=== PATIENT | male | born 1950 | race Caucasian/White ===

== ENCOUNTER 2017-05-15 17:04 | Observation (INO) | payer MEDICARE, SELFPAY | END 2017-05-17 14:15 | disposition home or self-care (01) | PROVIDERS: Admitting Provider Emergency Medicine; Emergency Provider Emergency Medicine; Family Provider Family Medicine; Visit Provider Family Medicine | DX: R50.9 Fever, unspecified (principal); E11.9 Type 2 diabetes mellitus without complications; R41.0 Disorientation, unspecified; Z91.81 History of falling; G40.909 Epilepsy, unspecified, not intractable, without status epilepticus; J18.9 Pneumonia, unspecified organism | CPT/HCPCS: G8978; G8979; G8980; 36415; 71010; 80048; 80053; 81001; 82550; 82553; 82962; 83605; 84484; 85025; 87040; 87275; 87276; 87486; 87581; 87633; 87798; 93005; 93041; 96365; 96366; 96375; 97162; 99285; G0378 ==

== ENCOUNTER 2017-06-12 01:16 | Emergency (ER) | payer MEDICARE, SELFPAY ==
--- NOTE | 2017-06-12 | CT_ITS ---
CT head/brain wo con HISTORY: Headache following injury, contusion, abrasion ITS.REASON: NECK PAIN ORDERING PHYSICIAN: Jovanny Stark MD PATIENT AGE: 67 years COMPARISON: 11/24/2016 TECHNIQUE: Axial images obtained without contrast. Brain and bone windows reviewed. FINDINGS: No midline shift, mass effect, intracranial hemorrhage, hydrocephalus, or extra-axial fluid collection is evident. There is generalized atrophy with periventricular ischemic gliotic change The calvarium has an unremarkable appearance. 1.5 cm rounded right frontal subcutaneous fatty lesion is once again noted. No mastoid effusion. No sinus air-fluid levels.. IMPRESSION: 1. No acute finding. 2. Atrophy with chronic ischemic change..
[2017-06-12 01:18] VITALS: BP 157/68; PULSE 77; RESP 14; TEMP 36.7; O2SAT 98; BMI 36.9
--- NOTE | 2017-06-12 01:32 | CT_ITS ---
CT lumbar spine wo con INDICATION: Low back pain following injury, blunt trauma, contusion or hematoma ITS.REASON: pain ORDERING PHYSICIAN: Jovanny Stark MD PATIENT AGE: 67 years COMPARISON: None TECHNIQUE: Axial images are obtained without contrast. Sagittal and coronal reformatted images are reviewed as well. EXAM is somewhat limited by technique and motion and patient body habitus FINDINGS: There is normal alignment. Postkyphoplasty changes are present at L1. Old transverse process fracture noted on the left at L2 and L3. Compression deformity noted at L4 vertebral body with mild retropulsion of the posterior superior aspect of L4 by approximately 6 mm. The fracture involves both anterior and posterior aspect of the vertebral body as well as right and left lateral aspect indicating a burst type fracture. Bulging disc is also present associated with this with broad-based central disc protrusion. L4-5: Mild degenerative disc disease.. There is irregularity of the right sacral aorta anteriorly. This however was present on the older abdomen CT of 09/28/2016 suggesting an old sacral fracture. Generalized osteopenia. Right nephrolithiasis. 9 mm stone in the lower pole the right kidney IMPRESSION: 1. Acute compression fracture involving the L4 vertebral body involving both anterior and posterior aspect of the vertebral bodies with 6 mm retropulsion of the posterior superior aspect of L4 indicating a burst type compression fracture. There is loss of height posteriorly and superiorly by approximately 20%. 2. Prior kyphoplasty at L1. 3. Right nephrolithiasis
--- NOTE | 2017-06-12 01:32 | CT_ITS ---
CT CERVICAL SPINE WITHOUT CONTRAST CT RECONSTRUCTIONS HISTORY:Neck pain following injury ORDERING PHYSICIAN: Jovanny Stark MD PATIENT AGE: 67 years PROCEDURE: Axial spiral CT scanning performed of the cervical spine beginning at the base of the skull and continuing to the upper T-spine. Sagittal and coronal reformatted images also generated. FINDINGS: There is normal alignment. No fracture or dislocation is evident. There is multilevel to chain disc disease. Mild degenerative disc disease C2-C3 C3-C4 and C4-C5. C5-6: Moderate degenerative disc disease with bulging disc osteophyte complex with narrowing of the canal and bilateral foraminal narrowing C6-C7: Mild degenerative disc disease with endplate osteophyte. Lung apices are clear. No prevertebral soft tissue swelling. IMPRESSION: 1. No acute fracture. 2. Cervical spondylosis worse at C5-C6 level
--- NOTE | 2017-06-12 02:08 | XR_ITS ---
XR hip RT 2-3V w/pelvis HISTORY: Posttraumatic pain ITS.REASON: FALL ORDERING PHYSICIAN: Jovanny Stark MD PATIENT AGE: 67 years COMPARISON: None FINDINGS: No fracture or dislocation is evident. No significant degenerative change. No lytic or blastic change. Unremarkable soft tissues IMPRESSION: Negative hip
--- NOTE | 2017-06-12 02:08 | XR_ITS ---
XR hip LT 2-3V w/pelvis HISTORY: Posttraumatic pain ITS.REASON: FALL ORDERING PHYSICIAN: Jovanny Stark MD PATIENT AGE: 67 years COMPARISON: None FINDINGS: No fracture or dislocation is evident. Minimal osteoarthritic change. Rounded calcific densities are present lateral to the hip within the soft tissues nonspecific consistent with areas fat necrosis. IMPRESSION: No acute fracture
--- NOTE | 2017-06-12 02:08 | HMH.EDFALL ---
ED Disposition Clinical Impression: Compression fracture Concussion without loss of consciousness Qualifiers: Encounter type: initial encounter Qualified Code(s): S06.0X0A - Concussion without loss of consciousness, initial encounter Contusion of hip, right Qualifiers: Encounter type: initial encounter Qualified Code(s): S70.01XA - Contusion of right hip, initial encounter Contusion of hip, left Qualifiers: Encounter type: initial encounter Qualified Code(s): S70.02XA - Contusion of left hip, initial encounter Disposition: Home, Self-Care Condition on Discharge: Good Additional Instructions: resume prev meds - Critical Care Critical Care Time: No Attestation: On 06/12/17, the high probability of a clinically significant, sudden or life threatening deterioration of the following system(s) required my full and direct attention, intervention and personal management. The time I documented below is in addition to time spent performing reported procedures but includes the following listed in this critical care notation. Medical Decision Making - Medical Records Medical records reviewed: Yes: I reviewed the patient's medical records. Vital Signs: 06/12/17 01:18 Temperature 98.1 F Temperature Source Oral Pulse Rate [Left Radial] 77 Respiratory Rate 14 Blood Pressure [Right Arm] 157/68 Blood Pressure Mean [Right Arm] 97 Blood Pressure Source [Right Arm] Automatic Cuff Blood Pressure Position [Right Arm] Supine 02 Sat by Pulse Oximetry 98 Oxygen Delivery Method Room Air - Lab Data Lab results reviewed: Yes: I reviewed the patient's lab results. Orders (Tests/Meds): ORDERS Category Date Time Status CT cervical spine wo con Stat Cat Scan 06/12/17 01:[address] head/brain wo con Routine Cat Scan 06/12/[address] lumbar spine wo con Stat Cat Scan 06/12/17 01:32 Taken Hip XR right minimum 2 views [XR hip RT 2-3V w/pelvis] Exams 06/12/17 02:08 Taken Stat XR hip BI w PEL1V Stat Exams 06/12/17 01:32 Stop Req XR hip LT 2-3V w/pelvis Stat Exams 06/12/17 02:08 Taken - Radiology Data #1 Image(s): Hip Image Reviewed: Yes I reviewed the patient's radiology image Preliminary Findings: No Fracture Seen - CT Data CT Scan: Head, C-Spine, L-Spine Time Received: 03:[address] Reviewed: Yes: I have viewed the radiologist's interpretation Findings Narrative: no acute fx changes L4 maybe new - Jonathon Inquiry Pt receiving controlled substance: No Fall HPI - General Chief Complaint: Fall Stated Complaint: pain after unwitnessed fall Time Seen by Provider: 06/12/17 02:08 Mode of Arrival: EMS Source of Information: Patient, Spouse, EMS, Medical Record Limitations: Physical Limitations Description of Symptoms (Recalled from ER Triage Doc. by RN): walking to bathroom and stumbled backward - History of Present Illness HPI Narrative: pt with fall at [facility] with injury to back and hips and head and neck - no loc and pt reports he fall back as door was hard to open - he uses walker complaint: fall Onset (ago): hour(s) Fall from: standing Fall witnessed: no Place fall occurred: [facility] Loss of consciousness: none Prolonged down time: no Context: tripped/slipped Location of injury: head, back Severity: moderate - Related Data Home Medications Medication Instructions Recorded Confirmed Acetaminophen [Tylenol] 650 mg PO Q6HP PRN 06/12/17 06/12/17 Apixaban [Eliquis] 1 tab PO BID 06/12/17 06/12/17 Aspirin 81mg EC Tab 1 tab PO DAILY 06/12/17 06/12/17 Atenolol [Atenolol 25mg Tab] 12.5 mg PO BID 06/12/17 06/12/17 Bacillus Coagulans [Digestive 1 tab PO DAILY 06/12/17 06/12/17 Advantage] Benzonatate [Benzonatate 100mg 100 mg PO TIDP PRN 06/12/17 06/12/17 cap] Brexpiprazole [Rexulti] 3 mg PO HS 06/12/17 06/12/17 Budesonide [Budesonide EC] 3 mg PO BID 06/12/17 06/12/17 Doxycycline Hyclate [Vibramycin] 1 tab PO BID 06/12/17 06/12/17 Dutasteride/Tamsulosin HCl
--- NOTE | 2017-06-12 02:48 | PC.NURSE ---
returns from imaging, at bedside
[2017-06-12 03:58] VITALS: BP 139/64; PULSE 73; RESP 16; TEMP 36.8; O2SAT 95
== END 2017-06-12 03:58 ==
PROVIDERS: Emergency Provider Emergency Medicine; Family Provider Family Medicine
DX: R52 Pain, unspecified (principal); W19.XXXA Unspecified fall, initial encounter; S32.049A Unspecified fracture of fourth lumbar vertebra, initial encounter for closed fracture; W01.0XXA Fall on same level from slipping, tripping and stumbling without subsequent striking against object, initial encounter; Z91.81 History of falling; Y92.129 Unspecified place in nursing home as the place of occurrence of the external cause; S06.0X0A Concussion without loss of consciousness, initial encounter; S70.02XA Contusion of left hip, initial encounter; Z79.899 Other long term (current) drug therapy; Z79.82 Long term (current) use of aspirin; E11.9 Type 2 diabetes mellitus without complications; Z79.4 Long term (current) use of insulin; Z87.891 Personal history of nicotine dependence
CPT/HCPCS: 70450; 72125; 72131; 73502; 99283

== ENCOUNTER 2017-06-12 04:30 | Emergency (ER) | payer MEDICARE, SELFPAY ==
[2017-06-12 04:32] VITALS: BP 156/68; PULSE 70; RESP 16; TEMP 37; O2SAT 93; BMI 36.9
--- NOTE | 2017-06-12 04:46 | PC.NURSE ---
Dr Stark at bedside suturing Patient
--- NOTE | 2017-06-12 04:48 | HMH.EDWNDL ---
ED Disposition Clinical Impression: Laceration Disposition: Home, Self-Care Condition on Discharge: Good Instructions: DI for Laceration Repair Additional Instructions: suture out 10 days - Critical Care Critical Care Time: No Attestation: On , the high probability of a clinically significant, sudden or life threatening deterioration of the following system(s) required my full and direct attention, intervention and personal management. The time I documented below is in addition to time spent performing reported procedures but includes the following listed in this critical care notation. Medical Decision Making - Medical Records Medical records reviewed: Yes: I reviewed the patient's medical records. Vital Signs: 06/12/17 04:32 Temperature 98.6 F Temperature Source Oral Pulse Rate [Left Radial] 70 Respiratory Rate 16 Blood Pressure [Right Arm] 156/68 Blood Pressure Mean [Right Arm] 97 Blood Pressure Source [Right Arm] Automatic Cuff Blood Pressure Position [Right Arm] Sitting 02 Sat by Pulse Oximetry 93 L Oxygen Delivery Method Room Air - Jonathon Inquiry Pt receiving controlled substance: No Wound/Laceration HPI - General Chief Complaint: Wound/Laceration Stated Complaint: ankle laceration Time Seen by Provider: 06/12/17 04:48 Mode of Arrival: Ambulatory Source of Information: Patient, EMS, Medical Record Limitations: No Limitations Description of Symptoms (Recalled from ER Triage Doc. by RN): left ankle 2 inch lac - History of Present Illness HPI narrative: lac lt foot as he was moved over to stretcher tonight Onset (ago): hour(s) Location: other Extremity Location: Left: foot Context: accidental - Related Data Home Medications Medication Instructions Recorded Confirmed Acetaminophen [Tylenol] 650 mg PO Q6HP PRN 06/12/17 06/12/17 Apixaban [Eliquis] 1 tab PO BID 06/12/17 06/12/17 Aspirin 81mg EC Tab 1 tab PO DAILY 06/12/17 06/12/17 Atenolol [Atenolol 25mg Tab] 12.5 mg PO BID 06/12/17 06/12/17 Bacillus Coagulans [Digestive 1 tab PO DAILY 06/12/17 06/12/17 Advantage] Benzonatate [Benzonatate 100mg 100 mg PO TIDP PRN 06/12/17 06/12/17 cap] Brexpiprazole [Rexulti] 3 mg PO HS 06/12/17 06/12/17 Budesonide [Budesonide EC] 3 mg PO BID 06/12/17 06/12/17 Doxycycline Hyclate [Vibramycin] 1 tab PO BID 06/12/17 06/12/17 Dutasteride/Tamsulosin HCl [Alicia 1 each PO DAILY 06/12/17 06/12/17 0.5-0.4 mg Capsule] Escitalopram Oxalate [Lexapro] 20 mg PO DAILY 06/12/17 06/12/17 Fluticasone Propionate [Flovent 50 mcg IH DAILY 06/12/17 06/12/17 Diskus] Furosemide [Furosemide 20mg Tab] 20 mg PO BID 06/12/17 06/12/17 Gabapentin [Neurontin 600mg 600 mg PO TID 06/12/17 06/12/17 tablet] Insulin Glargine,Hum.rec.anlog 50 unit SQ DAILY 06/12/17 06/12/17 [Ranjeet Landry] Liraglutide [Victoza 2-Rick] 1.2 mg SQ DAILY 06/12/17 06/12/17 Loperamide HCl [Loperamide] 4 mg PO TID 06/12/17 06/12/17 Memantine HCl [Namenda] 10 mg PO BID 06/12/17 06/12/17 Men 50 Plus Multivitamin Tab 1 tab PO DAILY 06/12/17 06/12/17 Miconazole Nitrate [Lotrimin AF] 90 gm TP TIDP PRN 06/12/17 06/12/17 Nystatin/Triamcin [Nystatin-Triamc 1 applic TOPICAL TIDP PRN 06/12/17 06/12/17 Crm 15gm] Oxybutynin Chloride [Oxybutynin 1 tab PO DAILY 06/12/17 06/12/17 Chloride ER] Pravastatin Sodium [Pravachol] 40 mg PO DAILY 06/12/17 06/12/17 Rivastigmine [Exelon] 1 each TD DAILY 06/12/17 06/12/17 Tramadol HCl [Ultram 50mg 50 mg PO Q6HP PRN 06/12/17 06/12/17 tablet] Vitamin B-6 1 tab PO DAILY 06/12/17 06/12/17 clonazePAM [Clonazepam] 0.25 mg PO DAILY 06/12/17 06/12/17 clonazePAM [Clonazepam] 0.5 mg PO HS 06/12/17 06/12/17 glipiZIDE [Glipizide] 10 mg PO BID 06/12/17 06/12/17 lamoTRIgine [Lamotrigine] 1 tab PO DAILY 06/12/17 06/12/17 Allergies Allergy/AdvReac Type Severity Reaction Status Date / Time erythromycin base Allergy Intermediate SWELLING/IT Verified 06/12/17 01:42 [ERYTHROMYCIN BASE] CLEMENTE/SEIZ
[2017-06-12 04:51] VITALS: BP 147/61; PULSE 72; RESP 16; TEMP 37; O2SAT 93
--- NOTE | 2017-06-12 04:51 | ED_ITS ---
ED Disposition Clinical Impression: Laceration Disposition: Home, Self-Care Condition on Discharge: Good Instructions: DI for Laceration Repair Additional Instructions: suture out 10 days - Critical Care Critical Care Time: No Attestation: On , the high probability of a clinically significant, sudden or life threatening deterioration of the following system(s) required my full and direct attention, intervention and personal management. The time I documented below is in addition to time spent performing reported procedures but includes the following listed in this critical care notation. Medical Decision Making - Medical Records Medical records reviewed: Yes: I reviewed the patient's medical records. Vital Signs: 06/12/17 04:32 Temperature 98.6 F Temperature Source Oral Pulse Rate [Left Radial] 70 Respiratory Rate 16 Blood Pressure [Right Arm] 156/68 Blood Pressure Mean [Right Arm] 97 Blood Pressure Source [Right Arm] Automatic Cuff Blood Pressure Position [Right Arm] Sitting 02 Sat by Pulse Oximetry 93 L Oxygen Delivery Method Room Air - Jonathon Inquiry Pt receiving controlled substance: No Wound/Laceration HPI - General Chief Complaint: Wound/Laceration Stated Complaint: ankle laceration Time Seen by Provider: 06/12/17 04:48 Mode of Arrival: Ambulatory Source of Information: Patient, EMS, Medical Record Limitations: No Limitations Description of Symptoms (Recalled from ER Triage Doc. by RN): left ankle 2 inch lac - History of Present Illness HPI narrative: lac lt foot as he was moved over to stretcher tonight Onset (ago): hour(s) Location: other Extremity Location: Left: foot Context: accidental - Related Data Home Medications Medication Instructions Recorded Confirmed Acetaminophen [Tylenol] 650 mg PO Q6HP PRN 06/12/17 06/12/17 Apixaban [Eliquis] 1 tab PO BID 06/12/17 06/12/17 Aspirin 81mg EC Tab 1 tab PO DAILY 06/12/17 06/12/17 Atenolol [Atenolol 25mg Tab] 12.5 mg PO BID 06/12/17 06/12/17 Bacillus Coagulans [Digestive 1 tab PO DAILY 06/12/17 06/12/17 Advantage] Benzonatate [Benzonatate 100mg 100 mg PO TIDP PRN 06/12/17 06/12/17 cap] Brexpiprazole [Rexulti] 3 mg PO HS 06/12/17 06/12/17 Budesonide [Budesonide EC] 3 mg PO BID 06/12/17 06/12/17 Doxycycline Hyclate [Vibramycin] 1 tab PO BID 06/12/17 06/12/17 Dutasteride/Tamsulosin HCl [Alicia 1 each PO DAILY 06/12/17 06/12/17 0.5-0.4 mg Capsule] Escitalopram Oxalate [Lexapro] 20 mg PO DAILY 06/12/17 06/12/17 Fluticasone Propionate [Flovent 50 mcg IH DAILY 06/12/17 06/12/17 Diskus] Furosemide [Furosemide 20mg Tab] 20 mg PO BID 06/12/17 06/12/17 Gabapentin [Neurontin 600mg 600 mg PO TID 06/12/17 06/12/17 tablet] Insulin Glargine,Hum.rec.anlog 50 unit SQ DAILY 06/12/17 06/12/17 [Ranjeet Landry] Liraglutide [Victoza 2-Rick] 1.2 mg SQ DAILY 06/12/17 06/12/17 Loperamide HCl [Loperamide] 4 mg PO TID 06/12/17 06/12/17 Memantine HCl [Namenda] 10 mg PO BID 06/12/17 06/12/17 Men 50 Plus Multivitamin Tab 1 tab PO DAILY 06/12/17 06/12/17 Miconazole Nitrate [Lotrimin AF] 90 gm TP TIDP PRN 06/12/17 06/12/17 Nystatin/Triamcin [Nystatin-Triamc 1 applic TOPICAL TIDP PRN 06/12/17 06/12/17 Crm 15gm] Oxybutynin Chloride [Oxybutynin 1 tab PO
== END 2017-06-12 05:02 | disposition home or self-care (01) ==
PROVIDERS: Emergency Provider Emergency Medicine; Family Provider Family Medicine
DX: S91.012A Laceration without foreign body, left ankle, initial encounter (principal); Y93.F9 Activity, other caregiving; Y92.9 Unspecified place or not applicable; E11.9 Type 2 diabetes mellitus without complications; Z87.891 Personal history of nicotine dependence; Z79.02 Long term (current) use of antithrombotics/antiplatelets; Z79.82 Long term (current) use of aspirin; Z79.4 Long term (current) use of insulin; Z79.51 Long term (current) use of inhaled steroids; Z79.899 Other long term (current) drug therapy
CPT/HCPCS: 12001; 70450; 72125; 72131; 73502; 99282; 99283

== ENCOUNTER 2017-06-17 13:44 | Observation (INO) | payer MEDICARE, SELFPAY ==
--- NOTE | 2017-06-17 | XR_ITS ---
XR shoulder RT min 2V COMPARISON: Right shoulder 11/22/2016 HISTORY: Right shoulder pain after a fall TECHNIQUE: 3 views right shoulder FINDINGS: The clavicle is intact. Is mild degenerative change of the AC joint. Humeral head and glenoid appear intact. There are no soft tissue calcifications. IMPRESSION: Right shoulder negative for fracture
[2017-06-17 13:17] VITALS: BP 148/69; PULSE 77; RESP 18; TEMP 36.7; O2SAT 95; BMI 36.9
[2017-06-17 13:20] VITALS: BMI 41.3
--- NOTE | 2017-06-17 13:23 | CT_ITS ---
CT cervical spine wo con COMPARISON: CT scan cervical spine 06/12/2017 HISTORY: Patient fell at [facility], complaining of neck pain TECHNIQUE: Multiple axial scans of cervical spine were obtained. Sagittal and coronal reformats were evaluated as well. FINDINGS: C1-C7 appear intact. There is mild tilting of the cervical spine to the right. All cervical vertebrae appear intact. There is prominent disc space narrowing at the C5-6 and C6-7 levels. There is generalized osteopenia. There is no compression fracture. The prevertebral soft tissues are normal and the odontoid is normal. There is apparent old incompletely fused fracture of the spinous process of C7. IMPRESSION: Generalized osteopenia degenerative changes as noted, no acute cervical spine fracture seen
--- NOTE | 2017-06-17 13:23 | CT_ITS ---
CT head/brain wo con COMPARISON: Noncontrast CT scan of brain 06/12/2017 HISTORY: Patient fell at [facility], complaining of headache TECHNIQUE: Multiple axial scans obtained from base skull to the vertex and were performed without IV contrast. FINDINGS: The base of skull normal, the mastoids are clear. The basilar cisterns are markedly prominent. There is prominent diffuse ventriculomegaly. The sylvian fissures and cortical sulci are prominent. There are mild diffuse periventricular hypodensities consistent with chronic ischemic white matter changes. There is no bleed and there are no extra-axial fluid collections. Bony calvarium appears intact. There is mild focal swelling of the scalp right posterior parietal region. IMPRESSION: Findings of prominent cortical atrophy and mild chronic white matter changes, no acute intracranial pathology noted, scalp hematoma as noted
--- NOTE | 2017-06-17 13:24 | XR_ITS ---
XR chest AP COMPARISON: AP supine chest 09/27/2016 HISTORY: Chest pain after recent fall TECHNIQUE: AP upright chest FINDINGS: The lung gaston are well expanded. Again noted is minimal atelectasis or scarring at the right base. There are multiple old healed rib fractures left side. There is mild aortic tortuosity no cardiomegaly. IMPRESSION: Nonacute chest findings
--- NOTE | 2017-06-17 13:24 | XR_ITS ---
XR hip RT 2-3V w/pelvis COMPARISON: Right hip 06/12/2017 HISTORY: Right hip pain after a fall TECHNIQUE: AP pelvis cone-down AP and frog-leg views right hip FINDINGS: The iliac bones and pubic bones appear intact. Both hips are normally articulated with no evidence of fracture. There is minor spurring of the acetabulum right side. Soft tissues are normal. IMPRESSION: Grossly negative pelvis and right hip
--- NOTE | 2017-06-17 14:24 | HMH.EDFALL ---
ED Disposition Clinical Impression: Hypoglycemia, Hypokalemia, Fall, Scalp contusion Disposition: Still a Patient Condition on Discharge: [facility] - Critical Care Critical Care Time: No Attestation: On 06/17/17, the high probability of a clinically significant, sudden or life threatening deterioration of the following system(s) required my full and direct attention, intervention and personal management. The time I documented below is in addition to time spent performing reported procedures but includes the following listed in this critical care notation. Medical Decision Making Vital Signs: 06/17/17 13:17 06/17/17 14:47 Temperature 98.0 F Temperature Source Oral Pulse Rate [Right Radial] 77 75 Respiratory Rate 18 22 Blood Pressure [Right Arm] 148/69 141/54 Blood Pressure Mean [Right Arm] 95 83 Blood Pressure Source [Right Arm] Automatic Cuff Automatic Cuff Blood Pressure Position [Right Arm] Supine Supine 02 Sat by Pulse Oximetry 95 93 L Oxygen Delivery Method Room Air Room Air - Lab Data Lab Results 06/17/17 14:40: WBC 10.4, RBC 4.58 L, Hgb 11.8 L, Hct 38.0 L, MCV 83.0, MCH 25.9 L, MCHC 31.2 L, RDW 15.7, Plt Count 249, MPV 7.0 L, Neut % (Auto) 71.7, Lymph % (Auto) 18.5, Traill % (Auto) 6.9, Eos % (Auto) 2.2, Baso % (Auto) 0.6, Neut # (Auto) 7.4, Lymph # (Auto) 1.9, Traill # (Auto) 0.7, Eos # (Auto) 0.2, Baso # (Auto) 0.1 06/17/17 14:40: Sodium 143, Potassium 2.9 L*, Chloride 104, Carbon Dioxide 33 H, Anion Gap 8.9, BUN 16, Creatinine 1.09, Estimated Creat Clear 71, Estimated GFR 67, Est GFR ( Amer) 81, Glucose 48 L, Calcium 8.4 L, Total Bilirubin 0.4, AST 56 H, ALT 38, Alkaline Phosphatase 166 H, Total Creatine Kinase 507 H*, CK-MB (CK-2) 5.9 H, CK-MB (CK-2) Rel Index 1.2, Troponin I < 0.02, Total Protein 6.3 L, Albumin 2.5 L, Globulin 3.8 H, Albumin/Globulin Ratio 0.7 L Result diagrams: 06/17/17 14:40 06/17/17 14:40 Orders (Tests/Meds): ED MEDICATIONS Discontinued Medications Generic Name Dose Route Start Last Admin Trade Name Jeremías PRN Reason Stop Dose Admin Dextrose 50 ml 06/17/17 15:28 06/17/17 15:31 Dextrose 50% 50ml Syringe IVP 06/17/17 15:29 50 ml ONCE ONE Administration Potassium Chloride 40 meq 06/17/17 15:28 06/17/17 15:47 Klor-Con 20meq Tablet PO 06/17/17 15:29 40 meq ONCE ONE Administration ORDERS Category Date Time Status Chest XR AP view [XR chest AP] Stat Exams 06/17/17 13:24 Taken XR hip RT 2-3V w/pelvis Stat Exams 06/17/17 13:24 Taken XR shoulder RT min 2V Routine Exams 06/17/17 Taken Urinalysis and Microscopic Stat Lab 06/17/17 14:26 Ordered - Radiology Data #1 Image(s): Chest, Shoulder, Hip Image Reviewed: Yes I reviewed the patient's radiology results Preliminary Findings: Normal/NAD - CT Data CT Scan: Head, C-Spine Time Received: 14:[address] Reviewed: Yes: I discussed the CT results w/the radiologist Findings Narrative: CT scan interpreted by radiologist: Head, no acute process. Cervical spine: Old, poorly healed C7 spinous process fracture. No acute fracture. Degenerative changes. - ECG Data Tracing #1 EKG interpreted by Forrest Cotton MD: Rhythm: Regular, narrow complex rhythm, much artifact, but likely sinus rhythm with first-degree AV block Rate: 80 [place]: Left Ectopy: none Conduction: Likely first-degree AV block, incomplete right bundle branch block ST Segment Changes: none T Wave Changes: none Q Waves: Inferior No evidence of acute ischemia or injury Prior electrocardiagrams reviewed. No change from prior tracings. - Jonathon Inquiry Pt receiving controlled substance: No Medical Decision Making Narrative: 3:35 PM: I have discussed the case with Dr. Coon who agrees to admit the patient to the hospital. We discussed the patient's clinical information, including history, exam, laboratory and radiology results and ED course. Per hospital procedure, I will write temporary bridge inpatient ord
--- NOTE | 2017-06-17 14:27 | ED_ITS ---
ED Disposition Clinical Impression: Hypoglycemia, Hypokalemia, Fall, Scalp contusion Disposition: Still a Patient Condition on Discharge: [facility] - Critical Care Critical Care Time: No Attestation: On 06/17/17, the high probability of a clinically significant, sudden or life threatening deterioration of the following system(s) required my full and direct attention, intervention and personal management. The time I documented below is in addition to time spent performing reported procedures but includes the following listed in this critical care notation. Medical Decision Making Vital Signs: 06/17/17 13:17 06/17/17 14:47 Temperature 98.0 F Temperature Source Oral Pulse Rate [Right Radial] 77 75 Respiratory Rate 18 22 Blood Pressure [Right Arm] 148/69 141/54 Blood Pressure Mean [Right Arm] 95 83 Blood Pressure Source [Right Arm] Automatic Cuff Automatic Cuff Blood Pressure Position [Right Arm] Supine Supine 02 Sat by Pulse Oximetry 95 93 L Oxygen Delivery Method Room Air Room Air - Lab Data Lab Results 06/17/17 14:40: WBC 10.4, RBC 4.58 L, Hgb 11.8 L, Hct 38.0 L, MCV 83.0, MCH 25.9 L, MCHC 31.2 L, RDW 15.7, Plt Count 249, MPV 7.0 L, Neut % (Auto) 71.7, Lymph % (Auto) 18.5, Trigg % (Auto) 6.9, Eos % (Auto) 2.2, Baso % (Auto) 0.6, Neut # (Auto) 7.4, Lymph # (Auto) 1.9, Trigg # (Auto) 0.7, Eos # (Auto) 0.2, Baso # (Auto) 0.1 06/17/17 14:40: Sodium 143, Potassium 2.9 L*, Chloride 104, Carbon Dioxide 33 H , Anion Gap 8.9, BUN 16, Creatinine 1.09, Estimated Creat Clear 71, Estimated GFR 67, Est GFR ( Amer) 81, Glucose 48 L, Calcium 8.4 L, Total Bilirubin 0.4, AST 56 H, ALT 38, Alkaline Phosphatase 166 H, Total Creatine Kinase 507 H* , CK-MB (CK-2) 5.9 H, CK-MB (CK-2) Rel Index 1.2, Troponin I < 0.02, Total Protein 6.3 L, Albumin 2.5 L, Globulin 3.8 H, Albumin/Globulin Ratio 0.7 L Result diagrams: 06/17/17 14:40 06/17/17 14:40 Orders (Tests/Meds): ED MEDICATIONS Discontinued Medications Generic Name Dose Route Start Last Admin Trade Name Jeremías PRN Reason Stop Dose Admin Dextrose 50 ml 06/17/17 15:28 06/17/17 15:31 Dextrose 50% 50ml Syringe IVP 06/17/17 15:29 50 ml ONCE ONE Administration Potassium Chloride 40 meq 06/17/17 15:28 06/17/17 15:47 Klor-Con 20meq Tablet PO 06/17/17 15:29 40 meq ONCE ONE Administration ORDERS Category Date Time Status Chest XR AP view [XR chest AP] Stat Exams 06/17/17 13:24 Taken XR hip RT 2-3V w/pelvis Stat Exams 06/17/17 13:24 Taken XR shoulder RT min 2V Routine Exams 06/17/17 Taken Urinalysis and Microscopic Stat Lab 06/17/17 14:26 Ordered - Radiology Data #1 Image(s): Chest, Shoulder, Hip Image Reviewed: Yes I reviewed the patient's radiology results Preliminary Findings: Normal/NAD - CT Data CT Scan: Head, C-Spine Time Received: 14:[address] Reviewed: Yes: I discussed the CT results w/the radiologist Findings Narrative: CT scan interpreted by radiologist: Head, no acute process. Cervical spine: Old, poorly healed C7 spinous process fracture. No acute fracture. Degenerative changes. - ECG Data Tracing #1 EKG interpreted by Forrest Cotton MD: Rhythm: Regular, narrow complex rhythm, much artifact, but likely sinus rhythm with first-degree AV block Rate: 80 [place]: Left Ecto
[2017-06-17 14:47] VITALS: BP 141/54; PULSE 75; RESP 22; O2SAT 93
[2017-06-17 14:52] LABS: Basophils # 0.1 K/mm3 (0-0.2); Basophils % 0.6 % (0.1-2.0); Eosinophils # 0.2 K/mm3 (0.0-0.4); Eosinophils % 2.2 % (0.1-12.0); Hemoglobin 11.8 g/dL (14.1-18.0); Lymphocytes # 1.9 K/mm3 (0.7-4.5); Lymphocytes % 18.5 K/mm3 (10-50); Mean Corpuscular HGB Conc 31.2 g/dL (31.8-35.4); Mean Corpuscular Hemoglobin 25.9 pg (27.0-31.2); Monocytes # 0.7 K/mm3 (0.1-1.0); Monocytes % 6.9 % (1.7-9.3); Neutrophils # 7.4 K/mm3 (1.8-7.8); Neutrophils % 71.7 % (37.0-80.0); Platelet Count 249 K/mm3 (142-424); Red Blood Count 4.58 M/mm3 (4.60-6.20); Red Cell Distribution Width 15.7 % (11.5-17.5); White Blood Count 10.4 K/mm3 (4.8-10.8)
[2017-06-17 15:21] LABS: Alanine Aminotransferase 38 U/L (12-78); Albumin Level 2.5 gm/dL (3.4-5.0); Albumin/Globulin Ratio 0.7 (1.1-1.8); Alkaline Phosphatase 166 U/L (46-116); Anion Gap 8.9 mEq/L (5-15); Aspartate Amino Transferase 56 U/L (15-37); Bilirubin,Total 0.4 mg/dL (0.2-1.0); Blood Urea Nitrogen 16 mg/dL (7-18); CKMB Relative Index 1.2 U/L (0-4.0); Calcium 8.4 mg/dL (8.5-10.1); Carbon Dioxide 33 mmol/L (21.0-32.0); Chloride 104 mmol/L (98-107); Creatine Kinase 507 U/L (39-308); Creatine Kinase MB 5.9 mg/ml (0.0-3.6); Creatinine Clearance Estimated 71 mL/min (0-300); Creatinine,Serum 1.09 mg/dL (0.70-1.30); Estimated Glomerular Filt Rate 67 ml/min (>60); GFR (African American) 81 ML/MIN (>60); Globulin 3.8 gm/dl (1.3-3.2); Sodium 143 mmol/L (136-145); Total Protein,Serum 6.3 gm/dL (6.4-8.2); Troponin I < 0.02 ng/ml (0.00-0.06)
[2017-06-17 15:23] LABS: Potassium 2.9 mmoL/L (3.5-5.1)
[2017-06-17 15:24] LABS: Glucose 48 mg/dL (74-106)
[2017-06-17 16:31] LABS: POC Glucose,Bedside 129 mg/dL
[2017-06-17 16:55] VITALS: BP 126/70; PULSE 72; RESP 18; O2SAT 96
[2017-06-17 17:00] VITALS: BMI 34.8
[2017-06-17 17:02] VITALS: BP 136/66; PULSE 70; RESP 20; TEMP 36.7; O2SAT 94
[2017-06-17 18:14] LABS: Microscopic, Urine URINE MICROSCOPIC (MICROSCOPIC)
[2017-06-17 18:19] LABS: Appearance,Urine SL CLOUDY (Clear); Bilirubin,Urine Negative (Negative); Blood, Urine TRACE-I (Negative); Color,Urine YELLOW (Yellow); Glucose,Urine (UA) Negative (Negative); Ketones,Urine Negative (Negative); Leukocyte Esterase,Urine Negative (Negative); Nitrate,Urine Negative (Negative); Protein,Urine Negative (Negative); Urobilinogen,Urine 0.2 EU/dl (0.2)
[2017-06-17 18:31] LABS: Bacteria,Urine 3+ /lpf; Calcium Oxalate Crystals,Urine 1+ /lpf; RBC,Urine Occasional #/hpf (0-3)
[2017-06-17 20:51] VITALS: BP 149/59; PULSE 72; RESP 18; TEMP 36.1; O2SAT 95
[2017-06-17 21:09] LABS: POC Glucose,Bedside 123 mg/dL
[2017-06-18 06:38] LABS: Anion Gap 8.4 mEq/L (5-15); Blood Urea Nitrogen 12 mg/dL (7-18); Carbon Dioxide 32 mmol/L (21.0-32.0); Chloride 105 mmol/L (98-107); Creatinine Clearance Estimated 123 mL/min (0-300); Creatinine,Serum 0.89 mg/dL (0.70-1.30); Estimated Glomerular Filt Rate 85 ml/min (>60); GFR (African American) 103 ML/MIN (>60); Potassium 3.4 mmoL/L (3.5-5.1); Sodium 142 mmol/L (136-145)
[2017-06-18 06:40] LABS: Glucose 85 mg/dL (74-106)
--- NOTE | 2017-06-18 06:54 | HMH.HP ---
*Admission Date: 06/17/17 *Chief complaint: I am weak as a kitten *History of present illness: 67-year-old male with history of frontotemporal dementia, diabetes mellitus, multiple DVTs presented to the ER after a fall at home. Patient had just finished eating lunch when he became unbalanced while walking to the bathroom and fell. Patient has history of multiple falls at home. EMS was contacted and patient was brought to the emergency department. Workup in the emergency department discovered a small scalp contusion as well as hypoglycemia and hypokalemia. Patient takes a long-acting insulin daily as well as a diuretic (furosemide). Overnight patient required 2 nurses to assist him with ambulating or transferring to the [facility] History Medical History: Reports:: Deep Vein Thrombosis, Dementia (Frontotemporal), Diabetes Mellitus Type 2, Hyperlipidemia, Hypertension, Myocardial Infarction Denies:: Cancer, Diabetes Mellitus Type 1, MRSA 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, Sturge-Matt syndrome Other Surgeries: Yes: Colonoscopy, EGD, Hernia Repair Amputation: No Fractures: Yes (l4 compression) - *Social History Educational Level: Completed College Smoking Status: Former smoker Tobacco Type: cigarettes # Packs/Day (cigarettes): 2 #Yrs smoked (if former smoker): 52 Smoking End Date: 2012 Alcohol Intake: never Occupational Status: retired, disabled Housing: house Household Members: spouse - Psychiatric History Expresses thoughts of harming self/others: None Suicide Plan Description: No Plan Pschychiatric History:: Reports:: Anxiety, Psychiatric Treatment *Family Hx:: Diabetes, Heart Attack, Hyperlipidemia, Hypertension, Stroke Review of Systems - Review of Systems Review of systems:: pertinent systems reviewed and negative unless documented below - Constitutional Reports weakness - *Cardiovascular Denies chest pain - *Respiratory Reports cough, Denies chest congestion, Denies shortness of breath - *Neurologic Reports abnormal walking, Reports localized weakness, Reports frequent falls, Reports weakness - Psychiatric Reports anxiety, Reports memory loss Meds Home Medications Medication Instructions Recorded Confirmed Type Acetaminophen [Tylenol] 650 mg PO Q6HP PRN 06/12/17 06/17/17 History Apixaban [Eliquis] 2.5 mg PO BID 06/12/17 06/17/17 History Aspirin [Aspirin 81mg EC Tab] 81 mg PO DAILY 06/12/17 06/17/17 History Atenolol [Atenolol 25mg Tab] 12.5 mg PO BID 06/12/17 06/17/17 History Bacillus Coagulans [Digestive 1 tab PO DAILY 06/12/17 06/17/17 History Advantage] Benzonatate [Benzonatate 100mg 100 mg PO TIDP PRN 06/12/17 06/17/17 History cap] Brexpiprazole [Rexulti] 3 mg PO HS 06/12/17 06/17/17 History Budesonide [Budesonide EC] 3 mg PO BID 06/12/17 06/17/17 History Dutasteride/Tamsulosin HCl [Alicia 1 tab PO DAILY 06/12/17 06/17/17 History 0.5-0.4 mg Capsule] Escitalopram Oxalate [Lexapro] 20 mg PO DAILY 06/12/17 06/17/17 History Fluticasone Propionate [Flovent 50 mcg IH DAILY 06/12/17 06/17/17 History Diskus] Furosemide [Furosemide 20mg Tab] 20 mg PO BID 06/12/17 06/17/17 History Gabapentin [Neurontin 600mg 600 mg PO TID 06/12/17 06/17/17 History tablet] Liraglutide [Victoza 2-Rick] 1.2 mg SQ DAILY 06/12/17 06/17/17 History Loperamide HCl [Loperamide] 4 mg PO TID 06/12/17 06/17/17 History Memantine HCl [Namenda] 10 mg PO BID 06/12/17 06/17/17 History Miconazole Nitrate [Lotrimin AF] 90 gm TP NEEDED PRN 06/12/17 06/17/17 History Multivit-Min/FA/Lycopen/Lutein 1 each PO DAILY 06/12/17 06/17/17 History [Men 50 Plus Multivitamin Tab] Nystatin/Triamcin [Nystatin-Triamc 1 applic TOPICAL NEEDED PRN 06/12/17 06/17/17 History Crm 15gm] Oxybutynin Chloride [Oxybutynin 10 mg PO DAILY 06/12/17 06/17/17 History Chloride ER] Pravastatin Sodium [Pravachol] 40 mg PO DAILY 06/12/17 06/17/17 History Pyridoxine HCl (Vitamin B6) 100 mg PO DAILY 06/12/17 06/17/17 History [Vitamin B-6]
--- NOTE | 2017-06-18 06:58 | P.HP_ITS ---
*Admission Date: 06/17/17 *Chief complaint: I am weak as a kitten *History of present illness: 67-year-old male with history of frontotemporal dementia, diabetes mellitus, multiple DVTs presented to the ER after a fall at home. Patient had just finished eating lunch when he became unbalanced while walking to the bathroom and fell. Patient has history of multiple falls at home. EMS was contacted and patient was brought to the emergency department. Workup in the emergency department discovered a small scalp contusion as well as hypoglycemia and hypokalemia. Patient takes a long-acting insulin daily as well as a diuretic ( furosemide). Overnight patient required 2 nurses to assist him with ambulating [facility] History Medical History: Reports:: Deep Vein Thrombosis, Dementia (Frontotemporal), Diabetes Mellitus Type 2, Hyperlipidemia, Hypertension, Myocardial Infarction Denies:: Cancer, Diabetes Mellitus Type 1, MRSA 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, Sturge-Matt syndrome Other Surgeries: Yes: Colonoscopy, EGD, Hernia Repair Amputation: No Fractures: Yes (l4 compression) - *Social History Educational Level: Completed College Smoking Status: Former smoker Tobacco Type: cigarettes # Packs/Day (cigarettes): 2 #Yrs smoked (if former smoker): 52 Smoking End Date: 2012 Alcohol Intake: never Occupational Status: retired, disabled Housing: house Household Members: spouse - Psychiatric History Expresses thoughts of harming self/others: None Suicide Plan Description: No Plan Pschychiatric History:: Reports:: Anxiety, Psychiatric Treatment *Family Hx:: Diabetes, Heart Attack, Hyperlipidemia, Hypertension, Stroke Review of Systems - Review of Systems Review of systems:: pertinent systems reviewed and negative unless documented below - Constitutional Reports weakness - *Cardiovascular Denies chest pain - *Respiratory Reports cough, Denies chest congestion, Denies shortness of breath - *Neurologic Reports abnormal walking, Reports localized weakness, Reports frequent falls, Reports weakness - Psychiatric Reports anxiety, Reports memory loss Meds Home Medications Medication Instructions Recorded Confirmed Type Acetaminophen [Tylenol] 650 mg PO Q6HP PRN 06/12/17 06/17/17 History Apixaban [Eliquis] 2.5 mg PO BID 06/12/17 06/17/17 History Aspirin [Aspirin 81mg EC Tab] 81 mg PO DAILY 06/12/17 06/17/17 History Atenolol [Atenolol 25mg Tab] 12.5 mg PO BID 06/12/17 06/17/17 History Bacillus Coagulans [Digestive 1 tab PO DAILY 06/12/17 06/17/17 History Advantage] Benzonatate [Benzonatate 100mg 100 mg PO TIDP PRN 06/12/17 06/17/17 History cap] Brexpiprazole [Rexulti] 3 mg PO HS 06/12/17 06/17/17 History Budesonide [Budesonide EC] 3 mg PO BID 06/12/17 06/17/17 History Dutasteride/Tamsulosin HCl [Alicia 1 tab PO DAILY 06/12/17 06/17/17 History 0.5-0.4 mg Capsule] Escitalopram Oxalate [Lexapro] 20 mg PO DAILY 06/12/17 06/17/17 History Fluticasone Propionate [Flovent 50 mcg IH DAILY 06/12/17 06/17/17 History Diskus] Furosemide [Furosemide 20mg Tab] 20 mg PO BID 06/12/17 06/17/17 History Gabapentin [Neurontin 600mg 600 mg PO TID 06/12/17 06/17/17 History tablet] Liraglutide [Victoza 2-Rick] 1.2 mg SQ DAILY 06/12/17 06/17/17 History Loperamide HCl [Loperamide] 4 mg PO TID 06/12/17 06/17/17 History Memantine HCl [Namenda] 10 mg PO BID 06/12/17 06/17/17 History Miconazole Nitrate [Lotrimin AF] 90 gm TP
[2017-06-18 07:06] LABS: POC Glucose,Bedside 85 mg/dL
[2017-06-18 07:48] LABS: Hemoglobin A1C 6.6 % (0.0-7.0)
[2017-06-18 07:52] VITALS: BP 148/68; PULSE 71; RESP 20; TEMP 36.9; O2SAT 94
--- NOTE | 2017-06-18 13:35 | PC.NURSE ---
PT IS SITTING UP IN THE CHAIR. HAS WENT TO THE [facility] SEVERAL TIMES THIS SHIFT, PT REQUEST TO HAVE HIS IMMODIUM BEFORE ALL MEALS. PT HAS BEEN GETTING OOB WITH 2 ASSIST AND THE ROLLING WALKER. ALERT AND ORIENTED X3. LUNG SOUNDS CLEAR, BOWEL SOUNDS NORMAL, WILL CONTINUE TO MONITOR.
[2017-06-18 15:40] VITALS: BP 149/55; PULSE 71; RESP 20; TEMP 36.4; O2SAT 98
--- NOTE | 2017-06-18 16:35 | HMH.PHAVTE ---
[facility] Pharmacy VTE Monitoring - Patient Demographics Admission date: 06/17/17 Report Date: 06/18/17 Time: 16:35 Allergies/Adverse Reactions: erythromycin base [ERYTHROMYCIN BASE] Allergy (Intermediate, Verified 06/12/17 01:42) SWELLING/ITCHING/SEIZURES iodine [IODINE] Allergy (Unknown, Verified 06/12/17 01:42) Height: 1.88 m Weight: 123.037 kg Patient Problems: Current Active Problems Hypoglycemia (Acute) Hypokalemia (Acute) Fall (Acute) Scalp contusion (Acute) Compression fracture of L4 lumbar vertebra (Acute) Diabetes mellitus type 2 in obese (Acute) History of NM (myocardial infarction) (Acute) History of DVT in adulthood (Acute) COPD (chronic obstructive pulmonary disease) (Acute) Frontotemporal dementia (Acute) Seizure disorder (Acute) Anxiety disorder (Acute) - VTE Risk Labs: VTE Related Lab Results Hgb 11.8 g/dL (14.1-18.0) L 06/17/17 14:40 Hct 38.0 % (42.0-52.0) L 06/17/17 14:40 Plt Count 249 K/mm3 (142-424) 06/17/17 14:40 BUN 12 mg/dL (7-18) 06/18/17 06:10 Creatinine 0.89 mg/dL (0.70-1.30) 06/18/17 06:10 Estimated Creat Clear 123 mL/min (0-300) 06/18/17 06:10 Was VTE Risk Assessment Performed: Yes VTE Score: 3 VTE Risk Level: Low Risk - Prophylaxis VTE Prophylaxis Ordered?: Yes Pharmacologic Type: Other (ELIQUIS)
[2017-06-18 20:00] VITALS: BP 139/61; PULSE 65; RESP 20; TEMP 36.4; O2SAT 96
[2017-06-18 20:48] LABS: POC Glucose,Bedside 150 mg/dL
[2017-06-18 21:00] VITALS: O2SAT 96
--- NOTE | 2017-06-19 04:12 | PC.NURSE ---
PATIENT HAS SLEPT WELL MOST OF SHIFT. HE HAS HAD NO C/O PAIN, BUT SOME DISCOMFORT TO HEMATOMA ON BACK OF HEAD. NO ACUTE CHANGES SO FAR THIS SHIFT. VSS. NO OTHER PROBLEMS NOTED AT THIS TIME. PATIENT CURRENTLY IN BED ASLEEP. WILL CONTINUE TO MONITOR. SAFETY MEASURES IN PLACE, CALL LIGHT IN REACH.
[2017-06-19 06:24] LABS: POC Glucose,Bedside 99 mg/dL
--- NOTE | 2017-06-19 07:12 | HMH.ACPN ---
Internal Medicine - PN: Subj *Date: 06/19/17 *Time: 07:12 Interval history: Patient's only complaint this morning is that he continues to feel weak. I reviewed nursing notes. He required the assistance of 2 persons to be able to get out of bed or out of a chair and ambulate to the bedside commode. He denies any lower back pain from his compression fracture. His only complaint of pain is in his scalp. Exam Vital signs and Labs for Last 24 Hours: Temp Pulse Resp BP Pulse Ox 97.6 F 65 20 139/61 96 06/18/17 20:00 06/18/17 20:00 06/18/17 20:00 06/18/17 20:00 06/18/17 21:00 Laboratory Results - last 24 hr 06/17/17 18:02: Urine Color Yellow, Urine Appearance Sl cloudy, Urine pH 7.0, Ur Specific [place] 1.010, Urine Protein Negative, Urine Glucose (UA) Negative, Urine Ketones Negative, Urine Blood Trace-i, Urine Nitrate Negative, Urine Bilirubin Negative, Urine Urobilinogen 0.2, Ur Leukocyte Esterase Negative, Urine RBC Occasional, Urine WBC 5-10, Ur Squamous Epith Cells 3-5, Calcium Oxalate Crystal 1+, Urine Bacteria 3+ 06/18/17 06:00: Hemoglobin A1c 6.6 06/18/17 19:56: POC Glucose 150 06/19/17 06:15: POC Glucose 99 I & O for Last 24 hours: Intake & Output 06/16/17 06/17/17 06/18/17 06/19/17 11:59 11:59 11:59 11:59 Intake Total 520 / 520 1600 / 1600 Output Total 450 / 450 400 / 400 Balance 70 / 70 1200 / 1200 Weight 271 lb 4 oz 271 lb 4 oz Microbiology Reports for the Last 24 Hours: Microbiology 06/17/17 18:02 Urine,Clean Catch Urine Culture - Preliminary Gram Negative Rods Narrative: He looks well. ENT exam is unremarkable. Neck without lymphadenopathy. Lungs are clear. Heart has a regular rate and rhythm. Assessment and Plan (1) Hypoglycemia Current visit: Yes Status: Acute Category: Medical Code(s): E16.2 - Hypoglycemia, unspecified (2) Hypokalemia Current visit: Yes Status: Acute Category: Medical Code(s): E87.6 - Hypokalemia (3) Fall Current visit: Yes Status: Acute Category: Medical Code(s): W19.XXXA - Unspecified fall, initial encounter (4) Compression fracture of L4 lumbar vertebra Current visit: Yes Status: Acute Category: Medical Code(s): S32.040A - Wedge compression fracture of fourth lumbar vertebra, initial encounter for closed fracture (5) Scalp contusion Current visit: Yes Status: Acute Category: Medical Code(s): S00.03XA - Contusion of scalp, initial encounter (6) Diabetes mellitus type 2 in obese Current visit: Yes Status: Acute Category: Medical Code(s): E11.69 - Type 2 diabetes mellitus with other specified complication; E66.9 - Obesity, unspecified (7) History of SC (myocardial infarction) Current visit: Yes Status: Acute Category: Medical Code(s): I25.2 - Old myocardial infarction (8) History of DVT in adulthood Current visit: Yes Status: Acute Category: Medical Code(s): Z86.718 - Personal history of other venous thrombosis and embolism (9) COPD (chronic obstructive pulmonary disease) Current visit: Yes Status: Acute Category: Medical Code(s): J44.9 - Chronic obstructive pulmonary disease, unspecified (10) Frontotemporal dementia Current visit: Yes Status: Acute Category: Medical Code(s): G31.09 - Other frontotemporal dementia; F02.80 - Dementia in other diseases classified elsewhere without behavioral disturbance (11) Seizure disorder Current visit: Yes Status: Acute Category: Medical Code(s): G40.909 - Epilepsy, unspecified, not intractable, without status epilepticus (12) Anxiety disorder Current visit: Yes Status: Acute Category: Medical Code(s): F41.9 - Anxiety disorder, unspecified (13) Generalized weakness Current visit: Yes Status: Acute Category: Medical Code(s): R53.1 - Weakness - Assessment and plan all Dx Assessment and Plan for all problems:: Etiology of patient's weakness remai
--- NOTE | 2017-06-19 07:15 | P.PN_ITS ---
Internal Medicine - PN: Subj *Date: 06/19/17 *Time: 07:12 Interval history: Patient's only complaint this morning is that he continues to feel weak. I reviewed nursing notes. He required the assistance of 2 persons to be able to get out of bed or out of a chair and ambulate to the bedside commode. He denies any lower back pain from his compression fracture. His only complaint of pain is in his scalp. Exam Vital signs and Labs for Last 24 Hours: Temp Pulse Resp BP Pulse Ox 97.6 F 65 20 139/61 96 06/18/17 20:00 06/18/17 20:00 06/18/17 20:00 06/18/17 20:00 06/18/17 21:00 Laboratory Results - last 24 hr 06/17/17 18:02: Urine Color Yellow, Urine Appearance Sl cloudy, Urine pH 7.0, Ur Specific [place] 1.010, Urine Protein Negative, Urine Glucose (UA) Negative, Urine Ketones Negative, Urine Blood Trace-i, Urine Nitrate Negative, Urine Bilirubin Negative, Urine Urobilinogen 0.2, Ur Leukocyte Esterase Negative, Urine RBC Occasional, Urine WBC 5-10, Ur Squamous Epith Cells 3-5, Calcium Oxalate Crystal 1+, Urine Bacteria 3+ 06/18/17 06:00: Hemoglobin A1c 6.6 06/18/17 19:56: POC Glucose 150 06/19/17 06:15: POC Glucose 99 I & O for Last 24 hours: Intake & Output 06/16/17 06/17/17 06/18/17 06/19/17 11:59 11:59 11:59 11:59 Intake Total 520 / 520 1600 / 1600 Output Total 450 / 450 400 / 400 Balance 70 / 70 1200 / 1200 Weight 271 lb 4 oz 271 lb 4 oz Microbiology Reports for the Last 24 Hours: Microbiology 06/17/17 18:02 Urine,Clean Catch Urine Culture - Preliminary Gram Negative Rods Narrative: He looks well. ENT exam is unremarkable. Neck without lymphadenopathy. Lungs are clear. Heart has a regular rate and rhythm. Assessment and Plan (1) Hypoglycemia Current visit: Yes Status: Acute Category: Medical Code(s): E16.2 - Hypoglycemia, unspecified (2) Hypokalemia Current visit: Yes Status: Acute Category: Medical Code(s): E87.6 - Hypokalemia (3) Fall Current visit: Yes Status: Acute Category: Medical Code(s): W19.XXXA - Unspecified fall, initial encounter (4) Compression fracture of L4 lumbar vertebra Current visit: Yes Status: Acute Category: Medical Code(s): S32.040A - Wedge compression fracture of fourth lumbar vertebra, initial encounter for closed fracture (5) Scalp contusion Current visit: Yes Status: Acute Category: Medical Code(s): S00.03XA - Contusion of scalp, initial encounter (6) Diabetes mellitus type 2 in obese Current visit: Yes Status: Acute Category: Medical Code(s): E11.69 - Type 2 diabetes mellitus with other specified complication; E66.9 - Obesity, unspecified (7) History of MT (myocardial infarction) Current visit: Yes Status: Acute Category: Medical Code(s): I25.2 - Old myocardial infarction (8) History of DVT in adulthood Current visit: Yes Status: Acute Category: Medical Code(s): Z86.718 - Personal history of other venous thrombosis and embolism (9) COPD (chronic obstructive pulmonary disease) Current visit: Yes Status: Acute Category: Medical Code(s): J44.9 - Chronic obstructive pulmonary disease, unspecified (10) Frontotemporal dementia Current visit: Yes Status: Acute Category: Medical Code(s): G31.09 - Other frontotemporal dementia; F02.80 - Dementia in other diseases classified elsewhere without behavioral disturbance (11) Seizure disorder
[2017-06-19 07:17] LABS: Anion Gap 8.8 mEq/L (5-15); Blood Urea Nitrogen 12 mg/dL (7-18); Carbon Dioxide 30 mmol/L (21.0-32.0); Chloride 106 mmol/L (98-107); Creatinine Clearance Estimated 123 mL/min (0-300); Creatinine,Serum 0.97 mg/dL (0.70-1.30); Estimated Glomerular Filt Rate 77 ml/min (>60); GFR (African American) 93 ML/MIN (>60); Glucose 101 mg/dL (74-106); Potassium 3.8 mmoL/L (3.5-5.1); Sodium 141 mmol/L (136-145)
[2017-06-19 08:00] VITALS: BP 120/58; PULSE 63; RESP 16; TEMP 36.6; O2SAT 98
[2017-06-19 08:29] LABS: POC Glucose,Bedside 47 mg/dL
[2017-06-19 08:29] LABS: POC Glucose,Bedside 109 mg/dL
[2017-06-19 08:29] LABS: POC Glucose,Bedside 99 mg/dL
--- NOTE | 2017-06-19 09:02 | SW/DCPLANNER ---
SENT INFORMATION TO [facility] AND SPOKE WITH CAROLINA: HE HAS BEEN FOR A COUPLE WEEKS IN A RESPITE AND PRESENTED BACK IN TO THE ACUTE HOSPITAL WITH HYPERKALEMIA....CAROLINA STATED SHE DOES NOT HAVE A BED TODAY BUT MAY HAVE ONE IN THE NEXT DAY OR TWO.. WILL FOLLOW UP WITH HER ONCE SHE REVIEWS HIS INFORMATION...
--- NOTE | 2017-06-19 10:06 | HMH.PTEV ---
Physical Therapy Evaluation Rehab PT IP Evaluation Start: 06/19/17 07:16 Freq: ONCE Status: Active Protocol: Document 06/19/17 09:00 PHORNE (Rec: 06/19/17 10:06 PHORNE [id number]) Subjective/History History History 67 yom adm to [facility] s/p fall at home with weakness and balance problems. Pt has hx of poor balance with frequent falls, seizure disorder, and anxiety. Subjective Subjective Pt reports c/o feeling betetr, but still weak this am. Rehab PT IP Eval Objective Appearance Patient Behavior Appropriate Cooperative Patient Orientation Person Place Time Difficulty following instructions none Speech Pattern Clear Appropriate Ambulation Patient Able to Ambulate Yes Ambulation Observation IP General Gait Pattern Observation Wide Based Gait Shuffling Step Ambulation Distance (feet) 15 Ambulation Assistive Device Rolling Walker Balance Ability to Arise Able, uses arms to help Sitting Balance Leans or slides in chair Standing Balance Unsteady Dynamic Sitting Balance Ability Fair Dynamic Standing Balance Ability Poor Transfers Bed Transfer Ability Minimal x 1 (25% assist) Chair Transfer Ability Minimal x 1 (25% assist) Sit to Stand Bed Transfer Ability Minimal x 1 (25% assist) Sit to Stand Chair Transfer Ability Minimal x 1 (25% assist) Pain Posterior Head Pain Intensity 4 Rehab PT IP prob,goals,plan Problems Date of Evaluation: 06/19/17 PT IP Problems Bed Mobility Transfers Gait Rehab Potential Rehab Potential Good Equipment Needs Assistive Devices Rolling / Wheeled Walker Plan PT Intervention Plan Bed Mobility Transfers Gait PT Plan Frequency BID Duration LOS Discharge Goals Bed Transfer Ability Contact Guard/Hand Hold Sit to Stand Chair Transfer Ability Contact Guard/Hand Hold Ambulation Assistive Device Rolling Walker Ambulation Distance (feet) 30 Discharge Plan PT Discharge Plan Pt is most appropriate for rehab placement at this time. G -code Required Yes Eval Complexity Eval Charge Codes 11379 - Moderate Complexity G Codes PT Current Status M
[2017-06-19 11:40] LABS: POC Glucose,Bedside 165 mg/dL
[2017-06-19 16:23] LABS: POC Glucose,Bedside 110 mg/dL
--- NOTE | 2017-06-19 16:46 | SW/DCPLANNER ---
WENT IN TO SPEAK WITH THE [facility] AGAIN SINCE [facility] DOES NOT HAVE A BED FOR HIM, THEY WERE INTERESTED IN ONE OF THE [facility] IN [place] BUT [place] SAID THEY DO NOT HAVE ANY BEDS AT THIS TIME EITHER... I SUGGESTED [facility] SINCE THEY HAD BEDS BUT MS LOMELI SAID THEY HAD A HORRIBLE EXPERIENCE THERE AND WISHES NOT TO GO BACK. SHE ASKED ABOUT [facility] BUT HIS INSURANCE IS OUT OF NETWORK THERE SO I TOLD HER WE COULD TRY [facility] OR CARINA IN [facility] AND SHE SAID SHE HAS FRIENDS THAT LIVE IN [place] AND CAN CHECK ON HIM SO I CALLED NIKI [phone] AND SHE LEFT A VOICE MESSAGE SHE WOULD LOOK AT IT AND CALL ME IN THE MORNING, I ALSO CALLED LILIBETH, [facility] AND SHE SAID THEY DO HAVE BEDS AND WILL LOOK AT IT AND GET NIKI TO WORK ON A PRECERT EARLY IN THE MORNING...WAITING TO HEAR IF THE INSURANCE WILL PRECERT HIM FOR SKILLED THERAPY. I HAVE SENT EVERYTHING THEY NEED TO BE ABLE TO GIVE TO THE INSURANCE COMPANY... ANTICIAPTING A DISCHARGE POSSIBLY [facility] IF INSURANCE APPROVES AND DR ROMAN IS IN AGREEMENT OF THE PLAN.
[2017-06-19 17:09] VITALS: BMI 34.8
[2017-06-19 18:00] VITALS: BP 120/60; PULSE 70; RESP 16; TEMP 36.7; O2SAT 95
--- NOTE | 2017-06-19 18:21 | PC.NURSE ---
patient has been up in the chair all day, family is at bedside. patient may be going to snf tomorrow. vital signs are stable, lung sounds continue to be diminished. call [facility] is within reach. no distress noted will continue to monitor.
[2017-06-19 19:30] VITALS: BP 134/65; PULSE 72; RESP 18; TEMP 36.5; O2SAT 94
--- NOTE | 2017-06-19 21:55 | PC.NURSE ---
PATIENT STATED HE ONLY WEAR BRIA HOSE ON RIGHT LEG BUT ONLY DURING THE DAY .
[2017-06-20 01:58] LABS: POC Glucose,Bedside 87 mg/dL
[2017-06-20 04:20] VITALS: BP 126/74; PULSE 64; RESP 18; TEMP 36.4; O2SAT 95
--- NOTE | 2017-06-20 04:23 | PC.NURSE ---
PATIENT WAS ADMITTED WITH HYPOKALEMIA AND HYPOGLYCEMIA WHICH HAVE BEEN WITHIN NORMAL RANGE SO FAR THIS SHIFT. PT HAS NO C/O PAIN OR DISCOMFORT SO FAR AND HAS BEEN RESTING QUIETLY MOST OF THIS SHIFT. PATIENT HAS 2+ SWELLING TO BLE AND REFUSES TEDS. PATIENT MAY GO TO DETENTION TODAY. VSS, SAFETY MEASURES IN PLACE, CALL LIGHT IN REACH. WILL CONTINUE TO MONITOR.
--- NOTE | 2017-06-20 07:02 | HMH.ACPN ---
Internal Medicine - PN: Subj *Date: 06/20/17 *Time: 07:02 Interval history: Patient has no complaints this morning. Blood sugars have remained within normal ranges. Patient has now been off his Lantus and Victoza the entire hospitalization. Exam Vital signs and Labs for Last 24 Hours: Temp Pulse Resp BP Pulse Ox 97.6 F 64 18 126/74 95 06/20/17 04:20 06/20/17 04:20 06/20/17 04:20 06/20/17 04:20 06/20/17 04:20 Laboratory Results - last 24 hr 06/18/17 11:52: POC Glucose 99 06/18/17 17:16: POC Glucose 109 06/19/17 06:23: Sodium 141, Potassium 3.8, Chloride 106, Carbon Dioxide 30, Anion Gap 8.8, BUN 12, Creatinine 0.97, Estimated Creat Clear 123, Estimated GFR 77, Est GFR ( Amer) 93, Glucose 101 06/19/17 11:32: POC Glucose 165 06/19/17 16:10: POC Glucose 110 06/19/17 21:36: POC Glucose 87 BMP pending I & O for Last 24 hours: Intake & Output 06/17/17 06/18/17 06/19/17 06/20/17 11:59 11:59 11:59 11:59 Intake Total 520 / 520 2700 / 2700 480 / 480 Output Total 450 / 450 400 / 400 2 / 2 Balance 70 / 70 2300 / 2300 478 / 478 Weight 271 lb 4 oz 271 lb 4 oz 271 lb 4.002 oz Microbiology Reports for the Last 24 Hours: Microbiology 06/17/17 18:02 Urine,Clean Catch Urine Culture - Preliminary Gram Negative Rods Narrative: He is sitting up in a chair. He is in no distress. Lungs are clear to auscultation. Heart has a regular rate and rhythm. Patient has 2+ edema of the lower legs Assessment and Plan (1) Diabetes mellitus with hypoglycemia Current visit: Yes Status: Acute Category: Medical Code(s): E11.649 - Type 2 diabetes mellitus with hypoglycemia without coma (2) Hypoglycemia Current visit: Yes Status: Acute Category: Medical Code(s): E16.2 - Hypoglycemia, unspecified (3) Hypokalemia Current visit: Yes Status: Acute Category: Medical Code(s): E87.6 - Hypokalemia (4) Fall Current visit: Yes Status: Acute Category: Medical Code(s): W19.XXXA - Unspecified fall, initial encounter (5) Compression fracture of L4 lumbar vertebra Current visit: Yes Status: Acute Category: Medical Code(s): S32.040A - Wedge compression fracture of fourth lumbar vertebra, initial encounter for closed fracture (6) Scalp contusion Current visit: Yes Status: Acute Category: Medical Code(s): S00.03XA - Contusion of scalp, initial encounter (7) Diabetes mellitus type 2 in obese Current visit: Yes Status: Acute Category: Medical Code(s): E11.69 - Type 2 diabetes mellitus with other specified complication; E66.9 - Obesity, unspecified (8) History of [place] (myocardial infarction) Current visit: Yes Status: Acute Category: Medical Code(s): I25.2 - Old myocardial infarction (9) History of DVT in adulthood Current visit: Yes Status: Acute Category: Medical Code(s): Z86.718 - Personal history of other venous thrombosis and embolism (10) COPD (chronic obstructive pulmonary disease) Current visit: Yes Status: Acute Category: Medical Code(s): J44.9 - Chronic obstructive pulmonary disease, unspecified (11) Frontotemporal dementia Current visit: Yes Status: Acute Category: Medical Code(s): G31.09 - Other frontotemporal dementia; F02.80 - Dementia in other diseases classified elsewhere without behavioral disturbance (12) Seizure disorder Current visit: Yes Status: Acute Category: Medical Code(s): G40.909 - Epilepsy, unspecified, not intractable, without status epilepticus (13) Anxiety disorder Current visit: Yes Status: Acute Category: Medical Code(s): F41.9 - Anxiety disorder, unspecified (14) Generalized weakness Current visit: Yes Status: Acute Category: Medical Code(s): R53.1 - Weakness - Assessment and plan all Dx Assessment and Plan for all problems:: Continue to hold any antihyperglycemic medications. search for jail facility is in process and
--- NOTE | 2017-06-20 07:04 | HMH.DCSUM ---
General - General Admission date: 06/17/17 Discharge date: 06/21/17 HPI HPI: 67-year-old male with history of frontotemporal dementia, diabetes mellitus, multiple DVTs presented to the ER after a fall at home. Patient had just finished eating lunch when he became unbalanced while walking to the bathroom and fell. Patient has history of multiple falls at home. EMS was contacted and patient was brought to the emergency department. Workup in the emergency department discovered a small scalp contusion as well as hypoglycemia and hypokalemia. Patient takes a long-acting insulin daily as well as a diuretic (furosemide). Overnight patient required 2 nurses to assist him with ambulating or transferring to the commode Objective Vital signs: Temp Pulse Resp BP Pulse Ox 97.6 F 64 18 126/74 95 06/20/17 04:20 06/20/17 04:20 06/20/17 04:20 06/20/17 04:20 06/20/17 04:20 Hospital Course Hospital Course: Patient was admitted to the hospital and placed on D5 half-normal saline with 40 mEq/L of potassium chloride. He was also given oral potassium supplementation. Lasix, Lantus, Victoza were all healed. Patient's fluid rate was 100 mL's per hour. After the first 24 hours of hospitalization patient's blood sugars were still on the low normal and. Fluids were cut in half to 50 mL's per hour. Patient's blood sugars remained in the low normal range. Sliding scale insulin was ordered but was not utilized. Patient's blood sugar remained controlled and within normal ranges on a diabetic diet. Potassium was replaced intravenously and orally and giorgio a little each day until it had returned to normal levels. Despite replacing patient's potassium he remained quite weak. He required the assistance of 2 staff members to ambulate within his room to the bedside commode. Physical therapy was consulted and recommended [facility] facility for rehabilitation. Mental status: Average Rehab potential: Fair Prognosis: Fair Results Labs on day of discharge: Labs from last 24 hours 06/19/17 06/19/17 06/19/17 21:36 16:10 11:32 Sodium Potassium Chloride Carbon Dioxide Anion Gap BUN Creatinine Estimated Creat Clear Estimated GFR Est GFR ( Amer) Glucose POC Glucose 87 110 165 06/19/17 06/18/17 06/18/17 06:23 17:16 11:52 Sodium 141 Potassium 3.8 Chloride 106 Carbon Dioxide 30 Anion Gap 8.8 BUN 12 Creatinine 0.97 Estimated Creat Clear 123 Estimated GFR 77 Est GFR ( Amer) 93 Glucose 101 POC Glucose 109 99 Preliminary micro results at discharge 06/17/17 18:02 Urine Culture - Preliminary Urine,Clean Catch Gram Negative Rods DS: Diagnosis - Discharge Diagnosis (1) Diabetes mellitus with hypoglycemia Status: Acute (2) Hypoglycemia Status: Acute (3) Hypokalemia Status: Acute (4) Fall Status: Chronic (5) Compression fracture of L4 lumbar vertebra Status: Acute (6) Scalp contusion Status: Acute (7) Diabetes mellitus type 2 in obese Status: Chronic (8) History of [place] (myocardial infarction) Status: Chronic (9) History of DVT in adulthood Status: Chronic (10) COPD (chronic obstructive pulmonary disease) Status: Chronic (11) Frontotemporal dementia Status: Chronic (12) Seizure disorder Status: Chronic (13) Anxiety disorder Status: Chronic (14) Generalized weakness Status: Acute Meds Home Medications Medication Instructions Recorded Confirmed Type Acetaminophen [Tylenol] 650 mg PO Q6HP PRN 06/12/17 06/17/17 History Apixaban [Eliquis] 2.5 mg PO BID 06/12/17 06/17/17 History Aspirin [Aspirin 81mg EC Tab] 81 mg PO DAILY 06/12/17 06/17/17 History Atenolol [Atenolol 25mg Tab] 12.5 mg PO BID 06/12/17 06/17/17 History Bacillus Coagulans [Digestive 1 tab PO DAILY 06/12/17 06/17/17 History Advantage] Benzonatate [Benzona
--- NOTE | 2017-06-20 07:07 | P.DS_ITS ---
General - General Admission date: 06/17/17 Discharge date: 06/21/17 HPI HPI: 67-year-old male with history of frontotemporal dementia, diabetes mellitus, multiple DVTs presented to the ER after a fall at home. Patient had just finished eating lunch when he became unbalanced while walking to the bathroom and fell. Patient has history of multiple falls at home. EMS was contacted and patient was brought to the emergency department. Workup in the emergency department discovered a small scalp contusion as well as hypoglycemia and hypokalemia. Patient takes a long-acting insulin daily as well as a diuretic ( furosemide). Overnight patient required 2 nurses to assist him with ambulating or transferring to the commode Objective Vital signs: Temp Pulse Resp BP Pulse Ox 97.6 F 64 18 126/74 95 06/20/17 04:20 06/20/17 04:20 06/20/17 04:20 06/20/17 04:20 06/20/17 04:20 Hospital Course Hospital Course: Patient was admitted to the hospital and placed on D5 half-normal saline with 40 mEq/L of potassium chloride. He was also given oral potassium supplementation. Lasix, Lantus, Victoza were all healed. Patient's fluid rate was 100 mL's per hour. After the first 24 hours of hospitalization patient's blood sugars were still on the low normal and. Fluids were cut in half to 50 mL 's per hour. Patient's blood sugars remained in the low normal range. Sliding scale insulin was ordered but was not utilized. Patient's blood sugar remained controlled and within normal ranges on a diabetic diet. Potassium was replaced intravenously and orally and giorgio a little each day until it had returned to normal levels. Despite replacing patient's potassium he remained quite weak. He required the assistance of 2 staff members to ambulate within his room to the bedside commode. Physical therapy was consulted and recommended retirement facility for rehabilitation. Mental status: Average Rehab potential: Fair Prognosis: Fair Results Labs on day of discharge: Labs from last 24 hours 06/19/17 06/19/17 06/19/17 21:36 16:10 11:32 Sodium Potassium Chloride Carbon Dioxide Anion Gap BUN Creatinine Estimated Creat Clear Estimated GFR Est GFR ( Amer) Glucose POC Glucose 87 110 165 06/19/17 06/18/17 06/18/17 06:23 17:16 11:52 Sodium 141 Potassium 3.8 Chloride 106 Carbon Dioxide 30 Anion Gap 8.8 BUN 12 Creatinine 0.97 Estimated Creat Clear 123 Estimated GFR 77 Est GFR ( Amer) 93 Glucose 101 POC Glucose 109 99 Preliminary micro results at discharge 06/17/17 18:02 Urine Culture - Preliminary Urine,Clean Catch Gram Negative Rods DS: Diagnosis - Discharge Diagnosis (1) Diabetes mellitus with hypoglycemia Status: Acute (2) Hypoglycemia Status: Acute (3) Hypokalemia Status: Acute (4) Fall Status: Chronic (5) Compression fracture of L4 lumbar vertebra Status: Acute (6) Scalp contusion Status: Acute (7) Diabetes mellitus type 2 in obese Status: Chronic (8) History of [place] (myocardial infarction) Status: Chronic (9) History of DVT in adul
--- NOTE | 2017-06-20 07:34 | PC.NURSE ---
REPORT GIVEN TO Cathie ARNDT
[2017-06-20 07:45] VITALS: BP 136/51; PULSE 64; RESP 20; TEMP 36.9; O2SAT 96
[2017-06-20 08:18] LABS: Anion Gap 10.5 mEq/L (5-15); Blood Urea Nitrogen 12 mg/dL (7-18); Carbon Dioxide 28 mmol/L (21.0-32.0); Chloride 104 mmol/L (98-107); Creatinine Clearance Estimated 123 mL/min (0-300); Creatinine,Serum 0.97 mg/dL (0.70-1.30); Estimated Glomerular Filt Rate 77 ml/min (>60); GFR (African American) 93 ML/MIN (>60); Glucose 97 mg/dL (74-106); Sodium 138 mmol/L (136-145)
[2017-06-20 08:32] LABS: Potassium 4.5 mmoL/L (3.5-5.1)
[2017-06-20 10:55] LABS: POC Glucose,Bedside 89 mg/dL
--- NOTE | 2017-06-20 11:09 | SW/DCPLANNER ---
I have spoke with [facility] and informed them that Dr Alarcon would be willing to see this patient at their facility. Verónica stated that shew as fixing to start the pre-cert for this patient.
[2017-06-20 12:22] LABS: POC Glucose,Bedside 110 mg/dL
[2017-06-20 15:28] VITALS: BP 113/43; PULSE 63; RESP 20; TEMP 36.8; O2SAT 97
[2017-06-20 19:02] LABS: POC Glucose,Bedside 103 mg/dL
[2017-06-20 20:00] VITALS: BP 126/56; PULSE 68; RESP 18; TEMP 36.9; O2SAT 92
[2017-06-20 20:28] LABS: POC Glucose,Bedside 124 mg/dL
--- NOTE | 2017-06-21 00:15 | PC.NURSE ---
teds are off at this time
--- NOTE | 2017-06-21 01:53 | PC.NURSE ---
pt has kera hose off at this time
[2017-06-21 04:30] VITALS: BP 182/88; PULSE 71; RESP 20; TEMP 36.5; O2SAT 94
--- NOTE | 2017-06-21 04:39 | PC.NURSE ---
rn aware of all vitals
--- NOTE | 2017-06-21 04:47 | PC.NURSE ---
PT HAS SLEPT TONIGHT. UP TO [facility] [place] WITH ASSIST OF 2 TIMES 1. PT HAD ONE INCONTINENT URINE. NO COMPLAINTS OF PAIN. RESPIRATIONS EVEN AND UNLABORED. SLIGHT EDEMA NOTED BLE.
[2017-06-21 06:33] LABS: POC Glucose,Bedside 115 mg/dL
--- NOTE | 2017-06-21 06:50 | HMH.ACPN ---
Internal Medicine - PN: Subj *Date: 06/21/17 *Time: 06:50 Interval history: Patient has no complaints this morning. We are waiting on precertification for [facility] facility stay through his insurance. Patient feels well. He is participating in physical therapy. Exam Vital signs and Labs for Last 24 Hours: Temp Pulse Resp BP Pulse Ox 97.7 F 71 20 182/88 94 L 06/21/17 04:30 06/21/17 04:30 06/21/17 04:30 06/21/17 04:30 06/21/17 04:30 Laboratory Results - last 24 hr 06/20/17 05:56: POC Glucose 89 06/20/17 07:15: Sodium 138, Potassium 4.5, Chloride 104, Carbon Dioxide 28, Anion Gap 10.5, BUN 12, Creatinine 0.97, Estimated Creat Clear 123, Estimated GFR 77, Est GFR ( Amer) 93, Glucose 97 06/20/17 12:02: POC Glucose 110 06/20/17 16:53: POC Glucose 103 06/20/17 20:11: POC Glucose 124 06/21/17 06:17: POC Glucose 115 I & O for Last 24 hours: Intake & Output 06/18/17 06/19/17 06/20/17 06/21/17 11:59 11:59 11:59 11:59 Intake Total 520 / 520 2700 / 2700 480 / 480 1520 / 1520 Output Total 450 / 450 400 / 400 2 / 2 950 / 950 Balance 70 / 70 2300 / 2300 478 / 478 570 / 570 Weight 271 lb 4 oz 271 lb 4 oz 271 lb 4.002 oz Microbiology Reports for the Last 24 Hours: Microbiology 06/17/17 18:02 Urine,Clean Catch Urine Culture - Final Proteus mirabilis - Constitutional no acute distress Assessment and Plan (1) Diabetes mellitus with hypoglycemia Current visit: Yes Status: Acute Category: Medical Code(s): E11.649 - Type 2 diabetes mellitus with hypoglycemia without coma (2) Hypoglycemia Current visit: Yes Status: Acute Category: Medical Code(s): E16.2 - Hypoglycemia, unspecified (3) Hypokalemia Current visit: Yes Status: Acute Category: Medical Code(s): E87.6 - Hypokalemia (4) Fall Current visit: Yes Status: Chronic Category: Medical Code(s): W19.XXXA - Unspecified fall, initial encounter (5) Compression fracture of L4 lumbar vertebra Current visit: Yes Status: Acute Category: Medical Code(s): S32.040A - Wedge compression fracture of fourth lumbar vertebra, initial encounter for closed fracture (6) Scalp contusion Current visit: Yes Status: Acute Category: Medical Code(s): S00.03XA - Contusion of scalp, initial encounter (7) Diabetes mellitus type 2 in obese Current visit: Yes Status: Chronic Category: Medical Code(s): E11.69 - Type 2 diabetes mellitus with other specified complication; E66.9 - Obesity, unspecified (8) History of [place] (myocardial infarction) Current visit: Yes Status: Chronic Category: Medical Code(s): I25.2 - Old myocardial infarction (9) History of DVT in adulthood Current visit: Yes Status: Chronic Category: Medical Code(s): Z86.718 - Personal history of other venous thrombosis and embolism (10) COPD (chronic obstructive pulmonary disease) Current visit: Yes Status: Chronic Category: Medical Code(s): J44.9 - Chronic obstructive pulmonary disease, unspecified (11) Frontotemporal dementia Current visit: Yes Status: Chronic Category: Medical Code(s): G31.09 - Other frontotemporal dementia; F02.80 - Dementia in other diseases classified elsewhere without behavioral disturbance (12) Seizure disorder Current visit: Yes Status: Chronic Category: Medical Code(s): G40.909 - Epilepsy, unspecified, not intractable, without status epilepticus (13) Anxiety disorder Current visit: Yes Status: Chronic Category: Medical Code(s): F41.9 - Anxiety disorder, unspecified (14) Generalized weakness Current visit: Yes Status: Acute Category: Medical Code(s): R53.1 - Weakness - Assessment and plan all Dx Assessment and Plan for all problems:: Await insurance approval for [facility] facility stay for rehabilitation
--- NOTE | 2017-06-21 06:53 | PC.NURSE ---
PT HAS BRIA HOSE OFF AT THIS TIME
--- NOTE | 2017-06-21 07:28 | PC.NURSE ---
REPORT GIVEN TO Héctor ARNDT
[2017-06-21 08:00] VITALS: BP 118/47; PULSE 66; RESP 18; TEMP 36.6; O2SAT 96
--- NOTE | 2017-06-21 09:30 | SW/DCPLANNER ---
RECEIVED A CALL FROM CLAUDIA FROM [facility] AND JACOB GAVE THE PRECERTIFICATION FOR HIM TO GO THERE TODAY.. I HAVE CALLED HIS NURSE AND PATIENTS .. HE WILL DISCHARGE THERE THIS MORNING VIA AMBULANCE PER ...
--- NOTE | 2017-06-21 15:45 | PC.NURSE ---
REPORT FROM Tariq ANDERSON RN THIS AM PAYAL DIAZ, MSN, RN
[2017-06-21 17:48] LABS: POC Glucose,Bedside 105 mg/dL
== END 2017-06-21 17:10 ==
LOC: ER 15:41 → 2ND 16:16
PROVIDERS: Admitting Provider Family Medicine; Emergency Provider Emergency Medicine; Family Provider Family Medicine; PCP Family Medicine; Visit Provider Family Medicine
DX: E87.5 Hyperkalemia (principal); E11.649 Type 2 diabetes mellitus with hypoglycemia without coma; S32.040A Wedge compression fracture of fourth lumbar vertebra, initial encounter for closed fracture; S00.03XA Contusion of scalp, initial encounter; J44.9 Chronic obstructive pulmonary disease, unspecified; Z86.718 Personal history of other venous thrombosis and embolism; F02.80 Dementia in other diseases classified elsewhere, unspecified severity, without behavioral disturbance, psychotic disturbance, mood disturbance, and anxiety; G40.909 Epilepsy, unspecified, not intractable, without status epilepticus; W18.30XA Fall on same level, unspecified, initial encounter; Z91.81 History of falling; N39.0 Urinary tract infection, site not specified
CPT/HCPCS: 36415; 70450; 71045; 72125; 73030; 73502; 80048; 80053; 81001; 82550; 82553; 82962; 83036; 84484; 85025; 87086; 87088; 87186; 93005; 93041; 97110; 97116; 97162; 99283; G0378

== ENCOUNTER 2017-12-18 11:19 | Observation (INO) ==
[2017-12-18 12:23] LABS: ABG Base Excess 2.4 mmol/L (-2.4-2.3); ABG HCO3 26.1 mmhg (22.0-26.0); ABG Oxygen Saturation 88 % (90-100); ABG PCO2 36.8 mmhg (35.0-45.0); ABG PH 7.47 mmol/L (7.35-7.45); ABG PO2 51.7 mmhg (80-100); ABG TCO2 27.3 mmhg (23-27)
[2017-12-18 12:25] LABS: Allen's Test ACCEPTABLE; Oxygen 21 %
--- NOTE | 2017-12-18 13:28 | Pharmacy Consult Notes ---
[facility] Pharmacy VTE Monitoring - Patient Demographics Admission date: 12/18/17 Report Date: 12/18/17 Time: 13:28 Allergies/Adverse Reactions: Patient Allergies erythromycin base [ERYTHROMYCIN BASE] Allergy (Intermediate, Verified 06/12/17 01:42) SWELLING/ITCHING/SEIZURES iodine [IODINE] Allergy (Unknown, Verified 06/12/17 01:42) Height: 1.85 m Weight: 113.058 kg - VTE Risk Was VTE Risk Assessment Performed: Yes VTE Score: 6 VTE Risk Level: Moderate Risk - Prophylaxis VTE Prophylaxis Ordered?: Yes Types of VTE Prophylaxis: TEDS Knee High Location of Applied Device: Bilateral Lower Extremeties - VTE Diagnosis Confirmed Treatment or plan recommended: Continue Current Treatment
[2017-12-18 13:50] LABS: Albumin Level 2.7 gm/dL (3.4-5.0); Albumin/Globulin Ratio 0.6 (1.1-1.8); Bilirubin,Total 0.5 mg/dL (0.2-1.0); Calcium 8.7 mg/dL (8.5-10.1); Globulin 4.2 gm/dl (1.3-3.2); Total Protein,Serum 6.9 gm/dL (6.4-8.2)
[2017-12-18 14:06] LABS: Basophils # 0.1 K/mm3 (0-0.2); Basophils % 0.5 % (0.1-2.0); Eosinophils # 0.2 K/mm3 (0.0-0.4); Eosinophils % 1.3 % (0.1-12.0); Hematocrit 43.9 % (42.0-52.0); Hemoglobin 13.3 g/dL (14.1-18.0); Lymphocytes # 1.3 K/mm3 (0.7-4.5); Lymphocytes % 8.7 K/mm3 (10-50); Mean Corpuscular HGB Conc 30.2 g/dL (31.8-35.4); Mean Corpuscular Hemoglobin 25.8 pg (27.0-31.2); Mean Corpuscular Volume 85.4 fl (80-94); Mean Platelet Volume 7.2 fl (7.4-10.4); Monocytes # 0.7 K/mm3 (0.1-1.0); Monocytes % 4.5 % (1.7-9.3); Neutrophils # 12.3 K/mm3 (1.8-7.8); Neutrophils % 85.1 % (37.0-80.0); Platelet Count 243 K/mm3 (142-424); Red Blood Count 5.15 M/mm3 (4.60-6.20); Red Cell Distribution Width 14.7 % (11.5-17.5); White Blood Count 14.5 K/mm3 (4.8-10.8)
[2017-12-18 15:27] LABS: Lymphocytes % 9 % (10-50); Monocytes % 4 % (2-9); Neutrophils % 87 % (42-76); Total Cells Counted 100
--- NOTE | 2017-12-18 17:00 | History & Physical Report ---
*Admission Date: 12/18/17 *Chief complaint: Weakness *History of present illness: 67-year-old male with known COPD, diabetes, sleep apnea, frequent falls at home was brought to the office today by his with concerns about a change in the patient's level of alertness with increasing weakness and unsteadiness on his feet. He reported onset of cough with mild shortness of breath and sputum production of unknown color over the preceding 48 hours. No fevers have been detected at home. In the office his temperature was 99.9 orally. In the office the patient appeared pale with room air O2 sats of 88%. Lung exam was significant for decreased breath sounds at the bases with questionable crackles on the left. Heart rate was regular. Patient was significantly weak and could only ambulate about 12 feet before having to stop and sit down which is a significant change from baseline. Patient has been admitted to the hospital for further evaluation. As of this time chest x-ray has been interpreted as no pneumonia. His white blood cell count is elevated and he is hypoxemic on ABG. Patient was recently treated for a urinary tract infection with a 2 week course of antibiotics. [facility] History I have reviewed the patient's past medical history: Yes Medical History: Reports:: Anxiety, Deep Vein Thrombosis, Dementia ( Frontotemporal), Diabetes Mellitus Type 2, Hyperlipidemia, Hypertension, Myocardial Infarction Denies:: Cancer, Diabetes Mellitus Type 1, MRSA Other Surgeries: Yes: Colonoscopy, EGD, Hernia Repair Amputation: No Fractures: Yes (l4 compression) - *Social History Educational Level: Completed Graduate School Smoking Status: Former smoker Tobacco Type: cigarettes # Packs/Day (cigarettes): 2 #Yrs smoked (if former smoker): 52 Smoking End Date: 2012 Alcohol Intake: never Occupational Status: retired, disabled Housing: house Household Members: spouse - Psychiatric History Expresses thoughts of harming self/others: None Suicide Plan Description: No Plan Pschychiatric History:: Reports:: Anxiety, Psychiatric Treatment *Family Hx:: Diabetes, Heart Attack, Hyperlipidemia, Hypertension, Stroke Review of Systems - Review of Systems Review of systems:: pertinent systems reviewed and negative unless documented below - Constitutional Reports lack of energy, Reports weakness, Denies body ache(s), Denies chills - *Cardiovascular Denies chest pain - *Respiratory Reports chest congestion, Reports cough, Reports shortness of breath - *Genitourinary Reports urinary frequency, Reports urinary urgency - *Musculoskeletal Reports abnormal walking - *Neurologic Reports frequent falls, Reports headache(s), Reports tremor(s) Meds Home Medications Medication Instructions Recorded Confirmed Type Acetaminophen [Tylenol] 650 mg PO Q6HP PRN 06/12/17 12/18/17 History Apixaban [Eliquis] 2.5 mg PO BID 06/12/17 12/18/17 History Aspirin [Aspirin 81mg EC Tab] 81 mg PO HS 06/12/17 12/18/17 History Atenolol [Atenolol 25mg Tab] 12.5 mg PO BID 06/12/17 12/18/17 History Bacillus Coagulans [Digestive 1 tab PO DAILY 06/12/17 12/18/17 History Advantage] Benzonatate [Benzonatate 100mg 100 mg PO BID 06/12/17 12/18/17 History cap] Brexpiprazole [Rexulti] 3 mg PO HS 06/12/17 12/18/17 History Budesonide [Budesonide EC] 3 mg PO BID 06/12/17 12/18/17 History Escitalopram Oxalate [Lexapro] 20 mg PO DAILY 06/12/17 12/18/17 History Fluticasone Propionate [Flovent 50 mcg IH DAILY 06/12/17 12/18/17 History Diskus] Loperamide HCl [Loperamide] 4 mg PO TID 06/12/17 12/18/17 History Memantine HCl [Namenda] 10 mg PO BID 06/12/17 12/18/17 History Multivit-Min/FA/Lycopen/Lutein 1 each PO DAILY 06/12/17 12/18/17 History [Men 50 Plus Multivitamin Tab] Nystatin/Triamcin [Nystatin-Triamc 1 applic TOPICAL DAILYP PRN 06/12/17 History Crm 15gm] Oxybutynin Chloride [Oxybutynin 10 mg PO DAILY 06/12/17 12/18/17 History Chloride ER] Pravastatin Sodium [Pravachol] 40 mg PO HS 06/12/17 12/18/17 History Pyridoxine HCl (Vitamin B6) 100 mg PO DAILY 06/12/17 12/18/17 History [Vitamin B-6] clonazePAM [Clonazepam] 0.25 mg PO DAILY 06/12/17 12/18/17 History clonazePAM [Clonazepam] 0.5 mg PO HS 06/12/17 12/18/17 History lamoTRIgine [Lamotrigine] 100 mg PO BID 06/12/17 12/18/17 History Loperamide HCl [Imodium liquid 6 mg PO DAILY 06/17/17 12/18/17 History 1mg/5mL 120mL bottle] Miscellaneous Medical Supply 3 l IH HS 06/17/17 12/18/17 History [Oxygen, Portable] Dutasteride 0.5 mg PO DAILY 12/18/17 12/18/17 History Furosemide [Furosemide 20mg Tab] 20 mg PO DAILY 12/18/17 12/18/17 History Gabapentin [Neurontin 600mg 600 mg PO BID 12/18/17 12/18/17 History tablet] Liraglutide [Victoza 2-Rick] 1.2 units SUBCONJ DAILY 12/18/17 12/18/17 History Loratadine [Claritin 10mg Tablet] 10 mg PO HS 12/18/17 12/18/17 History Nystatin [Nystop] 1 applicatio TOPICAL DAILY 12/18/17 12/18/17 History Rivastigmine Tartrate 1.5 mg PO BID 12/18/17 12/18/17 History [Rivastigmine] Tamsulosin HCl [Flomax 0.4mg 0.4 mg PO DAILY 12/18/17 12/18/17 History capsule] Allergies Allergy/AdvReac Type Severity Reaction Status Date / Time erythromycin base Allergy Intermediate SWELLING/IT Verified 06/12/17 01:42 [ERYTHROMYCIN BASE] CLEMENTE/SEIZU RES iodine [IODINE] Allergy Unknown Verified 06/12/17 01:42 Exam Vital signs and Labs for Last 24 Hours: Temp Pulse Resp BP Pulse Ox 98.6 F 73 20 104/56 92 L 12/18/17 15:34 12/18/17 15:34 12/18/17 15:34 12/18/17 15:34 12/18/17 15:34 Laboratory Results - last 24 hr 12/18/17 12:04: Specimen Source Rt radial, O2 % 21, ABG pH 7.47 H, ABG pCO2 36.8 , ABG pO2 51.7 L, ABG HCO3 26.1 H, ABG Total CO2 27.3 H, ABG O2 Saturation 88 L , ABG Base Excess 2.4 H, Guzman Test Acceptable 12/18/17 13:10: WBC 14.5 H, RBC 5.15, Hgb 13.3 L, Hct 43.9, MCV 85.4, MCH 25.8 L , MCHC 30.2 L, RDW 14.7, Plt Count 243, MPV 7.2 L, Neut % (Auto) 85.1 H, Lymph % (Auto) 8.7 L, [place] % (Auto) 4.5, Eos % (Auto) 1.3, Baso % (Auto) 0.5, Neut # ( Auto) 12.3 H, Lymph # (Auto) 1.3, [place] # (Auto) 0.7, Eos # (Auto) 0.2, Baso # ( Auto) 0.1, Total Counted 100, Neutrophils % (Manual) 87 H, Lymphocytes % (Manual ) 9 L, Monocytes % (Manual) 4, Platelet Estimate Normal 12/18/17 13:10: Sodium 142, Potassium 4.0, Chloride 107, Carbon Dioxide 30, Anion Gap 9.0, BUN 15, Creatinine 1.20, Estimated Creat Clear 94, Estimated GFR 60, Est GFR ( Amer) 73, Glucose 167 H, Calcium 8.7, Total Bilirubin 0.5, AST 32, ALT 29, Alkaline Phosphatase 111, Total Protein 6.9, Albumin 2.7 L, Globulin 4.2 H, Albumin/Globulin Ratio 0.6 L 12/18/17 13:10: Mycoplasma pneumon IgM Non-reactive I & O for Last 24 hours: Intake & Output 12/16/17 12/17/17 12/18/17 12/19/17 11:59 11:59 11:59 11:59 Weight 249 lb 4 oz Narrative: Patient is vieira in appearance. Respirations are shallow but not increased. Level of consciousness is depressed and patient frequently closes his eyes as if he is falling asleep during exam. Oropharynx is moist and noninflamed. Neck is without lymphadenopathy. Heart has a regular rate and rhythm. Lungs have rales in the left base with diminished breath sounds in both bases due to poor inspiratory effort. Extremities are without edema. Patient ambulates with use of a walker and is unsteady when ambulating even with use of his walker H&P: Result - Labs Labs: Short CBC 12/18/17 Range/Units 13:10 WBC 14.5 H (4.8-10.8) K/mm3 Hgb 13.3 L (14.1-18.0) g/dL Hct 43.9 (42.0-52.0) % Plt Count 243 (142-424) K/mm3 BMP 12/18/17 13:10 Sodium 142 Potassium 4.0 Chloride 107 Carbon Dioxide 30 BUN 15 Creatinine 1.20 Glucose 167 H Calcium 8.7 Liver Function 12/18/17 Range/Units 13:10 Total Bilirubin 0.5 (0.2-1.0) mg/dL AST 32 (15-37) U/L ALT 29 (12-78) U/L Alkaline Phosphatase 111 (46-116) U/L Albumin 2.7 L (3.4-5.0) gm/dL Assessment and Plan (1) Pneumonia Current visit: Yes Status: Acute Category: Medical Code(s): J18.9 - Pneumonia, unspecified organism (2) Hypoxemia Current visit: Yes Status: Acute Category: Medical Code(s): R09.02 - Hypoxemia (3) Generalized weakness Current visit: No Status: Acute Category: Medical Code(s): R53.1 - Weakness (4) Diabetes mellitus type 2 in obese Current visit: No Status: Chronic Category: Medical Code(s): E11.69 - Type 2 diabetes mellitus with other specified complication; E66.9 - Obesity, unspecified (5) Fall Current visit: No Status: Chronic Category: Medical Code(s): W19.XXXA - Unspecified fall, initial encounter (6) Frontotemporal dementia Current visit: No Status: Chronic Category: Medical Code(s): G31.09 - Other frontotemporal dementia; F02.80 - Dementia in other diseases classified elsewhere without behavioral disturbance (7) History of DVT in adulthood Current visit: No Status: Chronic Category: Medical Code(s): Z86.718 - Personal history of other venous thrombosis and embolism (8) Seizure disorder Current visit: No Status: Chronic Category: Medical Code(s): G40.909 - Epilepsy, unspecified, not intractable, without status epilepticus - Assessment and plan all Dx Assessment and Plan for all problems:: Clinically the patient's symptoms, exam and laboratory findings are consistent with a respiratory infection despite the negative chest x-ray. Sputum culture will be collected. Blood cultures have been ordered. Patient will be started on levofloxacin and labs will be repeated in the morning. Home medications will be given.
[2017-12-19 04:09] LABS: Appearance,Urine CLEAR (Clear); Bilirubin,Urine Negative (Negative); Blood, Urine 3+ (Negative); Color,Urine YELLOW (Yellow); Glucose,Urine (UA) Negative (Negative); Ketones,Urine Negative (Negative); Leukocyte Esterase,Urine Negative (Negative); Microscopic, Urine URINE MICROSCOPIC (MICROSCOPIC); Protein,Urine Negative (Negative); Urobilinogen,Urine 0.2 EU/dl (0.2)
[2017-12-19 04:14] LABS: Bacteria,Urine 1+ /lpf; RBC,Urine TNTC #/hpf (0-3)
[2017-12-19 06:23] LABS: Basophils # 0.1 K/mm3 (0-0.2); Basophils % 0.5 % (0.1-2.0); Eosinophils # 0.2 K/mm3 (0.0-0.4); Hematocrit 35.8 % (42.0-52.0); Lymphocytes % 20.8 K/mm3 (10-50); Mean Corpuscular HGB Conc 30.7 g/dL (31.8-35.4); Mean Corpuscular Hemoglobin 26.2 pg (27.0-31.2); Mean Corpuscular Volume 85.2 fl (80-94); Monocytes # 0.6 K/mm3 (0.1-1.0); Monocytes % 5.8 % (1.7-9.3); Neutrophils % 70.9 % (37.0-80.0); Platelet Count 201 K/mm3 (142-424); White Blood Count 9.9 K/mm3 (4.8-10.8)
[2017-12-19 07:03] LABS: Albumin Level 2.2 gm/dL (3.4-5.0); Albumin/Globulin Ratio 0.6 (1.1-1.8); Anion Gap 9.3 mEq/L (5-15); Bilirubin,Total 0.5 mg/dL (0.2-1.0); Calcium 8.4 mg/dL (8.5-10.1); Globulin 3.6 gm/dl (1.3-3.2); Potassium 3.3 mmoL/L (3.5-5.1); Total Protein,Serum 5.8 gm/dL (6.4-8.2)
--- NOTE | 2017-12-19 07:17 | Progress Note ---
Internal Medicine - PN: Subj *Date: 12/19/17 *Time: 07:15 Interval history: Patient feels some better this morning. He has significant cough this morning but tells me this is typical for his COPD. O2 sats dropped to 87% on room air overnight. He had a fever noted on admission yesterday but has been afebrile since. Exam Vital signs and Labs for Last 24 Hours: Temp Pulse Resp BP Pulse Ox 98.2 F 72 18 105/41 93 L 12/19/17 04:00 12/19/17 04:00 12/19/17 04:00 12/19/17 04:00 12/19/17 04:00 Laboratory Results - last 24 hr 12/18/17 12:04: Specimen Source Rt radial, O2 % 21, ABG pH 7.47 H, ABG pCO2 36.8 , ABG pO2 51.7 L, ABG HCO3 26.1 H, ABG Total CO2 27.3 H, ABG O2 Saturation 88 L , ABG Base Excess 2.4 H, Guzman Test Acceptable 12/18/17 13:10: WBC 14.5 H, RBC 5.15, Hgb 13.3 L, Hct 43.9, MCV 85.4, MCH 25.8 L , MCHC 30.2 L, RDW 14.7, Plt Count 243, MPV 7.2 L, Neut % (Auto) 85.1 H, Lymph % (Auto) 8.7 L, [place] % (Auto) 4.5, Eos % (Auto) 1.3, Baso % (Auto) 0.5, Neut # ( Auto) 12.3 H, Lymph # (Auto) 1.3, [place] # (Auto) 0.7, Eos # (Auto) 0.2, Baso # ( Auto) 0.1, Total Counted 100, Neutrophils % (Manual) 87 H, Lymphocytes % (Manual ) 9 L, Monocytes % (Manual) 4, Platelet Estimate Normal 12/18/17 13:10: Sodium 142, Potassium 4.0, Chloride 107, Carbon Dioxide 30, Anion Gap 9.0, BUN 15, Creatinine 1.20, Estimated Creat Clear 94, Estimated GFR 60, Est GFR ( Amer) 73, Glucose 167 H, Calcium 8.7, Total Bilirubin 0.5, AST 32, ALT 29, Alkaline Phosphatase 111, Total Protein 6.9, Albumin 2.7 L, Globulin 4.2 H, Albumin/Globulin Ratio 0.6 L 12/18/17 13:10: Mycoplasma pneumon IgM Non-reactive 12/18/17 17:00: POC Glucose 107 12/18/17 22:14: POC Glucose 123 H 12/19/17 03:50: Urine Color Yellow, Urine Appearance Clear, Urine pH 6.0, Ur Specific [place] 1.020, Urine Protein Negative, Urine Glucose (UA) Negative, Urine Ketones Negative, Urine Blood 3+, Urine Nitrate Negative, Urine Bilirubin Negative, Urine Urobilinogen 0.2, Ur Leukocyte Esterase Negative, Urine RBC Tntc , Urine WBC 3-5, Urine Bacteria 1+ 12/19/17 05:46: WBC 9.9 D, RBC 4.20 L, Hgb 11.0 L D, Hct 35.8 L, MCV 85.2, MCH 26.2 L, MCHC 30.7 L, RDW 15.0, Plt Count 201, MPV 7.0 L, Neut % (Auto) 70.9, Lymph % (Auto) 20.8, [place] % (Auto) 5.8, Eos % (Auto) 2.0, Baso % (Auto) 0.5, Neut # (Auto) 7.0, Lymph # (Auto) 2.0, [place] # (Auto) 0.6, Eos # (Auto) 0.2, Baso # (Auto) 0.1 I & O for Last 24 hours: Intake & Output 12/16/17 12/17/17 12/18/17 12/19/17 11:59 11:59 11:59 11:59 Intake Total 670 / 670 Output Total 700 / 700 Balance -30 / -30 Weight 255 lb 3 oz Narrative: He is more alert and has better color this morning. Nasal cannula is in place. Lung exam reveals some coarse rhonchi that clear with cough continues to have faint basilar rales on the left. Assessment and Plan (1) Pneumonia Current visit: Yes Status: Acute Category: Medical Code(s): J18.9 - Pneumonia, unspecified organism (2) Hypoxemia Current visit: Yes Status: Acute Category: Medical Code(s): R09.02 - Hypoxemia (3) Generalized weakness Current visit: No Status: Acute Category: Medical Code(s): R53.1 - Weakness (4) Diabetes mellitus type 2 in obese Current visit: No Status: Chronic Category: Medical Code(s): E11.69 - Type 2 diabetes mellitus with other specified complication; E66.9 - Obesity, unspecified (5) Fall Current visit: No Status: Chronic Category: Medical Code(s): W19.XXXA - Unspecified fall, initial encounter (6) Frontotemporal dementia Current visit: No Status: Chronic Category: Medical Code(s): G31.09 - Other frontotemporal dementia; F02.80 - Dementia in other diseases classified elsewhere without behavioral disturbance (7) History of DVT in adulthood Current visit: No Status: Chronic Category: Medical Code(s): Z86.718 - Personal history of other venous thrombosis and embolism (8) Seizure disorder Current visit: No Status: Chronic Category: Medical Code(s): G40.909 - Epilepsy, unspecified, not intractable, without status epilepticus - Assessment and plan all Dx Assessment and Plan for all problems:: Medically the patient has a pneumonia. He is responding to antibiotics. Continue supplemental oxygen. PT eval today due to the patient's weakness
--- NOTE | 2017-12-20 07:38 | Progress Note ---
Internal Medicine - PN: Subj *Date: 12/20/17 *Time: 07:37 Interval history: Patient has no complaints this morning and states he feels well. He feels almost back to baseline in regards to his physical strength and ability to ambulate although his feels like he still tires out pretty easily. He denies shortness of breath. He has been afebrile for 24 hour Exam Vital signs and Labs for Last 24 Hours: Temp Pulse Resp BP Pulse Ox 98.1 F 67 18 128/53 96 12/20/17 04:00 12/20/17 04:00 12/20/17 04:00 12/20/17 04:00 12/20/17 04:00 Laboratory Results - last 24 hr 12/19/17 06:12: POC Glucose 132 H 12/19/17 11:22: POC Glucose 122 H 12/19/17 16:25: POC Glucose 147 H 12/19/17 20:49: POC Glucose 192 H 12/20/17 05:42: POC Glucose 136 H I & O for Last 24 hours: Intake & Output 12/17/17 12/18/17 12/19/17 12/20/17 11:59 11:59 11:59 11:59 Intake Total 1190 / 1190 610 / 610 Output Total 1000 / 1000 Balance 190 / 190 610 / 610 Weight 256 lb 2 oz 249 lb 6 oz Microbiology Reports for the Last 24 Hours: Microbiology 12/19/17 10:10 Foot,Left Gram Stain - Final Narrative: Patient appears more awake and alert. Lungs have improved breath sounds with faint rales still at the left base. Heart has a regular rate and rhythm Assessment and Plan (1) Pneumonia Current visit: Yes Status: Acute Category: Medical Code(s): J18.9 - Pneumonia, unspecified organism (2) Hypoxemia Current visit: Yes Status: Acute Category: Medical Code(s): R09.02 - Hypoxemia (3) Generalized weakness Current visit: No Status: Acute Category: Medical Code(s): R53.1 - Weakness (4) Diabetes mellitus type 2 in obese Current visit: No Status: Chronic Category: Medical Code(s): E11.69 - Type 2 diabetes mellitus with other specified complication; E66.9 - Obesity, unspecified (5) Fall Current visit: No Status: Chronic Category: Medical Code(s): W19.XXXA - Unspecified fall, initial encounter (6) Frontotemporal dementia Current visit: No Status: Chronic Category: Medical Code(s): G31.09 - Other frontotemporal dementia; F02.80 - Dementia in other diseases classified elsewhere without behavioral disturbance (7) History of DVT in adulthood Current visit: No Status: Chronic Category: Medical Code(s): Z86.718 - Personal history of other venous thrombosis and embolism (8) Seizure disorder Current visit: No Status: Chronic Category: Medical Code(s): G40.909 - Epilepsy, unspecified, not intractable, without status epilepticus - Assessment and plan all Dx Assessment and Plan for all problems:: Patient is progressing. He will stay in the hospital for 1 more day and anticipate discharge tomorrow
--- NOTE | 2017-12-21 07:34 | Discharge Summary ---
General - General Admission date:: 12/18/17 Discharge date: 12/21/17 HPI HPI: 67-year-old male with known COPD, diabetes, sleep apnea, frequent falls at home was brought to the office today by his with concerns about a change in the patient's level of alertness with increasing weakness and unsteadiness on his feet. He reported onset of cough with mild shortness of breath and sputum production of unknown color over the preceding 48 hours. No fevers have been detected at home. In the office his temperature was 99.9 orally. In the office the patient appeared pale with room air O2 sats of 88%. Lung exam was significant for decreased breath sounds at the bases with questionable crackles on the left. Heart rate was regular. Patient was significantly weak and could only ambulate about 12 feet before having to stop and sit down which is a significant change from baseline. Patient has been admitted to the hospital for further evaluation. As of this time chest x-ray has been interpreted as no pneumonia. His white blood cell count is elevated and he is hypoxemic on ABG. Patient was recently treated for a urinary tract infection with a 2 week course of antibiotics. Hospital Course Hospital Course: Patient was admitted and placed on intravenous Levaquin for clinical pneumonia. Patient responded to antibiotics. White count decreased to a normal range within 24 hours. Level of alertness improved. Shortness of breath and cough improved over 48 hours. Patient was quite weak from his illness and physical therapy was consulted. With the aid of physical therapy for the duration of his hospitalization patient gradually ambulated more each day. A wound culture was performed on a left heel wound which appears to be growing staph at the time of this dictation. On December 21 patient was appropriate for discharge to home. He will need home health for wound care and physical therapy due to his significant fall risk Objective Vital signs: Temp Pulse Resp BP Pulse Ox 97.5 F L 68 16 117/46 92 L 12/21/17 04:00 12/21/17 04:00 12/21/17 04:00 12/21/17 04:00 12/21/17 04:00 Results Labs on day of discharge: Labs from last 24 hours 12/21/17 12/20/17 12/20/17 05:44 20:54 17:25 POC Glucose 121 H 127 H 107 12/20/17 11:46 POC Glucose 117 H Preliminary micro results at discharge 12/18/17 15:17 Blood Culture - Preliminary Blood NO GROWTH AFTER 48 HOURS 12/18/17 15:17 Blood Culture - Preliminary Blood NO GROWTH AFTER 48 HOURS 12/19/17 10:10 Wound Culture - Preliminary Foot,Left DS: Diagnosis - Discharge Diagnosis (1) Pneumonia Status: Acute (2) Hypoxemia Status: Acute (3) Generalized weakness Status: Acute (4) Diabetes mellitus type 2 in obese Status: Chronic (5) Fall Status: Chronic (6) Frontotemporal dementia Status: Chronic (7) History of DVT in adulthood Status: Chronic (8) Seizure disorder Status: Chronic Discharge Plan - Patient Discharge Instructions DIET: continue same diet - Follow up Plan Disposition: Home, Self-Senior Living Medications: Home Medications Medication Instructions Recorded Confirmed Type Acetaminophen [Tylenol] 650 mg PO Q6HP PRN 06/12/17 12/18/17 History Apixaban [Eliquis] 2.5 mg PO BID 06/12/17 12/18/17 History Aspirin [Aspirin 81mg EC Tab] 81 mg PO HS 06/12/17 12/18/17 History Atenolol [Atenolol 25mg Tab] 12.5 mg PO BID 06/12/17 12/18/17 History Bacillus Coagulans [Digestive 1 tab PO DAILY 06/12/17 12/18/17 History Advantage] Benzonatate [Benzonatate 100mg 100 mg PO BID 06/12/17 12/18/17 History cap] Brexpiprazole [Rexulti] 3 mg PO HS 06/12/17 12/18/17 History Budesonide [Budesonide EC] 3 mg PO BID 06/12/17 12/18/17 History Escitalopram Oxalate [Lexapro] 20 mg PO DAILY 06/12/17 12/18/17 History Fluticasone Propionate [Flovent 50 mcg IH DAILY 06/12/17 12/18/17 History Diskus] Loperamide HCl [Loperamide] 4 mg PO 0700,1100,2100 06/12/17 12/19/17 History Memantine HCl [Namenda] 10 mg PO BID 06/12/17 12/18/17 History Multivit-Min/FA/Lycopen/Lutein 1 tab PO DAILY 06/12/17 12/19/17 History [Men 50 Plus Multivitamin Tab] Nystatin/Triamcin [Nystatin-Triamc 1 applic TOPICAL WEEKLY PRN 06/12/17 History Crm 15gm] Oxybutynin Chloride [Oxybutynin 10 mg PO DAILY 06/12/17 12/18/17 History Chloride ER] Pravastatin Sodium [Pravachol] 40 mg PO HS 06/12/17 12/18/17 History Pyridoxine HCl (Vitamin B6) 100 mg PO DAILY 06/12/17 12/18/17 History [Vitamin B-6] clonazePAM [Clonazepam] 0.25 mg PO DAILY 06/12/17 12/18/17 History clonazePAM [Clonazepam] 0.5 mg PO HS 06/12/17 12/18/17 History lamoTRIgine [Lamotrigine] 100 mg PO BID 06/12/17 12/18/17 History Loperamide HCl [Imodium liquid 30 ml PO 0700 06/17/17 12/19/17 History 1mg/5mL 120mL bottle] Miscellaneous Medical Supply 3 l IH HS 06/17/17 12/18/17 History [Oxygen, Portable] Dutasteride 0.5 mg PO DAILY 12/18/17 12/18/17 History Furosemide [Furosemide 20mg Tab] 20 mg PO DAILY 12/18/17 12/18/17 History Gabapentin [Neurontin 600mg 600 mg PO BID 12/18/17 12/18/17 History tablet] Liraglutide [Victoza 2-Rick] 1.2 units SUBCONJ DAILY 12/18/17 12/18/17 History Loratadine [Claritin 10mg Tablet] 10 mg PO HS 12/18/17 12/18/17 History Rivastigmine Tartrate 1.5 mg PO BID 12/18/17 12/18/17 History [Rivastigmine] Tamsulosin HCl [Flomax 0.4mg 0.4 mg PO DAILY 12/18/17 12/18/17 History capsule] Miconazole Nitrate [Lotrimin AF] 1 applic TP WEEKLY PRN 12/19/17 12/19/17 History Prescriptions/Medication Reconciliation: Continue Pyridoxine HCl (Vitamin B6) [Vitamin B-6] 100 mg PO DAILY Pravastatin Sodium [Pravachol] 40 mg PO HS Oxybutynin Chloride [Oxybutynin Chloride ER] 10 mg PO DAILY Nystatin/Triamcin [Nystatin-Triamc Crm 15gm] 1 applic TOPICAL WEEKLY PRN PRN Reason: Rash Multivit-Min/FA/Lycopen/Lutein [Men 50 Plus Multivitamin Tab] 1 tab PO DAILY Memantine HCl [Namenda] 10 mg PO BID Loperamide HCl [Loperamide] 4 mg PO 0700,1100,2100 lamoTRIgine [Lamotrigine] 100 mg PO BID Fluticasone Propionate [Flovent Diskus] 50 mcg IH DAILY Escitalopram Oxalate [Lexapro] 20 mg PO DAILY clonazePAM [Clonazepam] 0.25 mg PO DAILY clonazePAM [Clonazepam] 0.5 mg PO HS Budesonide [Budesonide EC] 3 mg PO BID Brexpiprazole [Rexulti] 3 mg PO HS Benzonatate [Benzonatate 100mg cap] 100 mg PO BID Bacillus Coagulans [Digestive Advantage] 1 tab PO DAILY Atenolol [Atenolol 25mg Tab] 12.5 mg PO BID Aspirin [Aspirin 81mg EC Tab] 81 mg PO HS Acetaminophen [Tylenol] 650 mg PO Q6HP PRN PRN Reason: Moderate Pain Furosemide [Furosemide 20mg Tab] 20 mg PO DAILY Liraglutide [Victoza 2-Rick] 1.2 units SUBCONJ DAILY Dutasteride 0.5 mg PO DAILY Tamsulosin HCl [Flomax 0.4mg capsule] 0.4 mg PO DAILY Gabapentin [Neurontin 600mg tablet] 600 mg PO BID Rivastigmine Tartrate [Rivastigmine] 1.5 mg PO BID Loratadine [Claritin 10mg Tablet] 10 mg PO HS Apixaban [Eliquis] 2.5 mg PO BID Loperamide HCl [Imodium liquid 1mg/5mL 120mL bottle] 30 ml PO 0700 Miscellaneous Medical Supply [Oxygen, Portable] 3 l IH HS Miconazole Nitrate [Lotrimin AF] 1 applic TP WEEKLY PRN PRN Reason: Rash
== END 2017-12-21 10:55 | disposition home or self-care (01) ==
LOC: 2ND
PROVIDERS: ADMIT Family Medicine; ATTEND Family Medicine
CPT/HCPCS: 36415; 71020; 71046; 80053; 81001; 82803; 82962; 85007; 85025; 86738; 87040; 87070; 87077; 87186; 87205; 94761; 97116; 97162; G0378; J1956

== ENCOUNTER → 2017-12-27 13:47 | Outpatient (CLI) | payer MEDICARE, SELFPAY ==
--- NOTE | 2017-12-27 13:50 | XR_ITS ---
XR calcaneus LT min 2V, XR foot wt bearing LT 3V, XR foot wt bearing RT 3V Ordering Physician: Annabella Jones DPM Patient Age: 67 years: Male HISTORY: ITS.REASON: heel wound TECHNIQUE: . CALCANEUS: 2 VIEWS LEFT FOOT: 3 VIEWS WEIGHTBEARING RIGHT FOOT: 3 VIEWS,: WEIGHTBEARING COMPARISON :None CALCANEUS: 2 VIEWS No fracture. Normal trabecular pattern.. Plantar calcaneal, spur 12 mm length mm. No spurring at the Achilles tendon. Lateral view ankle unremarkable on this view LEFT FOOT: 3 VIEWS WEIGHTBEARING Lateral view the ankle and subtalar region unremarkable. Adequate plantar arch. No fractures are evident. Joint spaces well-maintained with no erosions. Only slight narrowing suggested at the PIP joints of the toes. Minimal flexion deformity at toes 2,, 3 ,4 and 5 views. Borderline narrowing first MTP joint. Again the plantar calcaneal spur is noted IMPRESSION 1. left foot intact with no acute findings. 2. Borderline to mild narrowing IP joint of toes Mild flexion at toes 3 Plantar calcaneal spur RIGHT FOOT: 3 VIEWS,: WEIGHTBEARING: Bones well mineralized bilaterally. Slight narrowing at first MTP joint may reflect early degenerative changes here. Is also some borderline narrowing at the IP joint which could reflect a strain. Only mild flexion is seen at the second through fifth toe There is old healed fracture at the proximal phalanx of fifth toe and fourth toe. This appear mainly involved the proximal metaphysis. With mild residual deformity.. Adequate plantar arch noted. No remarkable calcaneal spurs on right. Foot IMPRESSION Old healed fracture at the proximal phalanx fifth toe & fourth toe Borderline narrowing & borderline degenerative IP joint toes.
== END ==
PROVIDERS: Visit Provider Podiatrist
DX: Z51.89 Encounter for other specified aftercare (principal)
CPT/HCPCS: 73630; 73650

== ENCOUNTER 2018-02-01 12:18 | Inpatient (IN) ==
--- NOTE | 2018-02-01 12:37 | Emergency Department Note ---
ED Disposition Clinical Impression: COPD (chronic obstructive pulmonary disease) Qualifiers: COPD type: unspecified COPD Qualified Code(s): J44.9 - Chronic obstructive pulmonary disease, unspecified Sepsis Qualifiers: Sepsis type: sepsis due to unspecified organism Qualified Code(s): A41.9 - Sepsis, unspecified organism Disposition: Admitted as Observation Condition on Discharge: [facility] Critical Care Critical Care Time: No Attestation: On , the high probability of a clinically significant, sudden or life threatening deterioration of the following system(s) required my full and direct attention, intervention and personal management. The time I documented below is in addition to time spent performing reported procedures but includes the following listed in this critical care notation. Medical Decision Making - Medical Records Medical records reviewed: Yes: I reviewed the patient's medical records. - Jonathon Inquiry Pt receiving controlled substance: No Vital Signs: 02/01/18 12:18 02/01/18 12:49 02/01/18 12:57 Temperature 98.9 F Temperature Source Oral Pulse Rate 91 H Pulse Rate [Left Radial] 86 82 Respiratory Rate 20 20 Blood Pressure [Right Arm] 134/73 129/76 Blood Pressure Mean [Right Arm] 93 93 Blood Pressure Source [Right Arm] Automatic Cuff Automatic Cuff Blood Pressure Position [Right Arm] Sitting Sitting 02 Sat by Pulse Oximetry 93 L 94 L 95 Oxygen Delivery Method Nasal Cannula Nasal Cannula Nasal Cannula Oxygen Flow Rate (LPM) 2 2 4 02/01/18 13:52 02/01/18 14:30 02/01/18 15:36 Temperature Temperature Source Pulse Rate Pulse Rate [Left Radial] 84 80 85 Respiratory Rate Blood Pressure [Right Arm] 119/72 122/68 127/89 Blood Pressure Mean [Right Arm] 87 86 101 Blood Pressure Source [Right Arm] Automatic Cuff Automatic Cuff Automatic Cuff Blood Pressure Position [Right Arm] Sitting Sitting Sitting 02 Sat by Pulse Oximetry 95 96 97 Oxygen Delivery Method Oxygen Flow Rate (LPM) - Lab Data Lab results reviewed: Yes: I reviewed the patient's lab results. Lab Results 02/01/18 12:35: WBC 15.0 H, RBC 4.90, Hgb 13.2 L, Hct 41.9 L, MCV 85.4, MCH 26.8 L, MCHC 31.4 L, RDW 14.5, Plt Count 301, MPV 6.6 L, Neut % (Auto) 85.9 H, Lymph % (Auto) 7.7 L, [place] % (Auto) 4.4, Eos % (Auto) 1.6, Baso % (Auto) 0.4, Neut # (Auto) 12.9 H, Lymph # (Auto) 1.2, [place] # (Auto) 0.7, Eos # (Auto) 0.2, Baso # (Auto) 0.1, Total Counted 100, Neutrophils % (Manual) 77 H, Lymphocytes % (Manual) 14, Monocytes % (Manual) 6, Eosinophils % (Manual) 2, Basophils % (Manual) 1.0, Platelet Estimate Normal, RBC Morphology Not Reportable, Hypochromasia 1+ 02/01/18 12:35: Sodium 140, Potassium 3.9, Chloride 102, Carbon Dioxide 33 H, Anion Gap 8.9, BUN 11, Creatinine 1.17, Estimated Creat Clear 97, Estimated GFR 62, Est GFR ( Amer) 75, Glucose 177 H, Calcium 8.7, Total Bilirubin 0.3, AST 23, ALT 29, Alkaline Phosphatase 105, Troponin I < 0.02, Total Protein 7.3 D, Albumin 2.8 L, Globulin 4.5 H, Albumin/Globulin Ratio 0.6 L 02/01/18 12:35: Lactate 2.7 H 02/01/18 13:30: Urine Color Yellow, Urine Appearance Cloudy, Urine pH 7.0, Ur Specific [place] 1.015, Urine Protein 1+, Urine Glucose (UA) Negative, Urine Ketones Negative, Urine Blood 3+, Urine Nitrate Negative, Urine Bilirubin Negative, Urine Urobilinogen 0.2, Ur Leukocyte Esterase Trace, Urine RBC 50-100, Urine WBC Occasional, Ur Squamous Epith Cells 3-5, Urine Bacteria Trace Result diagrams: 02/01/18 12:35 02/01/18 12:35 Orders (Tests/Meds): ED MEDICATIONS Generic Name Dose Route Start Last Admin Trade Name Freq PRN Reason Stop Dose Admin Sodium Chloride 3 ml 02/01/18 12:59 Sodium Chloride 3% 15ml [facility] 03/03/18 12:58 ONCE PRN INDUCE SPUTUM COLLECTION Discontinued Medications Generic Name Dose Route Start Last Admin Trade Name Freq PRN Reason Stop Dose Admin Albuterol/Ipratropium 3 ml 02/01/18 12:31 02/01/18 12:56 Duoneb 3ml Neb IH 02/01/18 12:32 3 ml ONCE ONE Administration Hydrocortisone Sodium Succinate 100 mg 02/01/18 12:31 02/01/18 13:34 Solu-Cortef 100mg Vial IV 02/01/18 12:32 100 mg ONCE ONE Administration Sodium Chloride 500 mls @ 999 mls/hr 02/01/18 12:45 02/01/18 13:34 Sod Chlor 0.9% 1000ml Bag IV 02/01/18 13:15 999 mls/hr .Q31M GEORGI Administration ORDERS Category Date Time Status Urinalysis and Microscopic Stat Lab 02/01/18 13:30 Ordered Blood Culture Stat Micro 02/01/18 12:48 Ordered Sputum Culture & Gram Stain Stat Micro 02/01/18 12:59 Ordered - Radiology Data #1 Image(s): Chest Image Reviewed: Yes I have reviewed radiologist's interpretation Preliminary Findings: Normal/NAD Medical Decision Narrative: admit d/w Dr Coon General Adult HPI - General Chief complaint: Weakness Stated complaint: Cough Time Seen by Provider: 02/01/18 12:34 Mode of Arrival: EMS Limitations: No Limitations Description of Symptoms (Recalled from ER Triage Doc. by RN): Per EMS pt has been weak today, c/o fever, and cough with sputum that is brownish in color, pt states he had pneumonia about 6 weeks ago and was hospilized for this treatment. - History of Present Illness HPI narrative: mild to mod general weakness and cough w/ fever today, no NV, no loc, no injury, hx left foot infection - Related Data Home Medications Medication Instructions Recorded Confirmed Acetaminophen [Tylenol] 650 mg PO Q6HP PRN 06/12/17 02/01/18 Apixaban [Eliquis] 2.5 mg PO BID 06/12/17 02/01/18 Aspirin [Aspirin 81mg EC Tab] 81 mg PO HS 06/12/17 02/01/18 Atenolol [Atenolol 25mg Tab] 12.5 mg PO BID 06/12/17 02/01/18 Bacillus Coagulans [Digestive 1 tab PO DAILY 06/12/17 02/01/18 Advantage] Benzonatate [Benzonatate 100mg 100 mg PO BID 06/12/17 02/01/18 cap] Brexpiprazole [Rexulti] 3 mg PO HS 06/12/17 02/01/18 Budesonide [Budesonide EC] 3 mg PO BID 06/12/17 02/01/18 Escitalopram Oxalate [Lexapro] 20 mg PO DAILY 06/12/17 02/01/18 Fluticasone Propionate [Flovent 50 mcg IH DAILY 06/12/17 02/01/18 Diskus] Loperamide HCl [Loperamide] 4 mg PO 0700,1100,2100 06/12/17 02/01/18 Memantine HCl [Namenda] 10 mg PO BID 06/12/17 02/01/18 Multivit-Min/FA/Lycopen/Lutein 1 tab PO DAILY 06/12/17 02/01/18 [Men 50 Plus Multivitamin Tab] Nystatin/Triamcin [Nystatin-Triamc 1 applic TOPICAL WEEKLY PRN 06/12/17 02/01/18 Crm 15gm] Oxybutynin Chloride [Oxybutynin 10 mg PO DAILY 06/12/17 02/01/18 Chloride ER] Pravastatin Sodium [Pravachol] 40 mg PO HS 06/12/17 02/01/18 Pyridoxine HCl (Vitamin B6) 100 mg PO DAILY 06/12/17 02/01/18 [Vitamin B-6] clonazePAM [Clonazepam] 0.25 mg PO DAILY 06/12/17 02/01/18 clonazePAM [Clonazepam] 0.5 mg PO HS 06/12/17 02/01/18 lamoTRIgine [Lamotrigine] 100 mg PO BID 06/12/17 02/01/18 Loperamide HCl [Imodium liquid 30 ml PO 0700 06/17/17 02/01/18 1mg/5mL 120mL bottle] Miscellaneous Medical Supply 3 l HS 06/17/17 02/01/18 [Oxygen, Portable] Dutasteride 0.5 mg PO DAILY 12/18/17 02/01/18 Furosemide [Furosemide 20mg Tab] 20 mg PO DAILY 12/18/17 02/01/18 Gabapentin [Neurontin 600mg 600 mg PO BID 12/18/17 02/01/18 tablet] Liraglutide [Victoza 2-Rick] 1.2 units SUBCONJ DAILY 12/18/17 02/01/18 Loratadine [Claritin 10mg Tablet] 10 mg PO HS 12/18/17 02/01/18 Rivastigmine Tartrate 1.5 mg PO BID 12/18/17 02/01/18 [Rivastigmine] Tamsulosin HCl [Flomax 0.4mg 0.4 mg PO DAILY 12/18/17 02/01/18 capsule] Miconazole Nitrate [Lotrimin AF] 1 applic TP WEEKLY PRN 12/19/17 02/01/18 fluticasone 50 mcg/actuation nasal 1 dose INTRANASAL DAILY 30 Days 01/11/18 02/01/18 spray,suspension Pumpkin Seed Extract/Soy Germ [Azo 300 mg PO DAILY 02/01/18 02/01/18 Bladder Control Capsule] Previous Rx's Medication Instructions Recorded collagenase clostridium 1 applic TOPICAL QDAY #30 g 12/27/17 histolyticum 250 unit/gram topical ointment Allergies Allergy/AdvReac Type Severity Reaction Status Date / Time erythromycin base Allergy Intermediate SWELLING/IT Verified 01/25/18 13:20 [ERYTHROMYCIN BASE] CLEMENTE/SEIZU RES iodine [IODINE] Allergy Unknown Verified 01/25/18 13:20 [facility] History I have reviewed the patient's past medical history: Yes Medical History: Reports:: Anxiety, Deep Vein Thrombosis, Dementia, Diabetes Mellitus Type 2, Hyperlipidemia, Hypertension, Myocardial Infarction Denies:: Cancer, Diabetes Mellitus Type 1, MRSA 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, Sturge-Matt syndrome Other Surgeries: Yes: Colonoscopy, EGD, Hernia Repair Amputation: No Fractures: Yes (l4 compression) - Social History Smoking Status: Former smoker Tobacco Type: cigarettes # Packs/Day (cigarettes): 2 #Yrs smoked (if former smoker): 52 Smoking End Date: 2012 Alcohol Intake: never Alcohol Intake Frequency:: other Occupational Status: retired, disabled Housing: house Household Members: spouse - Psychiatric History Expresses thoughts of harming self/others: None Suicide Plan Description: No Plan Pschychiatric History:: Reports:: Anxiety, Psychiatric Treatment Family Hx:: Diabetes, Heart Attack, Hyperlipidemia, Hypertension, Stroke ROS Obtained: Yes Systems reviewed as appropriate & no additional complaints - Constitutional Constitutional: Reports fever(s) - Eyes Eyes: Denies change in vision - ENT Ears, Nose, Mouth, and Throat: Reports dry mouth - Cardiovascular Cardiovascular: Denies chest pain - Respiratory Respiratory: Yes cough, Yes dyspnea - Gastrointestinal Gastrointestingal: Denies: abdominal pain, vomiting - Genitourinary Male Genitourinary: Denies decreased urination - Musculoskeletal Musculoskeletal: Denies neck pain - Integumentary/Breasts Skin/Breast: Denies rash - Neurologic Neurologic: Reports tremor(s) Physical Exam - General General appearance: alert, in no apparent distress - Head Head exam: atraumatic - Eye Eye exam: Present: EOMI - ENT ENT exam: Present: mucous membranes dry - Neck Neck exam: Present: normal inspection - Chest Chest inspection: Present: normal inspection - Respiratory Respiratory exam: Present: normal lung sounds bilaterally - Cardiovascular Cardiovascular exam: Present: regular rate, normal rhythm - Abdominal Exam Abdominal exam: Present: soft. Absent: tenderness - Extremities Exam Extremities exam: Absent: tenderness - Back Exam Back exam: Absent: CVA tenderness (R), CVA tenderness (L) - Neurological Exam Neurological exam: Present: alert, oriented X3 - Psychiatric Psychiatric exam: Present: normal affect, normal mood - Skin Skin exam: Present: other (left heel wound)
[2018-02-01 13:00] LABS: Basophils # 0.1 K/mm3 (0-0.2); Basophils % 0.4 % (0.1-2.0); Eosinophils # 0.2 K/mm3 (0.0-0.4); Eosinophils % 1.6 % (0.1-12.0); Hematocrit 41.9 % (42.0-52.0); Hemoglobin 13.2 g/dL (14.1-18.0); Lymphocytes # 1.2 K/mm3 (0.7-4.5); Lymphocytes % 7.7 K/mm3 (10-50); Mean Corpuscular HGB Conc 31.4 g/dL (31.8-35.4); Mean Corpuscular Hemoglobin 26.8 pg (27.0-31.2); Mean Corpuscular Volume 85.4 fl (80-94); Mean Platelet Volume 6.6 fl (7.4-10.4); Monocytes # 0.7 K/mm3 (0.1-1.0); Monocytes % 4.4 % (1.7-9.3); Neutrophils # 12.9 K/mm3 (1.8-7.8); Neutrophils % 85.9 % (37.0-80.0); Platelet Count 301 K/mm3 (142-424); Red Cell Distribution Width 14.5 % (11.5-17.5)
[2018-02-01 13:14] LABS: Alanine Aminotransferase 29 U/L (12-78); Albumin Level 2.8 gm/dL (3.4-5.0); Albumin/Globulin Ratio 0.6 (1.1-1.8); Alkaline Phosphatase 105 U/L (46-116); Anion Gap 8.9 mEq/L (5-15); Bilirubin,Total 0.3 mg/dL (0.2-1.0); Blood Urea Nitrogen 11 mg/dL (7-18); Calcium 8.7 mg/dL (8.5-10.1); Carbon Dioxide 33 mmol/L (21.0-32.0); Chloride 102 mmol/L (98-107); Globulin 4.5 gm/dl (1.3-3.2); Glucose 177 mg/dL (74-106); Sodium 140 mmol/L (136-145); Total Protein,Serum 7.3 gm/dL (6.4-8.2)
[2018-02-01 13:15] LABS: Potassium 3.9 mmoL/L (3.5-5.1)
[2018-02-01 13:16] LABS: Aspartate Amino Transferase 23 U/L (15-37)
[2018-02-01 13:30] LABS: Eosinophils % 2 % (0-3); Lymphocytes % 14 % (10-50); Monocytes % 6 % (2-9); Neutrophils % 77 % (42-76); Total Cells Counted 100
[2018-02-01 13:31] LABS: Hypochromasia 1+
[2018-02-01 13:41] LABS: Appearance,Urine CLOUDY (Clear); Bilirubin,Urine Negative (Negative); Blood, Urine 3+ (Negative); Color,Urine YELLOW (Yellow); Glucose,Urine (UA) Negative (Negative); Ketones,Urine Negative (Negative); Leukocyte Esterase,Urine TRACE (Negative); Microscopic, Urine URINE MICROSCOPIC (MICROSCOPIC); Protein,Urine 1+ (Negative); Specific Gravity, Urine 1.015 (1.005-1.030); Urobilinogen,Urine 0.2 EU/dl (0.2)
[2018-02-01 13:50] LABS: RBC,Urine 50-100 #/hpf (0-3); WBC,Urine Occasional #/hpf (0-3)
[2018-02-01 13:51] LABS: Bacteria,Urine Trace /lpf
--- NOTE | 2018-02-01 16:18 | Pharmacy Consult Notes ---
[facility] Pharmacy VTE Monitoring - Patient Demographics Admission date: 02/01/18 Report Date: 02/01/18 Time: 16:18 Allergies/Adverse Reactions: Patient Allergies erythromycin base [ERYTHROMYCIN BASE] Allergy (Intermediate, Verified 01/25/18 13:20) SWELLING/ITCHING/SEIZURES iodine [IODINE] Allergy (Unknown, Verified 01/25/18 13:20) Height: 1.85 m Weight: 113.398 kg Patient Problems: Current Active Problems COPD (chronic obstructive pulmonary disease) (Chronic) Sepsis (Acute) - VTE Risk Labs: VTE Related Lab Results Hgb 13.2 g/dL (14.1-18.0) L 02/01/18 12:35 Hct 41.9 % (42.0-52.0) L 02/01/18 12:35 Plt Count 301 K/mm3 (142-424) 02/01/18 12:35 BUN 11 mg/dL (7-18) 02/01/18 12:35 Creatinine 1.17 mg/dL (0.70-1.30) 02/01/18 12:35 Estimated Creat Clear 97 mL/min (0-300) 02/01/18 12:35 Clinical Trial Participant: No - Prophylaxis VTE Prophylaxis Ordered?: Yes Types of VTE Prophylaxis: TEDS Knee High
--- NOTE | 2018-02-01 16:30 | History & Physical Report ---
*Admission Date: 02/01/18 *Chief complaint: fever and weakness *History of present illness: 67-year-old male presented to the emergency department with complaints of fever and weakness. Most of the history comes from his . According to his the evening prior the patient complained of leg weakness. She attributed to his session with home health physical therapy for the day. However on the morning of admission he had a fever of 101.2. He did seem to have labored breathing as well and has known COPD. On an attempt to go to the bathroom he was able to get off the commode. EMS was called and patient brought to the hospital. tells me she gave him to treatments at home but this did not seem to prove his labored breathing. His weakness seemed to be progressive the day of admission. In the emergency department he was evaluated and workup was rather unrevealing except for an elevated white blood cell count. Patient was given intravenous Rocephin and admit for observation. [facility] History Medical History: Reports:: Anxiety, Deep Vein Thrombosis, Dementia, Diabetes Mellitus Type 2, Hyperlipidemia, Hypertension, Myocardial Infarction Denies:: Cancer, Diabetes Mellitus Type 1, MRSA Other Surgeries: Yes: Colonoscopy, EGD, Hernia Repair Amputation: No Fractures: Yes (l4 compression) - *Social History Smoking Status: Former smoker Tobacco Type: cigarettes # Packs/Day (cigarettes): 2 #Yrs smoked (if former smoker): 52 Smoking End Date: 2012 Alcohol Intake: never Alcohol Intake Frequency:: other Occupational Status: retired, disabled Housing: house Household Members: spouse - Psychiatric History Expresses thoughts of harming self/others: None Suicide Plan Description: No Plan Pschychiatric History:: Reports:: Anxiety, Psychiatric Treatment *Family Hx:: Diabetes, Heart Attack, Hyperlipidemia, Hypertension, Stroke Review of Systems - *Neurologic Reports tremor(s) Meds Home Medications Medication Instructions Recorded Confirmed Type Acetaminophen [Tylenol] 650 mg PO Q6HP PRN 06/12/17 02/01/18 History Apixaban [Eliquis] 2.5 mg PO BID 06/12/17 02/01/18 History Aspirin [Aspirin 81mg EC Tab] 81 mg PO HS 06/12/17 02/01/18 History Atenolol [Atenolol 25mg Tab] 12.5 mg PO BID 06/12/17 02/01/18 History Bacillus Coagulans [Digestive 1 tab PO DAILY 06/12/17 02/01/18 History Advantage] Benzonatate [Benzonatate 100mg 100 mg PO BID 06/12/17 02/01/18 History cap] Brexpiprazole [Rexulti] 3 mg PO HS 06/12/17 02/01/18 History Budesonide [Budesonide EC] 3 mg PO BID 06/12/17 02/01/18 History Escitalopram Oxalate [Lexapro] 20 mg PO DAILY 06/12/17 02/01/18 History Fluticasone Propionate [Flovent 50 mcg IH DAILY 06/12/17 02/01/18 History Diskus] Loperamide HCl [Loperamide] 4 mg PO 0700,1100,2100 06/12/17 02/01/18 History Memantine HCl [Namenda] 10 mg PO BID 06/12/17 02/01/18 History Multivit-Min/FA/Lycopen/Lutein 1 tab PO DAILY 06/12/17 02/01/18 History [Men 50 Plus Multivitamin Tab] Nystatin/Triamcin [Nystatin-Triamc 1 applic TOPICAL WEEKLY PRN 06/12/17 02/01/18 History Crm 15gm] Oxybutynin Chloride [Oxybutynin 10 mg PO DAILY 06/12/17 02/01/18 History Chloride ER] Pravastatin Sodium [Pravachol] 40 mg PO HS 06/12/17 02/01/18 History Pyridoxine HCl (Vitamin B6) 100 mg PO DAILY 06/12/17 02/01/18 History [Vitamin B-6] clonazePAM [Clonazepam] 0.25 mg PO DAILY 06/12/17 02/01/18 History clonazePAM [Clonazepam] 0.5 mg PO HS 06/12/17 02/01/18 History lamoTRIgine [Lamotrigine] 100 mg PO BID 06/12/17 02/01/18 History Loperamide HCl [Imodium liquid 30 ml PO 0700 06/17/17 02/01/18 History 1mg/5mL 120mL bottle] Miscellaneous Medical Supply 3 l IH HS 06/17/17 02/01/18 History [Oxygen, Portable] Dutasteride 0.5 mg PO DAILY 12/18/17 02/01/18 History Furosemide [Furosemide 20mg Tab] 20 mg PO DAILY 12/18/17 02/01/18 History Gabapentin [Neurontin 600mg 600 mg PO BID 12/18/17 02/01/18 History tablet] Liraglutide [Victoza 2-Rick] 1.2 units SUBCONJ DAILY 12/18/17 02/01/18 History Loratadine [Claritin 10mg Tablet] 10 mg PO HS 12/18/17 02/01/18 History Rivastigmine Tartrate 1.5 mg PO BID 12/18/17 02/01/18 History [Rivastigmine] Tamsulosin HCl [Flomax 0.4mg 0.4 mg PO DAILY 12/18/17 02/01/18 History capsule] Miconazole Nitrate [Lotrimin AF] 1 applic TP WEEKLY PRN 12/19/17 02/01/18 History fluticasone 50 mcg/actuation nasal 1 dose INTRANASAL DAILY 30 Days 01/11/18 02/01/18 History spray,suspension Pumpkin Seed Extract/Soy Germ [Azo 300 mg PO DAILY 02/01/18 02/01/18 History Bladder Control Capsule] Allergies Allergy/AdvReac Type Severity Reaction Status Date / Time erythromycin base Allergy Intermediate SWELLING/IT Verified 01/25/18 13:20 [ERYTHROMYCIN BASE] CLEMENTE/SEIZU RES iodine [IODINE] Allergy Unknown Verified 01/25/18 13:20 Exam Vital signs and Labs for Last 24 Hours: Temp Pulse Resp BP Pulse Ox 98.9 F 85 20 127/89 97 02/01/18 12:18 02/01/18 15:36 02/01/18 12:49 02/01/18 15:36 02/01/18 15:36 Laboratory Results - last 24 hr 02/01/18 12:35: WBC 15.0 H, RBC 4.90, Hgb 13.2 L, Hct 41.9 L, MCV 85.4, MCH 26.8 L, MCHC 31.4 L, RDW 14.5, Plt Count 301, MPV 6.6 L, Neut % (Auto) 85.9 H, Lymph % (Auto) 7.7 L, [place] % (Auto) 4.4, Eos % (Auto) 1.6, Baso % (Auto) 0.4, Neut # (Auto) 12.9 H, Lymph # (Auto) 1.2, [place] # (Auto) 0.7, Eos # (Auto) 0.2, Baso # (Auto) 0.1, Total Counted 100, Neutrophils % (Manual) 77 H, Lymphocytes % (Manual) 14, Monocytes % (Manual) 6, Eosinophils % (Manual) 2, Basophils % (Manual) 1.0, Platelet Estimate Normal, RBC Morphology Not Reportable, Hypochromasia 1+ 02/01/18 12:35: Sodium 140, Potassium 3.9, Chloride 102, Carbon Dioxide 33 H, Anion Gap 8.9, BUN 11, Creatinine 1.17, Estimated Creat Clear 97, Estimated GFR 62, Est GFR ( Amer) 75, Glucose 177 H, Calcium 8.7, Total Bilirubin 0.3, AST 23, ALT 29, Alkaline Phosphatase 105, Troponin I < 0.02, Total Protein 7.3 D, Albumin 2.8 L, Globulin 4.5 H, Albumin/Globulin Ratio 0.6 L 02/01/18 12:35: Lactate 2.7 H 02/01/18 13:30: Urine Color Yellow, Urine Appearance Cloudy, Urine pH 7.0, Ur Specific [place] 1.015, Urine Protein 1+, Urine Glucose (UA) Negative, Urine Ketones Negative, Urine Blood 3+, Urine Nitrate Negative, Urine Bilirubin Negative, Urine Urobilinogen 0.2, Ur Leukocyte Esterase Trace, Urine RBC 50-100, Urine WBC Occasional, Ur Squamous Epith Cells 3-5, Urine Bacteria Trace I & O for Last 24 hours: Intake & Output 01/30/18 01/31/18 02/01/18 02/02/18 11:59 11:59 11:59 11:59 Weight 250 lb Assessment and Plan (1) COPD exacerbation Current visit: Yes Status: Acute Category: Medical Code(s): J44.1 - Chronic obstructive pulmonary disease with (acute) exacerbation (2) Fever Current visit: Yes Status: Acute Category: Medical Code(s): R50.9 - Fever, unspecified (3) Generalized weakness Current visit: No Status: Acute Category: Medical Code(s): R53.1 - Weakness (4) Anxiety disorder Current visit: No Status: Chronic Category: Medical Code(s): F41.9 - Anxiety disorder, unspecified (5) Diabetes mellitus type 2 in obese Current visit: No Status: Chronic Category: Medical Code(s): E11.69 - Type 2 diabetes mellitus with other specified complication; E66.9 - Obesity, unspecified (6) Frontotemporal dementia Current visit: No Status: Chronic Category: Medical Code(s): G31.09 - Other frontotemporal dementia; F02.80 - Dementia in other diseases classified elsewhere without behavioral disturbance (7) Seizure disorder Current visit: No Status: Chronic Category: Medical Code(s): G40.909 - Epilepsy, unspecified, not intractable, without status epilepticus - Assessment and plan all Dx Assessment and Plan for all problems:: 1. Admit for steroids, duonebs, Rocephin 2. Home meds 3. Repeat labs in a.m.
--- NOTE | 2018-02-02 07:13 | Progress Note ---
Internal Medicine - PN: Subj *Date: 02/02/18 *Time: 07:11 Interval history: Patient has no complaints morning. He slept for solid 8 hours overnight. He denies shortness breath. He has been afebrile since admission Exam Vital signs and Labs for Last 24 Hours: Temp Pulse Resp BP Pulse Ox 98.8 F 67 16 111/50 92 L 02/02/18 04:38 02/02/18 04:38 02/02/18 04:38 02/02/18 04:38 02/02/18 04:38 Laboratory Results - last 24 hr 02/01/18 12:35: WBC 15.0 H, RBC 4.90, Hgb 13.2 L, Hct 41.9 L, MCV 85.4, MCH 26.8 L, MCHC 31.4 L, RDW 14.5, Plt Count 301, MPV 6.6 L, Neut % (Auto) 85.9 H, Lymph % (Auto) 7.7 L, [place] % (Auto) 4.4, Eos % (Auto) 1.6, Baso % (Auto) 0.4, Neut # (Auto) 12.9 H, Lymph # (Auto) 1.2, [place] # (Auto) 0.7, Eos # (Auto) 0.2, Baso # (Auto) 0.1, Total Counted 100, Neutrophils % (Manual) 77 H, Lymphocytes % (Manual) 14, Monocytes % (Manual) 6, Eosinophils % (Manual) 2, Basophils % (Manual) 1.0, Platelet Estimate Normal, RBC Morphology Not Reportable, Hypochromasia 1+ 02/01/18 12:35: Sodium 140, Potassium 3.9, Chloride 102, Carbon Dioxide 33 H, Anion Gap 8.9, BUN 11, Creatinine 1.17, Estimated Creat Clear 97, Estimated GFR 62, Est GFR ( Amer) 75, Glucose 177 H, Calcium 8.7, Total Bilirubin 0.3, AST 23, ALT 29, Alkaline Phosphatase 105, Troponin I < 0.02, Total Protein 7.3 D, Albumin 2.8 L, Globulin 4.5 H, Albumin/Globulin Ratio 0.6 L 02/01/18 12:35: Lactate 2.7 H 02/01/18 13:30: Urine Color Yellow, Urine Appearance Cloudy, Urine pH 7.0, Ur Specific [place] 1.015, Urine Protein 1+, Urine Glucose (UA) Negative, Urine Ketones Negative, Urine Blood 3+, Urine Nitrate Negative, Urine Bilirubin Negative, Urine Urobilinogen 0.2, Ur Leukocyte Esterase Trace, Urine RBC 50-100, Urine WBC Occasional, Ur Squamous Epith Cells 3-5, Urine Bacteria Trace 02/01/18 17:02: Lactate 1.9 02/01/18 17:45: POC Glucose 202 H 02/01/18 21:28: POC Glucose 305 H* 02/02/18 06:35: POC Glucose 220 H I & O for Last 24 hours: Intake & Output 01/30/18 01/31/18 02/01/18 02/02/18 11:59 11:59 11:59 11:59 Intake Total 744 / 744 Balance 744 / 744 Weight 250 lb Radiology Reports for the Last 24 Hours: CT scan of the abdomen and pelvis showed nonobstructive nephrolithiasis in an L4 compression fracture Narrative: Patient is awake and alert this morning. Oropharynx is moist. Lungs have a faint expiratory wheeze heard posteriorly. Heart has a regular rate and rhythm. Abdomen is obese and soft. Assessment and Plan (1) COPD exacerbation Current visit: Yes Status: Acute Category: Medical Code(s): J44.1 - Chronic obstructive pulmonary disease with (acute) exacerbation (2) Fever Current visit: Yes Status: Acute Category: Medical Code(s): R50.9 - Fever, unspecified (3) Generalized weakness Current visit: No Status: Acute Category: Medical Code(s): R53.1 - Weakness (4) Anxiety disorder Current visit: No Status: Chronic Category: Medical Code(s): F41.9 - Anxiety disorder, unspecified (5) Diabetes mellitus type 2 in obese Current visit: No Status: Chronic Category: Medical Code(s): E11.69 - Type 2 diabetes mellitus with other specified complication; E66.9 - Obesity, unspecified (6) Frontotemporal dementia Current visit: No Status: Chronic Category: Medical Code(s): G31.09 - Other frontotemporal dementia; F02.80 - Dementia in other diseases classified elsewhere without behavioral disturbance (7) Seizure disorder Current visit: No Status: Chronic Category: Medical Code(s): G40.909 - Epilepsy, unspecified, not intractable, without status epilepticus - Assessment and plan all Dx Assessment and Plan for all problems:: To new current care. DC IV fluids. PT eval today. If patient continues to improve anticipate discharge tomorrow
[2018-02-02 07:26] LABS: Eosinophils % 0.1 % (0.1-12.0); Hematocrit 39.5 % (42.0-52.0); Hemoglobin 12.4 g/dL (14.1-18.0); Lymphocytes # 0.8 K/mm3 (0.7-4.5); Lymphocytes % 5.5 K/mm3 (10-50); Mean Corpuscular HGB Conc 31.4 g/dL (31.8-35.4); Mean Corpuscular Hemoglobin 27.1 pg (27.0-31.2); Mean Corpuscular Volume 86.3 fl (80-94); Mean Platelet Volume 6.6 fl (7.4-10.4); Monocytes # 0.1 K/mm3 (0.1-1.0); Monocytes % 0.9 % (1.7-9.3); Neutrophils % 93.4 % (37.0-80.0); Platelet Count 298 K/mm3 (142-424); Red Blood Count 4.57 M/mm3 (4.60-6.20); Red Cell Distribution Width 14.6 % (11.5-17.5)
[2018-02-02 07:38] LABS: Albumin Level 2.5 gm/dL (3.4-5.0); Albumin/Globulin Ratio 0.6 (1.1-1.8); Bilirubin,Total 0.4 mg/dL (0.2-1.0); Calcium 8.7 mg/dL (8.5-10.1); Globulin 4.5 gm/dl (1.3-3.2)
[2018-02-02 09:24] LABS: Lymphocytes % 8 % (10-50); Neutrophils % 92 % (42-76); Total Cells Counted 100
[2018-02-02 09:25] LABS: RBC Morphology Normal
--- NOTE | 2018-02-03 12:56 | Discharge Summary ---
General - General Admission date:: 02/01/18 Discharge date: 02/03/18 HPI HPI: 67-year-old male presented to the emergency department with complaints of fever and weakness. Most of the history comes from his . According to his the evening prior the patient complained of leg weakness. She attributed to his session with home health physical therapy for the day. However on the morning of admission he had a fever of 101.2. He did seem to have labored breathing as well and has known COPD. On an attempt to go to the bathroom he was able to get off the commode. EMS was called and patient brought to the hospital. tells me she gave him to treatments at home but this did not seem to prove his labored breathing. His weakness seemed to be progressive the day of admission. In the emergency department he was evaluated and workup was rather unrevealing except for an elevated white blood cell count. Patient was given intravenous Rocephin and admit for observation. Hospital Course Hospital Course: Admitted for observation. Initiated on ceftriaxone and steroids for COPD exacerbation. Chest x-ray negative for focal consolidation however significant for COPD and associated markings. Patient responded well with resolution of fever. Stable on room air during daytime. Continues to require nighttime oxygen at baseline. Treated with breathing treatments as well as continuation of home medications for dementia and hypertension. No acute events. Tolerating regular diet. Able to transition oral medication. Plan to discharge and medically stable condition with continuation of oral medications for COPD exacerbation. Objective Vital signs: Temp Pulse Resp BP Pulse Ox 98.3 F 61 16 180/73 92 L 02/03/18 12:02/03/18 12:02/03/18 12:02/03/18 12:02/03/18 12:00 - *Routine HEENT Exam Head: Present: normocephalic, atraumatic Eye: Present: EOMI, PERRL ENT: Present: mucous membranes moist Comments: Cushingoid face - *Routine Neck Exam Present: supple, full ROM. Absent: JVD, lymphadenopathy - *Routine Respiratory Exam Present: CTA bilaterally, prolonged expiratory phase. Absent: rales, wheezes, crackles - *Routine Cardiovascular Exam Present: RRR, Normal S1, Normal S2. Absent: murmur - *Routine Abdominal Exam Present: soft, normoactive bowel sounds Comments: Protuberant - *Routine Rectal Exam Patient deferred: visual exam - *Routine Exam Patient deferred: penile exam - *Routine Extremities Exam Present: edema. Absent: cyanosis, clubbing Comments: Muscle wasting left lower leg, significant ecchymoses over arms - *Routine Skin Exam Present: intact. Absent: cyanosis, erythema - *Routine Neurological Exam Present: alert, CN II-XII intact. Absent: altered mental status Results Labs on day of discharge: Labs from last 24 hours 02/03/18 02/02/18 02/02/18 06:30 21:37 16:56 POC Glucose 290 H 304 H* 267 H DS: Diagnosis - Discharge Diagnosis (1) COPD exacerbation Status: Acute (2) Fever Status: Acute (3) Generalized weakness Status: Acute (4) Anxiety disorder Status: Chronic (5) Diabetes mellitus type 2 in obese Status: Chronic (6) Frontotemporal dementia Status: Chronic (7) Seizure disorder Status: Chronic Discharge Plan - Patient Discharge Instructions ACTIVITY: Continue current activity DIET: continue same diet - Follow up Plan Follow up with: Andriy Coon MD [Primary Care Provider] - 1 week Disposition: Home, Self-Correction Medications: Home Medications Medication Instructions Recorded Confirmed Type Acetaminophen [Tylenol] 650 mg PO Q6HP PRN 06/12/17 02/01/18 History Apixaban [Eliquis] 2.5 mg PO BID 06/12/17 02/02/18 History Aspirin [Aspirin 81mg EC Tab] 81 mg PO HS 06/12/17 02/02/18 History Atenolol [Atenolol 25mg Tab] 12.5 mg PO BID 06/12/17 02/02/18 History Bacillus Coagulans [Digestive 1 tab PO DAILY 06/12/17 02/02/18 History Advantage] Benzonatate [Benzonatate 100mg 100 mg PO TIDP PRN 06/12/17 02/02/18 History cap] Brexpiprazole [Rexulti] 3 mg PO HS 06/12/17 02/02/18 History Budesonide [Budesonide EC] 3 mg PO BID 06/12/17 02/02/18 History Escitalopram Oxalate [Lexapro] 20 mg PO DAILY 06/12/17 02/02/18 History Loperamide HCl [Loperamide] 4 mg PO 0700,1100,2100 06/12/17 02/02/18 History Memantine HCl [Namenda] 10 mg PO BID 06/12/17 02/02/18 History Multivit-Min/FA/Lycopen/Lutein 1 tab PO DAILY 06/12/17 02/02/18 History [Men 50 Plus Multivitamin Tab] Nystatin/Triamcin [Nystatin-Triamc 1 applic TOPICAL WEEKLY PRN 06/12/17 02/01/18 History Crm 15gm] Oxybutynin Chloride [Oxybutynin 10 mg PO DAILY 06/12/17 02/02/18 History Chloride ER] Pravastatin Sodium [Pravachol] 40 mg PO HS 06/12/17 02/02/18 History Pyridoxine HCl (Vitamin B6) 100 mg PO DAILY 06/12/17 02/01/18 History [Vitamin B-6] clonazePAM [Clonazepam] 0.25 mg PO DAILY 06/12/17 02/02/18 History clonazePAM [Clonazepam] 0.5 mg PO HS 06/12/17 02/02/18 History lamoTRIgine [Lamotrigine] 100 mg PO BID 06/12/17 02/01/18 History Loperamide HCl [Imodium liquid 30 ml PO 0700 06/17/17 02/02/18 History 1mg/5mL 120mL bottle] Miscellaneous Medical Supply 3 l IH HS 06/17/17 02/01/18 History [Oxygen, Portable] Dutasteride 0.5 mg PO DAILY 12/18/17 02/02/18 History Furosemide [Furosemide 20mg Tab] 20 mg PO DAILY 12/18/17 02/02/18 History Gabapentin [Neurontin 600mg 600 mg PO BID 12/18/17 02/02/18 History tablet] Liraglutide [Victoza 2-Rick] 1.2 units SQ DAILY 12/18/17 02/02/18 History Loratadine [Claritin 10mg Tablet] 10 mg PO HS 12/18/17 02/02/18 History Rivastigmine Tartrate 1.5 mg PO BID 12/18/17 02/02/18 History [Rivastigmine] Tamsulosin HCl [Flomax 0.4mg 0.4 mg PO DAILY 12/18/17 02/02/18 History capsule] Miconazole Nitrate [Lotrimin AF] 1 applic TP WEEKLY PRN 12/19/17 02/01/18 History fluticasone 50 mcg/actuation nasal 1 dose INTRANASAL DAILY 30 Days 01/11/18 02/01/18 History spray,suspension Pumpkin Seed Extract/Soy Germ [Azo 300 mg PO DAILY 02/01/18 02/02/18 History Bladder Control Capsule] Prescriptions/Medication Reconciliation: Continue fluticasone 50 mcg/actuation nasal spray,suspension 1 dose INTRANASAL DAILY 30 Days collagenase clostridium histolyticum 250 unit/gram topical ointment 1 applic TOPICAL QDAY #30 g Pyridoxine HCl (Vitamin B6) [Vitamin B-6] 100 mg PO DAILY Pravastatin Sodium [Pravachol] 40 mg PO HS Oxybutynin Chloride [Oxybutynin Chloride ER] 10 mg PO DAILY Nystatin/Triamcin [Nystatin-Triamc Crm 15gm] 1 applic TOPICAL WEEKLY PRN PRN Reason: Rash Multivit-Min/FA/Lycopen/Lutein [Men 50 Plus Multivitamin Tab] 1 tab PO DAILY Memantine HCl [Namenda] 10 mg PO BID Loperamide HCl [Loperamide] 4 mg PO 0700,1100,2100 lamoTRIgine [Lamotrigine] 100 mg PO BID Escitalopram Oxalate [Lexapro] 20 mg PO DAILY clonazePAM [Clonazepam] 0.25 mg PO DAILY clonazePAM [Clonazepam] 0.5 mg PO HS Budesonide [Budesonide EC] 3 mg PO BID Brexpiprazole [Rexulti] 3 mg PO HS Benzonatate [Benzonatate 100mg cap] 100 mg PO TIDP PRN PRN Reason: Cough Bacillus Coagulans [Digestive Advantage] 1 tab PO DAILY Atenolol [Atenolol 25mg Tab] 12.5 mg PO BID Aspirin [Aspirin 81mg EC Tab] 81 mg PO HS Acetaminophen [Tylenol] 650 mg PO Q6HP PRN PRN Reason: Moderate Pain Furosemide [Furosemide 20mg Tab] 20 mg PO DAILY Liraglutide [Victoza 2-Rick] 1.2 units SQ DAILY Dutasteride 0.5 mg PO DAILY Tamsulosin HCl [Flomax 0.4mg capsule] 0.4 mg PO DAILY Gabapentin [Neurontin 600mg tablet] 600 mg PO BID Rivastigmine Tartrate [Rivastigmine] 1.5 mg PO BID Loratadine [Claritin 10mg Tablet] 10 mg PO HS Apixaban [Eliquis] 2.5 mg PO BID Miscellaneous Medical Supply [Oxygen, Portable] 3 l IH HS Miconazole Nitrate [Lotrimin AF] 1 applic TP WEEKLY PRN PRN Reason: Rash Pumpkin Seed Extract/Soy Germ [Azo Bladder Control Capsule] 300 mg PO DAILY Discontinued Loperamide HCl [Imodium liquid 1mg/5mL 120mL bottle] 30 ml PO 0700
== END 2018-02-03 14:35 | disposition home or self-care (01) ==
LOC: 2ND 12:18 → ER 12:18 → 2ND 15:55 → OBSVTOIN 16:44 → 2ND 16:46
PROVIDERS: ADMIT Family Medicine; ATTEND Family Medicine

== ENCOUNTER → 2018-02-16 09:58 | Outpatient (POV) | payer SELFPAY | PROVIDERS: Visit Provider Podiatrist | DX: Z00.00 Encounter for general adult medical examination without abnormal findings (principal) ==

== ENCOUNTER 2018-04-10 14:30 | Outpatient (RCR) | payer MEDICARE, SELFPAY ==
--- NOTE | 2018-02-21 13:45 | HMH.PTOPWND ---
Rehab Outpt Wound Evaluation Rehab OP Wound Evaluation Start: 02/21/18 13:35 Freq: Status: Active Protocol: Document 02/21/18 13:35 [email or web address] (Rec: 02/21/18 13:45 [id number]) Electronically Signed By Tristian Michelle, GEORGI 02/21/18 13:35 Subjective/History History History This is the initial Physical Therapy Wound Clinic evaluation for Leodan Sheppard. Pt is a 67 y/o male referred to PT for wound care on non- healing L heel wound. Pt reports wound occurred in June. Pt reports he was [facility] jail to ER by ambulance and then upon return to jail as he was transferred from ambulance his heel was cut. Pt reports 4 stitches were placed, but infection set up. Stitches were removed and wound cleansed. Now open wound on L heel. 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 Wound Yes Wound Length (cm) 1.5 Wound Width (cm) 2.5 Wound Bed Appearance Platinum Yellow Percentage Granulated (%) 25 Percentage of Slough (%) 75 Percentage of Eschar (Yellow) (%) 75 Wound Margins Description Well Defined Drainage Amount None Drainage Odor No Odor Dressing Status Dry & Intact Wound Topical Solution/Irrigant Antibiotic Irrigant Primary Dressing Silver Dressing Comment teg mesh Wound Secondary Dressing Type Silver Dressing Hydrocolloid Comment purocol collagen Wound Debridement Method Sharps Mechanical Wound Debridement Amount of Tissue Minimal Removed Wound Debridement Result Yellow Sloughing Remains Wound Problems/Impairments Impairments Problems/Impairmments Wound Care Needs Subjective C/O Pain Impaired Self Care/Self Management Prognosis Rehab Potential Fair Clinical Impression Consistent with Diagnosis Yes Short Term Goals Number of Weeks 4 Decrease Wound Area Yes: 50% Decrease Yellow/White Slough % Yes: 25%
== END 2018-04-10 14:31 | disposition home or self-care (01) ==
LOC: PT 14:30
PROVIDERS: Family Provider Family Medicine; Visit Provider Podiatrist
DX: L89.623 Pressure ulcer of left heel, stage 3 (principal)
CPT/HCPCS: 97161

== ENCOUNTER → 2018-04-19 09:44 | Outpatient (POV) | payer MEDICARE, SELFPAY | PROVIDERS: Visit Provider Podiatrist | DX: Z00.00 Encounter for general adult medical examination without abnormal findings (principal) ==

== ENCOUNTER → 2018-04-24 16:49 | Outpatient (CLI) | payer MEDICARE, SELFPAY | PROVIDERS: Visit Provider Podiatrist | DX: Z51.89 Encounter for other specified aftercare (principal) | CPT/HCPCS: 87070; 87077; 87186; 87205 ==

== ENCOUNTER → 2018-05-08 15:59 | Outpatient (CLI) | payer MEDICARE, SELFPAY ==
--- NOTE | 2018-05-08 | NVE_ITS ---
Venous Exam Indications: 782.3 Edema. 729.81 Swelling of limb. 729.5 Pain in limb. IMPRESSIONS No evidence of deep or superficial vein thrombosis involving the right lower extremity History: Risk factors: Obese. Right lower extremity venous duplex evaluation. Doppler flow study including spectral analysis, color and vieira scale imaging. Location: Vascular laboratory. Patient status: Outpatient. Tables: Venous flow and imaging: + +-------+ + Location Overall Flow properties + +-------+ + Right common femoral Patent Normal phasicity; spontaneous; normal augmentation; compressible + +-------+ + Right saphenofemoral junction Patent Compressible + +-------+ + Right femoral Patent Normal phasicity; spontaneous; normal augmentation; compressible + +-------+ + Right greater saphenous Patent Normal phasicity; spontaneous; normal augmentation; compressible + +-------+ + Right popliteal Patent Normal phasicity; spontaneous; normal augmentation; compressible + +-------+ + Right posterior tibial Patent Compressible + +-------+ + Right peroneal Patent Compressible + +-------+ + Right gastrocnemius Patent Compressible + +-------+ + Right soleal Patent Compressible + +-------+ + (Report amended ) Electronically signed by: Guzman Dougherty [id number]
== END ==
PROVIDERS: PCP Family Medicine; Visit Provider Podiatrist
DX: M79.604 Pain in right leg (principal)
CPT/HCPCS: 93971

== ENCOUNTER 2018-05-14 18:34 | Observation (INO) ==
[2018-05-14 19:20] LABS: Basophils # 0.1 K/mm3 (0-0.2); Basophils % 0.5 % (0.1-2.0); Eosinophils # 0.2 K/mm3 (0.0-0.4); Eosinophils % 1.3 % (0.1-12.0); Hematocrit 38.4 % (42.0-52.0); Lymphocytes # 1.4 K/mm3 (0.7-4.5); Lymphocytes % 10.4 % (10-50); Mean Corpuscular HGB Conc 31.3 g/dL (31.8-35.4); Mean Corpuscular Hemoglobin 26.6 pg (27.0-31.2); Mean Corpuscular Volume 85.3 fl (80-94); Mean Platelet Volume 7.1 fl (7.4-10.4); Monocytes # 0.5 K/mm3 (0.1-1.0); Monocytes % 3.6 % (1.7-9.3); Neutrophils # 11.2 K/mm3 (1.8-7.8); Neutrophils % 84.2 % (37.0-80.0); Platelet Count 256 K/mm3 (142-424); Red Cell Distribution Width 15.4 % (11.5-17.5); White Blood Count 13.3 K/mm3 (4.8-10.8)
[2018-05-14 19:42] LABS: Anion Gap 11.8 mEq/L (5-15); Blood Urea Nitrogen 11 mg/dL (7-18); Calcium 8.9 mg/dL (8.5-10.1); Carbon Dioxide 30 mmol/L (21.0-32.0); Chloride 102 mmol/L (98-107); Creatine Kinase 356 U/L (39-308); Glucose 146 mg/dL (74-106); Sodium 141 mmol/L (136-145)
[2018-05-14 19:43] LABS: Alanine Aminotransferase 31 U/L (12-78); Albumin Level 2.7 gm/dL (3.4-5.0); Albumin/Globulin Ratio 0.7 (1.1-1.8); Alkaline Phosphatase 88 U/L (46-116); Aspartate Amino Transferase 33 U/L (15-37); Bilirubin,Total 0.4 mg/dL (0.2-1.0); Globulin 3.9 gm/dl (1.3-3.2); Total Protein,Serum 6.6 gm/dL (6.4-8.2)
[2018-05-14 19:44] LABS: Potassium 2.8 mmoL/L (3.5-5.1)
--- NOTE | 2018-05-14 21:56 | Emergency Department Note ---
ED Disposition Clinical Impression: Hypokalemia, Obesity (BMI 30.0-34.9) Community acquired pneumonia Qualifiers: Laterality: unspecified laterality Qualified Code(s): J18.9 - Pneumonia, unspecified organism Disposition: Admitted as Observation Condition on Discharge: Good Referrals: Andriy Coon MD [Primary Care Provider] - - Critical Care Critical Care Time: No Attestation: On 05/14/18, the high probability of a clinically significant, sudden or life threatening deterioration of the following system(s) required my full and direct attention, intervention and personal management. The time I documented below is in addition to time spent performing reported procedures but includes the following listed in this critical care notation. Medical Decision Making - Medical Records Medical records reviewed: Yes: I reviewed the patient's medical records. - Jonathon Inquiry Pt receiving controlled substance: No Vital Signs: 05/14/18 18:34 05/14/18 18:59 05/14/18 19:55 Temperature 98.1 F Temperature Source Oral Pulse Rate 72 Pulse Rate [Right Brachial] 68 78 Respiratory Rate 20 15 Blood Pressure [Right Arm] 89/34 L 124/57 L Blood Pressure Mean [Right Arm] 52 79 Blood Pressure Source [Right Arm] Automatic Cuff Blood Pressure Position [Right Arm] Supine 02 Sat by Pulse Oximetry 88 L 95 Oxygen Delivery Method Nasal Cannula Nasal Cannula Oxygen Flow Rate (LPM) 3 3 05/14/18 21:30 05/14/18 21:59 05/14/18 23:00 Temperature 97.9 F Temperature Source Oral Pulse Rate Pulse Rate [Right Brachial] 81 82 84 Respiratory Rate 18 15 15 Blood Pressure [Right Arm] 108/51 L 150/74 H 138/58 L Blood Pressure Mean [Right Arm] 70 99 84 Blood Pressure Source [Right Arm] Blood Pressure Position [Right Arm] 02 Sat by Pulse Oximetry 91 L 95 91 L Oxygen Delivery Method Room Air Nasal Cannula Nasal Cannula Oxygen Flow Rate (LPM) 2 2 05/14/18 23:45 Temperature Temperature Source Pulse Rate Pulse Rate [Right Brachial] 79 Respiratory Rate 15 Blood Pressure [Right Arm] 124/47 L Blood Pressure Mean [Right Arm] 72 Blood Pressure Source [Right Arm] Blood Pressure Position [Right Arm] 02 Sat by Pulse Oximetry 91 L Oxygen Delivery Method Oxygen Flow Rate (LPM) - Lab Data Lab results reviewed: Yes: I reviewed the patient's lab results. Lab Results 05/14/18 19:06: WBC 13.3 H, RBC 4.50 L, Hgb 12.0 L, Hct 38.4 L, MCV 85.3, MCH 26.6 L, MCHC 31.3 L, RDW 15.4, Plt Count 256, MPV 7.1 L, Neut % (Auto) 84.2 H, Lymph % (Auto) 10.4, [place] % (Auto) 3.6, Eos % (Auto) 1.3, Baso % (Auto) 0.5, Neut # (Auto) 11.2 H, Lymph # (Auto) 1.4, [place] # (Auto) 0.5, Eos # (Auto) 0.2, Baso # (Auto) 0.1 05/14/18 19:06: Sodium 141, Potassium 2.8 L*, Chloride 102, Carbon Dioxide 30, A nion Gap 11.8, BUN 11, Creatinine 1.20, Estimated Creat Clear 82, Estimated GFR 60, Est GFR ( Amer) 73, Glucose 146 H, Calcium 8.9, Total Bilirubin 0.4, AST 33, ALT 31, Alkaline Phosphatase 88, Total Creatine Kinase 356 H, CK-MB (CK- 2) 7.2 H, CK-MB (CK-2) Rel Index 2.0, Troponin I < 0.02, Total Protein 6.6, Albumin 2.7 L, Globulin 3.9 H, Albumin/Globulin Ratio 0.7 L 05/14/18 19:06: Lactate 2.3 H 05/14/18 19:23: Influenza Type A Ag Negative, Influenza Type B Ag Negative 05/14/18 19:23: Group A Strep Rapid Negative 05/14/18 23:25: Lactate 0.9 05/15/18 00:15: Stool Occult Blood Negative Result diagrams: 05/14/18 19:06 05/14/18 19:06 Orders (Tests/Meds): ED MEDICATIONS Generic Name Dose Route Start Last Admin Trade Name Freq PRN Reason Stop Dose Admin Sodium Chloride 1,000 mls @ 999 mls/hr 05/14/18 19:00 05/14/18 18:48 Sod Chlor 0.9% 1000ml Bag IV 05/14/18 20:00 999 mls/hr .Q1H1M GEORGI Administration Discontinued Medications Generic Name Dose Route Start Last Admin Trade Name Olayinkaq PRN Reason Stop Dose Admin Albuterol/Ipratropium 3 ml 05/14/18 18:45 05/14/18 18:55 Duoneb 3ml Neb IH 05/14/18 18:46 3 ml ONCE ONE Administration Methylprednisolone Sodium Succinate 125 mg 05/14/18 19:07 05/14/18 19:39 Solu-Medrol 125mg/2ml Vial IV 05/14/18 19:08 125 mg ONCE ONE Administration Potassium Chloride 40 meq 05/14/18 19:48 05/14/18 21:25 Klor-Con 20meq Tablet PO 05/14/18 19:49 40 meq ONCE ONE Administration ORDERS Category Date Time Status CT cervical spine wo con Stat Cat Scan 05/14/18 22:[address] head/brain wo con Stat Cat Scan 05/14/18 22:[address] lumbar spine wo con Stat Cat Scan 05/14/18 22:[address] thoracic spine wo con Stat Cat Scan 05/14/18 22:09 Taken Pelvis XR 1-2 views [XR pelvis 1-2V] Stat Exams 05/14/18 22:10 Taken Occult Blood,Stool Stat Lab 05/15/18 00:15 Ordered Urinalysis and Microscopic Stat Lab 05/14/18 21:56 Ordered Blood Culture Stat Micro 05/14/18 23:14 Ordered Strep Screen Confirmation Stat Micro 05/14/18 19:23 Received - Radiology Data #1 Image(s): Chest, Pelvis Image Reviewed: Yes I reviewed the patient's radiology image Preliminary Findings: Abnormal (cap) - CT Data CT Scan: Head, C-Spine, T-Spine, L-Spine Time Received: 00:[address] Reviewed: Yes: I have viewed the radiologist's interpretation Preliminary Findings: Abnormal (see report ) - Physician Consults Physician Consulted: yo Reason -: Admission Fever HPI - General Chief Complaint: Fever Stated Complaint: fever,weakness,congestion Time Seen by Provider: 05/14/18 21:52 Mode of Arrival: EMS Source of Information: Patient, Relative, Medical Record Limitations: No Limitations Description of Symptoms (Recalled from ER Triage Doc. by RN): cough,congestion,weakness,fever - History of Present Illness HPI Narrative: pt with reported 2 issues - he has had cough and congestion over the last few days - he also had trip like injury tonight and fell with head and back pain - he walks with tamara SHAVER complaint: fever, weakness, other (fall) Onset (ago): hour(s) Context: sick contacts Associated symptoms: denies other symptoms Treatments prior to arrival fever: none - Related Data Home Medications Medication Instructions Recorded Confirmed Acetaminophen [Tylenol] 650 mg PO Q6HP PRN 06/12/17 05/15/18 Apixaban [Eliquis] 2.5 mg PO BID 06/12/17 05/15/18 Aspirin [Aspirin 81mg EC Tab] 81 mg PO HS 06/12/17 05/15/18 Atenolol [Atenolol 25mg Tab] 12.5 mg PO BID 06/12/17 05/15/18 Bacillus Coagulans [Digestive 1 tab PO DAILY 06/12/17 05/15/18 Advantage] Benzonatate [Benzonatate 100mg 100 mg PO TIDP PRN 06/12/17 05/15/18 cap] Brexpiprazole [Rexulti] 3 mg PO HS 06/12/17 05/15/18 Budesonide [Budesonide EC] 3 mg PO BID 06/12/17 05/15/18 Escitalopram Oxalate [Lexapro] 20 mg PO DAILY 06/12/17 05/15/18 Loperamide HCl [Loperamide] 4 mg PO 0700,1100,2100 06/12/17 05/15/18 Memantine HCl [Namenda 10mg 10 mg PO BID 06/12/17 05/15/18 Tablet] Multivit-Min/FA/Lycopen/Lutein 1 tab PO DAILY 06/12/17 05/15/18 [Men 50 Plus Multivitamin Tab] Nystatin/Triamcin [Nystatin-Triamc 1 applic TOPICAL WEEKLY PRN 06/12/17 05/15/18 Crm 15gm] Oxybutynin Chloride [Oxybutynin 10 mg PO DAILY 06/12/17 05/15/18 Chloride ER] Pravastatin Sodium [Pravachol] 40 mg PO HS 06/12/17 05/15/18 Pyridoxine HCl (Vitamin B6) 100 mg PO DAILY 06/12/17 05/15/18 [Vitamin B-6] clonazePAM [Clonazepam] 0.25 mg PO DAILY 06/12/17 05/15/18 clonazePAM [Clonazepam] 0.5 mg PO HS 06/12/17 05/15/18 lamoTRIgine [Lamotrigine] 100 mg PO BID 06/12/17 05/15/18 Miscellaneous Medical Supply 3 l IH HS 06/17/17 05/15/18 [Oxygen, Portable] Dutasteride 0.5 mg PO DAILY 12/18/17 05/15/18 Furosemide [Furosemide 20mg Tab] 20 mg PO DAILY 12/18/17 05/15/18 Gabapentin [Neurontin 600mg 600 mg PO BID 12/18/17 05/15/18 tablet] Liraglutide [Victoza 2-Rick] 1.2 units SQ DAILY 12/18/17 05/15/18 Loratadine [Claritin 10mg Tablet] 10 mg PO HS 12/18/17 05/15/18 Rivastigmine Tartrate 1.5 mg PO BID 12/18/17 05/15/18 [Rivastigmine] Tamsulosin HCl [Flomax 0.4mg 0.4 mg PO DAILY 12/18/17 05/15/18 capsule] Miconazole Nitrate [Lotrimin AF] 1 applic TP WEEKLY PRN 12/19/17 05/15/18 fluticasone 50 mcg/actuation nasal 1 dose INTRANASAL DAILY 30 Days 01/11/18 05/15/18 spray,suspension Pumpkin Seed Extract/Soy Germ [Azo 300 mg PO DAILY 02/01/18 05/15/18 Bladder Control Capsule] Previous Rx's Medication Instructions Recorded collagenase clostridium 1 applic TOPICAL QDAY #30 g 02/12/18 histolyticum 250 unit/gram topical ointment delafloxacin 450 mg tablet 450 mg PO Q12H #28 tab 04/24/18 Allergies Allergy/AdvReac Type Severity Reaction Status Date / Time erythromycin base Allergy Intermediate SWELLING/IT Verified 05/08/18 15:32 [ERYTHROMYCIN BASE] CLEMENTE/SEIZU RES iodine [IODINE] Allergy Unknown Verified 05/08/18 15:32 [facility] History - Hepatitis A Screen Drug use history?: No High risk sexual behaviors?: No History of sexually transmitted infection?: No Currently employed?: No Childcare worker?: No Do you have indoor plumbing?: Yes Do you have electricity?: Yes Attestation statement:: This patient participated in a screening for the Hepatitis A vaccine and was determined to be high risk for abbi Hepatitis A. I agree with the recommendation that the patient receive the Hepatitis A vaccination unless oth erwise refused. 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, Sturge-Matt syndrome Other Surgeries: Yes: Colonoscopy, EGD, Hernia Repair Amputation: No Fractures: Yes (l4 compression) - Social History Educational Level: Completed High School Smoking Status: Former smoker Tobacco Type: cigarettes # Packs/Day (cigarettes): 2 #Yrs smoked (if former smoker): 52 Alcohol Intake: never Alcohol Intake Frequency:: other Occupational Status: retired, disabled Housing: house Household Members: spouse - Psychiatric History Expresses thoughts of harming self/others: None Suicide Plan Description: No Plan Pschychiatric History:: Reports:: Anxiety, Psychiatric Treatment Family Hx:: Diabetes, Heart Attack, Hyperlipidemia, Hypertension, Stroke ROS Obtained: Yes All systems reviewed & no additional complaints - Constitutional Constitutional: Reports fever(s), Reports weakness - Eyes Eyes: Denies change in vision - ENT Ears, Nose, Mouth, and Throat: Denies sore throat - Cardiovascular Cardiovascular: Denies chest pain - Respiratory Respiratory: No cough - Gastrointestinal Gastrointestingal: Denies: abdominal pain - Genitourinary Male Genitourinary: Denies hematuria - Musculoskeletal Musculoskeletal: Denies joint pain, Denies joint swelling - Integumentary/Breasts Skin/Breast: Denies rash - Neurologic Neurologic: Reports as per HPI, Reports frequent falls, Denies seizure-like activity Physical Exam - General General appearance: alert, obese - Head Head exam: normocephalic - Eye Eye exam: Present: PERRL, EOMI, scleral icterus - ENT ENT exam: Present: mucous membranes dry - Neck Neck exam: Present: trachea midline - Respiratory Respiratory exam: Present: other (dec bs bilat ). Absent: respiratory distress - Cardiovascular Cardiovascular exam: Present: regular rate, systolic murmur, +S4 - Abdominal Exam Abdominal exam: Present: soft - Extremities Exam Extremities exam: Present: other (swollen rt lower ext with reddness ) - Back Exam Back exam: Present: paraspinal tenderness, other (ecchymosis) - Neurological Exam Neurological exam: Present: alert, oriented X3, CN II-XII intact - Psychiatric Psychiatric exam: Present: normal affect - Skin Skin exam: Present: other (bruising )
[2018-05-15 01:25] LABS: Microscopic, Urine URINE MICROSCOPIC (MICROSCOPIC)
[2018-05-15 01:26] LABS: Appearance,Urine CLEAR (Clear); Bilirubin,Urine Negative (Negative); Blood, Urine 3+ (Negative); Color,Urine YELLOW (Yellow); Glucose,Urine (UA) Negative (Negative); Ketones,Urine Negative (Negative); Leukocyte Esterase,Urine Negative (Negative); PH,Urine 6.5 (5.0-8.5); Protein,Urine TRACE (Negative); Specific Gravity, Urine 1.015 (1.005-1.030); Urobilinogen,Urine 0.2 EU/dl (0.2)
[2018-05-15 01:30] LABS: Bacteria,Urine Trace /lpf
[2018-05-15 04:21] LABS: Basophils % 0.1 % (0.1-2.0); Eosinophils % 0.1 % (0.1-12.0); Hematocrit 35.5 % (42.0-52.0); Hemoglobin 11.1 g/dL (14.1-18.0); Lymphocytes # 0.5 K/mm3 (0.7-4.5); Lymphocytes % 4.8 % (10-50); Mean Corpuscular HGB Conc 31.4 g/dL (31.8-35.4); Mean Corpuscular Hemoglobin 26.6 pg (27.0-31.2); Mean Corpuscular Volume 84.7 fl (80-94); Mean Platelet Volume 6.7 fl (7.4-10.4); Monocytes # 0.1 K/mm3 (0.1-1.0); Monocytes % 1.1 % (1.7-9.3); Neutrophils % 93.9 % (37.0-80.0); Platelet Count 236 K/mm3 (142-424); Red Blood Count 4.19 M/mm3 (4.60-6.20); Red Cell Distribution Width 15.4 % (11.5-17.5); White Blood Count 10.6 K/mm3 (4.8-10.8)
[2018-05-15 04:35] LABS: Blood Urea Nitrogen 12 mg/dL (7-18); Calcium 8.4 mg/dL (8.5-10.1); Carbon Dioxide 30 mmol/L (21.0-32.0); Chloride 104 mmol/L (98-107); Glucose 210 mg/dL (74-106); Sodium 142 mmol/L (136-145)
[2018-05-15 05:37] LABS: Anisocytosis 1+; Lymphocytes % 1 % (10-50); Neutrophils % 99 % (42-76); Ovalocytes 1+; Stomatocytes 1+; Total Cells Counted 100
--- NOTE | 2018-05-15 07:14 | History & Physical Report ---
*Admission Date: 05/15/18 *Chief complaint: Fever *History of present illness: 68-year-old male presented to the emergency department with complaints of cough, chest congestion, low-grade fever at home and a fall. Patient has had approximately 5 falls at home in the last week. During the interview the jewel mena following admission patient denies any shortness of breath or cough. In the emergency department the patient had a rather thorough workup and chest x-ray did reveal right upper lobe and left lower lobe pneumonia along with an elevated white blood cell count. Patient was admitted for treatment of community- acquired pneumonia. On admission a Munoz catheter was placed which produced 700 mL's of urine. Patient is already requesting removal of the Munoz catheter. Urinary frequency is a chronic problem for the patient and he is on both antispasmodics for overactive bladder and Flomax to aid urine flow. [facility] History Medical History: Reports:: Anxiety, Chronic Obstructive Pulmonary Disease (COPD), Deep Vein Thrombosis, Dementia, Diabetes Mellitus Type 2, Hyperlipidemia, Hypertension, Lung Disease (COPD), Kidney Stones, Myocardial Infarction, Urinary Tract Infection Denies:: Cancer, Diabetes Mellitus Type 1, MRSA Comment: Sturge-Matt syndrome Other Surgeries: Yes: Colonoscopy, EGD, Hernia Repair Amputation: No Fractures: Yes (l4 compression) - *Social History Educational Level: Completed College Smoking Status: Former smoker Tobacco Type: cigarettes # Packs/Day (cigarettes): 2 #Yrs smoked (if former smoker): 52 Alcohol Intake: never Alcohol Intake Frequency:: other Occupational Status: retired, disabled Housing: house Household Members: spouse - Psychiatric History Expresses thoughts of harming self/others: None Suicide Plan Description: No Plan Pschychiatric History:: Reports:: Anxiety, Psychiatric Treatment *Family Hx:: Diabetes, Heart Attack, Hyperlipidemia, Hypertension, Stroke Review of Systems - Review of Systems Review of systems:: pertinent systems reviewed and negative unless documented below - Constitutional Denies anorexia, Denies body ache(s), Denies chills - *Cardiovascular Denies chest pain, Denies chest pain at rest - *Respiratory Reports chest congestion, Reports cough, Denies change in phlegm color, Denies shortness of breath - *Gastrointestinal Denies abdominal pain, Denies belching, Denies bloating - *Genitourinary Reports difficulty urinating, Reports frequent nighttime urination - *Neurologic Reports frequent falls, Reports weakness, Denies seizure-like activity Meds Home Medications Medication Instructions Recorded Confirmed Type Acetaminophen [Tylenol] 650 mg PO Q6HP PRN 06/12/17 05/15/18 History Apixaban [Eliquis] 2.5 mg PO BID 06/12/17 05/15/18 History Aspirin [Aspirin 81mg EC Tab] 81 mg PO HS 06/12/17 05/15/18 History Atenolol [Atenolol 25mg Tab] 12.5 mg PO BID 06/12/17 05/15/18 History Bacillus Coagulans [Digestive 1 tab PO DAILY 06/12/17 05/15/18 History Advantage] Benzonatate [Benzonatate 100mg 100 mg PO TIDP PRN 06/12/17 05/15/18 History cap] Brexpiprazole [Rexulti] 3 mg PO HS 06/12/17 05/15/18 History Budesonide [Budesonide EC] 3 mg PO BID 06/12/17 05/15/18 History Escitalopram Oxalate [Lexapro] 20 mg PO DAILY 06/12/17 05/15/18 History Loperamide HCl [Loperamide] 4 mg PO 0700,1100,2100 06/12/17 05/15/18 History Memantine HCl [Namenda 10mg 10 mg PO BID 06/12/17 05/15/18 History Tablet] Multivit-Min/FA/Lycopen/Lutein 1 tab PO DAILY 06/12/17 05/15/18 History [Men 50 Plus Multivitamin Tab] Nystatin/Triamcin [Nystatin-Triamc 1 applic TOPICAL WEEKLY PRN 06/12/17 05/15/18 History Crm 15gm] Oxybutynin Chloride [Oxybutynin 10 mg PO DAILY 06/12/17 05/15/18 History Chloride ER] Pravastatin Sodium [Pravachol] 40 mg PO HS 06/12/17 05/15/18 History Pyridoxine HCl (Vitamin B6) 100 mg PO DAILY 06/12/17 05/15/18 History [Vitamin B-6] clonazePAM [Clonazepam] 0.25 mg PO DAILY 06/12/17 05/15/18 History clonazePAM [Clonazepam] 0.5 mg PO HS 06/12/17 05/15/18 History lamoTRIgine [Lamotrigine] 100 mg PO BID 06/12/17 05/15/18 History Miscellaneous Medical Supply 3 l IH HS 06/17/17 05/15/18 History [Oxygen, Portable] Dutasteride 0.5 mg PO DAILY 12/18/17 05/15/18 History Furosemide [Furosemide 20mg Tab] 20 mg PO DAILY 12/18/17 05/15/18 History Gabapentin [Neurontin 600mg 600 mg PO BID 12/18/17 05/15/18 History tablet] Liraglutide [Victoza 2-Rick] 1.2 units SQ DAILY 12/18/17 05/15/18 History Loratadine [Claritin 10mg Tablet] 10 mg PO HS 12/18/17 05/15/18 History Rivastigmine Tartrate 1.5 mg PO BID 12/18/17 05/15/18 History [Rivastigmine] Tamsulosin HCl [Flomax 0.4mg 0.4 mg PO DAILY 12/18/17 05/15/18 History capsule] Miconazole Nitrate [Lotrimin AF] 1 applic TP WEEKLY PRN 12/19/17 05/15/18 History fluticasone 50 mcg/actuation nasal 1 dose INTRANASAL DAILY 30 Days 01/11/18 05/15/18 History spray,suspension Pumpkin Seed Extract/Soy Germ [Azo 300 mg PO DAILY 02/01/18 05/15/18 History Bladder Control Capsule] Allergies Allergy/AdvReac Type Severity Reaction Status Date / Time erythromycin base Allergy Intermediate SWELLING/IT Verified 05/08/18 15:32 [ERYTHROMYCIN BASE] CLEMENTE/SEIZU RES iodine [IODINE] Allergy Unknown Verified 05/08/18 15:32 Exam Vital signs and Labs for Last 24 Hours: Temp Pulse Resp BP Pulse Ox 98.0 F 83 20 150/74 H 98 05/15/18 04:00 05/15/18 06:10 05/15/18 04:00 05/15/18 04:00 05/15/18 06:10 Laboratory Results - last 24 hr 05/14/18 19:06: WBC 13.3 H, RBC 4.50 L, Hgb 12.0 L, Hct 38.4 L, MCV 85.3, MCH 26.6 L, MCHC 31.3 L, RDW 15.4, Plt Count 256, MPV 7.1 L, Neut % (Auto) 84.2 H, Lymph % (Auto) 10.4, [place] % (Auto) 3.6, Eos % (Auto) 1.3, Baso % (Auto) 0.5, Neut # (Auto) 11.2 H, Lymph # (Auto) 1.4, [place] # (Auto) 0.5, Eos # (Auto) 0.2, Baso # (Auto) 0.1 05/14/18 19:06: Sodium 141, Potassium 2.8 L*, Chloride 102, Carbon Dioxide 30, Anion Gap 11.8, BUN 11, Creatinine 1.20, Estimated Creat Clear 82, Estimated GFR 60, Est GFR ( Amer) 73, Glucose 146 H, Calcium 8.9, Total Bilirubin 0.4, AST 33, ALT 31, Alkaline Phosphatase 88, Total Creatine Kinase 356 H, CK-MB (CK-2) 7.2 H, CK-MB (CK-2) Rel Index 2.0, Troponin I < 0.02, Total Protein 6.6, Albumin 2.7 L, Globulin 3.9 H, Albumin/Globulin Ratio 0.7 L 05/14/18 19:06: Lactate 2.3 H 05/14/18 19:23: Influenza Type A Ag Negative, Influenza Type B Ag Negative 05/14/18 19:23: Group A Strep Rapid Negative 05/14/18 23:25: Lactate 0.9 05/15/18 00:15: Stool Occult Blood Negative 05/15/18 01:20: Urine Color Yellow, Urine Appearance Clear, Urine pH 6.5, Ur Specific [place] 1.015, Urine Protein Trace, Urine Glucose (UA) Negative, Urine Ketones Negative, Urine Blood 3+, Urine Nitrate Negative, Urine Bilirubin Negative, Urine Urobilinogen 0.2, Ur Leukocyte Esterase Negative, Urine RBC 10- 20, Urine WBC 3-5, Urine Bacteria Trace 05/15/18 04:05: Sodium 142, Potassium 3.0 L, Chloride 104, Carbon Dioxide 30, Anion Gap 11.0, BUN 12, Creatinine 0.95 D, Estimated Creat Clear 114, Estimated GFR 79, Est GFR ( Amer) 95 D, Glucose 210 H D, Calcium 8.4 L, Troponin I < 0.02 05/15/18 04:05: WBC 10.6, RBC 4.19 L, Hgb 11.1 L, Hct 35.5 L, MCV 84.7, MCH 26.6 L, MCHC 31.4 L, RDW 15.4, Plt Count 236, MPV 6.7 L, Neut % (Auto) 93.9 H, Lymph % (Auto) 4.8 L, [place] % (Auto) 1.1 L, Eos % (Auto) 0.1, Baso % (Auto) 0.1, Neut # (Auto) 10.0 H, Lymph # (Auto) 0.5 L, [place] # (Auto) 0.1, Eos # (Auto) 0.0, Baso # (Auto) 0.0, Total Counted 100, Neutrophils % (Manual) 99 H, Lymphocytes % (Manual) 1 L, Platelet Estimate Normal, Anisocytosis 1+, Ovalocytes 1+, Stomatocytes 1+ 05/15/18 05:54: POC Glucose 237 H I & O for Last 24 hours: Intake & Output 05/12/18 05/13/18 05/14/18 05/15/18 11:59 11:59 11:59 11:59 Intake Total 1050 / 1050 Output Total 525 / 525 Balance 525 / 525 Weight 254 lb 8 oz Narrative: Patient is awake and alert this morning. He is not wearing his nasal cannula. Oropharynx is chronically dry appearing. Neck is without carotid bruits or lymphadenopathy. Lung exam is significant for rales in the left lung base otherwise clear. Heart has a regular rate and rhythm. Abdomen is soft and obese. Munoz catheter is in place. Extremity exam reveals bilateral lower extremity edema right greater than left. Assessment and Plan (1) Community acquired pneumonia Current visit: Yes Status: Acute Qualifiers: Laterality: unspecified laterality Qualified Code(s): J18.9 - Pneumonia, unspecified organism Category: Medical Code(s): J18.9 - Pneumonia, unspecified organism (2) Frequent falls Current visit: Yes Status: Acute Category: Medical Code(s): R29.6 - Repeated falls (3) Obesity (BMI 30.0-34.9) Current visit: Yes Status: Acute Category: Medical Code(s): E66.9 - Obesity, unspecified (4) Generalized weakness Current visit: No Status: Acute Category: Medical Code(s): R53.1 - Weakness (5) Diabetes mellitus type 2 in obese Current visit: No Status: Chronic Category: Medical Code(s): E11.69 - Type 2 diabetes mellitus with other specified complication; E66.9 - Obesity, unspecified (6) Frontotemporal dementia Current visit: No Status: Chronic Category: Medical Code(s): G31.09 - Other frontotemporal dementia; F02.80 - Dementia in other diseases classified elsewhere without behavioral disturbance (7) History of DVT in adulthood Current visit: No Status: Chronic Category: Medical Code(s): Z86.718 - Pe rsonal history of other venous thrombosis and embolism - Assessment and plan all Dx Assessment and Plan for all problems:: Patient has left lower lobe pneumonia and will continue on Rocephin and azithromycin. Fluids will be discontinued and Munoz catheter will be discontinued. Monitor for fever for the next 24 hours. Plan a bladder scan in a.m. Once pharmacy has verify patient's home medications they will be reordered
--- NOTE | 2018-05-15 07:53 | Pharmacy Consult Notes ---
[facility] Pharmacy VTE Monitoring - Patient Demographics Admission date: 05/14/18 Report Date: 05/15/18 Time: 07:53 Allergies/Adverse Reactions: Patient Allergies erythromycin base [ERYTHROMYCIN BASE] Allergy (Intermediate, Verified 05/08/18 15:32) SWELLING/ITCHING/SEIZURES iodine [IODINE] Allergy (Unknown, Verified 05/08/18 15:32) Height: 1.83 m Weight: 115.439 kg Patient Problems: Current Active Problems Hypokalemia (Acute) Community acquired pneumonia (Acute) Obesity (BMI 30.0-34.9) (Acute) Frequent falls (Acute) - VTE Risk Labs: VTE Related Lab Results Hgb 11.1 g/dL (14.1-18.0) L 05/15/18 04:05 Hct 35.5 % (42.0-52.0) L 05/15/18 04:05 Plt Count 236 K/mm3 (142-424) 05/15/18 04:05 BUN 12 mg/dL (7-18) 05/15/18 04:05 Creatinine 0.95 mg/dL (0.70-1.30) D 05/15/18 04:05 Estimated Creat Clear 114 mL/min (50-200) 05/15/18 04:05 Was VTE Risk Assessment Performed: Yes VTE Score: 12 VTE Risk Level: Moderate Risk - Prophylaxis VTE Prophylaxis Ordered?: Yes Types of VTE Prophylaxis: TEDS Knee High, Pharmacological Location of Applied Device: Bilateral Lower Extremeties Pharmacologic Type: Other (ELIQUIS) - VTE Diagnosis Confirmed Treatment or plan recommended: Continue Current Treatment
--- NOTE | 2018-05-16 06:32 | Progress Note ---
Internal Medicine - PN: Subj *Date: 05/16/18 *Time: 06:29 Interval history: Patient feels better and denies shortness of breath. Nursing reports patient believes he had a seizure last night. Patient was lucid and sitting on side of bed when he informed nurse. No deficits were detected. Exam Vital signs and Labs for Last 24 Hours: Temp Pulse Resp BP Pulse Ox 97.9 F 73 20 134/55 L 93 L 05/16/18 04:00 05/16/18 04:00 05/16/18 04:00 05/16/18 04:00 05/16/18 04:00 Laboratory Results - last 24 hr 05/15/18 07:20: Troponin I < 0.02 05/15/18 11:09: POC Glucose 208 H 05/15/18 16:51: POC Glucose 179 H 05/15/18 22:00: POC Glucose 200 H I & O for Last 24 hours: Intake & Output 05/13/18 05/14/18 05/15/18 05/16/18 11:59 11:59 11:59 11:59 Intake Total 1050 / 1050 960 / 960 Output Total 525 / 525 175 / 175 Balance 525 / 525 785 / 785 Weight 254 lb 8 oz Narrative: Awakens easily. Lungs with improved aeration, faint rales left base. Abdomen soft Assessment and Plan (1) Community acquired pneumonia Current visit: Yes Status: Acute Qualifiers: Laterality: unspecified laterality Qualified Code(s): J18.9 - Pneumonia, unspecified organism Category: Medical Code(s): J18.9 - Pneumonia, unspecified organism (2) Frequent falls Current visit: Yes Status: Acute Category: Medical Code(s): R29.6 - Repeated falls (3) Obesity (BMI 30.0-34.9) Current visit: Yes Status: Acute Category: Medical Code(s): E66.9 - Obesity, unspecified (4) Generalized weakness Current visit: No Status: Acute Category: Medical Code(s): R53.1 - Weakness (5) Diabetes mellitus type 2 in obese Current visit: No Status: Chronic Category: Medical Code(s): E11.69 - Type 2 diabetes mellitus with other specified complication; E66.9 - Obesity, unspecified (6) Frontotemporal dementia Current visit: No Status: Chronic Category: Medical Code(s): G31.09 - Other frontotemporal dementia; F02.80 - Dementia in other diseases classified elsewhere without behavioral disturbance (7) History of DVT in adulthood Current visit: No Status: Chronic Category: Medical Code(s): Z86.718 - Personal history of other venous thrombosis and embolism (8) Urinary retention Current visit: Yes Status: Acute Category: Medical Code(s): R33.9 - Retention of urine, unspecified - Assessment and plan all Dx Assessment and Plan for all problems:: 1. Continue antibiotics 2. PT consult for home needs 3. check PVR due to urinary retention 4. Anticipate DC tomorrow
[2018-05-16 08:06] LABS: Anion Gap 9.7 mEq/L (5-15); Calcium 7.9 mg/dL (8.5-10.1)
[2018-05-16 08:08] LABS: Basophils % 0.3 % (0.1-2.0); Eosinophils # 0.1 K/mm3 (0.0-0.4); Eosinophils % 0.6 % (0.1-12.0); Hematocrit 34.2 % (42.0-52.0); Hemoglobin 10.6 g/dL (14.1-18.0); Lymphocytes # 2.2 K/mm3 (0.7-4.5); Lymphocytes % 22.7 % (10-50); Mean Corpuscular HGB Conc 31.1 g/dL (31.8-35.4); Mean Corpuscular Hemoglobin 26.3 pg (27.0-31.2); Mean Corpuscular Volume 84.7 fl (80-94); Mean Platelet Volume 6.8 fl (7.4-10.4); Monocytes # 0.6 K/mm3 (0.1-1.0); Monocytes % 5.8 % (1.7-9.3); Neutrophils # 6.9 K/mm3 (1.8-7.8); Neutrophils % 70.6 % (37.0-80.0); Platelet Count 262 K/mm3 (142-424); Red Blood Count 4.04 M/mm3 (4.60-6.20); Red Cell Distribution Width 15.5 % (11.5-17.5); White Blood Count 9.8 K/mm3 (4.8-10.8)
[2018-05-16 08:11] LABS: Potassium 2.7 mmoL/L (3.5-5.1)
[2018-05-17 05:55] LABS: Basophils % 0.5 % (0.1-2.0); Eosinophils # 0.2 K/mm3 (0.0-0.4); Eosinophils % 2.2 % (0.1-12.0); Hematocrit 32.8 % (42.0-52.0); Hemoglobin 10.3 g/dL (14.1-18.0); Lymphocytes % 24.2 % (10-50); Mean Corpuscular HGB Conc 31.5 g/dL (31.8-35.4); Mean Corpuscular Hemoglobin 26.7 pg (27.0-31.2); Mean Corpuscular Volume 84.6 fl (80-94); Mean Platelet Volume 6.9 fl (7.4-10.4); Monocytes # 0.6 K/mm3 (0.1-1.0); Monocytes % 7.2 % (1.7-9.3); Neutrophils # 5.4 K/mm3 (1.8-7.8); Platelet Count 246 K/mm3 (142-424); Red Blood Count 3.87 M/mm3 (4.60-6.20); Red Cell Distribution Width 15.4 % (11.5-17.5); White Blood Count 8.1 K/mm3 (4.8-10.8)
[2018-05-17 06:01] LABS: Calcium 7.8 mg/dL (8.5-10.1)
--- NOTE | 2018-05-17 07:22 | Discharge Summary ---
General - General Admission date:: 05/15/18 Discharge date: 05/17/18 HPI HPI: 68-year-old male presented to the emergency department with complaints of cough, chest congestion, low-grade fever at home and a fall. Patient has had approximately 5 falls at home in the last week. During the interview the morning following admission patient denies any shortness of breath or cough. In the emergency department the patient had a rather thorough workup and chest x- ray did reveal right upper lobe and left lower lobe pneumonia along with an elevated white blood cell count. Patient was admitted for treatment of community-acquired pneumonia. On admission a Munoz catheter was placed which produced 700 mL's of urine. Patient is already requesting removal of the Munoz catheter. Urinary frequency is a chronic problem for the patient and he is on both antispasmodics for overactive bladder and Flomax to aid urine flow. Hospital Course Hospital Course: Patient was admitted and placed on Rocephin and azithromycin to treat community- acquired pneumonia. Home medications were ordered. Patient has an extensive medication list and only essential medications were given. Unfortunately because of the complexity of his scheduled not all medications were given at his preference. He showed gradual improvement in his level of dyspnea each day. On the initial morning of examination patient did have rales in the left lung base. By the rales have cleared and patient's activity level was increased. He does ambulate with a walker at home and had had a fall prior to admission. PT was consulted for evaluation. Patient did well with PT and there were no further interventions from the physical therapy department. On the patient continued to feel well. White count had come down. He had been weaned from oxygen. He was ambulating with his walker. He was discharged home. Patient will follow-up in the office next week. Objective Vital signs: Temp Pulse Resp BP Pulse Ox 98.2 F 71 16 119/50 L 95 05/17/18 04:45 05/17/18 04:45 05/17/18 04:45 05/17/18 04:45 05/17/18 04:45 Results Labs on day of discharge: Labs from last 24 hours 05/17/18 05/17/18 05/17/18 06:07 05:40 05:40 WBC 8.1 RBC 3.87 L Hgb 10.3 L Hct 32.8 L MCV 84.6 MCH 26.7 L MCHC 31.5 L RDW 15.4 Plt Count 246 MPV 6.9 L Neut % (Auto) 66.0 Lymph % (Auto) 24.2 [place] % (Auto) 7.2 Eos % (Auto) 2.2 Baso % (Auto) 0.5 Neut # (Auto) 5.4 Lymph # (Auto) 2.0 [place] # (Auto) 0.6 Eos # (Auto) 0.2 Baso # (Auto) 0.0 Sodium 145 Potassium 3.0 L Chloride 107 Carbon Dioxide 32 Anion Gap 9.0 BUN 17 Creatinine 1.01 Estimated Creat Clear 111 Estimated GFR 73 Est GFR ( Amer) 89 Glucose 128 H POC Glucose 114 H Calcium 7.8 L Stl Aeromonas (PCR) Stl C. cayetanensis PCR Stool Rotavirus (PCR) Stl Adenov F PCR Stool Astrovirus (PCR) Stool Campylobacter PCR Stl C.difficile Tox PCR Stool Cryptosporidium PCR Stl E.coli Shiga Tox PCR Stool E coli O157 PCR Stl Enterotoxigenic E PCR Stool EPEC (PCR) Stool EAEC (PCR) Stl E. histolytica PCR Stool Giardia Lamblia PCR Stool Salmonella PCR Stool Sapovirus (PCR) Stl P. shigelloides PCR Stl Shigella/EIEC PCR St Y.enterocolitica PCR Stool Vibrio (PCR) Stl Vibrio cholerae PCR Stl Norovirus GI/GII PCR 05/17/18 05/16/18 05/16/18 01:39 21:40 16:45 WBC RBC Hgb Hct MCV MCH MCHC RDW Plt Count MPV Neut % (Auto) Lymph % (Auto) [place] % (Auto) Eos % (Auto) Baso % (Auto) Neut # (Auto) Lymph # (Auto) [place] # (Auto) Eos # (Auto) Baso # (Auto) Sodium Potassium Chloride Carbon Dioxide Anion Gap BUN Creatinine Estimated Creat Clear Estimated GFR Est GFR ( Amer) Glucose POC Glucose 122 H 134 H Calcium Stl Aeromonas (PCR) Not detected Stl C. cayetanensis PCR Not detected Stool Rotavirus (PCR) Not detected Stl Adenov F 40 PCR Not detected Stool Astrovirus (PCR) Not detected Stool Campylobacter PCR Not detected Stl C.difficile Tox PCR Not detected Stool Cryptosporidium PCR Not detected Stl E.coli Shiga Tox PCR Not detected Stool E coli O157 PCR Not detected Stl Enterotoxigenic E PCR Not detected Stool EPEC (PCR) Not detected Stool EAEC (PCR) Not detected Stl E. histolytica PCR Not detected Stool Giardia Lamblia PCR Not detected Stool Salmonella PCR Not detected Stool Sapovirus (PCR) Not detected Stl P. shigelloides PCR Not detected Stl Shigella/EIEC PCR Not detected St Y.enterocolitica PCR Not detected Stool Vibrio (PCR) Not detected Stl Vibrio cholerae PCR Not detected Stl Norovirus GI/GII PCR Not detected 05/16/18 05/16/18 05/16/18 11:45 07:48 07:48 WBC 9.8 RBC 4.04 L Hgb 10.6 L Hct 34.2 L MCV 84.7 MCH 26.3 L MCHC 31.1 L RDW 15.5 Plt Count 262 MPV 6.8 L Neut % (Auto) 70.6 Lymph % (Auto) 22.7 [place] % (Auto) 5.8 Eos % (Auto) 0.6 Baso % (Auto) 0.3 Neut # (Auto) 6.9 Lymph # (Auto) 2.2 [place] # (Auto) 0.6 Eos # (Auto) 0.1 Baso # (Auto) 0.0 Sodium 142 Potassium 2.7 L* Chloride 104 Carbon Dioxide 31 Anion Gap 9.7 BUN 16 D Creatinine 0.96 Estimated Creat Clear 112 Estimated GFR 78 Est GFR ( Amer) 94 Glucose 138 H POC Glucose 136 H Calcium 7.9 L Stl Aeromonas (PCR) Stl C. cayetanensis PCR Stool Rotavirus (PCR) Stl Adenov F 40/41 PCR Stool Astrovirus (PCR) Stool Campylobacter PCR Stl C.difficile Tox PCR Stool Cryptosporidium PCR Stl E.coli Shiga Tox PCR Stool E coli O157 PCR Stl Enterotoxigenic E PCR Stool EPEC (PCR) Stool EAEC (PCR) Stl E. histolytica PCR Stool Giardia Lamblia PCR Stool Salmonella PCR Stool Sapovirus (PCR) Stl P. shigelloides PCR Stl Shigella/EIEC PCR St Y.enterocolitica PCR Stool Vibrio (PCR) Stl Vibrio cholerae PCR Stl Norovirus GI/GII PCR 05/16/18 06:16 WBC RBC Hgb Hct MCV MCH MCHC RDW Plt Count MPV Neut % (Auto) Lymph % (Auto) [place] % (Auto) Eos % (Auto) Baso % (Auto) Neut # (Auto) Lymph # (Auto) [place] # (Auto) Eos # (Auto) Baso # (Auto) Sodium Potassium Chloride Carbon Dioxide Anion Gap BUN Creatinine Estimated Creat Clear Estimated GFR Est GFR ( Amer) Glucose POC Glucose 129 H Calcium Stl Aeromonas (PCR) Stl C. cayetanensis PCR Stool Rotavirus (PCR) Stl Adenov F 40/41 PCR Stool Astrovirus (PCR) Stool Campylobacter PCR Stl C.difficile Tox PCR Stool Cryptosporidium PCR Stl E.coli Shiga Tox PCR Stool E coli O157 PCR Stl Enterotoxigenic E PCR Stool EPEC (PCR) Stool EAEC (PCR) Stl E. histolytica PCR Stool Giardia Lamblia PCR Stool Salmonella PCR Stool Sapovirus (PCR) Stl P. shigelloides PCR Stl Shigella/EIEC PCR St Y.enterocolitica PCR Stool Vibrio (PCR) Stl Vibrio cholerae PCR Stl Norovirus GI/GII PCR Preliminary micro results at discharge 05/14/18 19:06 Blood Culture - Preliminary Blood NO GROWTH AFTER 48 HOURS 05/14/18 19:06 Blood Culture - Preliminary Blood NO GROWTH AFTER 48 HOURS DS: Diagnosis - Discharge Diagnosis (1) Community acquired pneumonia Status: Acute (2) Frequent falls Status: Acute (3) Obesity (BMI 30.0-34.9) Status: Acute (4) Generalized weakness Status: Acute (5) Diabetes mellitus type 2 in obese Status: Chronic (6) Frontotemporal dementia Status: Chronic (7) History of DVT in adulthood Status: Chronic (8) Urinary retention Status: Acute Discharge Plan - Patient Discharge Instructions ACTIVITY: Continue current activity DIET: continue same diet Patient Instructions: DI for Pneumonia -- Adult - Follow up Plan Follow up with: Andriy Coon MD [Primary Care Provider] - 05/22/18 2:00 pm Disposition: Home, Self-Long Term Medications: Home Medications Medication Instructions Recorded Confirmed Type RX: Acetaminophen [Tylenol] 650 mg PO Q6HP PRN 06/12/17 05/15/18 History RX: Apixaban [Eliquis] 2.5 mg PO BID 06/12/17 05/15/18 History RX: Atenolol [Atenolol 25mg Tab] 12.5 mg PO BID 06/12/17 05/15/18 History RX: Bacillus Coagulans [Digestive 1 tab PO DAILY 06/12/17 05/15/18 History Advantage] RX: Benzonatate [Benzonatate 100mg 100 mg PO TIDP PRN 06/12/17 05/15/18 History cap] RX: Brexpiprazole [Rexulti] 3 mg PO HS 06/12/17 05/15/18 History RX: Budesonide [Budesonide EC] 3 mg PO BID 06/12/17 05/15/18 History RX: Escitalopram Oxalate [Lexapro] 20 mg PO DAILY 06/12/17 05/15/18 History RX: Loperamide HCl [Loperamide] 4 mg PO 0700,1100,2100 06/12/17 05/15/18 History RX: Memantine HCl [Namenda 10mg 10 mg PO BID 06/12/17 05/15/18 History Tablet] RX: Multivit-Min/FA/Lycopen/Lutein 1 tab PO DAILY 06/12/17 05/15/18 History [Men 50 Plus Multivitamin Tab] RX: Nystatin/Triamcin 1 applic TOPICAL WEEKLY PRN 06/12/17 05/15/18 History [Nystatin-Triamc Crm 15gm] RX: Oxybutynin Chloride 10 mg PO DAILY 06/12/17 05/15/18 History [Oxybutynin Chloride ER] RX: Pravastatin Sodium [Pravachol] 40 mg PO HS 06/12/17 05/15/18 History RX: Pyridoxine HCl (Vitamin B6) 100 mg PO DAILY 06/12/17 05/15/18 History [Vitamin B-6] RX: clonazePAM [Clonazepam] 0.25 mg PO DAILY 06/12/17 05/15/18 History RX: clonazePAM [Clonazepam] 0.5 mg PO HS 06/12/17 05/15/18 History RX: lamoTRIgine [Lamotrigine] 100 mg PO BID 06/12/17 05/15/18 History RX: Miscellaneous Medical Supply 3 l IH HS 06/17/17 05/15/18 History [Oxygen, Portable] RX: Dutasteride 0.5 mg PO DAILY 12/18/17 05/15/18 History RX: Furosemide [Furosemide 20mg 20 mg PO DAILY 12/18/17 05/15/18 History Tab] RX: Gabapentin [Neurontin 600mg 600 mg PO BID 12/18/17 05/15/18 History tablet] RX: Liraglutide [Victoza 2-Rick] 1.2 units SQ DAILY 12/18/17 05/15/18 History RX: Loratadine [Claritin 10mg 10 mg PO HS 12/18/17 05/15/18 History Tablet] RX: Rivastigmine Tartrate 1.5 mg PO BID 12/18/17 05/15/18 History [Rivastigmine] RX: Tamsulosin HCl [Flomax 0.4mg 0.4 mg PO DAILY 12/18/17 05/15/18 History capsule] RX: Miconazole Nitrate [Lotrimin 1 applic TP WEEKLY PRN 12/19/17 05/15/18 History AF] fluticasone 50 mcg/actuation nasal 1 dose INTRANASAL DAILY 30 Days 01/11/18 05/15/18 History spray,suspension RX: Pumpkin Seed Extract/Soy Germ 300 mg PO DAILY 02/01/18 05/15/18 History [Azo Bladder Control Capsule] RX: Aspirin [Aspirin 81mg chewable 81 mg PO DAILY 05/15/18 05/15/18 History tab] Prescriptions/Medication Reconciliation: New RX: Azithromycin [Zithromax 250mg tab] 250 mg PO DAILY #3 tab Continue fluticasone 50 mcg/actuation nasal spray,suspension 1 dose INTRANASAL DAILY 30 Days collagenase clostridium histolyticum 250 unit/gram topical ointment 1 applic TOPICAL QDAY #30 g RX: Pyridoxine HCl (Vitamin B6) [Vitamin B-6] 100 mg PO DAILY RX: Pravastatin Sodium [Pravachol] 40 mg PO HS RX: Oxybutynin Chloride [Oxybutynin Chloride ER] 10 mg PO DAILY RX: Nystatin/Triamcin [Nystatin-Triamc Crm 15gm] 1 applic TOPICAL WEEKLY PRN PRN Reason: Rash RX: Multivit-Min/FA/Lycopen/Lutein [Men 50 Plus Multivitamin Tab] 1 tab PO DAILY RX: Memantine HCl [Namenda 10mg Tablet] 10 mg PO BID RX: Loperamide HCl [Loperamide] 4 mg PO 0700,1100,2100 RX: lamoTRIgine [Lamotrigine] 100 mg PO BID RX: Escitalopram Oxalate [Lexapro] 20 mg PO DAILY RX: clonazePAM [Clonazepam] 0.25 mg PO DAILY RX: clonazePAM [Clonazepam] 0.5 mg PO HS RX: Budesonide [Budesonide EC] 3 mg PO BID RX: Brexpiprazole [Rexulti] 3 mg PO HS RX: Benzonatate [Benzonatate 100mg cap] 100 mg PO TIDP PRN PRN Reason: Cough RX: Bacillus Coagulans [Digestive Advantage] 1 tab PO DAILY RX: Atenolol [Atenolol 25mg Tab] 12.5 mg PO BID RX: Acetaminophen [Tylenol] 650 mg PO Q6HP PRN PRN Reason: Moderate Pain RX: Furosemide [Furosemide 20mg Tab] 20 mg PO DAILY RX: Liraglutide [Victoza 2-Rick] 1.2 units SQ DAILY RX: Dutasteride 0.5 mg PO DAILY RX: Tamsulosin HCl [Flomax 0.4mg capsule] 0.4 mg PO DAILY RX: Gabapentin [Neurontin 600mg tablet] 600 mg PO BID RX: Rivastigmine Tartrate [Rivastigmine] 1.5 mg PO BID RX: Loratadine [Claritin 10mg Tablet] 10 mg PO HS RX: Apixaban [Eliquis] 2.5 mg PO BID RX: Miscellaneous Medical Supply [Oxygen, Portable] 3 l IH HS RX: Miconazole Nitrate [Lotrimin AF] 1 applic TP WEEKLY PRN PRN Reason: Rash RX: Pumpkin Seed Extract/Soy Germ [Azo Bladder Control Capsule] 300 mg PO DAILY RX: Aspirin [Aspirin 81mg chewable tab] 81 mg PO DAILY
== END 2018-05-17 09:06 | disposition home or self-care (01) ==
LOC: ER 18:34 → ICU 18:34 → 2ND 05-15 10:25
PROVIDERS: ADMIT Family Medicine; ATTEND Family Medicine
CPT/HCPCS: 36415; 70450; 71010; 71045; 72125; 72128; 72131; 72170; 80048; 80053; 81001; 82272; 82550; 82553; 82962; 83605; 84484; 85007; 85025; 87040; 87275; 87276; 87430; 87507; 93005; 94640; 94761; 96365; 96367; 96375; 97162; 99285; G0328; G0378; J0456

== ENCOUNTER 2018-05-27 17:25 | Observation (INO) ==
--- NOTE | 2018-05-27 18:06 | Emergency Department Note ---
ED Disposition Clinical Impression: Pneumonia Disposition: Admitted As Inpatient Condition on Discharge: Good Referrals: Andriy Coon MD [Primary Care Provider] - Time of Disposition: 20:10 - Critical Care Critical Care Time: No Attestation: On 05/27/18, the high probability of a clinically significant, sudden or life threatening deterioration of the following system(s) required my full and direct attention, intervention and personal management. The time I documented below is in addition to time spent performing reported procedures but includes the following listed in this critical care notation. Medical Decision Making - Jonathon Inquiry Pt receiving controlled substance: No Jonathon was queried for this patient: No Vital Signs: 05/27/18 17:37 05/27/18 18:32 05/27/18 18:44 Temperature 98.8 F Temperature Source Oral Pulse Rate 78 Pulse Rate [Left Radial] 83 98 H Respiratory Rate 24 26 H Blood Pressure [Right Arm] 140/50 L 108/59 L Blood Pressure Mean [Right Arm] 80 75 Blood Pressure Source [Right Arm] Automatic Cuff Blood Pressure Position [Right Arm] Sitting 02 Sat by Pulse Oximetry 78 L 92 L Oxygen Delivery Method Room Air Nasal Cannula Oxygen Flow Rate (LPM) 3 - Lab Data Lab Results 05/27/18 17:48: WBC 12.3 H, RBC 4.16 L, Hgb 11.0 L, Hct 35.6 L, MCV 85.6, MCH 26.5 L, MCHC 31.0 L, RDW 15.4, Plt Count 266, MPV 6.7 L, Neut % (Auto) 82.4 H, Lymph % (Auto) 11.3, [place] % (Auto) 4.0, Eos % (Auto) 1.7, Baso % (Auto) 0.5, Neut # (Auto) 10.1 H, Lymph # (Auto) 1.4, [place] # (Auto) 0.5, Eos # (Auto) 0.2, Baso # (Auto) 0.1 05/27/18 17:48: Sodium 143, Potassium 2.8 L*, Chloride 103, Carbon Dioxide 31, Anion Gap 11.8, BUN 9, Creatinine 1.22, Estimated Creat Clear 92, Estimated GFR 59, Est GFR ( Amer) 71, Glucose 122 H, Calcium 8.1 L, Troponin I < 0.02 05/27/18 17:48: B-Natriuretic Peptide 131 H 05/27/18 17:48: Lactate 2.3 H 05/27/18 19:05: Specimen Source R/r, O2 % 3.5, ABG pH 7.44, ABG pCO2 45.6 H, ABG pO2 64.0 L, ABG HCO3 29.9 H, ABG Total CO2 31.3 H, ABG O2 Saturation 92, ABG Base Excess 5.7 H, Guzman Test Y Result diagrams: 05/27/18 17:48 05/27/18 17:48 Orders (Tests/Meds): ED MEDICATIONS Generic Name Dose Route Start Last Admin Trade Name Freq PRN Reason Stop Dose Admin Sodium Chloride 10 ml 05/27/18 17:44 Saline Flush 10ml Syringe IV 06/26/18 17:43 NEEDED PRN Maintain IV Site Discontinued Medications Generic Name Dose Route Start Last Admin Trade Name Freq PRN Reason Stop Dose Admin Albuterol/Ipratropium 3 ml 05/27/18 18:06 05/27/18 18:31 Duoneb 3ml Neb IH 05/27/18 18:07 3 ml ONCE ONE Administration Potassium Chloride 40 meq 05/27/18 19:29 05/27/18 19:40 Klor-Con 20meq Tablet PO 05/27/18 19:30 40 meq ONCE ONE Administration ORDERS Category Date Time Status Chest XR -- portable [XR chest portable] Stat Exams 05/27/18 17:43 Taken Blood Culture Stat Micro 05/27/18 17:48 Received ABG [Arterial Blood Gas] Stat RT 05/27/18 18:40 Ordered ECG Request by Dr/Nse Stat Y 05/27/18 17:43 Ordered General Adult HPI - General Chief complaint: Shortness of Breath/Dyspnea Stated complaint: SOA Time Seen by Provider: 05/27/18 17:45 Source of Information: Patient, Spouse Limitations: obesity, previous stroke, deconditioning - History of Present Illness HPI narrative: Recent admit for pneumonia, went home on azithromycin 500 x 3 days. Now denies shortness of breath, but has increased fatigue, near falls, weakness, and "rattle in his chest" Onset (ago): week(s) (2) Location: chest Radiation: non-radiation Severity: mild Associated symptoms: confusion, cough, malaise. negative: fever/chills - Related Data Home Medications Medication Instructions Recorded Confirmed Acetaminophen [Tylenol] 650 mg PO Q6HP PRN 06/12/17 05/27/18 Apixaban [Eliquis] 2.5 mg PO BID 06/12/17 05/27/18 Atenolol [Atenolol 25mg Tab] 12.5 mg PO BID 06/12/17 05/27/18 Bacillus Coagulans [Digestive 1 tab PO DAILY 06/12/17 05/27/18 Advantage] Brexpiprazole [Rexulti] 3 mg PO HS 06/12/17 05/27/18 Budesonide [Budesonide EC] 3 mg PO BID 06/12/17 05/27/18 Escitalopram Oxalate [Lexapro] 20 mg PO DAILY 06/12/17 05/27/18 Loperamide HCl [Loperamide] 4 mg PO 0700,1100,2100 06/12/17 05/27/18 Memantine HCl [Namenda 10mg 10 mg PO BID 06/12/17 05/27/18 Tablet] Multivit-Min/FA/Lycopen/Lutein 1 tab PO DAILY 06/12/17 05/27/18 [Men 50 Plus Multivitamin Tab] Nystatin/Triamcin [Nystatin-Triamc 1 applic TOPICAL WEEKLY PRN 06/12/17 05/27/18 Crm 15gm] Oxybutynin Chloride [Oxybutynin 10 mg PO DAILY 06/12/17 05/27/18 Chloride ER] Pravastatin Sodium [Pravachol] 40 mg PO HS 06/12/17 05/27/18 Pyridoxine HCl (Vitamin B6) 100 mg PO DAILY 06/12/17 05/27/18 [Vitamin B-6] clonazePAM [Clonazepam] 0.25 mg PO DAILY 06/12/17 05/27/18 clonazePAM [Clonazepam] 0.5 mg PO HS 06/12/17 05/27/18 lamoTRIgine [Lamotrigine] 100 mg PO BID 06/12/17 05/27/18 Miscellaneous Medical Supply 3 l IH HS 06/17/17 05/27/18 [Oxygen, Portable] Dutasteride 0.5 mg PO DAILY 12/18/17 05/27/18 Gabapentin [Neurontin 600mg 600 mg PO BID 12/18/17 05/27/18 tablet] Liraglutide [Victoza 2-Rick] 1.2 units SQ DAILY 12/18/17 05/27/18 Loratadine [Claritin 10mg Tablet] 10 mg PO HS 12/18/17 05/27/18 Rivastigmine Tartrate 1.5 mg PO BID 12/18/17 05/27/18 [Rivastigmine] Tamsulosin HCl [Flomax 0.4mg 0.4 mg PO DAILY 12/18/17 05/27/18 capsule] Miconazole Nitrate [Lotrimin AF] 1 applic TP WEEKLY PRN 12/19/17 05/27/18 fluticasone 50 mcg/actuation nasal 1 dose INTRANASAL DAILY 30 Days 01/11/18 05/27/18 spray,suspension Pumpkin Seed Extract/Soy Germ [Azo 300 mg PO DAILY 02/01/18 05/27/18 Bladder Control Capsule] Aspirin [Aspirin 81mg chewable 81 mg PO DAILY 05/15/18 05/27/18 tab] benzonatate 100 mg capsule 100 mg PO BID PRN cap 05/22/18 05/27/18 furosemide 20 mg tablet 20 mg PO BID tab 05/22/18 05/27/18 Previous Rx's Medication Instructions Recorded collagenase clostridium 1 applic TOPICAL QDAY #30 g 02/12/18 histolyticum 250 unit/gram topical ointment Allergies Allergy/AdvReac Type Severity Reaction Status Date / Time erythromycin base Allergy Intermediate SWELLING/IT Verified 05/27/18 17:48 [ERYTHROMYCIN BASE] CLEMENTE/SEIZU RES iodine [IODINE] Allergy Unknown Verified 05/27/18 17:48 [email or web address] Allergy Uncoded 05/27/18 17:50 [facility] History - Hepatitis A Screen Attestation statement:: This patient has been screened for Hepatitis A risk factors. I have reviewed the patient's past medical history: Yes Medical History: Reports:: Anxiety, Chronic Obstructive Pulmonary Disease (COPD), Deep Vein Thrombosis, Dementia, Diabetes Mellitus Type 2, Hyperlipidemia, Hypertension, Lung Disease, Kidney Stones, Myocardial Infarction, Urinary Tract Infection Denies:: Cancer, Diabetes Mellitus Type 1, MRSA Comment: Sturge-Matt syndrome Other Surgeries: Yes: Colonoscopy, EGD, Hernia Repair Amputation: No Fractures: Yes (l4 compression) - Social History Smoking Status: Former smoker Tobacco Type: cigarettes # Packs/Day (cigarettes): 2 #Yrs smoked (if former smoker): 52 Alcohol Intake: never Alcohol Intake Frequency:: other Occupational Status: retired, disabled Housing: house Household Members: spouse - Psychiatric History Pschychiatric History:: Reports:: Anxiety, Psychiatric Treatment Family Hx:: Diabetes, Heart Attack, Hyperlipidemia, Hypertension, Stroke ROS Obtained: Yes All systems reviewed & no additional complaints - Constitutional Constitutional: Reports system reviewed and no additional complaints, except as docu, Reports daytime sleepiness, Reports fatigue, Reports poor appetite - Eyes Eyes: Reports system reviewed and no additional complaints, except as docu, Denies change in vision - ENT Ears, Nose, Mouth, and Throat: Reports system reviewed and no additional complaints, except as docu, Denies nasal obstruction, Denies sore throat, Denies throat swelling - Cardiovascular Cardiovascular: Reports system reviewed and no additional complaints, except as docu, Denies chest pain, Denies chest pain at rest, Denies chest pain with activity, Denies diaphoresis, Denies dyspnea, Reports leg edema, Denies rapid heart rate, Denies slow heart rate - Respiratory Respiratory: Yes system reviewed and no additional complaints, except as docu, Yes chest congestion, Yes cough, Yes non-productive cough, Yes dyspnea on exertion, Yes other (does not expectorate, apparently swallows any phlegm he ) - Gastrointestinal Gastrointestingal: Reports: system reviewed and no additional complaints, except as docu. Denies: coffee ground emesis, diarrhea, dysphagia, nausea, vomiting - Musculoskeletal Musculoskeletal: Reports system reviewed and no additional complaints, except as docu, Reports muscle weakness - Integumentary/Breasts Skin/Breast: Reports system reviewed and no additional complaints, except as docu, Reports skin swelling - Neurologic Neurologic: Reports focal weakness (previous cva, left sided weakness), Denies seizure-like activity, Denies syncope, Denies weakness Physical Exam - General General appearance: alert, in no apparent distress, lethargic Comment: slightly sedated appearance but denies him being on any sedatives new or old rx - Head Head exam: atraumatic, normocephalic, normal inspection - Eye Eye exam: Present: normal appearance. Absent: scleral icterus, jaundice, conjunctival injection - ENT ENT exam: Present: normal exam, normal oropharynx, mucous membranes moist - Neck Neck exam: Present: normal inspection, full ROM, trachea midline. Absent: tenderness, meningismus, lymphadenopathy - Chest Chest inspection: Present: normal inspection, symmetric chest wall rise - Respiratory Respiratory exam: Present: wheezes, other (and scattered rhonchi, greatest at right base. With tidal respirations, he does have a rattle in his chest but does not appear dyspneic). Absent: respiratory distress, prolonged expiratory phase - Cardiovascular Cardiovascular exam: Present: regular rate - Abdominal Exam Abdominal exam: Present: soft. Absent: distention, tenderness, guarding, rebound - Extremities Exam Extremities exam: Absent: normal inspection, tenderness, calf tenderness - Neurological Exam Neurological exam: Present: alert, oriented X3. Absent: normal gait - Psychiatric Psychiatric exam: Present: normal affect. Absent: depressed, agitated, anxious - Skin Skin exam: Present: warm, dry. Absent: rash - Lymphatic Lymphatic Findings: no adenopathy
[2018-05-27 18:24] LABS: Basophils # 0.1 K/mm3 (0-0.2); Basophils % 0.5 % (0.1-2.0); Eosinophils # 0.2 K/mm3 (0.0-0.4); Eosinophils % 1.7 % (0.1-12.0); Hematocrit 35.6 % (42.0-52.0); Lymphocytes # 1.4 K/mm3 (0.7-4.5); Lymphocytes % 11.3 % (10-50); Mean Corpuscular Hemoglobin 26.5 pg (27.0-31.2); Mean Corpuscular Volume 85.6 fl (80-94); Mean Platelet Volume 6.7 fl (7.4-10.4); Monocytes # 0.5 K/mm3 (0.1-1.0); Neutrophils # 10.1 K/mm3 (1.8-7.8); Neutrophils % 82.4 % (37.0-80.0); Platelet Count 266 K/mm3 (142-424); Red Blood Count 4.16 M/mm3 (4.60-6.20); Red Cell Distribution Width 15.4 % (11.5-17.5); White Blood Count 12.3 K/mm3 (4.8-10.8)
[2018-05-27 18:47] LABS: Anion Gap 11.8 mEq/L (5-15); Blood Urea Nitrogen 9 mg/dL (7-18); Calcium 8.1 mg/dL (8.5-10.1); Carbon Dioxide 31 mmol/L (21.0-32.0); Chloride 103 mmol/L (98-107); Glucose 122 mg/dL (74-106); Sodium 143 mmol/L (136-145)
[2018-05-27 18:49] LABS: Potassium 2.8 mmoL/L (3.5-5.1)
[2018-05-27 19:07] LABS: ABG Base Excess 5.7 mmol/L (-2.4-2.3); ABG HCO3 29.9 mmhg (22.0-26.0); ABG Oxygen Saturation 92 % (90-100); ABG PCO2 45.6 mmhg (35.0-45.0); ABG PH 7.44 mmol/L (7.35-7.45); ABG TCO2 31.3 mmhg (23-27); Allen's Test Y; Oxygen 3.5 %
[2018-05-28 05:35] LABS: Basophils # 0.1 K/mm3 (0-0.2); Basophils % 0.6 % (0.1-2.0); Eosinophils # 0.3 K/mm3 (0.0-0.4); Eosinophils % 2.9 % (0.1-12.0); Hematocrit 33.8 % (42.0-52.0); Hemoglobin 10.4 g/dL (14.1-18.0); Lymphocytes # 1.5 K/mm3 (0.7-4.5); Lymphocytes % 16.7 % (10-50); Mean Corpuscular HGB Conc 30.8 g/dL (31.8-35.4); Mean Corpuscular Hemoglobin 26.5 pg (27.0-31.2); Mean Platelet Volume 6.5 fl (7.4-10.4); Monocytes # 0.4 K/mm3 (0.1-1.0); Monocytes % 3.9 % (1.7-9.3); Neutrophils # 6.9 K/mm3 (1.8-7.8); Neutrophils % 75.8 % (37.0-80.0); Platelet Count 229 K/mm3 (142-424); Red Blood Count 3.93 M/mm3 (4.60-6.20); Red Cell Distribution Width 15.4 % (11.5-17.5); White Blood Count 9.1 K/mm3 (4.8-10.8)
[2018-05-28 05:43] LABS: Anion Gap 9.8 mEq/L (5-15); Calcium 7.9 mg/dL (8.5-10.1)
[2018-05-28 05:44] LABS: Potassium 2.8 mmoL/L (3.5-5.1)
--- NOTE | 2018-05-28 07:12 | History & Physical Report ---
*Admission Date: 05/27/18 *Chief complaint: Cough and weakness *History of present illness: 68-year-old male with COPD and recent admission for pneumonia presented to the emergency department with cough and increased "rattling in the chest" along with weakness and difficulty ambulating with a near fall at home. History is provided patient and his . His cough is nonproductive. She is unsure if he had any fevers at home. The cough along with weakness and falling are symptoms that patient has had in the past when he has had pneumonia. Patient became concerned he was developing pneumonia and brought him to the emergency department. In the emergency department workup revealed pneumonia. As patient was hospitalized just within the last 2 weeks for pneumonia he was admitted and placed on broad-spectrum antibiotics of Levaquin and Zosyn. This morning he continues to feel weak. His cough is moist but nonproductive. He has not had any documented fevers but O2 sat 78% while on oxygen overnight was recorded. [facility] History I have reviewed the patient's past medical history: Yes Medical History: Reports:: Anxiety, Chronic Obstructive Pulmonary Disease (COPD), Deep Vein Thrombosis, Dementia, Diabetes Mellitus Type 2, Hyperl ipidemia, Hypertension, Lung Disease, Kidney Stones, Myocardial Infarction, Urinary Tract Infection Denies:: Cancer, Diabetes Mellitus Type 1, MRSA Other Medical History: Reports: Arthritis Other Surgeries: Yes: Colonoscopy, EGD, Hernia Repair Amputation: No Fractures: Yes (l4 compression) - *Social History Educational Level: Completed Graduate School Smoking Status: Former smoker Tobacco Type: cigarettes # Packs/Day (cigarettes): 2 #Yrs smoked (if former smoker): 52 Alcohol Intake: never Alcohol Intake Frequency:: other Occupational Status: retired, disabled Housing: house Household Members: spouse - Psychiatric History Expresses thoughts of harming self/others: None Suicide Plan Description: No Plan Pschychiatric History:: Reports:: Anxiety, Psychiatric Treatment *Family Hx:: Cancer, Diabetes, Heart Attack, Hyperlipidemia, Hypertension, Thyroid Disorder Review of Systems - Review of Systems Review of systems:: pertinent systems reviewed and negative unless documented below - Constitutional Denies body ache(s), Denies chills - *Cardiovascular Reports shortness of breath with activity, Denies chest pain, Denies chest pain at rest, Denies chest pain with activity - *Respiratory Reports chest congestion, Reports cough, Denies change in phlegm color, Denies shortness of breath - *Gastrointestinal Denies abdominal pain, Denies belching - *Genitourinary Reports frequent nighttime urination, Reports urinary frequency, Reports urinary incontinence, Reports urinary urgency - *Musculoskeletal Reports abnormal walking - *Neurologic Reports localized weakness (previous cva, left sided weakness), Denies seizure- like activity, Denies fainting, Denies weakness Meds Home Medications Medication Instructions Recorded Confirmed Type Acetaminophen [Tylenol] 325 mg PO Q6HP PRN 06/12/17 05/27/18 History Apixaban [Eliquis] 2.5 mg PO BID 06/12/17 05/27/18 History Atenolol [Atenolol 25mg Tab] 12.5 mg PO BID 06/12/17 05/27/18 History Bacillus Coagulans [Digestive 1 tab PO DAILY 06/12/17 05/27/18 History Advantage] Brexpiprazole [Rexulti] 3 mg PO HS 06/12/17 05/27/18 History Budesonide [Budesonide EC] 3 mg PO BID 06/12/17 05/27/18 History Escitalopram Oxalate [Lexapro] 20 mg PO DAILY 06/12/17 05/27/18 History Loperamide HCl [Loperamide] 4 mg PO 0700,1100,2100 06/12/17 05/27/18 History Memantine HCl [Namenda 10mg 10 mg PO BID 06/12/17 05/27/18 History Tablet] Multivit-Min/FA/Lycopen/Lutein 1 tab PO DAILY 06/12/17 05/27/18 History [Men 50 Plus Multivitamin Tab] Nystatin/Triamcin [Nystatin-Triamc 1 applic TOPICAL DAILY 06/12/17 05/27/18 History Crm 15gm] Oxybutynin Chloride [Oxybutynin 10 mg PO DAILY 06/12/17 05/27/18 History Chloride ER] Pravastatin Sodium [Pravachol] 40 mg PO HS 06/12/17 05/27/18 History Pyridoxine HCl (Vitamin B6) 100 mg PO DAILY 06/12/17 05/27/18 History [Vitamin B-6] clonazePAM [Clonazepam] 0.25 mg PO DAILY 06/12/17 05/27/18 History clonazePAM [Clonazepam] 0.5 mg PO HS 06/12/17 05/27/18 History lamoTRIgine [Lamotrigine] 100 mg PO BID 06/12/17 05/27/18 History Miscellaneous Medical Supply 3 l IH HS 06/17/17 05/27/18 History [Oxygen, Portable] Dutasteride 0.5 mg PO DAILY 12/18/17 05/27/18 History Gabapentin [Neurontin 600mg 600 mg PO BID 12/18/17 05/27/18 History tablet] Liraglutide [Victoza 2-Rick] 1.2 units SQ DAILY 12/18/17 05/27/18 History Loratadine [Claritin 10mg Tablet] 10 mg PO HS 12/18/17 05/27/18 History Rivastigmine Tartrate 1.5 mg PO BID 12/18/17 05/27/18 History [Rivastigmine] Tamsulosin HCl [Flomax 0.4mg 0.5 mg PO DAILY 12/18/17 05/27/18 History capsule] Miconazole Nitrate [Lotrimin AF] 1 applic TP DAILY 12/19/17 05/27/18 History fluticasone 50 mcg/actuation nasal 1 dose INTRANASAL DAILY 30 Days 01/11/18 05/27/18 History spray,suspension Pumpkin Seed Extract/Soy Germ [Azo 1 tab PO DAILY 02/01/18 05/27/18 History Bladder Control Capsule] collagenase clostridium 1 applic TOPICAL QDAY #30 g 02/12/18 05/22/18 Rx histolyticum 250 unit/gram topical ointment Aspirin [Aspirin 81mg chewable 81 mg PO HS 05/15/18 05/27/18 History tab] benzonatate 100 mg capsule 100 mg PO BID PRN cap 05/22/18 05/27/18 History furosemide 20 mg tablet 20 mg PO BID tab 05/22/18 05/27/18 History Allergies Allergy/AdvReac Type Severity Reaction Status Date / Time erythromycin base Allergy Intermediate SWELLING/IT Verified 05/27/18 17:48 [ERYTHROMYCIN BASE] CLEMENTE/SEIZU RES iodine [IODINE] Allergy Unknown Verified 05/27/18 17:48 [email or web address] Allergy Uncoded 05/27/18 17:50 Exam Vital signs and Labs for Last 24 Hours: Temp Pulse Resp BP Pulse Ox 97.8 F 69 18 127/58 L 94 L 05/28/18 04:00 05/28/18 04:00 05/28/18 04:00 05/28/18 04:00 05/28/18 04:00 Laboratory Results - last 24 hr 05/27/18 17:48: WBC 12.3 H, RBC 4.16 L, Hgb 11.0 L, Hct 35.6 L, MCV 85.6, MCH 26.5 L, MCHC 31.0 L, RDW 15.4, Plt Count 266, MPV 6.7 L, Neut % (Auto) 82.4 H, Lymph % (Auto) 11.3, [place] % (Auto) 4.0, Eos % (Auto) 1.7, Baso % (Auto) 0.5, Neut # (Auto) 10.1 H, Lymph # (Auto) 1.4, [place] # (Auto) 0.5, Eos # (Auto) 0.2, Baso # (Auto) 0.1 05/27/18 17:48: Sodium 143, Potassium 2.8 L*, Chloride 103, Carbon Dioxide 31, Anion Gap 11.8, BUN 9, Creatinine 1.22, Estimated Creat Clear 92, Estimated GFR 59, Est GFR ( Amer) 71, Glucose 122 H, Calcium 8.1 L, Troponin I < 0.02 05/27/18 17:48: B-Natriuretic Peptide 131 H 05/27/18 17:48: Lactate 2.3 H 05/27/18 19:05: Specimen Source R/r, O2 % 3.5, ABG pH 7.44, ABG pCO2 45.6 H, ABG pO2 64.0 L, ABG HCO3 29.9 H, ABG Total CO2 31.3 H, ABG O2 Saturation 92, ABG Base Excess 5.7 H, Guzman Test Y 05/27/18 21:46: POC Glucose 129 H 05/27/18 22:05: Lactate 1.6 05/28/18 05:27: WBC 9.1 D, RBC 3.93 L, Hgb 10.4 L, Hct 33.8 L, MCV 86.0, MCH 26.5 L, MCHC 30.8 L, RDW 15.4, Plt Count 229, MPV 6.5 L, Neut % (Auto) 75.8, Lymph % (Auto) 16.7, [place] % (Auto) 3.9, Eos % (Auto) 2.9, Baso % (Auto) 0.6, Neut # (Auto) 6.9, Lymph # (Auto) 1.5, [place] # (Auto) 0.4, Eos # (Auto) 0.3, Baso # (Auto) 0.1 05/28/18 05:27: Sodium 144, Potassium 2.8 L*, Chloride 105, Carbon Dioxide 32, Anion Gap 9.8, BUN 9, Creatinine 1.01, Estimated Creat Clear 113, Estimated GFR 73, Est GFR ( Amer) 89 D, Glucose 99, Calcium 7.9 L 05/28/18 06:02: POC Glucose 96 I & O for Last 24 hours: Intake & Output 05/25/18 05/26/18 05/27/18 05/28/18 11:59 11:59 11:59 11:59 Intake Total 571 / 571 Balance 571 / 571 Weight 255 lb 2 oz Narrative: Patient is laying comfortably in bed with nasal cannula in place. He is edentulous. Neck is without lymphadenopathy or jugular venous distention. Lungs have diffuse rhonchi that are loudest in the upper lobes bilaterally. He has rales at the right lung base posteriorly. No wheezing is heard. Heart has a regular rate and rhythm. Abdomen is obese and soft. Extremities are warm to the touch with 2-3+ edema of both lower extremities. For full skin assessment see nursing notes. Assessment and Plan (1) Pneumonia Current visit: Yes Status: Acute Category: Medical Code(s): J18.9 - Pneumonia, unspecified organism (2) Hypokalemia Current visit: No Status: Acute Category: Medical Code(s): E87.6 - Hypokalemia (3) Obesity (BMI 30.0-34.9) Current visit: No Status: Acute Category: Medical Code(s): E66.9 - Obesity, unspecified (4) COPD (chronic obstructive pulmonary disease) Current visit: No Status: Chronic Qualifiers: COPD type: unspecified COPD Qualified Code(s): J44.9 - Chronic obstructive pulmonary disease, unspecified Category: Medical Code(s): J44.9 - Chronic obstructive pulmonary disease, unspecified (5) Diabetes mellitus type 2 in obese Current visit: No Status: Chronic Category: Medical Code(s): E11.69 - Type 2 diabetes mellitus with other specified complication; E66.9 - Obesity, unspecified (6) Frontotemporal dementia Current visit: No Status: Chronic Category: Medical Code(s): G31.09 - Other frontotemporal dementia; F02.80 - Dementia in other diseases classified elsewhere without behavioral disturbance (7) History of DVT in adulthood Current visit: No Status: Chronic Category: Medical Code(s): Z86.718 - Personal history of other venous thrombosis and embolism (8) History of AL (myocardial infarction) Current visit: No Status: Chronic Category: Medical Code(s): I25.2 - Old myocardial infarction - Assessment and plan all Dx Assessment and Plan for all problems:: 1. Broad-spectrum antibiotics with Zosyn and Levaquin 2. Home medications 3. Bedside swallowing evaluation to rule out aspiration as a cause of pneumonia 4. Patient has developed some diarrhea so stool will be checked for C. difficile 5. PT eval to assess overall strength and any potential needs. In the past patient has required assisted placement for short periods of time. 6. Wound care to eval his heel ulcer
--- NOTE | 2018-05-28 08:25 | Pharmacy Consult Notes ---
[facility] Pharmacy VTE Monitoring - Patient Demographics Admission date: 05/28/18 Report Date: 05/28/18 Time: 08:25 Allergies/Adverse Reactions: Patient Allergies erythromycin base [ERYTHROMYCIN BASE] Allergy (Intermediate, Verified 05/27/18 17:48) SWELLING/ITCHING/SEIZURES iodine [IODINE] Allergy (Unknown, Verified 05/27/18 17:48) [email or web address] Allergy (Uncoded 05/27/18 17:50) Height: 1.85 m Weight: 115.723 kg Patient Problems: Current Active Problems Pneumonia (Acute) - VTE Risk Labs: VTE Related Lab Results Hgb 10.4 g/dL (14.1-18.0) L 05/28/18 05:27 Hct 33.8 % (42.0-52.0) L 05/28/18 05:27 Plt Count 229 K/mm3 (142-424) 05/28/18 05:27 BUN 9 mg/dL (7-18) 05/28/18 05:27 Creatinine 1.01 mg/dL (0.70-1.30) 05/28/18 05:27 Estimated Creat Clear 113 mL/min (50-200) 05/28/18 05:27 Was VTE Risk Assessment Performed: Yes VTE Score: 7 VTE Risk Level: Moderate Risk Clinical Trial Participant: No - Prophylaxis VTE Prophylaxis Ordered?: Yes Types of VTE Prophylaxis: TEDS Knee High Location of Applied Device: Not Applicable
[2018-05-29 05:51] LABS: Basophils % 0.6 % (0.1-2.0); Eosinophils # 0.2 K/mm3 (0.0-0.4); Eosinophils % 3.7 % (0.1-12.0); Hematocrit 32.6 % (42.0-52.0); Hemoglobin 10.1 g/dL (14.1-18.0); Lymphocytes # 1.6 K/mm3 (0.7-4.5); Lymphocytes % 24.6 % (10-50); Mean Corpuscular Hemoglobin 26.7 pg (27.0-31.2); Mean Corpuscular Volume 86.3 fl (80-94); Mean Platelet Volume 6.8 fl (7.4-10.4); Monocytes # 0.4 K/mm3 (0.1-1.0); Neutrophils # 4.3 K/mm3 (1.8-7.8); Neutrophils % 65.2 % (37.0-80.0); Platelet Count 210 K/mm3 (142-424); Red Blood Count 3.78 M/mm3 (4.60-6.20); Red Cell Distribution Width 15.4 % (11.5-17.5); White Blood Count 6.5 K/mm3 (4.8-10.8)
[2018-05-29 05:59] LABS: Anion Gap 8.2 mEq/L (5-15); Calcium 7.7 mg/dL (8.5-10.1); Potassium 3.2 mmoL/L (3.5-5.1)
--- NOTE | 2018-05-29 09:12 | Progress Note ---
Internal Medicine - PN: Subj *Date: 05/29/18 *Time: 09:11 Interval history: Patient up on the bedside commode receiving a sponge bath from nursing staff. Has no complaints. Mildly disoriented but is talkative and denies pain or shortness of air. Exam Vital signs and Labs for Last 24 Hours: Temp Pulse Resp BP Pulse Ox 98.9 F 63 18 122/70 97 05/29/18 07:52 05/29/18 07:52 05/29/18 07:52 05/29/18 07:52 05/29/18 08:00 Laboratory Results - last 24 hr 05/28/18 11:19: POC Glucose 101 05/28/18 14:40: Stl Aeromonas (PCR) Not detected, Stl C. cayetanensis PCR Not detected, Stool Rotavirus (PCR) Not detected, Stl Adenov F 40/41 PCR Not detected, Stool Astrovirus (PCR) Not detected, Stool Campylobacter PCR Not detected, Stl C.difficile Tox PCR Not detected, Stool Cryptosporidium PCR Not detected, Stl E.coli Shiga Tox PCR Not detected, Stool E coli O157 PCR Not detected, Stl Enterotoxigenic E PCR Not detected, Stool EPEC (PCR) Not detected, Stool EAEC (PCR) Not detected, Stl E. histolytica PCR Not detected, Stool Giardia Lamblia PCR Not detected, Stool Salmonella PCR Not detected, Stool Sapovirus (PCR) Not detected, Stl P. shigelloides PCR Not detected, Stl Shigella/EIEC PCR Not detected, St Y.enterocolitica PCR Not detected, Stool Vibrio (PCR) Not detected, Stl Vibrio cholerae PCR Not detected, Stl Norovirus GI/GII PCR Not detected 05/28/18 16:55: POC Glucose 105 05/28/18 20:00: POC Glucose 155 H 05/29/18 05:27: WBC 6.5 D, RBC 3.78 L, Hgb 10.1 L, Hct 32.6 L, MCV 86.3, MCH 26.7 L, MCHC 31.0 L, RDW 15.4, Plt Count 210, MPV 6.8 L, Neut % (Auto) 65.2, Lymph % (Auto) 24.6, [place] % (Auto) 6.0, Eos % (Auto) 3.7, Baso % (Auto) 0.6, Neut # (Auto) 4.3, Lymph # (Auto) 1.6, [place] # (Auto) 0.4, Eos # (Auto) 0.2, Baso # (Auto) 0.0 05/29/18 05:27: Sodium 145, Potassium 3.2 L, Chloride 107, Carbon Dioxide 33 H, Anion Gap 8.2, BUN 8, Creatinine 0.96, Estimated Creat Clear 114, Estimated GFR 78, Est GFR ( Amer) 94, Glucose 111 H, Calcium 7.7 L 05/29/18 05:56: POC Glucose 110 I & O for Last 24 hours: Intake & Output 05/26/18 05/27/18 05/28/18 05/29/18 11:59 11:59 11:59 11:59 Intake Total 571 / 571 2361 / 2361 Output Total 0 / 0 0 / 0 Balance 571 / 571 2361 / 2361 Weight 255 lb 2.008 oz Narrative: Patient is pleasant, oriented. Oropharynx clear. No JVD. Obesity limits the accuracy of his exam but his lungs sound clear except for minimal rhonchi in the right base. Heart rate regular. Abdomen is obese. Brawny skin changes in the lower extremities and heel ulcer noted as previously documented. Assessment and Plan (1) Pneumonia Current visit: Yes Status: Acute Category: Medical Code(s): J18.9 - Pneumonia, unspecified organism Continue current plan for antibiotics and rehab. (2) Hypokalemia Current visit: No Status: Acute Category: Medical Code(s): E87.6 - Hypokalemia Slightly improving daily on current dose of potassium. We will watch tomorrow. (3) Obesity (BMI 30.0-34.9) Current visit: No Status: Chronic Category: Medical Code(s): E66.9 - Obesity, unspecified Complicates all aspects of his care. (4) COPD (chronic obstructive pulmonary disease) Current visit: No Status: Chronic Qualifiers: COPD type: unspecified COPD Qualified Code(s): J44.9 - Chronic obstructive pulmonary disease, unspecified Category: Medical Code(s): J44.9 - Chronic obstructive pulmonary disease, unspecified (5) Diabetes mellitus type 2 in obese Current visit: No Status: Chronic Category: Medical Code(s): E11.69 - Type 2 diabetes mellitus with other specified complication; E66.9 - Obesity, unspecified (6) Frontotemporal dementia Current visit: No Status: Chronic Category: Medical Code(s): G31.09 - Other frontotemporal dementia; F02.80 - Dementia in other diseases classified elsewhere without behavioral disturbance (7) History of DVT in adulthood Current visit: No Status: Chronic Category: Medical Code(s): Z86.718 - Personal history of other venous thrombosis and embolism (8) History of [place] (myocardial infarction) Current visit: No Status: Chronic Category: Medical Code(s): I25.2 - Old myocardial infarction
[2018-05-30 06:52] LABS: Basophils % 0.6 % (0.1-2.0); Eosinophils # 0.2 K/mm3 (0.0-0.4); Eosinophils % 3.5 % (0.1-12.0); Hematocrit 33.3 % (42.0-52.0); Hemoglobin 10.2 g/dL (14.1-18.0); Lymphocytes # 1.9 K/mm3 (0.7-4.5); Lymphocytes % 29.5 % (10-50); Mean Corpuscular HGB Conc 30.7 g/dL (31.8-35.4); Mean Corpuscular Hemoglobin 26.6 pg (27.0-31.2); Mean Corpuscular Volume 86.5 fl (80-94); Mean Platelet Volume 7.4 fl (7.4-10.4); Monocytes # 0.4 K/mm3 (0.1-1.0); Monocytes % 6.4 % (1.7-9.3); Neutrophils # 3.8 K/mm3 (1.8-7.8); Neutrophils % 60.1 % (37.0-80.0); Platelet Count 205 K/mm3 (142-424); Red Blood Count 3.85 M/mm3 (4.60-6.20); Red Cell Distribution Width 15.4 % (11.5-17.5); White Blood Count 6.3 K/mm3 (4.8-10.8)
--- NOTE | 2018-05-30 07:21 | Progress Note ---
Internal Medicine - PN: Subj *Date: 05/30/18 *Time: 07:19 Interval history: Patient complains of his diarrhea bothering him mostly. Every time he tries to eat food goes right through him. He continues to cough but his cough is nonproductive. Exam Vital signs and Labs for Last 24 Hours: Temp Pulse Resp BP Pulse Ox 98.3 F 57 L 16 121/59 L 93 L 05/30/18 04:00 05/30/18 04:00 05/30/18 04:00 05/30/18 04:00 05/30/18 04:00 Laboratory Results - last 24 hr 05/29/18 11:18: POC Glucose 97 05/29/18 16:17: POC Glucose 110 05/29/18 20:39: POC Glucose 147 H 05/30/18 06:03: WBC 6.3, RBC 3.85 L, Hgb 10.2 L, Hct 33.3 L, MCV 86.5, MCH 26.6 L, MCHC 30.7 L, RDW 15.4, Plt Count 205, MPV 7.4, Neut % (Auto) 60.1, Lymph % (Auto) 29.5, [place] % (Auto) 6.4, Eos % (Auto) 3.5, Baso % (Auto) 0.6, Neut # (Auto) 3.8, Lymph # (Auto) 1.9, [place] # (Auto) 0.4, Eos # (Auto) 0.2, Baso # (Auto) 0.0 05/30/18 06:32: POC Glucose 97 I & O for Last 24 hours: Intake & Output 05/27/18 05/28/18 05/29/18 05/30/18 11:59 11:59 11:59 11:59 Intake Total 571 / 571 2511 / 2511 3186 / 3186 Output Total 0 / 0 0 / 0 Balance 571 / 571 2511 / 2511 3186 / 3186 Weight 255 lb 2.008 oz Microbiology Reports for the Last 24 Hours: Microbiology 05/27/18 17:48 Blood Blood Culture - Preliminary NO GROWTH AFTER 48 HOURS 05/27/18 17:48 Blood Blood Culture - Preliminary NO GROWTH AFTER 48 HOURS Narrative: Patient is awake and alert. Lung exam reveals some rhonchi in the left upper lobe that clear with deep breathing. He has persistent rhonchi in the right base. Heart has a regular rate and rhythm Assessment and Plan (1) Pneumonia Current visit: Yes Status: Acute Category: Medical Code(s): J18.9 - Pneumonia, unspecified organism (2) Hypokalemia Current visit: No Status: Acute Category: Medical Code(s): E87.6 - Hypokalemia (3) Obesity (BMI 30.0-34.9) Current visit: No Status: Chronic Category: Medical Code(s): E66.9 - Obesity, unspecified (4) COPD (chronic obstructive pulmonary disease) Current visit: No Status: Chronic Qualifiers: COPD type: unspecified COPD Qualified Code(s): J44.9 - Chronic obstructive pulmonary disease, unspecified Category: Medical Code(s): J44.9 - Chronic obstructive pulmonary disease, unspecified (5) Diabetes mellitus type 2 in obese Current visit: No Status: Chronic Category: Medical Code(s): E11.69 - Type 2 diabetes mellitus with other specified complication; E66.9 - Obesity, unspecified (6) Frontotemporal dementia Current visit: No Status: Chronic Category: Medical Code(s): G31.09 - Other frontotemporal dementia; F02.80 - Dementia in other diseases classified elsewhere without behavioral disturbance (7) History of DVT in adulthood Current visit: No Status: Chronic Category: Medical Code(s): Z86.718 - Personal history of other venous thrombosis and embolism (8) History of [place] (myocardial infarction) Current visit: No Status: Chronic Category: Medical Code(s): I25.2 - Old myocardial infarction - Assessment and plan all Dx Assessment and Plan for all problems:: 1. Repeat chest x-ray today. Based on initial report he may need chest CT 2. Continue current antibiotics 3. Add loperamide prior to meals 4. Incentive spirometry 5. PT and OT eval's today. Investigate short-term residential for patient due to 2 recent hospitalizations for pneumonia and falls at home
[2018-05-30 07:27] LABS: Anion Gap 11.5 mEq/L (5-15); Calcium 7.8 mg/dL (8.5-10.1); Potassium 3.5 mmoL/L (3.5-5.1)
[2018-05-31 07:05] LABS: Basophils # 0.1 K/mm3 (0-0.2); Basophils % 0.7 % (0.1-2.0); Eosinophils # 0.3 K/mm3 (0.0-0.4); Eosinophils % 3.8 % (0.1-12.0); Hematocrit 35.1 % (42.0-52.0); Hemoglobin 10.8 g/dL (14.1-18.0); Lymphocytes # 1.7 K/mm3 (0.7-4.5); Lymphocytes % 24.1 % (10-50); Mean Corpuscular HGB Conc 30.8 g/dL (31.8-35.4); Mean Corpuscular Hemoglobin 26.3 pg (27.0-31.2); Mean Corpuscular Volume 85.6 fl (80-94); Mean Platelet Volume 6.6 fl (7.4-10.4); Monocytes # 0.4 K/mm3 (0.1-1.0); Neutrophils # 4.7 K/mm3 (1.8-7.8); Neutrophils % 65.4 % (37.0-80.0); Platelet Count 223 K/mm3 (142-424); Red Cell Distribution Width 15.3 % (11.5-17.5); White Blood Count 7.2 K/mm3 (4.8-10.8)
--- NOTE | 2018-05-31 07:05 | Progress Note ---
Internal Medicine - PN: Subj *Date: 05/31/18 *Time: 07:01 Interval history: Has no complaints this morning. He continues to have loose bowel movements. He denies shortness of breath. His cough is improved. The rattling sensation he had in his chest has also resolved. Chest x-ray performed yesterday showed improvement in his pneumonia Exam Vital signs and Labs for Last 24 Hours: Temp Pulse Resp BP Pulse Ox 98.5 F 67 17 122/69 96 05/31/18 04:00 05/31/18 04:00 05/31/18 04:00 05/31/18 04:00 05/31/18 04:00 Laboratory Results - last 24 hr 05/30/18 06:03: Sodium 145, Potassium 3.5, Chloride 108 H, Carbon Dioxide 29, Anion Gap 11.5, BUN 8, Creatinine 1.00, Estimated Creat Clear 114, Estimated GFR 74, Est GFR ( Amer) 90, Glucose 104, Calcium 7.8 L 05/30/18 11:36: POC Glucose 144 H 05/30/18 15:56: POC Glucose 207 H 05/30/18 21:15: POC Glucose 88 05/31/18 05:58: POC Glucose 82 I & O for Last 24 hours: Intake & Output 05/28/18 05/29/18 05/30/18 05/31/18 11:59 11:59 11:59 11:59 Intake Total 571 / 571 2511 / 2511 3696 / 3696 780 / 780 Output Total 0 / 0 0 / 0 Balance 571 / 571 2511 / 2511 3696 / 3696 780 / 780 Weight 255 lb 2.008 oz Narrative: He looks comfortable and in no distress. He is not requiring supplemental oxygen. Lungs are without rhonchi or rales. Heart has a regular rate and rhythm. Skin has multiple bruises over the arms. Lower extremities have 3+ edema below the knee Assessment and Plan (1) Pneumonia Current visit: Yes Status: Acute Category: Medical Code(s): J18.9 - Pneumonia, unspecified organism (2) Hypokalemia Current visit: No Status: Acute Category: Medical Code(s): E87.6 - Hypokalemia (3) Obesity (BMI 30.0-34.9) Current visit: No Status: Chronic Category: Medical Code(s): E66.9 - Obesity, unspecified (4) COPD (chronic obstructive pulmonary disease) Current visit: No Status: Chronic Qualifiers: COPD type: unspecified COPD Qualified Code(s): J44.9 - Chronic obstructive pulmonary disease, unspecified Category: Medical Code(s): J44.9 - Chronic obstructive pulmonary disease, unspecified (5) Diabetes mellitus type 2 in obese Current visit: No Status: Chronic Category: Medical Code(s): E11.69 - Type 2 diabetes mellitus with other specified complication; E66.9 - Obesity, unspecified (6) Frontotemporal dementia Current visit: No Status: Chronic Category: Medical Code(s): G31.09 - Other frontotemporal dementia; F02.80 - Dementia in other diseases classified elsewhere without behavioral disturbance (7) History of DVT in adulthood Current visit: No Status: Chronic Category: Medical Code(s): Z86.718 - Personal history of other venous thrombosis and embolism (8) History of [place] (myocardial infarction) Current visit: No Status: Chronic Category: Medical Code(s): I25.2 - Old myocardial infarction (9) Chronic venous stasis dermatitis of both lower extremities Current visit: Yes Status: Acute Category: Medical Code(s): I87.2 - Venous insufficiency (chronic) (peripheral) (10) Open wound of left heel Current visit: Yes Status: Acute Category: Medical Code(s): S91.302A - Unspecified open wound, left foot, initial encounter (11) Chronic diarrhea Current visit: Yes Status: Acute Category: Medical Code(s): K52.9 - Noninfective gastroenteritis and colitis, unspecified - Assessment and plan all Dx Assessment and Plan for all problems:: 1. Patient is ready for discharge to fpc facility. Once we have received word from [facility] the patient's precertification has been completed patient will be discharged to [facility] [place] facility 2. No change in antibiotics. At discharge patient will continue Levaquin 3. Continue large doses of Imodium for his chronic diarrhea 4. For patient's lower extremity edema his Farrow wraps will be applied 5. For his heel wound continue hydrocolloid dressings. Patient has future follow-up scheduled with Dr. Silverio
--- NOTE | 2018-05-31 07:09 | Discharge Summary ---
General - General Admission date:: 05/27/18 Discharge date: 05/31/18 HPI HPI: 68-year-old male with COPD and recent admission for pneumonia presented to the emergency department with cough and increased "rattling in the chest" along with weakness and difficulty ambulating with a near fall at home. History is provided patient and his . His cough is nonproductive. She is unsure if he had any fevers at home. The cough along with weakness and falling are symptoms that patient has had in the past when he has had pneumonia. Patient became concerned he was developing pneumonia and brought him to the emergency department. In the emergency department workup revealed pneumonia. As patient was hospitalized just within the last 2 weeks for pneumonia he was admitted and placed on broad-spectrum antibiotics of Levaquin and Zosyn. This morning he continues to feel weak. His cough is moist but nonproductive. He has not had any documented fevers but O2 sat 78% while on oxygen overnight was recorded. Hospital Course Hospital Course: Patient was admitted and placed on broad-spectrum antibiotics of Zosyn and Levaquin. Patient was hypoxic on admission but within 48 hours was able to be weaned from nasal cannula. Follow-up chest x-ray performed on May 30 showed improvement in bilateral pneumonia. At discharge patient was continued on Levaquin to complete a 10-day course of antibiotic. Patient was quite weak from to inpatient admissions for pneumonia. He had sustained one fall at home prior to his first admission and another fall at home prior to his current admission. PT was consulted as was OT. Both services felt like patient would benefit from stay at short-term snf facility to improve strengthening, mobility, balance. Patient was agreeable to this. Camilo leal was accepted by [facility]. Patient has chronic diarrhea which was made worse by the antibiotics. Stool was tested for C. difficile and was negative. Patient uses large doses of both Imodium capsules and liquid Imodium to control his diarrhea at home. This regimen was continued while the patient was hospitalized. Patient has a left heel wound for which she has been seen by local podiatry. While hospitalized wound care evaluated his wound and changed his dressing. He will need continued care of his left heel wound with hydrocolloid dressing changes. Patient has chronic venous stasis and for the most of his hospitalization was without his Farrow wraps. His edema in the lower extremities did worsen. On the Farrow wraps were reapplied. Other home medications were continued during hospitalization and no changes were made to home medications at discharge Objective Vital signs: Temp Pulse Resp BP Pulse Ox 98.5 F 67 17 122/69 96 05/31/18 04:00 05/31/18 04:00 05/31/18 04:00 05/31/18 04:00 05/31/18 04:00 Narrative: Exam on day of discharge: Patient alert and oriented. Oropharynx is dry (this is chronic). Lungs are clear except for some faint rhonchi in the right posterior chest. Heart had a regular rate and rhythm. Patient has 3+ edema of the lower extremities from the knees to the ankles. Patient has a left heel wound that is dressed Results Labs on day of discharge: Labs from last 24 hours 05/31/18 05/30/18 05/30/18 05:58 21:15 15:56 Sodium Potassium Chloride Carbon Dioxide Anion Gap BUN Creatinine Estimated Creat Clear Estimated GFR Est GFR ( Amer) Glucose POC Glucose 82 88 207 H Calcium 05/30/18 05/30/18 11:36 06:03 Sodium 145 Potassium 3.5 Chloride 108 H Carbon Dioxide 29 Anion Gap 11.5 BUN 8 Creatinine 1.00 Estimated Creat Clear 114 Estimated GFR 74 Est GFR ( Amer) 90 Glucose 104 POC Glucose 144 H Calcium 7.8 L Preliminary micro results at discharge 05/27/18 17:48 Blood Culture - Preliminary Blood NO GROWTH AFTER 48 HOURS 05/27/18 17:48 Blood Culture - Preliminary Blood NO GROWTH AFTER 48 HOURS DS: Diagnosis - Discharge Diagnosis (1) Pneumonia Status: Acute (2) Hypokalemia Status: Acute (3) Obesity (BMI 30.0-34.9) Status: Chronic (4) COPD (chronic obstructive pulmonary disease) Status: Chronic (5) Diabetes mellitus type 2 in obese Status: Chronic (6) Frontotemporal dementia Status: Chronic (7) History of DVT in adulthood Status: Chronic (8) History of [place] (myocardial infarction) Status: Chronic (9) Chronic venous stasis dermatitis of both lower extremities Status: Acute (10) Open wound of left heel Status: Acute (11) Chronic diarrhea Status: Acute Discharge Plan - Patient Discharge Instructions ACTIVITY: Continue current activity DIET: continue same diet Patient Instructions: Pneumonia-Adult - Follow up Plan Follow up with: Andriy Coon MD [Primary Care Provider] - Disposition: Xfer SNF Home Medications: Home Medications Medication Instructions Recorded Confirmed Type Apixaban [Eliquis] 2.5 mg PO BID 06/12/17 05/27/18 History Atenolol [Atenolol 25mg Tab] 12.5 mg PO BID 06/12/17 05/27/18 History Brexpiprazole [Rexulti] 3 mg PO HS 06/12/17 05/27/18 History Budesonide [Budesonide EC] 3 mg PO 0900,1700 06/12/17 05/28/18 History Escitalopram Oxalate [Lexapro] 20 mg PO DAILY 06/12/17 05/27/18 History Loperamide HCl [Loperamide] 4 mg PO 0700,1100,2100 06/12/17 05/27/18 History Memantine HCl [Namenda 10mg 10 mg PO BID 06/12/17 05/27/18 History Tablet] Multivit-Min/FA/Lycopen/Lutein 1 tab PO DAILY 06/12/17 05/27/18 History [Men 50 Plus Multivitamin Tab] Nystatin/Triamcin [Nystatin-Triamc 1 applic TOPICAL DAILY 06/12/17 05/27/18 History Crm 15gm] Oxybutynin Chloride [Oxybutynin 10 mg PO DAILY 06/12/17 05/27/18 History Chloride ER] Pravastatin Sodium [Pravachol] 40 mg PO HS 06/12/17 05/27/18 History Pyridoxine HCl (Vitamin B6) 100 mg PO DAILY 06/12/17 05/27/18 History [Vitamin B-6] clonazePAM [Clonazepam] 0.25 mg PO DAILY 06/12/17 05/27/18 History clonazePAM [Clonazepam] 0.5 mg PO HS 06/12/17 05/27/18 History lamoTRIgine [Lamotrigine] 100 mg PO BID 06/12/17 05/27/18 History Miscellaneous Medical Supply 3 l IH HS 06/17/17 05/27/18 History [Oxygen, Portable] Dutasteride 0.5 mg PO DAILY 12/18/17 05/27/18 History Gabapentin [Neurontin 600mg 600 mg PO BID 12/18/17 05/27/18 History tablet] Liraglutide [Victoza 2-Rick] 1.2 units SQ DAILY 12/18/17 05/27/18 History Loratadine [Claritin 10mg Tablet] 10 mg PO HS 12/18/17 05/27/18 History Rivastigmine Tartrate 1.5 mg PO BID 12/18/17 05/27/18 History [Rivastigmine] Tamsulosin HCl [Flomax 0.4mg 0.5 mg PO DAILY 12/18/17 05/27/18 History capsule] fluticasone 50 mcg/actuation nasal 1 dose INTRANASAL DAILY 30 Days 01/11/18 05/27/18 History spray,suspension Pumpkin Seed Extract/Soy Germ [Azo 1 tab PO DAILY 02/01/18 05/27/18 History Bladder Control Capsule] Aspirin [Aspirin 81mg chewable 81 mg PO HS 05/15/18 05/27/18 History tab] benzonatate 100 mg capsule 100 mg PO BID PRN cap 05/22/18 05/27/18 History furosemide 20 mg tablet 20 mg PO BID tab 05/22/18 05/27/18 History Bacillus Coagulans [Digestive 1 each PO 1100 05/28/18 05/28/18 History Advantage] Loperamide HCl [Loperamide HCl 6 mg PO 0900 05/28/18 05/28/18 History 1mg/5mL Udc] Nystatin [Nystop] 0 gm TP BIDP PRN 05/28/18 05/28/18 History Phenazopyridine HCl [Azo Standard] 97.5 mg PO DAILY 05/28/18 05/28/18 History levoFLOXacin [Levofloxacin 750MG 750 mg PO DAILY #5 tab 05/31/18 Rx Tablet] Prescriptions/Medication Reconciliation: New levoFLOXacin [Levofloxacin 750MG Tablet] 750 mg PO DAILY #5 tab Continue fluticasone 50 mcg/actuation nasal spray,suspension 1 dose INTRANASAL DAILY 30 Days benzonatate 100 mg capsule 100 mg PO BID PRN cap PRN Reason: Cough furosemide 20 mg tablet 20 mg PO BID tab Pyridoxine HCl (Vitamin B6) [Vitamin B-6] 100 mg PO DAILY Pravastatin Sodium [Pravachol] 40 mg PO HS Oxybutynin Chloride [Oxybutynin Chloride ER] 10 mg PO DAILY Nystatin/Triamcin [Nystatin-Triamc Crm 15gm] 1 applic TOPICAL DAILY Multivit-Min/FA/Lycopen/Lutein [Men 50 Plus Multivitamin Tab] 1 tab PO DAILY Memantine HCl [Namenda 10mg Tablet] 10 mg PO BID Loperamide HCl [Loperamide] 4 mg PO 0700,1100,2100 lamoTRIgine [Lamotrigine] 100 mg PO BID Escitalopram Oxalate [Lexapro] 20 mg PO DAILY clonazePAM [Clonazepam] 0.25 mg PO DAILY clonazePAM [Clonazepam] 0.5 mg PO HS Budesonide [Budesonide EC] 3 mg PO 0900,1700 Brexpiprazole [Rexulti] 3 mg PO HS Atenolol [Atenolol 25mg Tab] 12.5 mg PO BID Liraglutide [Victoza 2-Rick] 1.2 units SQ DAILY Dutasteride 0.5 mg PO DAILY Tamsulosin HCl [Flomax 0.4mg capsule] 0.5 mg PO DAILY Gabapentin [Neurontin 600mg tablet] 600 mg PO BID Rivastigmine Tartrate [Rivastigmine] 1.5 mg PO BID Loratadine [Claritin 10mg Tablet] 10 mg PO HS Apixaban [Eliquis] 2.5 mg PO BID Miscellaneous Medical Supply [Oxygen, Portable] 3 l IH HS Pumpkin Seed Extract/Soy Germ [Azo Bladder Control Capsule] 1 tab PO DAILY Aspirin [Aspirin 81mg chewable tab] 81 mg PO HS Phenazopyridine HCl [Azo Standard] 97.5 mg PO DAILY Loperamide HCl [Loperamide HCl 1mg/5mL Udc] 6 mg PO 0900 Bacillus Coagulans [Digestive Advantage] 1 each PO 1100 Nystatin [Nystop] 0 gm TP BIDP PRN PRN Reason: YEAST INFECTION
[2018-05-31 07:14] LABS: Anion Gap 10.5 mEq/L (5-15); Potassium 3.5 mmoL/L (3.5-5.1)
--- NOTE | 2018-05-31 07:59 | Progress Note ---
Internal Medicine - PN: Subj *Date: 05/31/18 *Time: 07:58 Exam Vital signs and Labs for Last 24 Hours: Temp Pulse Resp BP Pulse Ox 98.5 F 67 17 122/69 96 05/31/18 04:00 05/31/18 04:00 05/31/18 04:00 05/31/18 04:00 05/31/18 04:00 Laboratory Results - last 24 hr 05/30/18 11:36: POC Glucose 144 H 05/30/18 15:56: POC Glucose 207 H 05/30/18 21:15: POC Glucose 88 05/31/18 05:58: POC Glucose 82 05/31/18 06:12: WBC 7.2, RBC 4.10 L, Hgb 10.8 L, Hct 35.1 L, MCV 85.6, MCH 26.3 L, MCHC 30.8 L, RDW 15.3, Plt Count 223, MPV 6.6 L, Neut % (Auto) 65.4, Lymph % (Auto) 24.1, [place] % (Auto) 6.0, Eos % (Auto) 3.8, Baso % (Auto) 0.7, Neut # (Auto) 4.7, Lymph # (Auto) 1.7, [place] # (Auto) 0.4, Eos # (Auto) 0.3, Baso # (Auto) 0.1 05/31/18 06:12: Sodium 145, Potassium 3.5, Chloride 106, Carbon Dioxide 32, Anion Gap 10.5, BUN 5 L D, Creatinine 1.03, Estimated Creat Clear 111, Estimated GFR 72, Est GFR ( Amer) 87, Glucose 80, Calcium 8.0 L I & O for Last 24 hours: Intake & Output 05/28/18 05/29/18 05/30/18 05/31/18 23:59 23:59 23:59 23:59 Intake Total 1081 / 1081 4381 / 4381 2095 780 / 780 Output Total 0 / 0 Balance 1081 / 1081 4381 / 4381 2095 / 780 Weight 115.723 kg Assessment and Plan (1) Pneumonia Current visit: Yes Status: Acute Category: Medical Code(s): J18.9 - Pneumonia, unspecified organism (2) Hypokalemia Current visit: No Status: Acute Category: Medical Code(s): E87.6 - Hypokalemia (3) Obesity (BMI 30.0-34.9) Current visit: No Status: Chronic Category: Medical Code(s): E66.9 - Obesity, unspecified (4) COPD (chronic obstructive pulmonary disease) Current visit: No Status: Chronic Qualifiers: COPD type: unspecified COPD Qualified Code(s): J44.9 - Chronic obstructive pulmonary disease, unspecified Category: Medical Code(s): J44.9 - Chronic obstructive pulmonary disease, unspecified (5) Diabetes mellitus type 2 in obese Current visit: No Status: Chronic Category: Medical Code(s): E11.69 - Type 2 diabetes mellitus with other specified complication; E66.9 - Obesity, unspecified (6) Frontotemporal dementia Current visit: No Status: Chronic Category: Medical Code(s): G31.09 - Other frontotemporal dementia; F02.80 - Dementia in other diseases classified elsewhere without behavioral disturbance (7) History of DVT in adulthood Current visit: No Status: Chronic Category: Medical Code(s): Z86.718 - Personal history of other venous thrombosis and embolism (8) History of CT (myocardial infarction) Current visit: No Status: Chronic Category: Medical Code(s): I25.2 - Old myocardial infarction (9) Chronic venous stasis dermatitis of both lower extremities Current visit: Yes Status: Acute Category: Medical Code(s): I87.2 - Venous insufficiency (chronic) (peripheral) (10) Open wound of left heel Current visit: Yes Status: Acute Category: Medical Code(s): S91.302A - Unspecified open wound, left foot, initial encounter (11) Chronic diarrhea Current visit: Yes Status: Acute Category: Medical Code(s): K52.9 - Noninfective gastroenteritis and colitis, unspecified The patient's infection will respond to the chosen ABx?: Yes Is the patient receiving the right drug, dose, and route?: Yes Could a more targeted ABx be ordered?: No (HOME ON L[facility]AQU[facility])
== END 2018-05-31 14:20 ==
LOC: ER 17:25 → 2ND 17:25
PROVIDERS: ADMIT Emergency Medicine; ATTEND Family Medicine
CPT/HCPCS: 36415; 71010; 71020; 71045; 71046; 80048; 82803; 82962; 83605; 83880; 84484; 85025; 87040; 87045; 87507; 92610; 93005; 94640; 94761; 96365; 97116; 97162; 97165; 97530; 97535; 99284; G0378; J1956; J2543

== ENCOUNTER → 2018-10-31 08:28 | Outpatient (CLI) | payer MEDICARE, SELFPAY ==
--- NOTE | 2018-10-31 08:33 | XR_ITS ---
XR clavicle LT CLINICAL INDICATION: Pain and swelling ITS.REASON: include serendipity view, please ORDERING PHYSICIAN: Memo Vann MD PATIENT AGE: 68 years Comparison: None FINDINGS: A nondisplaced fracture involves the medial aspect of the left clavicle. There is some callus formation at this area seen on the serendipity view. There is also some faint cortical calcification/periosteal reaction at the distal clavicle which could also be related to nondisplaced hairline fracture. No evidence of dislocation. IMPRESSION: Healing fracture of the medial aspect of left clavicle and possibly of the distal left clavicle nondisplaced
== END ==
PROVIDERS: PCP Internal Medicine Adolescent Medicine; Visit Provider Orthopaedic Surgery
DX: S42.01 Fracture of sternal end of clavicle (principal)
CPT/HCPCS: 73000

== ENCOUNTER 2018-11-08 08:06 | Inpatient (IN) | payer MEDICARE, SELFPAY ==
[2018-11-08] VITALS (19 sets, daily range): BP systolic 97–122; BP diastolic 34–58; PULSE 66–103; RESP 16–24; TEMP 36.8–39.4; O2SAT 90–98; BMI 33.9; BMI 33.5
--- NOTE | 2018-11-08 08:15 | XR_ITS ---
XR chest portable HISTORY: ITS.REASON: fever ORDERING PHYSICIAN: Jovanny Rodas MD PATIENT AGE: 68 years COMPARISON: 05/27/2018 FINDINGS: There is cardiomegaly with prominence of the descending thoracic aorta. Patient is moderately rotated. Atelectatic changes are present in the lung bases and in the right mid lung with elevated right hemidiaphragm with patchy density in the left lower lobe suggesting underlying infiltrate. IMPRESSION: Right lower lobe atelectasis with elevated hemidiaphragm. Left lower lobe infiltrate.
--- NOTE | 2018-11-08 08:15 | HMH.EDGENADL ---
ED Disposition Clinical Impression: Severe sepsis, Pneumonia Disposition: Admitted As Inpatient Condition on Discharge: Serious Referrals: Andriy Alarcon MD [Primary Care Provider] - Time of Disposition: 10:33 - Critical Care Critical Care Time: No Attestation: On 11/08/18, the high probability of a clinically significant, sudden or life threatening deterioration of the following system(s) required my full and direct attention, intervention and personal management. The time I documented below is in addition to time spent performing reported procedures but includes the following listed in this critical care notation. Medical Decision Making - Medical Records Medical records reviewed: Yes: I reviewed the patient's medical records. - Jonathon Inquiry Pt receiving controlled substance: No Jonathon was queried for this patient: No Vital Signs: 11/08/18 08:17 11/08/18 08:34 11/08/18 09:07 Temperature 103.0 F H Temperature Source Rectal Pulse Rate [Left Radial] 103 H 94 H 90 Respiratory Rate 20 Blood Pressure [Right Arm] 101/38 L 97/37 L 103/43 L Blood Pressure Mean [Right Arm] 59 57 63 Blood Pressure Source [Right Arm] Automatic Cuff Blood Pressure Position [Right Arm] Sitting 02 Sat by Pulse Oximetry 90 L 91 L 93 L Oxygen Delivery Method Nasal Cannula Nasal Cannula Oxygen Flow Rate (LPM) 2 11/08/18 10:00 11/08/18 10:30 Temperature Temperature Source Pulse Rate [Left Radial] 89 87 Respiratory Rate Blood Pressure [Right Arm] 115/44 L 122/50 L Blood Pressure Mean [Right Arm] 67 74 Blood Pressure Source [Right Arm] Blood Pressure Position [Right Arm] 02 Sat by Pulse Oximetry 93 L 92 L Oxygen Delivery Method Oxygen Flow Rate (LPM) - Lab Data Lab results reviewed: Yes: I reviewed the patient's lab results. Lab Results 11/08/18 08:01: WBC 23.8 H*, RBC 4.79, Hgb 12.1 L, Hct 38.4 L, MCV 80.1, MCH 25.2 L, MCHC 31.5 L, RDW 15.1, Plt Count 244, MPV 6.5 L, Neut % (Auto) 92.3 H, Lymph % (Auto) 3.8 L, [place] % (Auto) 3.6, Eos % (Auto) 0.1, Baso % (Auto) 0.1, Neut # (Auto) 22.0 H, Lymph # (Auto) 0.9, [place] # (Auto) 0.9, Eos # (Auto) 0.0, Baso # (Auto) 0.0, Total Counted 100, Neutrophils % (Manual) 93 H, Band Neutrophils % 4.0, Lymphocytes % (Manual) 2 L, Monocytes % (Manual) 1 L, Platelet Estimate Normal, Hypochromasia 1+ 11/08/18 08:01: Sodium 137, Potassium 3.8, Chloride 103, Carbon Dioxide 28, Anion Gap 9.8, BUN 17, Creatinine 1.07, Estimated Creat Clear 105, Estimated GFR 69, Est GFR ( Amer) 83, Glucose 183 H, Calcium 8.1 L, Total Bilirubin 0.5, AST 17, ALT 25, Alkaline Phosphatase 108, Total Protein 6.3 L, Albumin 2.5 L, Globulin 3.8 H, Albumin/Globulin Ratio 0.7 L 11/08/18 08:01: Lactate 1.9 11/08/18 08:01: Urine Color Dk yellow, Urine Appearance Sl cloudy, Urine pH 7.5, Ur Specific [place] 1.010, Urine Protein Negative, Urine Glucose (UA) Negative, Urine Ketones Negative, Urine Blood Negative, Urine Nitrate Negative, Urine Bilirubin Negative, Urine Urobilinogen 1.0, Ur Leukocyte Esterase 1+ A, Urine RBC 3-5, Urine WBC 10-20, Urine Bacteria Trace Result diagrams: 11/08/18 08:01 11/08/18 08:01 Orders (Tests/Meds): ED MEDICATIONS Generic Name Dose Route Start Last Admin Trade Name Freq PRN Reason Stop Dose Admin Cefepime HCl 2 gm/ Sodium 100 mls @ 200 mls/hr 11/08/18 10:00 Chloride IV 11/22/18 09:59 Q8H GEORGI Protocol Gentamicin Sulfate 400 mg/ 110 mls @ 100 mls/hr 11/08/18 10:15 Sodium Chloride IV 11/22/18 10:14 Q24H GEORGI Discontinued Medications Generic Name Dose Route Start Last Admin Trade Name Freq PRN Reason Stop Dose Admin Miscellaneous 1 each 11/08/18 10:00 11/08/18 10:26 Gentamicin Consult Request * 12/08/18 09:59 1 each CONSULT PHARMACY [facility] Administration ORDERS Category Date Time Status Blood Culture Stat Micro 11/08/18 08:15 Ordered Blood Culture Stat Micro 11/08/18 08:15 Ordered Blood Culture Stat Micro
--- NOTE | 2018-11-08 08:16 | CT_ITS ---
CT head/brain wo con HISTORY: Altered mental status, altered level of consciousness, confusion, disorientation, ITS.REASON: fever ORDERING PHYSICIAN: Jovanny Rodas MD PATIENT AGE: 68 years Study contrast COMPARISON: 09/15/2018 TECHNIQUE: Axial images obtained without contrast. Brain and bone windows reviewed. All CT scans at the facility use one or more dose reduction, viz: automated exposure control, ma/kV adjustment per patient size (including targeted exams where dose is matched to indication, i.e. head), or iterative reconstruction technique. FINDINGS: No midline shift, mass effect, intracranial hemorrhage, hydrocephalus, or extra-axial fluid collection is evident. There is generalized atrophy with periventricular ischemic gliotic changes. There is ventriculomegaly with enlarged lateral and third ventricle suggesting raising the suspicion of some degree of aqueduct stenosis.. There is some minimal mineralization within the left basal ganglia mild soft tissue swelling is present in the frontal region of the scalp chronic. The calvarium has an unremarkable appearance. No mastoid effusion. No sinus air-fluid levels.. IMPRESSION: Atrophy with chronic changes with mild ventriculomegaly. No change with no acute finding.
--- NOTE | 2018-11-08 08:18 | ED_ITS ---
ED Disposition Clinical Impression: Severe sepsis, Pneumonia Disposition: Admitted As Inpatient Condition on Discharge: Serious Referrals: Andriy Alarcon MD [Primary Care Provider] - Time of Disposition: 10:33 - Critical Care Critical Care Time: No Attestation: On 11/08/18, the high probability of a clinically significant, sudden or life threatening deterioration of the following system(s) required my full and direct attention, intervention and personal management. The time I documented below is in addition to time spent performing reported procedures but includes the f ollowing listed in this critical care notation. Medical Decision Making - Medical Records Medical records reviewed: Yes: I reviewed the patient's medical records. - Jonathon Inquiry Pt receiving controlled substance: No Jonathon was queried for this patient: No Vital Signs: 11/08/18 08:17 11/08/18 08:34 11/08/18 09:07 Temperature 103.0 F H Temperature Source Rectal Pulse Rate [Left Radial] 103 H 94 H 90 Respiratory Rate 20 Blood Pressure [Right Arm] 101/38 L 97/37 L 103/43 L Blood Pressure Mean [Right Arm] 59 57 63 Blood Pressure Source [Right Arm] Automatic Cuff Blood Pressure Position [Right Arm] Sitting 02 Sat by Pulse Oximetry 90 L 91 L 93 L Oxygen Delivery Method Nasal Cannula Nasal Cannula Oxygen Flow Rate (LPM) 2 11/08/18 10:00 11/08/18 10:30 Temperature Temperature Source Pulse Rate [Left Radial] 89 87 Respiratory Rate Blood Pressure [Right Arm] 115/44 L 122/50 L Blood Pressure Mean [Right Arm] 67 74 Blood Pressure Source [Right Arm] Blood Pressure Position [Right Arm] 02 Sat by Pulse Oximetry 93 L 92 L Oxygen Delivery Method Oxygen Flow Rate (LPM) - Lab Data Lab results reviewed: Yes: I reviewed the patient's lab results. Lab Results 11/08/18 08:01: WBC 23.8 H*, RBC 4.79, Hgb 12.1 L, Hct 38.4 L, MCV 80.1, MCH 25.2 L, MCHC 31.5 L, RDW 15.1, Plt Count 244, MPV 6.5 L, Neut % (Auto) 92.3 H, Lymph % (Auto) 3.8 L, [place] % (Auto) 3.6, Eos % (Auto) 0.1, Baso % (Auto) 0.1, Neut # (Auto) 22.0 H, Lymph # (Auto) 0.9, [place] # (Auto) 0.9, Eos # (Auto) 0.0, Baso # (Auto) 0.0, Total Counted 100, Neutrophils % (Manual) 93 H, Band Neutrophils % 4.0, Lymphocytes % (Manual) 2 L, Monocytes % (Manual) 1 L, Platelet Estimate Normal, Hypochromasia 1+ 11/08/18 08:01: Sodium 137, Potassium 3.8, Chloride 103, Carbon Dioxide 28, Anion Gap 9.8, BUN 17, Creatinine 1.07, Estimated Creat Clear 105, Estimated GFR 69, Est GFR ( Amer) 83, Glucose 183 H, Calcium 8.1 L, Total Bilirubin 0.5, AST 17, ALT 25, Alkaline Phosphatase 108, Total Protein 6.3 L, Albumin 2.5 L, Globulin 3.8 H, Albumin/Globulin Ratio 0.7 L 11/08/18 08:01: Lactate 1.9 11/08/18 08:01: Urine Color Dk yellow, Urine Appearance Sl cloudy, Urine pH 7.5, Ur Specific [place] 1.010, Urine Protein Negative, Urine Glucose (UA) Negative, Urine Ketones Negative, Urine Blood Negative, Urine Nitrate Negative, Urine Bilirubin Negative, Urine Urobilinogen 1.0, Ur Leukocyte Esterase 1+ A, Urine RBC 3-5, Urine WBC 10-20, Urine Bacteria Trace Result diagrams: 11/08/18 08:01 11/08/18 08:01 Orders (Tests/Meds): ED MEDICATIONS Generic Name Dose Rou
--- NOTE | 2018-11-08 08:24 | CT_ITS ---
CT abdomen pelvis wo con CLINICAL INDICATION: Fever of unknown origin ITS.REASON: fever ORDERING PHYSICIAN: Jovanny Rodas MD PATIENT AGE: 68 years COMPARISON: 01/28/2017 TECHNIQUE: Axial images obtained with sagittal and coronal reformats. All CT scans at the facility use one or more dose reduction, viz: automated exposure control, ma/kV adjustment per patient size (including targeted exams where dose is matched to indication, i.e. head), or iterative reconstruction technique. PROCEDURE: Oral Contrast: None IV Contrast: None . FINDINGS: There are atelectatic changes in the lung bases with some superimposed increased density in the left lower lobe suggesting some underlying infiltrate. Coronary artery calcifications are present. Artifact is present from the patient's arms obscuring parts of the upper abdomen through the liver and the spleen. There is a small hiatal hernia. No gross abnormal is evident of the liver or spleen. The adrenal glands and pancreas are unremarkable. There are nonobstructing bilateral renal calculi measuring up to 10 mm in the mid polar region on the right and 3 mm in the mid polar region on the left. No ureteral calculi. No hydronephrosis. There is moderate amount retained colonic feces. No evidence of diverticulitis. There is a Munoz catheter present. There is a moderate amount of retained colonic feces. There has been prior kyphoplasty of L1 with severe wedging noted of L2 for which has developed in the interval but does not appear acute. No intestinal obstruction or free air. IMPRESSION: 1. Bibasilar atelectasis with patchy infiltrate in the left lower lobe. 2. Bilateral nonobstructing renal calculi. 3. No acute abdominal or pelvic findings. 4. Constipation
--- NOTE | 2018-11-08 08:33 | CT_ITS ---
CT chest wo con HISTORY: Sepsis of unknown origin, fever, fever of unknown origin ITS.REASON: sepsis ORDERING PHYSICIAN: Jovanny Rodas MD PATIENT AGE: 68 years COMPARISON: 03/02/2015 Technique: Axial images obtained. Sagittal, and coronal reformatted images are also generated and reviewed. All CT scans at the facility use one or more dose reduction, viz: automated exposure control, ma/kV adjustment per patient size (including targeted exams where dose is matched to indication, i.e. head), or iterative reconstruction technique. FINDINGS: There are coronary artery calcifications. There is normal heart size. No mediastinal or hilar mass or adenopathy is evident. Atelectatic changes are present in the lung bases. There is elevation of the right hemidiaphragm. There are some scattered small mediastinal nodes which are unchanged. No effusions. No lobar consolidation or collapse. There is mild wedging of T8 which is developed since the previous exam. IMPRESSION: 1. Low lung volumes with bibasilar atelectatic changes. 2. Mild wedge compression changes of T8 approximately 40% which has developed since the previous exam
[2018-11-08 08:34] LABS: Microscopic, Urine URINE MICROSCOPIC (MICROSCOPIC)
[2018-11-08 08:39] LABS: Appearance,Urine SL CLOUDY (Clear); Basophils % 0.1 % (0.1-2.0); Bilirubin,Urine Negative (Negative); Blood, Urine Negative (Negative); Color,Urine DK YELLOW (Yellow); Eosinophils % 0.1 % (0.1-12.0); Glucose,Urine (UA) Negative (Negative); Hematocrit 38.4 % (42.0-52.0); Hemoglobin 12.1 g/dL (14.1-18.0); Ketones,Urine Negative (Negative); Leukocyte Esterase,Urine 1+ (Negative); Lymphocytes # 0.9 K/mm3 (0.7-4.5); Lymphocytes % 3.8 % (10-50); Mean Corpuscular HGB Conc 31.5 g/dL (31.8-35.4); Mean Corpuscular Hemoglobin 25.2 pg (27.0-31.2); Mean Corpuscular Volume 80.1 fl (80-94); Mean Platelet Volume 6.5 fl (7.4-10.4); Monocytes # 0.9 K/mm3 (0.1-1.0); Monocytes % 3.6 % (1.7-9.3); Neutrophils % 92.3 % (37.0-80.0); Nitrate,Urine Negative (Negative); PH,Urine 7.5 (5.0-8.5); Platelet Count 244 K/mm3 (142-424); Protein,Urine Negative (Negative); Red Blood Count 4.79 M/mm3 (4.60-6.20); Red Cell Distribution Width 15.1 % (11.5-17.5); White Blood Count 23.8 K/mm3 (4.8-10.8)
--- NOTE | 2018-11-08 08:39 | PC.NURSE ---
pt gone to xray
[2018-11-08 08:42] LABS: MANUAL DIFFERENTIAL MANUAL DIFFERENTIAL (MANUAL DIFF)
[2018-11-08 08:50] LABS: Alanine Aminotransferase 25 U/L (12-78); Albumin Level 2.5 gm/dL (3.4-5.0); Albumin/Globulin Ratio 0.7 (1.1-1.8); Alkaline Phosphatase 108 U/L (46-116); Anion Gap 9.8 mEq/L (5-15); Aspartate Amino Transferase 17 U/L (15-37); Bilirubin,Total 0.5 mg/dL (0.2-1.0); Blood Urea Nitrogen 17 mg/dL (7-18); Calcium 8.1 mg/dL (8.5-10.1); Carbon Dioxide 28 mmol/L (21.0-32.0); Chloride 103 mmol/L (98-107); Creatinine Clearance Estimated 105 mL/min (50-200); Creatinine,Serum 1.07 mg/dL (0.70-1.30); Estimated Glomerular Filt Rate 69 ml/min (>60); GFR (African American) 83 ML/MIN (>60); Globulin 3.8 gm/dl (1.3-3.2); Glucose 183 mg/dL (74-106); Potassium 3.8 mmoL/L (3.5-5.1); Sodium 137 mmol/L (136-145); Total Protein,Serum 6.3 gm/dL (6.4-8.2)
[2018-11-08 08:53] LABS: Lactic Acid 1.9 mmol/L (0.4-2.0)
[2018-11-08 09:06] LABS: Bacteria,Urine Trace /lpf
[2018-11-08 09:40] LABS: Hypochromasia 1+; Lymphocytes % 2 % (10-50); Monocytes % 1 % (2-9); Neutrophils % 93 % (42-76); Platelet Estimate Normal; Total Cells Counted 100
--- NOTE | 2018-11-08 10:15 | HMH.PHACONS ---
- Pharmacy Consult Date: 11/08/18 Time: 10:15 Referring provider: DR. FERGUSON Reason for Consult:: GENTAMICIN DOSING Allergies and ADEs:: Allergies Allergy/AdvReac Type Severity Reaction Status Date / Time erythromycin base Allergy Intermediate SWELLING/IT Verified 11/06/18 13:11 [ERYTHROMYCIN BASE] CLEMENTE/SEIZU RES iodine [IODINE] Allergy Unknown Unknown Verified 11/06/18 13:11 allergy reaction delafloxacin AdvReac Severe Diarrhea Uncoded 11/08/18 10:15 Home Medications:: Home Medications Medication Instructions Recorded Confirmed Type Apixaban [Eliquis 2.5mg tab] 2.5 mg PO BID 06/12/17 11/06/18 History Budesonide [Budesonide EC] 3 mg PO 0900,1700 06/12/17 11/06/18 History Escitalopram Oxalate [Lexapro] 20 mg PO DAILY 06/12/17 11/06/18 History Loperamide HCl [Loperamide] 4 mg PO 0700,1100,2100 06/12/17 11/06/18 History Memantine HCl [Namenda 10mg 10 mg PO BID 06/12/17 11/06/18 History Tablet] Multivit-Min/FA/Lycopen/Lutein 1 tab PO DAILY 06/12/17 11/06/18 History [Men 50 Plus Multivitamin Tab] Nystatin/Triamcin [Nystatin-Triamc 1 applic TOPICAL DAILY 06/12/17 11/06/18 History Crm 15gm] Oxybutynin Chloride [Oxybutynin 10 mg PO DAILY 06/12/17 11/06/18 History Chloride ER] Pravastatin Sodium [Pravachol] 40 mg PO HS 06/12/17 11/06/18 History Pyridoxine HCl (Vitamin B6) 100 mg PO DAILY 06/12/17 11/06/18 History [Vitamin B-6] clonazePAM [Clonazepam] 0.25 mg PO DAILY 06/12/17 11/06/18 History clonazePAM [Clonazepam] 0.5 mg PO HS 06/12/17 11/06/18 History lamoTRIgine [Lamotrigine] 100 mg PO BID 06/12/17 11/06/18 History Dutasteride 0.5 mg PO DAILY 12/18/17 11/06/18 History Gabapentin [Neurontin 600mg 600 mg PO BID 12/18/17 11/06/18 History tablet] Liraglutide [Victoza 2-Rick] 1.2 units SQ DAILY 12/18/17 11/06/18 History Loratadine [Claritin 10mg Tablet] 10 mg PO HS 12/18/17 11/06/18 History fluticasone propionate 50 1 dose INTRANASAL DAILY 30 Days 01/11/18 11/06/18 History mcg/actuation nasal spray,suspension Aspirin [Aspirin 81mg chewable 81 mg PO HS 05/15/18 11/06/18 History tab] benzonatate 100 mg capsule 100 mg PO BID PRN cap 05/22/18 11/06/18 History furosemide 20 mg tablet 20 mg PO BID tab 05/22/18 11/06/18 History Bacillus Coagulans [Digestive 1 each PO 1100 05/28/18 11/06/18 History Advantage] Loperamide HCl [Loperamide HCl 6 mg PO 0900 05/28/18 11/06/18 History 1mg/5mL Udc] Nystatin [Nystop] 0 gm TP BIDP PRN 05/28/18 11/06/18 History atenolol 25 mg tablet 25 mg PO BID tab 11/06/18 11/06/18 History brexpiprazole 3 mg tablet 3 mg PO HS 11/06/18 11/06/18 History rivastigmine 3 mg capsule 3 mg PO BID 11/06/18 11/06/18 History tamsulosin 0.4 mg capsule 0.4 mg PO DAILY cap 11/06/18 11/06/18 History Height: 1.83 m Weight: 113.398 kg Laboratory Results:: Laboratory Results - last 24 hr 11/08/18 08:01: WBC 23.8 H*, RBC 4.79, Hgb 12.1 L, Hct 38.4 L, MCV 80.1, MCH 25.2 L, MCHC 31.5 L, RDW 15.1, Plt Count 244, MPV 6.5 L, Neut % (Auto) 92.3 H, Lymph % (Auto) 3.8 L, [place] % (Auto) 3.6, Eos % (Auto) 0.1, Baso % (Auto) 0.1, Neut # (Auto) 22.0 H, Lymph # (Auto) 0.9, [place] # (Auto) 0.9, Eos # (Auto) 0.0, Baso # (Auto) 0.0, Total Counted 100, Neutrophils % (Manual) 93 H, Band Neutrophils % 4.0, Lymphocytes % (Manual) 2 L, Monocytes % (Manual) 1 L, Platelet Estimate Normal, Hypochromasia 1+ 11/08/18 08:01: Sodium 137, Potassium 3.8, Chloride 103, Carbon Dioxide 28, Anion Gap 9.8, BUN 17, Creatinine 1.07, Estimated Creat Clear 105, Estimated GFR 69, Est GFR ( Amer) 83, Glucose 183 H, Calcium 8.1 L, Total Bilirubin 0.5, AST 17, ALT 25, Alkaline Phosphatase 108, Total Protein 6.3 L, Albumin 2.5 L, Globulin 3.8 H, Albumin/Globulin Ratio 0.7 L 11/08/18 08:01: Lactate 1.9 11/08/18 08:01: Urine Color Dk yellow, Urine Appearance Sl cloudy, Urine pH 7.5, Ur Specific [place] 1.010, Urine Protein Negative, Urine Glucose (UA) Negative, Urine Ketones Negative, Urine Bloo
--- NOTE | 2018-11-08 12:03 | HMH.PHAVTE ---
[facility] Pharmacy VTE Monitoring - Patient Demographics Admission date: 11/08/18 Report Date: 11/08/18 Time: 12:03 Allergies/Adverse Reactions: Patient Allergies erythromycin base [ERYTHROMYCIN BASE] Allergy (Intermediate, Verified 11/06/18 13:11) SWELLING/ITCHING/SEIZURES iodine [IODINE] Allergy (Unknown, Verified 11/06/18 13:11) Unknown allergy reaction delafloxacin Adverse Reaction (Severe, Uncoded 11/08/18 10:15) Diarrhea Height: 1.83 m Weight: 113.398 kg Patient Problems: Current Active Problems (Updated 11/08/18 @ 10:33 by Jovanny Rodas MD) Severe sepsis (Acute) Pneumonia (Acute) - VTE Risk Labs: VTE Related Lab Results Hgb 12.1 g/dL (14.1-18.0) L 11/08/18 08:01 Hct 38.4 % (42.0-52.0) L 11/08/18 08:01 Plt Count 244 K/mm3 (142-424) 11/08/18 08:01 BUN 17 mg/dL (7-18) 11/08/18 08:01 Creatinine 1.07 mg/dL (0.70-1.30) 11/08/18 08:01 Estimated Creat Clear 105 mL/min (50-200) 11/08/18 08:01 Clinical Trial Participant: No - Prophylaxis VTE Prophylaxis Ordered?: Yes Types of VTE Prophylaxis: TEDS Knee High
--- NOTE | 2018-11-08 12:06 | PC.NURSE ---
Pt arrived to floor at this time.
--- NOTE | 2018-11-08 12:42 | PC.NURSE ---
pt arrived to floor from er with cath in place. patent draining appropriately.
--- NOTE | 2018-11-08 12:58 | HMH.PHAINT ---
HOME MEDICATION RECONCILIATION COMPLETED USING MAR FROM [facility]
--- NOTE | 2018-11-08 14:24 | XR_ITS ---
XR foot LT 2V HISTORY: ITS.REASON: wound/pain ORDERING PHYSICIAN: Andriy Alarcon MD PATIENT AGE: 68 years COMPARISON: None FINDINGS: No fracture or dislocation. No lytic or blastic change. There is normal mineralization.. The joint spaces are well-preserved. No significant degenerative/arthritic changes. No erosive changes evident. IMPRESSION: Negative, no acute finding
--- NOTE | 2018-11-08 15:52 | HMH.HP ---
*Admission Date: 11/08/18 *Chief complaint: mental status changes, fever *History of present illness: 68 year old male with multiple chronic medical conditions including recurrent aspirations pneumonias was transported from [facility] for evaluation of fever and mental status changes. [facility] staff reported patient was unresponsive with temp of 103. reports patient seemed fine at dinner last night and had no complaints. In the ED, patient was lethargic and confused. He was found to have LLL pneumonia and urine was suspicious for UTI. He was given IVF bolus for meeting sepsis criteria, as well as gentamycin and cefepime infusions. Patient was admitted to step down for further evaluation and management. Several hours later, patient is sitting up in bed. Alert and oriented. He has no recollection of events from earlier this morning. Reports [place] cough with some shortness of breath. Denies urinary symptoms. He has some mild pain assoc with left heel wound. [facility] History I have reviewed the patient's past medical history: Yes Medical History: Reports:: Anxiety, Chronic Obstructive Pulmonary Disease (COPD), Deep Vein Thrombosis, Dementia, Diabetes Mellitus Type 2, Hyperlipidemia, Hypertension, Lung Disease, Kidney Stones, Myocardial Infarction, Urinary Tract Infection Denies:: Cancer, Diabetes Mellitus Type 1, Internal Pacemaker, MRSA *Have you ever received a pneumonia vaccine?: Yes *Have you received a flu vaccine this season?: Yes Other Medical History: Reports: Arthritis Other Surgeries: Yes: No Previous Surgery, Colonoscopy, EGD, Hernia Repair. No: Pacemaker Amputation: No Fractures: Yes (l4 compression) - *Social History Smoking Status: Former smoker Tobacco Type: cigarettes # Packs/Day (cigarettes): 2 #Yrs smoked (if former smoker): 52 Alcohol Intake: never Alcohol Intake Frequency:: other Substance Use Type: denies use *Occupational Status:: retired, disabled Housing: house Household Members: spouse *Travel in the last 8 weeks: None - Psychiatric History Expresses thoughts of harming self/others: None Suicide Plan Description: No Plan Pschychiatric History:: Reports:: Anxiety, Psychiatric Treatment Family Hx:: Cancer, Diabetes, Heart Attack, Hyperlipidemia, Hypertension, Thyroid Disorder Review of Systems - Review of Systems Review of systems:: pertinent systems reviewed and negative unless documented below - Constitutional Reports fever(s), Reports malaise, Reports weakness - *Respiratory Reports cough, Reports shortness of breath - *Neurologic Reports behavioral changes, Reports weakness, Reports other (global) Meds Home Medications Medication Instructions Recorded Confirmed Type Apixaban [Eliquis 2.5mg tab] 2.5 mg PO BID 06/12/17 11/08/18 History Budesonide [Budesonide EC] 3 mg PO 0900,1700 06/12/17 11/08/18 History Escitalopram Oxalate [Lexapro] 20 mg PO DAILY 06/12/17 11/08/18 History Loperamide HCl [Loperamide] 6 mg PO 0700,1100,2100 06/12/17 11/08/18 History Memantine HCl [Namenda 10mg 10 mg PO 0800,1700 06/12/17 11/08/18 History Tablet] Multivit-Min/FA/Lycopen/Lutein 1 tab PO DAILY 06/12/17 11/08/18 History [Men 50 Plus Multivitamin Tab] Nystatin/Triamcin [Nystatin-Triamc 1 applic TOPICAL DAILY 06/12/17 11/08/18 History Crm 15gm] Oxybutynin Chloride [Oxybutynin 10 mg PO DAILY 06/12/17 11/08/18 History Chloride ER] Pravastatin Sodium [Pravachol] 40 mg PO HS 06/12/17 11/08/18 History Pyridoxine HCl (Vitamin B6) 100 mg PO DAILY 06/12/17 11/08/18 History [Vitamin B-6] clonazePAM [Clonazepam] 0.5 mg PO BID 06/12/17 11/08/18 History lamoTRIgine [Lamotrigine] 100 mg PO BID 06/12/17 11/08/18 History Dutasteride 0.5 mg PO DAILY 12/18/17 11/08/18 History Gabapentin [Neurontin 600mg 600 mg PO BID 12/18/17 11/08/18 History tablet] Liraglutide [Victoza 2-Rick] 1.2 units SQ DAILY 12/18/17 11/08/18 History Loratadine [Claritin 10mg Tablet] 10 mg PO HS 12/18/17 11/08/18 History fl
--- NOTE | 2018-11-08 15:58 | P.HP_ITS ---
*Admission Date: 11/08/18 *Chief complaint: mental status changes, fever *History of present illness: 68 year old male with multiple chronic medical conditions including recurrent aspirations pneumonias was transported from [facility] for evaluation of fever and mental status changes. long-term staff reported patient was unresponsive with temp of 103. reports patient seemed fine at dinner last night and had no complaints. In the ED, patient was lethargic and confused. He was found to have LLL pneumonia and urine was suspicious for UTI. He was given IVF bolus for meeting sepsis criteria, as well as gentamycin and cefepime infusions. Patient was admitted to step down for further evaluation and management. Several hours later, patient is sitting up in bed. Alert and oriented. He has no recollection of events from earlier this morning. Reports BINDING NICKER cough with some shortness of breath. Denies urinary symptoms. He has some mild pain assoc with left heel wound. [facility] History I have reviewed the patient's past medical history: Yes Medical History: Reports:: Anxiety, Chronic Obstructive Pulmonary Disease (COPD), Deep Vein Thrombosis, Dementia, Diabetes Mellitus Type 2, Hyperlipidemia, Hypertension, Lung Disease, Kidney Stones, Myocardial Infarction, Urinary Tract Infection Denies:: Cancer, Diabetes Mellitus Type 1, Internal Pacemaker, MRSA *Have you ever received a pneumonia vaccine?: Yes *Have you received a flu vaccine this season?: Yes Other Medical History: Reports: Arthritis Other Surgeries: Yes: No Previous Surgery, Colonoscopy, EGD, Hernia Repair. No: Pacemaker Amputation: No Fractures: Yes (l4 compression) - *Social History Smoking Status: Former smoker Tobacco Type: cigarettes # Packs/Day (cigarettes): 2 #Yrs smoked (if former smoker): 52 Alcohol Intake: never Alcohol Intake Frequency:: other Substance Use Type: denies use *Occupational Status:: retired, disabled Housing: house Household Members: spouse *Travel in the last 8 weeks: None - Psychiatric History Expresses thoughts of harming self/others: None Suicide Plan Description: No Plan Pschychiatric History:: Reports:: Anxiety, Psychiatric Treatment Family Hx:: Cancer, Diabetes, Heart Attack, Hyperlipidemia, Hypertension, Thyroid Disorder Review of Systems - Review of Systems Review of systems:: pertinent systems reviewed and negative unless documented below - Constitutional Reports fever(s), Reports malaise, Reports weakness - *Respiratory Reports cough, Reports shortness of breath - *Neurologic Reports behavioral changes, Reports weakness, Reports other (global) Meds Home Medications Medication Instructions Recorded Confirmed Type Apixaban [Eliquis 2.5mg tab] 2.5 mg PO BID 06/12/17 11/08/18 History Budesonide [Budesonide EC] 3 mg PO 0900,1700 06/12/17 11/08/18 History Escitalopram Oxalate [Lexapro] 20 mg PO DAILY 06/12/17 11/08/18 History Loperamide HCl [Loperamide] 6 mg PO 0700,1100,2100 06/12/17 11/08/18 History Memantine HCl [Namenda 10mg 10 mg PO 0800,1700 06/12/17 11/08/18 History Tablet] Multivit-Min/FA/Lycopen/Lutein 1 tab PO DAILY 06/12/17 11/08/18 History [Men 50 Plus Multivitamin Tab] Nystatin/Triamcin [Nystatin-Triamc 1 applic TOPICAL DAILY 06/12/17 11/08/18 History Crm 15gm] Oxybutynin Chloride [Oxybutynin 10 mg PO DAILY 06/12/17 11/08/18 History Chloride ER] Pravastatin Sodium [Pravachol] 40 mg PO HS 06/12/17 11/08/18 History Pyridoxine HCl (Vitamin B6) 100 mg PO D
[2018-11-08 17:21] LABS: POC Glucose,Bedside 213 (70-110)
--- NOTE | 2018-11-08 17:28 | PC.NURSE ---
Addendum entered by Jen Martinez RN 11/08/18 17:44: CORRECTION PATIENT TAKES 4MG LIQUID AT 0900 AND 4MG PO AT 1700 INSTEAD OF THE 2MG Original Note: SPOKE WITH DR WHEELER ABOUT PATIENT REQUEST TO HAVE LOPERAMIDE REORDERED. PATIENT HAS ONLY HAD 1 BOWEL MOVEMENT THIS SHIFT THAT WAS NOT DIARRHEA STATES HE HAS TAKEN IT FOR 20+ YEARS AND STATED I DONT WANT TO BE A MESS AND WILL REENA IF I DON'T GET IT . STATED IT WAS OKAY TO REORDER IS LOPERMAIDE PO 6MG FOR 0700 1100 AND 2100 4 MG FOR 0900 AND 2MG AT 1700.
[2018-11-08 20:51] LABS: POC Glucose,Bedside 182 (70-110)
[2018-11-08 23:45] LABS: Gentamicin,Random 3.4 ug/mL (4.0-10.0)
[2018-11-09 04:00] VITALS: BP 145/56; PULSE 81; RESP 17; TEMP 37; O2SAT 94
[2018-11-09 05:18] VITALS: BMI 33.5
[2018-11-09 06:48] LABS: POC Glucose,Bedside 136 (70-110)
[2018-11-09 07:08] LABS: Basophils % 0.2 % (0.1-2.0); Eosinophils % 0.3 % (0.1-12.0); Hematocrit 42.4 % (42.0-52.0); Hemoglobin 12.6 g/dL (14.1-18.0); Lymphocytes # 0.3 K/mm3 (0.7-4.5); Lymphocytes % 2.3 % (10-50); Mean Corpuscular HGB Conc 29.8 g/dL (31.8-35.4); Mean Corpuscular Hemoglobin 24.2 pg (27.0-31.2); Mean Corpuscular Volume 81.3 fl (80-94); Mean Platelet Volume 6.9 fl (7.4-10.4); Monocytes # 0.4 K/mm3 (0.1-1.0); Monocytes % 3.1 % (1.7-9.3); Neutrophils # 11.1 K/mm3 (1.8-7.8); Platelet Count 172 K/mm3 (142-424); Red Blood Count 5.22 M/mm3 (4.60-6.20); Red Cell Distribution Width 15.2 % (11.5-17.5); White Blood Count 11.8 K/mm3 (4.8-10.8)
[2018-11-09 07:13] LABS: MANUAL DIFFERENTIAL MANUAL DIFFERENTIAL (MANUAL DIFF)
[2018-11-09 07:19] LABS: Anion Gap 14.6 mEq/L (5-15); Blood Urea Nitrogen 19 mg/dL (7-18); Carbon Dioxide 23 mmol/L (21.0-32.0); Chloride 105 mmol/L (98-107); Creatinine Clearance Estimated 114 mL/min (50-200); Creatinine,Serum 0.93 mg/dL (0.70-1.30); Estimated Glomerular Filt Rate 81 ml/min (>60); GFR (African American) 97 ML/MIN (>60); Glucose 115 mg/dL (74-106); Potassium 3.6 mmoL/L (3.5-5.1); Sodium 139 mmol/L (136-145)
[2018-11-09 07:30] VITALS: O2SAT 94
--- NOTE | 2018-11-09 07:47 | HMH.ACPN2 ---
Internal Medicine - PN: Subj *Date: 11/09/18 *Time: 07:47 Interval history: Patient has no complaints this morning. He denies cough. His is concerned about the decubitus ulcer on his left heel. Patient ambulates with a hemiwalker due to previous left arm injury. Patient's biggest concern is he wants his Imodium which is used for chronic diarrhea however admission imaging showed significant stool burden. Exam Vital signs and Labs for Last 24 Hours: Temp Pulse Resp BP Pulse Ox 98.6 F 81 17 145/56 H 94 L 11/09/18 04:00 11/09/18 04:00 11/09/18 04:00 11/09/18 04:00 11/09/18 07:30 Laboratory Results - last 24 hr 11/08/18 08:01: WBC 23.8 H*, RBC 4.79, Hgb 12.1 L, Hct 38.4 L, MCV 80.1, MCH 25.2 L, MCHC 31.5 L, RDW 15.1, Plt Count 244, MPV 6.5 L, Neut % (Auto) 92.3 H, Lymph % (Auto) 3.8 L, [place] % (Auto) 3.6, Eos % (Auto) 0.1, Baso % (Auto) 0.1, Neut # (Auto) 22.0 H, Lymph # (Auto) 0.9, [place] # (Auto) 0.9, Eos # (Auto) 0.0, Baso # (Auto) 0.0, Total Counted 100, Neutrophils % (Manual) 93 H, Band Neutrophils % 4.0, Lymphocytes % (Manual) 2 L, Monocytes % (Manual) 1 L, Platelet Estimate Normal, Hypochromasia 1+ 11/08/18 08:01: Sodium 137, Potassium 3.8, Chloride 103, Carbon Dioxide 28, Anion Gap 9.8, BUN 17, Creatinine 1.07, Estimated Creat Clear 105, Estimated GFR 69, Est GFR ( Amer) 83, Glucose 183 H, Calcium 8.1 L, Total Bilirubin 0.5, AST 17, ALT 25, Alkaline Phosphatase 108, Total Protein 6.3 L, Albumin 2.5 L, Globulin 3.8 H, Albumin/Globulin Ratio 0.7 L 11/08/18 08:01: Lactate 1.9 11/08/18 08:01: Urine Color Dk yellow, Urine Appearance Sl cloudy, Urine pH 7.5, Ur Specific [place] 1.010, Urine Protein Negative, Urine Glucose (UA) Negative, Urine Ketones Negative, Urine Blood Negative, Urine Nitrate Negative, Urine Bilirubin Negative, Urine Urobilinogen 1.0, Ur Leukocyte Esterase 1+ A, Urine RBC 3-5, Urine WBC 10-20, Urine Bacteria Trace 11/08/18 15:41: Random Gentamicin 8.0 11/08/18 16:42: POC Glucose 213 H 11/08/18 20:37: POC Glucose 182 H 11/08/18 23:25: Random Gentamicin 3.4 L 11/09/18 06:31: WBC 11.8 H D, RBC 5.22, Hgb 12.6 L, Hct 42.4, MCV 81.3, MCH 24.2 L, MCHC 29.8 L, RDW 15.2, Plt Count 172 D, MPV 6.9 L, Neut % (Auto) 94.0 H, Lymph % (Auto) 2.3 L, [place] % (Auto) 3.1, Eos % (Auto) 0.3, Baso % (Auto) 0.2, Neut # (Auto) 11.1 H, Lymph # (Auto) 0.3 L, [place] # (Auto) 0.4, Eos # (Auto) 0.0, Baso # (Auto) 0.0 11/09/18 06:31: Sodium 139, Potassium 3.6, Chloride 105, Carbon Dioxide 23, Anion Gap 14.6, BUN 19 H, Creatinine 0.93, Estimated Creat Clear 114, Estimated GFR 81, Est GFR ( Amer) 97, Glucose 115 H D, Calcium 8.0 L 11/09/18 06:40: POC Glucose 136 H I & O for Last 24 hours: Intake & Output 11/06/18 11/07/18 11/08/18 11/09/18 11:59 11:59 11:59 11:59 Intake Total 440 / 440 Output Total 925 / 925 Balance -485 / -485 Weight 250 lb 254 lb 2 oz Microbiology Reports for the Last 24 Hours: Microbiology 11/08/18 08:01 Urine,Catheterized Urine Culture - Preliminary Narrative: Patient is sitting up in bed in no distress and appears at baseline. No increased work of breathing. He does not require supplemental oxygen. Oropharynx moist and clear. Neck is without lymphadenopathy. Lungs are diminished in the bases. Heart has a regular rate and rhythm. Assessment and Plan (1) HCAP (healthcare-associated pneumonia) Current visit: Yes Status: Acute Category: Medical Code(s): J18.9 - Pneumonia, unspecified organism (2) Diabetes mellitus type 2 in obese Current visit: No Status: Chronic Category: Medical Code(s): E11.69 - Type 2 diabetes mellitus with other specified complication; E66.9 - Obesity, unspecified (3) Frontotemporal dementia Current visit: No Status: Chronic Category: Medical Code(s): G31.09 - Other frontotemporal dementia; F02.80 - Dementia in other diseases classified elsewhere without behavioral disturbance (4) Obesity (BMI 30.0-34.9) Current vi
[2018-11-09 07:57] VITALS: BP 183/86; PULSE 86; RESP 17; TEMP 37.7; O2SAT 96
[2018-11-09 08:09] LABS: Lymphocytes % 1 % (10-50); Monocytes % 2 % (2-9); Neutrophils % 93 % (42-76); Platelet Estimate Normal; RBC Morphology Normal; Total Cells Counted 100
--- NOTE | 2018-11-09 09:00 | FL_ITS ---
FL barium swallow modified COMPARISON: Upper GI series 05/26/2016 HISTORY: History of dysphagia, evaluation for diet TECHNIQUE: Multiple consistencies of barium were given by the speech therapist with the radiologist present FINDINGS: The overall swallowing mechanism was normal. There is no laryngeal penetration or aspiration seen during the entire study. There is no coughing or choking during the study. The fluoroscopic time was 3. 4 -- 7 minutes. The dose was 33.24 mgy. IMPRESSION: Essentially normal study, see speech therapist report for diet recommendations
--- NOTE | 2018-11-09 09:45 | HMH.PHACONS ---
- Pharmacy Consult Date: 11/09/18 Time: 09:45 Referring provider: DR. ROMAN Reason for Consult:: GENTAMICIN LEVELS AND DOSE CHANGE Allergies and ADEs:: Allergies Allergy/AdvReac Type Severity Reaction Status Date / Time erythromycin base Allergy Intermediate SWELLING/IT Verified 11/06/18 13:11 [ERYTHROMYCIN BASE] CLEMENTE/SEIZU RES iodine [IODINE] Allergy Unknown Unknown Verified 11/06/18 13:11 allergy reaction delafloxacin AdvReac Severe Diarrhea Uncoded 11/08/18 10:15 Home Medications:: Home Medications Medication Instructions Recorded Confirmed Type Apixaban [Eliquis 2.5mg tab] 2.5 mg PO BID 06/12/17 11/08/18 History Budesonide [Budesonide EC] 3 mg PO 0900,1700 06/12/17 11/08/18 History Escitalopram Oxalate [Lexapro] 20 mg PO DAILY 06/12/17 11/08/18 History Loperamide HCl [Loperamide] 6 mg PO 0700,1100,2100 06/12/17 11/08/18 History Memantine HCl [Namenda 10mg 10 mg PO 0800,1700 06/12/17 11/08/18 History Tablet] Multivit-Min/FA/Lycopen/Lutein 1 tab PO DAILY 06/12/17 11/08/18 History [Men 50 Plus Multivitamin Tab] Nystatin/Triamcin [Nystatin-Triamc 1 applic TOPICAL DAILY 06/12/17 11/08/18 History Crm 15gm] Oxybutynin Chloride [Oxybutynin 10 mg PO DAILY 06/12/17 11/08/18 History Chloride ER] Pravastatin Sodium [Pravachol] 40 mg PO HS 06/12/17 11/08/18 History Pyridoxine HCl (Vitamin B6) 100 mg PO DAILY 06/12/17 11/08/18 History [Vitamin B-6] clonazePAM [Clonazepam] 0.5 mg PO BID 06/12/17 11/08/18 History lamoTRIgine [Lamotrigine] 100 mg PO BID 06/12/17 11/08/18 History Dutasteride 0.5 mg PO DAILY 12/18/17 11/08/18 History Gabapentin [Neurontin 600mg 600 mg PO BID 12/18/17 11/08/18 History tablet] Liraglutide [Victoza 2-Rick] 1.2 units SQ DAILY 12/18/17 11/08/18 History Loratadine [Claritin 10mg Tablet] 10 mg PO HS 12/18/17 11/08/18 History fluticasone propionate 50 1 dose INTRANASAL DAILY 30 Days 01/11/18 11/08/18 History mcg/actuation nasal spray,suspension Aspirin [Aspirin 81mg chewable 81 mg PO HS 05/15/18 11/08/18 History tab] benzonatate 100 mg capsule 100 mg PO BID cap 05/22/18 11/08/18 History furosemide 20 mg tablet 20 mg PO BID tab 05/22/18 11/08/18 History Bacillus Coagulans [Digestive 1 each PO 1100 05/28/18 11/08/18 History Advantage] Loperamide HCl [Loperamide HCl 4 mg PO 0900 05/28/18 11/08/18 History 1mg/5mL Udc] Nystatin [Nystop] 0 gm TP BIDP PRN 05/28/18 11/08/18 History atenolol 25 mg tablet 25 mg PO BID tab 11/06/18 11/08/18 History brexpiprazole 3 mg tablet 3 mg PO HS 11/06/18 11/08/18 History rivastigmine 3 mg capsule 3 mg PO BID 11/06/18 11/08/18 History tamsulosin 0.4 mg capsule 0.4 mg PO DAILY cap 11/06/18 11/08/18 History Ascorbic Acid 500 mg PO DAILY 11/08/18 11/08/18 History Loperamide HCl [Anti-Diarrheal] 4 mg PO 1700 11/08/18 11/08/18 History Phenazopyridine HCl [Azo Urinary 95 mg PO DAILY 11/08/18 11/08/18 History Pain Relief] Saccharomyces Boulardii [Florastor] 250 mg PO DAILY 11/08/18 11/08/18 History Height: 1.85 m Weight: 115.269 kg Laboratory Results:: Laboratory Results - last 24 hr 11/08/18 15:41: Random Gentamicin 8.0 11/08/18 16:42: POC Glucose 213 H 11/08/18 20:37: POC Glucose 182 H 11/08/18 23:25: Random Gentamicin 3.4 L 11/09/18 06:31: WBC 11.8 H D, RBC 5.22, Hgb 12.6 L, Hct 42.4, MCV 81.3, MCH 24.2 L, MCHC 29.8 L, RDW 15.2, Plt Count 172 D, MPV 6.9 L, Neut % (Auto) 94.0 H, Lymph % (Auto) 2.3 L, Jack % (Auto) 3.1, Eos % (Auto) 0.3, Baso % (Auto) 0.2, Neut # (Auto) 11.1 H, Lymph # (Auto) 0.3 L, Jack # (Auto) 0.4, Eos # (Auto) 0.0, Baso # (Auto) 0.0, Total Counted 100, Neutrophils % (Manual) 93 H, Band Neutrophils % 4.0, Lymphocytes % (Manual) 1 L, Monocytes % (Manual) 2, Platelet Estimate Normal, RBC Morphology Normal 11/09/18 06:31: Sodium 139, Potassium 3.6, Chloride 105, Carbon Dioxide 23, Anion Gap 14.6, BUN 19 H, Creatinine 0.93, Estimated Creat Clear 114, Estimated GFR 81, Est GFR ( Am
--- NOTE | 2018-11-09 09:55 | P.CONPHA_ITS ---
- Pharmacy Consult Date: 11/09/18 Time: 09:45 Referring provider: DR. ROMAN Reason for Consult:: GENTAMICIN LEVELS AND DOSE CHANGE Allergies and ADEs:: Allergies Allergy/AdvReac Type Severity Reaction Status Date / Time erythromycin base Allergy Intermediate SWELLING/IT Verified 11/06/18 13:11 [ERYTHROMYCIN BASE] CLEMENTE/SEIZU RES iodine [IODINE] Allergy Unknown Unknown Verified 11/06/18 13:11 allergy reaction delafloxacin AdvReac Severe Diarrhea Uncoded 11/08/18 10:15 Home Medications:: Home Medications Medication Instructions Recorded Confirmed Type Apixaban [Eliquis 2.5mg tab] 2.5 mg PO BID 06/12/17 11/08/18 History Budesonide [Budesonide EC] 3 mg PO 0900,1700 06/12/17 11/08/18 History Escitalopram Oxalate [Lexapro] 20 mg PO DAILY 06/12/17 11/08/18 History Loperamide HCl [Loperamide] 6 mg PO 0700,1100,2100 06/12/17 11/08/18 History Memantine HCl [Namenda 10mg 10 mg PO 0800,1700 06/12/17 11/08/18 History Tablet] Multivit-Min/FA/Lycopen/Lutein 1 tab PO DAILY 06/12/17 11/08/18 History [Men 50 Plus Multivitamin Tab] Nystatin/Triamcin [Nystatin-Triamc 1 applic TOPICAL DAILY 06/12/17 11/08/18 History Crm 15gm] Oxybutynin Chloride [Oxybutynin 10 mg PO DAILY 06/12/17 11/08/18 History Chloride ER] Pravastatin Sodium [Pravachol] 40 mg PO HS 06/12/17 11/08/18 History Pyridoxine HCl (Vitamin B6) 100 mg PO DAILY 06/12/17 11/08/18 History [Vitamin B-6] clonazePAM [Clonazepam] 0.5 mg PO BID 06/12/17 11/08/18 History lamoTRIgine [Lamotrigine] 100 mg PO BID 06/12/17 11/08/18 History Dutasteride 0.5 mg PO DAILY 12/18/17 11/08/18 History Gabapentin [Neurontin 600mg 600 mg PO BID 12/18/17 11/08/18 History tablet] Liraglutide [Victoza 2-Rick] 1.2 units SQ DAILY 12/18/17 11/08/18 History Loratadine [Claritin 10mg Tablet] 10 mg PO HS 12/18/17 11/08/18 History fluticasone propionate 50 1 dose INTRANASAL DAILY 30 Days 01/11/18 11/08/18 History mcg/actuation nasal spray,suspension Aspirin [Aspirin 81mg chewable 81 mg PO HS 05/15/18 11/08/18 History tab] benzonatate 100 mg capsule 100 mg PO BID cap 05/22/18 11/08/18 History furosemide 20 mg tablet 20 mg PO BID tab 05/22/18 11/08/18 History Bacillus Coagulans [Digestive 1 each PO 1100 05/28/18 11/08/18 History Advantage] Loperamide HCl [Loperamide HCl 4 mg PO 0900 05/28/18 11/08/18 History 1mg/5mL Udc] Nystatin [Nystop] 0 gm TP BIDP PRN 05/28/18 11/08/18 History atenolol 25 mg tablet 25 mg PO BID tab 11/06/18 11/08/18 History brexpiprazole 3 mg tablet 3 mg PO HS 11/06/18 11/08/18 History rivastigmine 3 mg capsule 3 mg PO BID 11/06/18 11/08/18 History tamsulosin 0.4 mg capsule 0.4 mg PO DAILY cap 11/06/18 11/08/18 History Ascorbic Acid 500 mg PO DAILY 11/08/18 11/08/18 History Loperamide HCl [Anti-Diarrheal] 4 mg PO 1700 11/08/18 11/08/18 History Phenazopyridine HCl [Azo Urinary 95 mg PO DAILY 11/08/18 11/08/18 History Pain Relief] Saccharomyces Boulardii [Florastor] 250 mg PO DAILY 11/08/18 11/08/18 History Height: 1.85 m Weight: 115.269 kg Laboratory Results:: Laboratory Results - last 24 hr 11/08/18 15:41: Random Gentamicin 8.0 11/08/18 16:42: POC Glucose
[2018-11-09 10:50] LABS: POC Glucose,Bedside 255 (70-110)
--- NOTE | 2018-11-09 12:17 | HMH.PTEV ---
Physical Therapy Evaluation Rehab PT IP Evaluation Start: 11/09/18 07:45 Freq: ONCE Status: Active Protocol: Document 11/09/18 11:30 PHORNE (Rec: 11/09/18 12:17 PHORNE [id number]) Subjective/History History History 68 yowm adm to [facility] with possible sepsis and fever from ns home. Has been ambulating and transfering with hemiwalker due to recent left elbow/forearm injury that has resulted in no use of left hand. Subjective Subjective Pt currently has no c/o. Rehab PT IP Eval Objective Appearance Patient Behavior Appropriate Patient Orientation Person,Place Difficulty following instructions none Speech Pattern Clear Ambulation Patient Able to Ambulate No Balance Ability to Arise Able, uses arms to help Sitting Balance Steady, safe Standing Balance Steady, wide stance Dynamic Sitting Balance Ability Fair Dynamic Standing Balance Ability Poor Transfers Bed Transfer Ability Moderate x 1 (50% assist) Chair Transfer Ability Moderate x 1 (50% assist) Sit to Stand Bed Transfer Ability Moderate x 1 (50% assist) Sit to Stand Chair Transfer Ability Moderate x 1 (50% assist) ROM All Extremities PT ROM Status WFL Abnormal ROM Comment except left UE NT MMT All Extremities PT MMT WFL Abnormal MMT Grade except left UE NT Rehab PT IP prob,goals,plan Problems Date of Evaluation: 11/09/18 PT IP Problems Bed Mobility,Transfers,Gait Rehab Potential Rehab Potential Good Plan PT Intervention Plan Bed Mobility,Transfers,Gait, Therapeutic Exercise PT Plan Frequency BID Duration LOS Discharge Goals Bed Transfer Ability Minimal x 1 (25% assist) Sit to Stand Chair Transfer Ability Minimal x 1 (25% assist) Ambulation Assistive Device Hemiwalker Ambulation Distance (feet) 6 Discharge Plan PT Discharge Plan Pt is most appropriate to return to [facility] once medically stable. G -code Required Yes Eval Complexity Eval Charge Codes 73501 - High Complexity G Codes PT Current Status Mobility PT Current Status Modifier CL-At least 60% but less than 80% impaired, limited or restricted PT Goal Status Mobility PT Goal Status Modifer
[2018-11-09 12:36] VITALS: BMI 33.7
--- NOTE | 2018-11-09 13:21 | HMH.SLMBS2 ---
Speech & Language Evaluation Speech/Language Mod Barium Swallow Start: 11/09/18 09:23 Freq: ONCE Status: Complete Protocol: Document 11/09/18 13:06 ROSESYEDA (Rec: 11/09/18 13:21 SG [id number]) MBS Recommendations Diet Dietary Recommendations Mechanical Soft,Ground Meats, Thin Liquids Treatment/Strategies Strategy/Precaution Recommend Sitting Upright (90 deg), Liquids from Cup,Alternate Liquids/Solids Referrals/Other Other Recommendations Mr. Sheppard was seen for MBS to assess for aspiration of solids and liquids. No aspiration or penetration was observed during the swallow study. He was able to chew mechanical soft solids, form a bolus and swallow all consistencies presented without difficulty. Recommended diet: Mechanical soft with ground meats and thin liquids from cup. OK to swallow pills with thin liquids. Mod Barium Swallow Impressions Summary and Impressions Oral Phase Impression Mild Impairment Oral Phase Summary edentulous; Pharyngeal Phase Impression No Impairment (WFL) Pharyngeal Phase Summary No significant residue or pooling observed. Speech/Language MBS Assessment/Goals/Plan Assessment Date of Evaluation: 11/09/18 Evaluation Type Initial Certification Assessment/Problems Dysphagia; Multiple pneumonia in past year. Coughing when eating. Does Patient Qualify for Service No Qualify/Failure Comment No aspiration or penetration observed during study. Multiple consistencies and swallows observed to check for fatigue without incident. Recommendations PHYSICIAN CERTIFICATION: The specified therapy services are required, authorized, and reviewed every 30 days. Diet Recommendations Dysphagia Mechanical Soft Liquid Type Recommendations Normal/Thin SL Swallow Guidelines Standard Aspiration Prec. Crush Meds Ok for small pills Dysphagia Swallow Precautions/Strategies Sitting Upright (90 deg), Liquids from Cup,Small Bites and Sips,Alternate Liquids/ Solids Plan Pt/Guardian verbally ack understanding Yes of dx/pro
--- NOTE | 2018-11-09 13:36 | PC.NURSE ---
reprot given to josseline
[2018-11-09 16:00] VITALS: BP 110/46; PULSE 73; RESP 20; TEMP 37.1; O2SAT 93
[2018-11-09 16:06] LABS: POC Glucose,Bedside 136 (70-110)
--- NOTE | 2018-11-09 16:33 | PC.NURSE ---
water given refused ice trash done, patient changed
[2018-11-09 19:51] VITALS: BP 139/53; PULSE 76; RESP 20; TEMP 36.8; O2SAT 92
[2018-11-09 20:15] VITALS: O2SAT 88
[2018-11-09 20:24] LABS: POC Glucose,Bedside 143 (70-110)
[2018-11-10] VITALS (8 sets, daily range): BP systolic 107–192; BP diastolic 40–82; PULSE 65–88; RESP 18–22; TEMP 36.6–36.9; O2SAT 91–97; BMI 33.0
--- NOTE | 2018-11-10 03:45 | PC.NURSE ---
A&OX4. PITTING EDEMA NOTED TO LUE AND BLE. FC IN PLACE WITH SITE SHOWING NO S/S OF INFECTION; URINE BRIGHT YELLOW WITH SEDIMENT NOTED. PT. HAS NOT C/O PAIN, SOB, DIZZINESS, N/V/D. PT. TOLERATED HS MEDS WELL. IV PATENT WHEN FLUSHED SHOWING NO S/S OF INFILTRATION. VSS. WILL CONTINUE TO MONITOR.
[2018-11-10 07:10] LABS: Basophils % 0.3 % (0.1-2.0); Eosinophils # 0.1 K/mm3 (0.0-0.4); Eosinophils % 0.8 % (0.1-12.0); Lymphocytes # 0.9 K/mm3 (0.7-4.5); Lymphocytes % 13.5 % (10-50); Mean Corpuscular HGB Conc 30.8 g/dL (31.8-35.4); Mean Corpuscular Hemoglobin 24.2 pg (27.0-31.2); Mean Corpuscular Volume 78.8 fl (80-94); Mean Platelet Volume 6.5 fl (7.4-10.4); Monocytes # 0.5 K/mm3 (0.1-1.0); Monocytes % 6.6 % (1.7-9.3); Neutrophils # 5.3 K/mm3 (1.8-7.8); Neutrophils % 78.7 % (37.0-80.0); Platelet Count 160 K/mm3 (142-424); Red Blood Count 4.56 M/mm3 (4.60-6.20); Red Cell Distribution Width 14.9 % (11.5-17.5); White Blood Count 6.8 K/mm3 (4.8-10.8)
[2018-11-10 07:11] LABS: POC Glucose,Bedside 126 (70-110)
--- NOTE | 2018-11-10 07:30 | PC.NURSE ---
REPORT GIVEN TO Cathie TAVARES
[2018-11-10 07:38] LABS: Hemoglobin 11.1 g/dL (14.1-18.0)
--- NOTE | 2018-11-10 09:22 | HMH.ACPN2 ---
Internal Medicine - PN: Subj *Date: 11/10/18 *Time: 09:22 Interval history: Patient continues to deny respiratory complaints. Imodium was held yesterday and the port patient reports infrequent bowel movements during the day but none overnight. He is already had a bowel movement this morning. His raises concern over his left lower leg. She states the day of her perhaps the day prior to admission he developed this black area on the anterior leg that has since become tender with erythematous changes of the skin that have spread down and up the leg. She questions whether he could have an infection from his left heel ulcer patient was seen by wound care yesterday over the heel ulcer Exam Vital signs and Labs for Last 24 Hours: Temp Pulse Resp BP Pulse Ox 97.8 F 78 20 140/47 L 97 11/10/18 08:00 11/10/18 08:00 11/10/18 08:00 11/10/18 08:00 11/10/18 08:00 Laboratory Results - last 24 hr 11/09/18 10:43: POC Glucose 255 H 11/09/18 15:54: POC Glucose 136 H 11/09/18 20:15: POC Glucose 143 H 11/10/18 05:56: POC Glucose 126 H 11/10/18 06:30: WBC 6.8 D, RBC 4.56 L, Hgb 11.1 L D, Hct 36.0 L, MCV 78.8 L, MCH 24.2 L, MCHC 30.8 L, RDW 14.9, Plt Count 160, MPV 6.5 L, Neut % (Auto) 78.7, Lymph % (Auto) 13.5, [place] % (Auto) 6.6, Eos % (Auto) 0.8, Baso % (Auto) 0.3, Neut # (Auto) 5.3, Lymph # (Auto) 0.9, [place] # (Auto) 0.5, Eos # (Auto) 0.1, Baso # (Auto) 0.0 I & O for Last 24 hours: Intake & Output 11/07/18 11/08/18 11/09/18 11/10/18 11:59 11:59 11:59 11:59 Intake Total 490 / 490 460 / 460 Output Total 2825 / 2825 2300 / 2300 Balance -2335 / -2335 -1840 / -1840 Weight 250 lb 254 lb 2 oz 249 lb 2 oz Microbiology Reports for the Last 24 Hours: Microbiology 11/08/18 08:01 Urine,Catheterized Urine Culture - Preliminary 11/08/18 08:01 Blood Blood Culture - Preliminary NO GROWTH AFTER 48 HOURS 11/08/18 08:01 Blood Blood Culture - Preliminary NO GROWTH AFTER 48 HOURS Narrative: Patient is laying comfortably in bed. Lungs are clear with diminished breath sounds at the bases. Heart has a regular rate and rhythm. Skin exam reveals a dime size appearing vascular lesion similar to a varicosity with significant surrounding erythema of the anterior ladd that is hot and tender to touch. Patient has a left heel ulcer with black eschar Assessment and Plan (1) Cellulitis of leg without foot, left Current visit: Yes Status: Acute Category: Medical Code(s): L03.116 - Cellulitis of left lower limb (2) HCAP (healthcare-associated pneumonia) Current visit: Yes Status: Acute Category: Medical Code(s): J18.9 - Pneumonia, unspecified organism (3) Diabetes mellitus type 2 in obese Current visit: No Status: Chronic Category: Medical Code(s): E11.69 - Type 2 diabetes mellitus with other specified complication; E66.9 - Obesity, unspecified (4) Frontotemporal dementia Current visit: No Status: Chronic Category: Medical Code(s): G31.09 - Other frontotemporal dementia; F02.80 - Dementia in other diseases classified elsewhere without behavioral disturbance (5) Obesity (BMI 30.0-34.9) Current visit: No Status: Chronic Category: Medical Code(s): E66.9 - Obesity, unspecified (6) Seizure disorder Current visit: No Status: Chronic Category: Medical Code(s): G40.909 - Epilepsy, unspecified, not intractable, without status epilepticus - Assessment and plan all Dx Assessment and Plan for all problems:: I am going to adjust antibiotics but discontinue gentamicin and placing the patient on vancomycin regarding the cellulitis. He will continue on cefepime. I believe it is possible that this cellulitis may have actually been the source of infection all along as patient's was very clear that he really never had any respiratory symptoms as he has had in the past when he has had pneumonia. White count is trending
--- NOTE | 2018-11-10 09:26 | P.PN_ITS ---
Internal Medicine - PN: Subj *Date: 11/10/18 *Time: 09:22 Interval history: Patient continues to deny respiratory complaints. Imodium was held yesterday and the port patient reports infrequent bowel movements during the day but none overnight. He is already had a bowel movement this morning. His raises concern over his left lower leg. She states the day of her perhaps the day prior to admission he developed this black area on the anterior leg that has since become tender with erythematous changes of the skin that have spread down and up the leg. She questions whether he could have an infection from his left heel ulcer patient was seen by wound care yesterday over the heel ulcer Exam Vital signs and Labs for Last 24 Hours: Temp Pulse Resp BP Pulse Ox 97.8 F 78 20 140/47 L 97 11/10/18 08:00 11/10/18 08:00 11/10/18 08:00 11/10/18 08:00 11/10/18 08:00 Laboratory Results - last 24 hr 11/09/18 10:43: POC Glucose 255 H 11/09/18 15:54: POC Glucose 136 H 11/09/18 20:15: POC Glucose 143 H 11/10/18 05:56: POC Glucose 126 H 11/10/18 06:30: WBC 6.8 D, RBC 4.56 L, Hgb 11.1 L D, Hct 36.0 L, MCV 78.8 L, MCH 24.2 L, MCHC 30.8 L, RDW 14.9, Plt Count 160, MPV 6.5 L, Neut % (Auto) 78.7, Lymph % (Auto) 13.5, [place] % (Auto) 6.6, Eos % (Auto) 0.8, Baso % (Auto) 0.3, Neut # (Auto) 5.3, Lymph # (Auto) 0.9, [place] # (Auto) 0.5, Eos # (Auto) 0.1, Baso # (Auto) 0.0 I & O for Last 24 hours: Intake & Output 11/07/18 11/08/18 11/09/18 11/10/18 11:59 11:59 11:59 11:59 Intake Total 490 / 490 460 / 460 Output Total 2825 / 2825 2300 / 2300 Balance -2335 / -2335 -1840 / -1840 Weight 250 lb 254 lb 2 oz 249 lb 2 oz Microbiology Reports for the Last 24 Hours: Microbiology 11/08/18 08:01 Urine,Catheterized Urine Culture - Preliminary 11/08/18 08:01 Blood Blood Culture - Preliminary NO GROWTH AFTER 48 HOURS 11/08/18 08:01 Blood Blood Culture - Preliminary NO GROWTH AFTER 48 HOURS Narrative: Patient is laying comfortably in bed. Lungs are clear with diminished breath sounds at the bases. Heart has a regular rate and rhythm. Skin exam reveals a dime size appearing vascular lesion similar to a varicosity with significant surrounding erythema of the anterior ladd that is hot and tender to touch. Patient has a left heel ulcer with black eschar Assessment and Plan (1) Cellulitis of leg without foot, left Current visit: Yes Status: Acute Category: Medical Code(s): L03.116 - Cellulitis of left lower limb (2) HCAP (healthcare-associated pneumonia) Current visit: Yes Status: Acute Category: Medical Code(s): J18.9 - Pneumonia, unspecified organism (3) Diabetes mellitus type 2 in obese Current visit: No Status: Chronic Category: Medical Code(s): E11.69 - Type 2 diabetes mellitus with other specified complication; E66.9 - Obesity, unspecified (4) Frontotemporal dementia Current visit: No Status: Chronic Category: Medical Code(s): G31.09 - Other frontotemporal dementia; F02.80 - Dementia in other diseases classified elsewhere without behavioral disturbance (5) Obesity (BMI 30.0-34.9) Current visit: No Status: Chronic Category: Medical Code(s): E66.9 - Obesity, unspecified (6) Seizure disorder Current visit: No Status: Chronic Category: Medical Code(s): G40.909 - Epilepsy, unspecifie
--- NOTE | 2018-11-10 10:40 | HMH.PHACONS ---
- Pharmacy Consult Date: 11/10/18 Time: 10:40 Referring provider: DR. ROMAN Reason for Consult:: VANCOMYCIN DOSING Allergies and ADEs:: Allergies Allergy/AdvReac Type Severity Reaction Status Date / Time erythromycin base Allergy Intermediate SWELLING/IT Verified 11/06/18 13:11 [ERYTHROMYCIN BASE] CLEMENTE/SEIZU RES iodine [IODINE] Allergy Unknown Unknown Verified 11/06/18 13:11 allergy reaction delafloxacin AdvReac Severe Diarrhea Uncoded 11/08/18 10:15 Home Medications:: Home Medications Medication Instructions Recorded Confirmed Type Apixaban [Eliquis 2.5mg tab] 2.5 mg PO BID 06/12/17 11/08/18 History Budesonide [Budesonide EC] 3 mg PO 0900,1700 06/12/17 11/08/18 History Escitalopram Oxalate [Lexapro] 20 mg PO DAILY 06/12/17 11/08/18 History Loperamide HCl [Loperamide] 6 mg PO 0700,1100,2100 06/12/17 11/08/18 History Memantine HCl [Namenda 10mg 10 mg PO 0800,1700 06/12/17 11/08/18 History Tablet] Multivit-Min/FA/Lycopen/Lutein 1 tab PO DAILY 06/12/17 11/08/18 History [Men 50 Plus Multivitamin Tab] Nystatin/Triamcin [Nystatin-Triamc 1 applic TOPICAL DAILY 06/12/17 11/08/18 History Crm 15gm] Oxybutynin Chloride [Oxybutynin 10 mg PO DAILY 06/12/17 11/08/18 History Chloride ER] Pravastatin Sodium [Pravachol] 40 mg PO HS 06/12/17 11/08/18 History Pyridoxine HCl (Vitamin B6) 100 mg PO DAILY 06/12/17 11/08/18 History [Vitamin B-6] clonazePAM [Clonazepam] 0.5 mg PO BID 06/12/17 11/08/18 History lamoTRIgine [Lamotrigine] 100 mg PO BID 06/12/17 11/08/18 History Dutasteride 0.5 mg PO DAILY 12/18/17 11/08/18 History Gabapentin [Neurontin 600mg 600 mg PO BID 12/18/17 11/08/18 History tablet] Liraglutide [Victoza 2-Rick] 1.2 units SQ DAILY 12/18/17 11/08/18 History Loratadine [Claritin 10mg Tablet] 10 mg PO HS 12/18/17 11/08/18 History fluticasone propionate 50 1 dose INTRANASAL DAILY 30 Days 01/11/18 11/08/18 History mcg/actuation nasal spray,suspension Aspirin [Aspirin 81mg chewable 81 mg PO HS 05/15/18 11/08/18 History tab] benzonatate 100 mg capsule 100 mg PO BID cap 05/22/18 11/08/18 History furosemide 20 mg tablet 20 mg PO BID tab 05/22/18 11/08/18 History Bacillus Coagulans [Digestive 1 each PO 1100 05/28/18 11/08/18 History Advantage] Loperamide HCl [Loperamide HCl 4 mg PO 0900 05/28/18 11/08/18 History 1mg/5mL Udc] Nystatin [Nystop] 0 gm TP BIDP PRN 05/28/18 11/08/18 History atenolol 25 mg tablet 25 mg PO BID tab 11/06/18 11/08/18 History brexpiprazole 3 mg tablet 3 mg PO HS 11/06/18 11/08/18 History rivastigmine 3 mg capsule 3 mg PO BID 11/06/18 11/08/18 History tamsulosin 0.4 mg capsule 0.4 mg PO DAILY cap 11/06/18 11/08/18 History Ascorbic Acid 500 mg PO DAILY 11/08/18 11/08/18 History Loperamide HCl [Anti-Diarrheal] 4 mg PO 1700 11/08/18 11/08/18 History Phenazopyridine HCl [Azo Urinary 95 mg PO DAILY 11/08/18 11/08/18 History Pain Relief] Saccharomyces Boulardii [Florastor] 250 mg PO DAILY 11/08/18 11/08/18 History Height: 1.85 m Weight: 113.001 kg Laboratory Results:: Laboratory Results - last 24 hr 11/09/18 10:43: POC Glucose 255 H 11/09/18 15:54: POC Glucose 136 H 11/09/18 20:15: POC Glucose 143 H 11/10/18 05:56: POC Glucose 126 H 11/10/18 06:30: WBC 6.8 D, RBC 4.56 L, Hgb 11.1 L D, Hct 36.0 L, MCV 78.8 L, MCH 24.2 L, MCHC 30.8 L, RDW 14.9, Plt Count 160, MPV 6.5 L, Neut % (Auto) 78.7, Lymph % (Auto) 13.5, [place] % (Auto) 6.6, Eos % (Auto) 0.8, Baso % (Auto) 0.3, Neut # (Auto) 5.3, Lymph # (Auto) 0.9, [place] # (Auto) 0.5, Eos # (Auto) 0.1, Baso # (Auto) 0.0 Medical History: Reports:: Anxiety, Chronic Obstructive Pulmonary Disease (COPD), Deep Vein Thrombosis, Dementia, Diabetes Mellitus Type 2, Hyperlipidemia, Hypertension, Lung Disease, Kidney Stones, Myocardial Infarction, Urinary Tract Infection Denies:: Cancer, Diabetes Mellitus Type 1, Internal Pacemaker, MRSA Assessment and Plan (1) Cellulitis of leg without foot, left Curre
[2018-11-10 12:01] LABS: POC Glucose,Bedside 132 (70-110)
[2018-11-10 17:55] LABS: POC Glucose,Bedside 121 (70-110)
[2018-11-10 22:17] LABS: POC Glucose,Bedside 143 (70-110)
[2018-11-11] VITALS (7 sets, daily range): BP systolic 137–177; BP diastolic 44–85; PULSE 60–76; RESP 18–22; TEMP 36.4–36.8; O2SAT 93–97; BMI 33.1
[2018-11-11 06:25] LABS: POC Glucose,Bedside 116 (70-110)
--- NOTE | 2018-11-11 06:52 | PC.NURSE ---
Pt slept heavily throughout the night and received IV abx as ordered. Pt's left heel remained floated and position was changed with pillows. Munoz is putting out clear light yellow urine. Pt assisted up to chair x 2 and walker for breakfast. Pt sitting up with call bingham in reach. No further redness or changes of left leg cellulitis. Complaints of pain only in head and neck intermittently controlled with Tylenol.
--- NOTE | 2018-11-11 07:17 | PC.NURSE ---
REPORT GIVEN TO Cathie TAVARES
--- NOTE | 2018-11-11 07:43 | HMH.ACPN2 ---
Internal Medicine - PN: Subj *Date: 11/11/18 *Time: 07:43 Interval history: Patient has no complaints this morning other than he would like his Imodium regimen reinstituted. He has had several loose stools over the last 24 hours. Regarding his suspected pneumonia he continues to deny cough. Regarding his left leg he reports no pain at rest. Exam Vital signs and Labs for Last 24 Hours: Temp Pulse Resp BP Pulse Ox 98.3 F 73 20 177/66 H 95 11/11/18 04:00 11/11/18 04:00 11/11/18 04:00 11/11/18 04:00 11/11/18 04:00 Laboratory Results - last 24 hr 11/08/18 08:01: Urine Color Dk yellow, Urine Appearance Sl cloudy, Urine pH 7.5, Ur Specific [place] 1.010, Urine Protein Negative, Urine Glucose (UA) Negative, Urine Ketones Negative, Urine Blood Negative, Urine Nitrate Negative, Urine Bilirubin Negative, Urine Urobilinogen 1.0, Ur Leukocyte Esterase 1+ A, Urine RBC 3-5, Urine WBC 10-20, Urine Bacteria Trace 11/10/18 11:52: POC Glucose 132 H 11/10/18 16:54: POC Glucose 121 H 11/10/18 21:18: POC Glucose 143 H 11/11/18 06:16: POC Glucose 116 H I & O for Last 24 hours: Intake & Output 11/08/18 11/09/18 11/10/18 11/11/18 11:59 11:59 11:59 11:59 Intake Total 490 / 490 460 / 460 740 / 740 Output Total 2825 / 2825 2300 / 2300 800 / 800 Balance -2335 / -2335 -1840 / -1840 -60 / -60 Weight 250 lb 254 lb 2 oz 249 lb 2 oz 250 lb 1.993 oz Microbiology Reports for the Last 24 Hours: Microbiology 11/08/18 08:01 Urine,Catheterized Urine Culture - Preliminary Gram Negative Rods 11/08/18 08:01 Blood Blood Culture - Preliminary NO GROWTH AFTER 48 HOURS 11/08/18 08:01 Blood Blood Culture - Preliminary NO GROWTH AFTER 48 HOURS Narrative: Erythema is less noticeable on the anterior left leg. Swelling has decreased of the medial lower leg but not the lateral lower leg. There is still the appearance of a varicosity on the anterior lower leg. Skin is still hot to touch and significantly tender along the anterior leg extending around posteriorly along the Achilles. There is no active drainage from the left heel wound Assessment and Plan (1) Cellulitis of leg without foot, left Current visit: Yes Status: Acute Category: Medical Code(s): L03.116 - Cellulitis of left lower limb (2) HCAP (healthcare-associated pneumonia) Current visit: Yes Status: Acute Category: Medical Code(s): J18.9 - Pneumonia, unspecified organism (3) Diabetes mellitus type 2 in obese Current visit: No Status: Chronic Category: Medical Code(s): E11.69 - Type 2 diabetes mellitus with other specified complication; E66.9 - Obesity, unspecified (4) Frontotemporal dementia Current visit: No Status: Chronic Category: Medical Code(s): G31.09 - Other frontotemporal dementia; F02.80 - Dementia in other diseases classified elsewhere without behavioral disturbance (5) Obesity (BMI 30.0-34.9) Current visit: No Status: Chronic Category: Medical Code(s): E66.9 - Obesity, unspecified (6) Seizure disorder Current visit: No Status: Chronic Category: Medical Code(s): G40.909 - Epilepsy, unspecified, not intractable, without status epilepticus - Assessment and plan all Dx Assessment and Plan for all problems:: There is been improvement in the cellulitis but I am concerned that the heel wound is the portal of infection. Podiatry will be consulted for evaluation tomorrow. X-ray of heel was negative on admission.
--- NOTE | 2018-11-11 10:45 | P.PN_ITS ---
Internal Medicine - PN: Subj *Date: 11/11/18 *Time: 10:45 Exam Vital signs and Labs for Last 24 Hours: Temp Pulse Resp BP Pulse Ox 97.7 F 71 22 138/48 L 97 11/11/18 08:00 11/11/18 08:00 11/11/18 08:00 11/11/18 08:00 11/11/18 08:00 Laboratory Results - last 24 hr 11/08/18 08:01: Urine Color Dk yellow, Urine Appearance Sl cloudy, Urine pH 7.5, Ur Specific [place] 1.010, Urine Protein Negative, Urine Glucose (UA) Negative, Urine Ketones Negative, Urine Blood Negative, Urine Nitrate Negative, Urine Bilirubin Negative, Urine Urobilinogen 1.0, Ur Leukocyte Esterase 1+ A, Urine RBC 3-5, Urine WBC 10-20, Urine Bacteria Trace 11/10/18 11:52: POC Glucose 132 H 11/10/18 16:54: POC Glucose 121 H 11/10/18 21:18: POC Glucose 143 H 11/11/18 06:16: POC Glucose 116 H I & O for Last 24 hours: Intake & Output 11/08/18 11/09/18 11/10/18 11/11/18 23:59 23:59 23:59 23:59 Intake Total 440 / 440 50 / 50 820 / 820 740 / 740 Output Total 200 / 200 3625 / 3625 3200 / 3200 Balance 240 / 240 -3575 / -3575 -2380 / -2380 740 / 740 Weight 115.411 kg 115.269 kg 113.001 kg 113.455 kg Microbiology Reports for the Last 24 Hours: Microbiology 11/08/18 08:01 Urine,Catheterized Urine Culture - Preliminary Gram Negative Rods 11/08/18 08:01 Blood Blood Culture - Preliminary NO GROWTH AFTER 48 HOURS 11/08/18 08:01 Blood Blood Culture - Preliminary NO GROWTH AFTER 48 HOURS Assessment and Plan (1) Cellulitis of leg without foot, left Current visit: Yes Status: Acute Category: Medical Code(s): L03.116 - Cellulitis of left lower limb (2) HCAP (healthcare-associated pneumonia) Current visit: Yes Status: Acute Category: Medical Code(s): J18.9 - Pneumonia, unspecified organism (3) Diabetes mellitus type 2 in obese Current visit: No Status: Chronic Category: Medical Code(s): E11.69 - Type 2 diabetes mellitus with other specified complication; E66.9 - Obesity, unspecified (4) Frontotemporal dementia Current visit: No Status: Chronic Category: Medical Code(s): G31.09 - Other frontotemporal dementia; F02.80 - Dementia in other diseases classified elsewhere without behavioral disturbance (5) Obesity (BMI 30.0-34.9) Current visit: No Status: Chronic Category: Medical Code(s): E66.9 - Obesity, unspecified (6) Seizure disorder Current visit: No Status: Chronic Category: Medical Code(s): G40.909 - Epilepsy, unspecified, not intractable, without status epilepticus The patient's infection will respond to the chosen ABx?: Yes Is the patient receiving the right drug, dose, and route?: Yes Could a more targeted ABx be ordered?: No (WBC NORMALIZED. ABX CHANGED YESTERDAY.)
[2018-11-11 11:44] LABS: POC Glucose,Bedside 137 (70-110)
--- NOTE | 2018-11-11 14:57 | PC.NURSE ---
RT gave Sodium Chloride treatment to help induce sputum sample, but pt was unable to produce a sample at this time.
--- NOTE | 2018-11-11 16:33 | HMH.ORTHOCON ---
*Admission Date: 11/08/18 *Reason for consult:: L foot ulcer/lower leg erythema *History of present illness: 68yo M admitted 11/08/2018 with UTI/urosepsis. He has a known ulcer on the L heel and has been treated by Dr. Jones for this. He last saw Dr. Jones 2 days prior to admission, on 11/06/2018. She sharply debrided the ulcer in clinic and it was noted that there was no drainage and the wound was 100% granular. His toenails were also trimmed that day, and calluses on the R foot debrided. He is a diabetic and glucose has reportedly run up to the low 200's at the group home. During his current admission he has been on vanc and cefepime and doing well, but last night a spot arose on his anterior L ladd that was purplish/brown/black in color and initially attributed to a varicosity or ruptured blood vessel. The patient denies trauma to the region and cannot recall striking the leg against anything. Redness has improved on vancomycin. Since admission his WBC has decreased from 23.8 to 6.8; one recorded fever on 11/08/2018 to 103deg but afebrile since. Multiple loose stools reported, but this is the patient's baseline; this has been the case for many years, and he is on high doses of immodium for this. Review of Systems - Review of Systems Review of systems:: pertinent systems reviewed and negative unless documented below - *Neurologic Reports behavioral changes, Reports weakness, Reports other (global) [facility] History I have reviewed the patient's past medical history: Yes Medical History: Reports:: Anxiety, Chronic Obstructive Pulmonary Disease (COPD), Deep Vein Thrombosis, Dementia, Diabetes Mellitus Type 2, Hyperlipidemia, Hypertension, Lung Disease, Kidney Stones, Myocardial Infarction, Urinary Tract Infection Denies:: Cancer, Diabetes Mellitus Type 1, Internal Pacemaker, MRSA *Have you ever received a pneumonia vaccine?: Yes *Have you received a flu vaccine this season?: Yes Other Medical History: Reports: Arthritis Other Surgeries: Yes: No Previous Surgery, Colonoscopy, EGD, Hernia Repair. No: Pacemaker Amputation: No Fractures: Yes (l4 compression) - *Social History Smoking Status: Former smoker Tobacco Type: cigarettes # Packs/Day (cigarettes): 2 #Yrs smoked (if former smoker): 52 Alcohol Intake: never Alcohol Intake Frequency:: other Substance Use Type: denies use *Occupational Status:: retired, disabled Housing: house Household Members: spouse *Travel in the last 8 weeks: None - Psychiatric History Expresses thoughts of harming self/others: None Suicide Plan Description: No Plan Pschychiatric History:: Reports:: Anxiety, Psychiatric Treatment Family Hx:: Cancer, Diabetes, Heart Attack, Hyperlipidemia, Hypertension, Thyroid Disorder Meds Home Medications Medication Instructions Recorded Confirmed Type Apixaban [Eliquis 2.5mg tab] 2.5 mg PO BID 06/12/17 11/08/18 History Budesonide [Budesonide EC] 3 mg PO 0900,1700 06/12/17 11/08/18 History Escitalopram Oxalate [Lexapro] 20 mg PO DAILY 06/12/17 11/08/18 History Loperamide HCl [Loperamide] 6 mg PO 0700,1100,2100 06/12/17 11/08/18 History Memantine HCl [Namenda 10mg 10 mg PO 0800,1700 06/12/17 11/08/18 History Tablet] Multivit-Min/FA/Lycopen/Lutein 1 tab PO DAILY 06/12/17 11/08/18 History [Men 50 Plus Multivitamin Tab] Nystatin/Triamcin [Nystatin-Triamc 1 applic TOPICAL DAILY 06/12/17 11/08/18 History Crm 15gm] Oxybutynin Chloride [Oxybutynin 10 mg PO DAILY 06/12/17 11/08/18 History Chloride ER] Pravastatin Sodium [Pravachol] 40 mg PO HS 06/12/17 11/08/18 History Pyridoxine HCl (Vitamin B6) 100 mg PO DAILY 06/12/17 11/08/18 History [Vitamin B-6] clonazePAM [Clonazepam] 0.5 mg PO BID 06/12/17 11/08/18 History lamoTRIgine [Lamotrigine] 100 mg PO BID 06/12/17 11/08/18 History Dutasteride 0.5 mg PO DAILY 12/18/17 11/08/18 History Gabapentin [Neurontin 600mg 600 mg PO BID 12/18/17 11/08/18 History tablet] Liraglutide [Victoza 2-Rick] 1.2 units SQ DAILY
--- NOTE | 2018-11-11 16:37 | P.CONS_ITS ---
*Admission Date: 11/08/18 *Reason for consult:: L foot ulcer/lower leg erythema *History of present illness: 68yo M admitted 11/08/2018 with UTI/urosepsis. He has a known ulcer on the L heel and has been treated by Dr. Jones for this. He last saw Dr. Jones 2 days prior to admission, on 11/06/2018. She sharply debrided the ulcer in clinic and it was noted that there was no drainage and the wound was 100% granular. His toenails were also trimmed that day, and calluses on the R foot debrided. He is a diabetic and glucose has reportedly run up to the low 200's at the custodial. During his current admission he has been on vanc and cefepime and doing well, but last night a spot arose on his anterior L ladd that was purplish/brown/black in color and initially attributed to a varicosity or ruptured blood vessel. The patient denies trauma to the region and cannot recall striking the leg against anything. Redness has improved on vancomycin. Since admission his WBC has decreased from 23.8 to 6.8; one recorded fever on 11/08/2018 to 103deg but afebrile since. Multiple loose stools reported, but this is the patient's baseline; this has been the case for many years, and he is on high doses of immodium for this. Review of Systems - Review of Systems Review of systems:: pertinent systems reviewed and negative unless documented below - *Neurologic Reports behavioral changes, Reports weakness, Reports other (global) [facility] History I have reviewed the patient's past medical history: Yes Medical History: Reports:: Anxiety, Chronic Obstructive Pulmonary Disease (COPD), Deep Vein Thrombosis, Dementia, Diabetes Mellitus Type 2, Hyperlipidemia, Hypertension, Lung Disease, Kidney Stones, Myocardial Infarction, Urinary Tract Infection Denies:: Cancer, Diabetes Mellitus Type 1, Internal Pacemaker, MRSA *Have you ever received a pneumonia vaccine?: Yes *Have you received a flu vaccine this season?: Yes Other Medical History: Reports: Arthritis Other Surgeries: Yes: No Previous Surgery, Colonoscopy, EGD, Hernia Repair. No: Pacemaker Amputation: No Fractures: Yes (l4 compression) - *Social History Smoking Status: Former smoker Tobacco Type: cigarettes # Packs/Day (cigarettes): 2 #Yrs smoked (if former smoker): 52 Alcohol Intake: never Alcohol Intake Frequency:: other Substance Use Type: denies use *Occupational Status:: retired, disabled Housing: house Household Members: spouse *Travel in the last 8 weeks: None - Psychiatric History Expresses thoughts of harming self/others: None Suicide Plan Description: No Plan Pschychiatric History:: Reports:: Anxiety, Psychiatric Treatment Family Hx:: Cancer, Diabetes, Heart Attack, Hyperlipidemia, Hypertension, Thyroid Disorder Meds Home Medications Medication Instructions Recorded Confirmed Type Apixaban [Eliquis 2.5mg tab] 2.5 mg PO BID 06/12/17 11/08/18 History Budesonide [Budesonide EC] 3 mg PO 0900,1700 06/12/17 11/08/18 History Escitalopram Oxalate [Lexapro] 20 mg PO DAILY 06/12/17 11/08/18 History Loperamide HCl [Loperamide] 6 mg PO 0700,1100,2100 06/12/17 11/08/18 History Memantine HCl [Namenda 10mg 10 mg PO 0800,1700 06/12/17 11/08/18 History Tablet] Multivit-Min/FA/Lycopen/Lutein 1 tab PO DAILY 06/12/17 11/08/18 History [Men 50 Plus Multivitamin Tab] Nystatin/Triamcin [Nystatin-Triamc 1 applic TOPICAL DAILY 06/12/17 11/08/18 History Crm 15gm] Oxybutynin Chloride [Oxybutynin 10 mg PO DAILY 06/12/17 11/08/18 History Chloride ER] Pravastatin Sodium [Pravachol] 40 mg PO
[2018-11-11 17:31] LABS: POC Glucose,Bedside 122 (70-110)
[2018-11-11 22:58] LABS: Vancomycin,Trough 26.2 mcg/ml (10.0-20.0)
[2018-11-12] VITALS: BP 144/56; PULSE 71; RESP 18; TEMP 36.7; O2SAT 94
--- NOTE | 2018-11-12 03:02 | PC.NURSE ---
A&OX4. CLEAR LUNG SOUNDS T/O BILAT. PT. DENIES COUGH. RUE SCATTERED BRUISES NOTED. LLE REDNESS, WARMTH, WITH DARK 2 CM IN DIAMETER CLOSED AREA ON L PAINTER; +2 PITTING EDEMA NOTED; BORDERS MARKED WITH LEG ELEVATED. L HEEL 3 CM IN DIAMETER CLOSED AREA; BLACK AND YELLOW IN COLOR; DRYNESS NOTED; HEEL FLOATED T/O NIGHT. PT. REPORTS THAT DIZZINESS HAS IMPROVED. PT. HAS NOT C/O PAIN, N/V/D, OR SOB. IV PATENT WHEN FLUSHED SHOWING NO S/S OF INFILTRATION. PT. RESTING IN BED WITH EYES CLOSED AT THIS TIME. VSS. WILL CONTINUE TO MONITOR.
[2018-11-12 04:00] VITALS: BP 149/66; PULSE 67; RESP 18; TEMP 36.5; O2SAT 95
[2018-11-12 05:14] VITALS: BMI 33.0
[2018-11-12 06:26] LABS: POC Glucose,Bedside 111 (70-110)
[2018-11-12 06:46] LABS: Anion Gap 12.2 mEq/L (5-15); Blood Urea Nitrogen 8 mg/dL (7-18); Calcium 8.4 mg/dL (8.5-10.1); Carbon Dioxide 29 mmol/L (21.0-32.0); Chloride 104 mmol/L (98-107); Creatinine Clearance Estimated 111 mL/min (50-200); Creatinine,Serum 0.71 mg/dL (0.70-1.30); Estimated Glomerular Filt Rate 110 ml/min (>60); GFR (African American) 133 ML/MIN (>60); Glucose 111 mg/dL (74-106); Potassium 3.2 mmoL/L (3.5-5.1); Sodium 142 mmol/L (136-145)
--- NOTE | 2018-11-12 07:18 | HMH.ACPN2 ---
Internal Medicine - PN: Subj *Date: 11/12/18 *Time: 07:18 Interval history: Patient has no complaints this morning other than some leg soreness. He has not had any fevers. Patient was evaluated by Dr. Wright yesterday who recommended continuing vancomycin and following up with wound care for his left heel wound. Patient continued to deny shortness of breath Exam Vital signs and Labs for Last 24 Hours: Temp Pulse Resp BP Pulse Ox 97.7 F 67 18 149/66 H 95 11/12/18 04:00 11/12/18 04:00 11/12/18 04:00 11/12/18 04:00 11/12/18 04:00 Laboratory Results - last 24 hr 11/11/18 11:34: POC Glucose 137 H 11/11/18 17:12: POC Glucose 122 H 11/11/18 22:25: Vancomycin Trough 26.2 H 11/12/18 05:48: Sodium 142, Potassium 3.2 L, Chloride 104, Carbon Dioxide 29 D, Anion Gap 12.2, BUN 8 D, Creatinine 0.71 D, Estimated Creat Clear 111, Estimated GFR 110, Est GFR ( Amer) 133 D, Glucose 111 H, Calcium 8.4 L 11/12/18 05:51: POC Glucose 111 H I & O for Last 24 hours: Intake & Output 11/09/18 11/10/18 11/11/18 11/12/18 11:59 11:59 11:59 11:59 Intake Total 490 / 490 460 / 460 1100 / 1100 580 / 580 Output Total 2825 / 2825 2300 / 2300 1900 / 1900 5350 / 5350 Balance -2335 / -2335 -1840 / -1840 -800 / -800 -4770 / -4770 Weight 254 lb 2 oz 249 lb 2 oz 250 lb 1.993 oz 249 lb 2 oz Microbiology Reports for the Last 24 Hours: Microbiology 11/08/18 08:01 Urine,Catheterized Urine Culture - Preliminary Gram Negative Rods Narrative: Patient is awake and alert. Lungs are distant but overall clear. Heart has a regular rate and rhythm. Left lower extremity reveals persistent erythema of the anterior lateral lower leg with a streak of erythema extending up the side of the leg more proximally up to the level of the mid thigh. Erythema is tender to touch. Swelling has improved since yesterday. He still has mild tenderness around the Achilles. No drainage from the heel wound Assessment and Plan (1) Cellulitis of leg without foot, left Current visit: Yes Status: Acute Category: Medical Code(s): L03.116 - Cellulitis of left lower limb (2) HCAP (healthcare-associated pneumonia) Current visit: Yes Status: Ruled-out Category: Medical Code(s): J18.9 - Pneumonia, unspecified organism (3) Diabetes mellitus type 2 in obese Current visit: No Status: Chronic Category: Medical Code(s): E11.69 - Type 2 diabetes mellitus with other specified complication; E66.9 - Obesity, unspecified (4) Frontotemporal dementia Current visit: No Status: Chronic Category: Medical Code(s): G31.09 - Other frontotemporal dementia; F02.80 - Dementia in other diseases classified elsewhere without behavioral disturbance (5) Obesity (BMI 30.0-34.9) Current visit: No Status: Chronic Category: Medical Code(s): E66.9 - Obesity, unspecified (6) Seizure disorder Current visit: No Status: Chronic Category: Medical Code(s): G40.909 - Epilepsy, unspecified, not intractable, without status epilepticus (7) Pressure ulcer of left heel, stage 2 Current visit: Yes Status: Acute Category: Medical Code(s): L89.622 - Pressure ulcer of left heel, stage 2 (8) Diabetic neuropathy Current visit: Yes Status: Acute Category: Medical Code(s): E11.40 - Type 2 diabetes mellitus with diabetic neuropathy, unspecified - Assessment and plan all Dx Assessment and Plan for all problems:: Patient will have a PICC line placed today as he will need vancomycin for likely up to 2 weeks although I believe there is a chance pending the outcomes of his heel wound it could potentially be longer. 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 Patient will follow up with wound care Monday. He has follow-up with Dr. Tripp scheduled for December 04
--- NOTE | 2018-11-12 07:21 | P.PN_ITS ---
Internal Medicine - PN: Subj *Date: 11/12/18 *Time: 07:18 Interval history: Patient has no complaints this morning other than some leg soreness. He has not had any fevers. Patient was evaluated by Dr. Wright yesterday who recommended continuing vancomycin and following up with wound care for his left heel wound. Patient continued to deny shortness of breath Exam Vital signs and Labs for Last 24 Hours: Temp Pulse Resp BP Pulse Ox 97.7 F 67 18 149/66 H 95 11/12/18 04:00 11/12/18 04:00 11/12/18 04:00 11/12/18 04:00 11/12/18 04:00 Laboratory Results - last 24 hr 11/11/18 11:34: POC Glucose 137 H 11/11/18 17:12: POC Glucose 122 H 11/11/18 22:25: Vancomycin Trough 26.2 H 11/12/18 05:48: Sodium 142, Potassium 3.2 L, Chloride 104, Carbon Dioxide 29 D, Anion Gap 12.2, BUN 8 D, Creatinine 0.71 D, Estimated Creat Clear 111, Estimated GFR 110, Est GFR ( Amer) 133 D, Glucose 111 H, Calcium 8.4 L 11/12/18 05:51: POC Glucose 111 H I & O for Last 24 hours: Intake & Output 11/09/18 11/10/18 11/11/18 11/12/18 11:59 11:59 11:59 11:59 Intake Total 490 / 490 460 / 460 1100 / 1100 580 / 580 Output Total 2825 / 2825 2300 / 2300 1900 / 1900 5350 / 5350 Balance -2335 / -2335 -1840 / -1840 -800 / -800 -4770 / -4770 Weight 254 lb 2 oz 249 lb 2 oz 250 lb 1.993 oz 249 lb 2 oz Microbiology Reports for the Last 24 Hours: Microbiology 11/08/18 08:01 Urine,Catheterized Urine Culture - Preliminary Gram Negative Rods Narrative: Patient is awake and alert. Lungs are distant but overall clear. Heart has a regular rate and rhythm. Left lower extremity reveals persistent erythema of the anterior lateral lower leg with a streak of erythema extending up the side of the leg more proximally up to the level of the mid thigh. Erythema is tender to touch. Swelling has improved since yesterday. He still has mild tenderness around the Achilles. No drainage from the heel wound Assessment and Plan (1) Cellulitis of leg without foot, left Current visit: Yes Status: Acute Category: Medical Code(s): L03.116 - Cellulitis of left lower limb (2) HCAP (healthcare-associated pneumonia) Current visit: Yes Status: Ruled-out Category: Medical Code(s): J18.9 - Pneumonia, unspecified organism (3) Diabetes mellitus type 2 in obese Current visit: No Status: Chronic Category: Medical Code(s): E11.69 - Type 2 diabetes mellitus with other specified complication; E66.9 - Obesity, unspecified (4) Frontotemporal dementia Current visit: No Status: Chronic Category: Medical Code(s): G31.09 - Other frontotemporal dementia; F02.80 - Dementia in other diseases classified elsewhere without behavioral disturbance (5) Obesity (BMI 30.0-34.9) Current visit: No Status: Chronic Category: Medical Code(s): E66.9 - Obesity, unspecified (6) Seizure disorder Current visit: No Status: Chronic Category: Medical Code(s): G40.909 - Epilepsy, unspecified, not intractable, without status epilepticus (7) Pressure ulcer of left heel, stage 2 Current visit: Yes Status: Acute Category: Medical Code(s): L89.622 - Pressure ulcer of left heel, stage 2 (8) Diabetic neuropathy Current visit: Yes Status: Acute Category: Medical Code(s): E11.40 - Type 2 diabetes mellitus with diabetic neuropathy, unspecified - Assessment and plan
--- NOTE | 2018-11-12 07:21 | HMH.DCSUM ---
General - General Admission date:: 11/08/18 Discharge date: 11/12/18 HPI HPI: 68 year old male with multiple chronic medical conditions including recurrent aspirations pneumonias was transported from [facility] for evaluation of fever and mental status changes. [facility] staff reported patient was unresponsive with temp of 103. reports patient seemed fine at dinner last night and had no complaints. In the ED, patient was lethargic and confused. He was found to have LLL pneumonia and urine was suspicious for UTI. He was given IVF bolus for meeting sepsis criteria, as well as gentamycin and cefepime infusions. Patient was admitted to step down for further evaluation and management. Several hours later, patient is sitting up in bed. Alert and oriented. He has no recollection of events from earlier this morning. 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 Denies urinary symptoms. He has some mild pain assoc with left heel wound. Hospital Course Hospital Course: Patient was admitted and started on cefepime and gentamicin for treatment of sepsis. He was initially felt like there was a developing left lower lobe pneumonia as the source of his infection although patient denied any significant respiratory symptoms. His is heavily involved in his care also reported she had not seen any change in his respiratory status at the snf nor had she noticed a cough or chest congestion which usually accompanies his pneumonias. After 2 days of hospitalization the patient noted worsening pain in the left lower leg. Patient was found to have significant erythema of the anterior left lower leg with swelling and tenderness. Antibiotic adjustments were made at that time and patient was continued on cefepime but gentamicin was discontinued in favor of vancomycin. Within 24 hours of starting vancomycin edema began to decrease in the lower extremity and erythema lightened. Patient has a known left heel ulcer which previously had MRSA. He had tenderness around the left heel and Achilles but there was no significant erythema in this area. Patient's cellulitis in retrospect was felt to be the source of infection on admission. I thought it would be best if patient continued antibiotics intravenously for up to 2 weeks and a PICC line was placed and he will continue vancomycin. Once his PICC line was placed he was transferred back to [facility] where he resides. Mental status: Average Prognosis: Good Rehab potential: Fair Objective Vital signs: Temp Pulse Resp BP Pulse Ox 97.7 F 67 18 149/66 H 95 11/12/18 04:00 11/12/18 04:00 11/12/18 04:00 11/12/18 04:00 11/12/18 04:00 Results Labs on day of discharge: Labs from last 24 hours 11/12/18 11/12/18 11/11/18 05:51 05:48 22:25 Sodium 142 Potassium 3.2 L Chloride 104 Carbon Dioxide 29 D Anion Gap 12.2 BUN 8 D Creatinine 0.71 D Estimated Creat Clear 111 Estimated GFR 110 Est GFR ( Amer) 133 D Glucose 111 H POC Glucose 111 H Calcium 8.4 L Vancomycin Trough 26.2 H 11/11/18 11/11/18 17:12 11:34 Sodium Potassium Chloride Carbon Dioxide Anion Gap BUN Creatinine Estimated Creat Clear Estimated GFR Est GFR ( Amer) Glucose POC Glucose 122 H 137 H Calcium Vancomycin Trough Preliminary micro results at discharge 11/08/18 08:01 Urine Culture - Preliminary Urine,Catheterized Gram Negative Rods 11/08/18 08:01 Blood Culture - Preliminary Blood NO GROWTH AFTER 48 HOURS 11/08/18 08:01 Blood Culture - Preliminary Blood NO GROWTH AFTER 48 HOURS DS: Diagnosis - Discharge Diagnosis (1) Cellulitis of leg without foot, left Status: Acute (2) HCAP (healthcare-associated pneumonia) Status: Ruled-out (3) Diabetes mellitus type 2 in obese Status: Chronic (4) Frontotemporal dementia Status: Chronic
[2018-11-12 07:24] LABS: Basophils % 0.4 % (0.1-2.0); Eosinophils # 0.2 K/mm3 (0.0-0.4); Eosinophils % 3.7 % (0.1-12.0); Hematocrit 35.6 % (42.0-52.0); Hemoglobin 11.1 g/dL (14.1-18.0); Lymphocytes # 1.6 K/mm3 (0.7-4.5); Lymphocytes % 25.1 % (10-50); Mean Corpuscular HGB Conc 31.2 g/dL (31.8-35.4); Mean Corpuscular Hemoglobin 24.6 pg (27.0-31.2); Mean Corpuscular Volume 78.9 fl (80-94); Mean Platelet Volume 7.5 fl (7.4-10.4); Monocytes # 0.6 K/mm3 (0.1-1.0); Monocytes % 8.8 % (1.7-9.3); Platelet Count 183 K/mm3 (142-424); Red Blood Count 4.51 M/mm3 (4.60-6.20); Red Cell Distribution Width 15.2 % (11.5-17.5); White Blood Count 6.5 K/mm3 (4.8-10.8)
--- NOTE | 2018-11-12 07:24 | PC.NURSE ---
REPORT GIVEN TO Héctor DIOP
--- NOTE | 2018-11-12 07:27 | P.DS_ITS ---
General - General Admission date:: 11/08/18 Discharge date: 11/12/18 HPI HPI: 68 year old male with multiple chronic medical conditions including recurrent aspirations pneumonias was transported from [facility] for evaluation of fever and mental status changes. correction staff reported patient was unresponsive with temp of 103. reports patient seemed fine at dinner last night and had no complaints. In the ED, patient was lethargic and confused. He was found to have LLL pneumonia and urine was suspicious for UTI. He was given IVF bolus for meeting sepsis criteria, as well as gentamycin and cefepime infusions. Patient was admitted to step down for further evaluation and management. Several hours later, patient is sitting up in bed. Alert and oriented. He has no recollection of events from earlier this morning. 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 Denies urinary symptoms. He has some mild pain assoc with left heel wound. Hospital Course Hospital Course: Patient was admitted and started on cefepime and gentamicin for treatment of sepsis. He was initially felt like there was a developing left lower lobe pneumonia as the source of his infection although patient denied any significant respiratory symptoms. His is heavily involved in his care also reported she had not seen any change in his respiratory status at the [facility] nor had she noticed a cough or chest congestion which usually accompanies his pneumonias. After 2 days of hospitalization the patient noted worsening pain in the left lower leg. Patient was found to have significant erythema of the anterior left lower leg with swelling and tenderness. Antibiotic adjustments were made at that time and patient was continued on cefepime but gentamicin was discontinued in favor of vancomycin. Within 24 hours of starting vancomycin edema began to decrease in the lower extremity and erythema lightened. Patient has a known left heel ulcer which previously had MRSA. He had tenderness around the left heel and Achilles but there was no significant erythema in this area. Patient's cellulitis in retrospect was felt to be the source of infection on admission. I thought it would be best if patient continued antibiotics intravenously for up to 2 weeks and a PICC line was placed and he will continue vancomycin. Once his PICC line was placed he was transferred back to [facility] where he resides. Mental status: Average Prognosis: Good Rehab potential: Fair Objective Vital signs: Temp Pulse Resp BP Pulse Ox 97.7 F 67 18 149/66 H 95 11/12/18 04:00 11/12/18 04:00 11/12/18 04:00 11/12/18 04:00 11/12/18 04:00 Results Labs on day of discharge: Labs from last 24 hours 11/12/18 11/12/18 11/11/18 05:51 05:48 22:25 Sodium 142 Potassium 3.2 L Chloride 104 Carbon Dioxide 29 D Anion Gap 12.2 BUN 8 D Creatinine 0.71 D Estimated Creat Clear 111 Estimated GFR 110 Est GFR ( Amer) 133 D Glucose 111 H POC Glucose 111 H Calcium 8.4 L Vancomycin Trough 26.2 H 11/11/18 11/11/18 17:12 11:34 Sodium Potassium Chloride Carbon Dioxide Anion Gap BUN Creatinine Estimated Creat Clear Estimated GFR Est
[2018-11-12 07:49] LABS: POC Glucose,Bedside 162 (70-110)
[2018-11-12 08:00] VITALS: BP 146/60; PULSE 70; RESP 18; TEMP 36.6; O2SAT 95
--- NOTE | 2018-11-12 09:28 | FL_ITS ---
FL guided central line placemt CLINICAL INDICATION: Attempted access for PICC line placement ITS.REASON: FLUORO GUIDED ACCESS ORDERING PHYSICIAN: Andriy Coon MD PATIENT AGE: 68 years Comparison: None Fluoroscopy time: 3 minutes 47 seconds FINDINGS: Under fluoroscopic guidance a 0.018 Glidewire was inserted into the pre-existing PICC line. The tip of the catheter is in the axillary region. The Glidewire was not able to be positioned past the axillary area. The wire was then removed and small amount of contrast injected showing some intraluminal filling defect within the small vessel that the catheter was and is well small amount of extravasation of contrast in the right axillary region. This was not the subclavian or axillary vein. This small vessel did communicate with the subclavian vein however, it was decided not to try to manipulate a catheter through that area due to the very small caliber of the vein and some minimal intraluminal thrombosis. The catheter was then removed. IMPRESSION: PICC line was then an accessory vein and not within the main subclavian vein. Central access was not obtained.
[2018-11-12 11:19] LABS: POC Glucose,Bedside 124 (70-110)
[2018-11-12 11:30] VITALS: BP 173/68; PULSE 61; RESP 17; TEMP 36.6; O2SAT 98
--- NOTE | 2018-11-12 11:53 | HMH.PHACONS ---
- Pharmacy Consult Date: 11/12/18 Time: 11:53 Referring provider: DR. DISLA Reason for Consult:: VANCOMYCIN TROUGH LEVEL Allergies and ADEs:: Allergies Allergy/AdvReac Type Severity Reaction Status Date / Time erythromycin base Allergy Intermediate SWELLING/IT Verified 11/06/18 13:11 [ERYTHROMYCIN BASE] CLEMENTE/SEIZU RES iodine [IODINE] Allergy Unknown Unknown Verified 11/06/18 13:11 allergy reaction delafloxacin AdvReac Severe Diarrhea Uncoded 11/08/18 10:15 Home Medications:: Home Medications Medication Instructions Recorded Confirmed Type Apixaban [Eliquis 2.5mg tab] 2.5 mg PO BID 06/12/17 11/08/18 History Budesonide [Budesonide EC] 3 mg PO 0900,1700 06/12/17 11/08/18 History Escitalopram Oxalate [Lexapro] 20 mg PO DAILY 06/12/17 11/08/18 History Loperamide HCl [Loperamide] 6 mg PO 0700,1100,2100 06/12/17 11/08/18 History Memantine HCl [Namenda 10mg 10 mg PO 0800,1700 06/12/17 11/08/18 History Tablet] Multivit-Min/FA/Lycopen/Lutein 1 tab PO DAILY 06/12/17 11/08/18 History [Men 50 Plus Multivitamin Tab] Nystatin/Triamcin [Nystatin-Triamc 1 applic TOPICAL DAILY 06/12/17 11/08/18 History Crm 15gm] Oxybutynin Chloride [Oxybutynin 10 mg PO DAILY 06/12/17 11/08/18 History Chloride ER] Pravastatin Sodium [Pravachol] 40 mg PO HS 06/12/17 11/08/18 History Pyridoxine HCl (Vitamin B6) 100 mg PO DAILY 06/12/17 11/08/18 History [Vitamin B-6] clonazePAM [Clonazepam] 0.5 mg PO BID 06/12/17 11/08/18 History lamoTRIgine [Lamotrigine] 100 mg PO BID 06/12/17 11/08/18 History Dutasteride 0.5 mg PO DAILY 12/18/17 11/08/18 History Gabapentin [Neurontin 600mg 600 mg PO BID 12/18/17 11/08/18 History tablet] Liraglutide [Victoza 2-Rick] 1.2 units SQ DAILY 12/18/17 11/08/18 History Loratadine [Claritin 10mg Tablet] 10 mg PO HS 12/18/17 11/08/18 History fluticasone propionate 50 1 dose INTRANASAL DAILY 30 Days 01/11/18 11/08/18 History mcg/actuation nasal spray,suspension Aspirin [Aspirin 81mg chewable 81 mg PO HS 05/15/18 11/08/18 History tab] benzonatate 100 mg capsule 100 mg PO BID cap 05/22/18 11/08/18 History furosemide 20 mg tablet 20 mg PO BID tab 05/22/18 11/08/18 History Bacillus Coagulans [Digestive 1 each PO 1100 05/28/18 11/08/18 History Advantage] Loperamide HCl [Loperamide HCl 4 mg PO 0900 05/28/18 11/08/18 History 1mg/5mL Udc] Nystatin [Nystop] 0 gm TP BIDP PRN 05/28/18 11/08/18 History atenolol 25 mg tablet 25 mg PO BID tab 11/06/18 11/08/18 History brexpiprazole 3 mg tablet 3 mg PO HS 11/06/18 11/08/18 History rivastigmine 3 mg capsule 3 mg PO BID 11/06/18 11/08/18 History tamsulosin 0.4 mg capsule 0.4 mg PO DAILY cap 11/06/18 11/08/18 History Ascorbic Acid 500 mg PO DAILY 11/08/18 11/08/18 History Loperamide HCl [Anti-Diarrheal] 4 mg PO 1700 11/08/18 11/08/18 History Phenazopyridine HCl [Azo Urinary 95 mg PO DAILY 11/08/18 11/08/18 History Pain Relief] Saccharomyces Boulardii [Florastor] 250 mg PO DAILY 11/08/18 11/08/18 History Vancomycin HCl [Vancomycin 1000mg 2,000 mg IV Q24H vial 11/12/18 Rx Vial] Height: 1.85 m Weight: 113.001 kg Laboratory Results:: Laboratory Results - last 24 hr 11/11/18 17:12: POC Glucose 122 H 11/11/18 20:05: POC Glucose 162 H 11/11/18 22:25: Vancomycin Trough 26.2 H 11/12/18 05:48: WBC 6.5, RBC 4.51 L, Hgb 11.1 L, Hct 35.6 L, MCV 78.9 L, MCH 24.6 L, MCHC 31.2 L, RDW 15.2, Plt Count 183, MPV 7.5, Neut % (Auto) 62.0, Lymph % (Auto) 25.1, [place] % (Auto) 8.8, Eos % (Auto) 3.7, Baso % (Auto) 0.4, Neut # (Auto) 4.0, Lymph # (Auto) 1.6, [place] # (Auto) 0.6, Eos # (Auto) 0.2, Baso # (Auto) 0.0 11/12/18 05:48: Sodium 142, Potassium 3.2 L, Chloride 104, Carbon Dioxide 29 D, Anion Gap 12.2, BUN 8 D, Creatinine 0.71 D, Estimated Creat Clear 111, Estimated GFR 110, Est GFR ( Amer) 133 D, Glucose 111 H, Calcium 8.4 L 11/12/18 05:51: POC Glucose 111 H 11/12/18 10:40: Vancomycin Trough 17.0 11/12/18 10:58: POC Gluco
--- NOTE | 2018-11-12 11:54 | SW/DCPLANNER ---
This patient will discharge back to [facility] this afternoon. Discharge summary and other patient information has been faxed to Verónica at [facility]. I will contact [facility] once this patient is ready for discharge. Patient will receive IV antibiotic prior to discharge from [facility].
--- NOTE | 2018-11-12 11:56 | P.CONPHA_ITS ---
- Pharmacy Consult Date: 11/12/18 Time: 11:53 Referring provider: DR. DISLA Reason for Consult:: VANCOMYCIN TROUGH LEVEL Allergies and ADEs:: Allergies Allergy/AdvReac Type Severity Reaction Status Date / Time erythromycin base Allergy Intermediate SWELLING/IT Verified 11/06/18 13:11 [ERYTHROMYCIN BASE] CLEMENTE/SEIZU RES iodine [IODINE] Allergy Unknown Unknown Verified 11/06/18 13:11 allergy reaction delafloxacin AdvReac Severe Diarrhea Uncoded 11/08/18 10:15 Home Medications:: Home Medications Medication Instructions Recorded Confirmed Type Apixaban [Eliquis 2.5mg tab] 2.5 mg PO BID 06/12/17 11/08/18 History Budesonide [Budesonide EC] 3 mg PO 0900,1700 06/12/17 11/08/18 History Escitalopram Oxalate [Lexapro] 20 mg PO DAILY 06/12/17 11/08/18 History Loperamide HCl [Loperamide] 6 mg PO 0700,1100,2100 06/12/17 11/08/18 History Memantine HCl [Namenda 10mg 10 mg PO 0800,1700 06/12/17 11/08/18 History Tablet] Multivit-Min/FA/Lycopen/Lutein 1 tab PO DAILY 06/12/17 11/08/18 History [Men 50 Plus Multivitamin Tab] Nystatin/Triamcin [Nystatin-Triamc 1 applic TOPICAL DAILY 06/12/17 11/08/18 History Crm 15gm] Oxybutynin Chloride [Oxybutynin 10 mg PO DAILY 06/12/17 11/08/18 History Chloride ER] Pravastatin Sodium [Pravachol] 40 mg PO HS 06/12/17 11/08/18 History Pyridoxine HCl (Vitamin B6) 100 mg PO DAILY 06/12/17 11/08/18 History [Vitamin B-6] clonazePAM [Clonazepam] 0.5 mg PO BID 06/12/17 11/08/18 History lamoTRIgine [Lamotrigine] 100 mg PO BID 06/12/17 11/08/18 History Dutasteride 0.5 mg PO DAILY 12/18/17 11/08/18 History Gabapentin [Neurontin 600mg 600 mg PO BID 12/18/17 11/08/18 History tablet] Liraglutide [Victoza 2-Rick] 1.2 units SQ DAILY 12/18/17 11/08/18 History Loratadine [Claritin 10mg Tablet] 10 mg PO HS 12/18/17 11/08/18 History fluticasone propionate 50 1 dose INTRANASAL DAILY 30 Days 01/11/18 11/08/18 History mcg/actuation nasal spray,suspension Aspirin [Aspirin 81mg chewable 81 mg PO HS 05/15/18 11/08/18 History tab] benzonatate 100 mg capsule 100 mg PO BID cap 05/22/18 11/08/18 History furosemide 20 mg tablet 20 mg PO BID tab 05/22/18 11/08/18 History Bacillus Coagulans [Digestive 1 each PO 1100 05/28/18 11/08/18 History Advantage] Loperamide HCl [Loperamide HCl 4 mg PO 0900 05/28/18 11/08/18 History 1mg/5mL Udc] Nystatin [Nystop] 0 gm TP BIDP PRN 05/28/18 11/08/18 History atenolol 25 mg tablet 25 mg PO BID tab 11/06/18 11/08/18 History brexpiprazole 3 mg tablet 3 mg PO HS 11/06/18 11/08/18 History rivastigmine 3 mg capsule 3 mg PO BID 11/06/18 11/08/18 History tamsulosin 0.4 mg capsule 0.4 mg PO DAILY cap 11/06/18 11/08/18 History Ascorbic Acid 500 mg PO DAILY 11/08/18 11/08/18 History Loperamide HCl [Anti-Diarrheal] 4 mg PO 1700 11/08/18 11/08/18 History Phenazopyridine HCl [Azo Urinary 95 mg PO DAILY 11/08/18 11/08/18 History Pain Relief] Saccharomyces Boulardii [Florastor] 250 mg PO DAILY 11/08/18 11/08/18 History Vancomycin HCl [Vancomycin 1000mg 2,000 mg IV Q24H vial 11/12/18 Rx Vial] Height: 1.85 m Weight: 113.001 kg Laboratory Results:: Laboratory Results
== END 2018-11-12 14:27 | DRG 603 ==
LOC: ER 10:33 → 2ND 10:44
PROVIDERS: Admitting Provider Internal Medicine Adolescent Medicine; Emergency Provider Emergency Medicine; PCP Internal Medicine Adolescent Medicine; Visit Provider Family Medicine
DX: L03.116 Cellulitis of left lower limb (principal); L89.622 Pressure ulcer of left heel, stage 2; G40.909 Epilepsy, unspecified, not intractable, without status epilepticus; E11.69 Type 2 diabetes mellitus with other specified complication; G31.09 Other frontotemporal neurocognitive disorder; J44.9 Chronic obstructive pulmonary disease, unspecified; I10 Essential (primary) hypertension; F02.80 Dementia in other diseases classified elsewhere, unspecified severity, without behavioral disturbance, psychotic disturbance, mood disturbance, and anxiety; I25.2 Old myocardial infarction; Z87.891 Personal history of nicotine dependence; Z79.899 Other long term (current) drug therapy; Z88.8 Allergy status to other drugs, medicaments and biological substances; Z88.1 Allergy status to other antibiotic agents; Z79.4 Long term (current) use of insulin
CPT/HCPCS: 36415; 70371; 70450; 71045; 71250; 73620; 74176; 77001; 80048; 80053; 80170; 80202; 81001; 82962; 83605; 85007; 85025; 87040; 87086; 87088; 87186; 92611; 94761; 96365; 96366; 96367; 97110; 97163; 97530; 99285; C1751; C1769; J3370

== ENCOUNTER → 2018-11-29 15:32 | Outpatient (CLI) | payer MEDICARE, SELFPAY ==
[2018-11-29 16:09] LABS: Basophils # 0.1 K/mm3 (0-0.2); Basophils % 0.7 % (0.1-2.0); Eosinophils # 0.1 K/mm3 (0.0-0.4); Eosinophils % 1.2 % (0.1-12.0); Hemoglobin 10.7 g/dL (14.1-18.0); Lymphocytes % 18.3 % (10-50); Mean Corpuscular HGB Conc 30.5 g/dL (31.8-35.4); Mean Corpuscular Hemoglobin 25.1 pg (27.0-31.2); Mean Corpuscular Volume 82.5 fl (80-94); Mean Platelet Volume 7.1 fl (7.4-10.4); Monocytes # 0.4 K/mm3 (0.1-1.0); Neutrophils # 8.2 K/mm3 (1.8-7.8); Neutrophils % 75.8 % (37.0-80.0); Platelet Count 295 K/mm3 (142-424); Red Blood Count 4.24 M/mm3 (4.60-6.20); White Blood Count 10.8 K/mm3 (4.8-10.8)
[2018-11-29 17:06] LABS: Anion Gap 12.2 mEq/L (5-15); Blood Urea Nitrogen 35 mg/dL (7-18); Calcium 8.2 mg/dL (8.5-10.1); Carbon Dioxide 30 mmol/L (21.0-32.0); Chloride 96 mmol/L (98-107); Creatinine,Serum 1.99 mg/dL (0.70-1.30); Estimated Glomerular Filt Rate 33 ml/min (>60); GFR (African American) 41 ML/MIN (>60); Glucose 159 mg/dL (74-106); Potassium 4.2 mmoL/L (3.5-5.1); Sodium 134 mmol/L (136-145)
== END ==
PROVIDERS: Visit Provider Internal Medicine Adolescent Medicine
DX: R60.9 Edema, unspecified (principal); D62 Acute posthemorrhagic anemia
CPT/HCPCS: 36415; 80048; 85025

== ENCOUNTER 2018-12-25 16:30 | Outpatient (RCR) | payer MEDICARE, SELFPAY ==
--- NOTE | 2018-11-14 15:50 | HMH.PTOPWND ---
Rehab Outpt Wound Evaluation Rehab OP Wound Evaluation Start: 11/14/18 15:35 Freq: Status: Active Protocol: Document 11/14/18 15:35 PWILLIAMS (Rec: 11/14/18 15:49 [email or web address] [id number]) Electronically Signed By Tristian Michelle, GEORGI 11/14/18 15:35 Subjective/History History History This is the initial Physical Therapy wound center evaluation for Leodan Sheppard. Pt is a 68 y/o male referred to PT wound clinic for non healing heel ulcer on LLE. 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 Pt' s spouse reports pt was admitted to [facility] 2 weeks ago for sepsis and pneumonia. While pt was in hospital possibly developed heel ulcer . Pt is now at [facility] for care. Subjective Subjective Pt rpeorts TTP of L foot Wound Eval Wound Left Heel Wound Type Pressure Ulcer Wound Staging Stage III Query Text:Stage I - Unbroken, red skin, no blanching. Stage II - Skin broken, superficial skin loss involving epidermis alone or also dermis. Partial loss of skin layers. Stage III - Pressure area involves epidermis, dermis and subcutaneous tissue, full thickness skin loss. Stage IV - Pressure area involves epidermis, subcutaneous tissue, bone and other supportive tissue. Full thickness skin loss with extensive destruction of underlying tissue and structures. Wound Length (cm) 3.0 Wound Width (cm) 2.0 Wound Depth (cm) 0.5 Wound Bed Appearance Beefy Red,Eschar Percentage Granulated (%) 50 Percentage of Slough (%) 50 Percentage of Eschar (Black) (%) 50 Percentage of Eschar (Purple) (%) 50 Wound Margins Description Well Defined Surrounding Tissue Appearance Dark Red,Purple Surrounding Tissue Temperature Cool Drainage Description Purulent Drainage Amount Moderate Drainage Odor Foul Odor Dressing Status Changed Wound Topical Solution/Irrigant Antibiotic Irrigant Primary Dressing Silver Dressing Comment betadyne teg AG mesh Wound Secondary Dressing Type Composite Comment purocol Wound Debridement Method Himanshu
[2018-11-14 16:18] LABS: Vancomycin,Trough 23.5 mcg/ml (10.0-20.0)
== END 2018-12-25 16:35 | disposition home or self-care (01) ==
LOC: PT 16:30
PROVIDERS: Nurse Practitioner Family; Visit Provider Podiatrist
DX: L89.622 Pressure ulcer of left heel, stage 2 (principal)
CPT/HCPCS: 80202; 97162; 97597

== ENCOUNTER 2019-02-08 11:14 | Observation (INO) ==
--- NOTE | 2019-02-08 11:37 | Emergency Department Note ---
ED Disposition Clinical Impression: HCAP (healthcare-associated pneumonia), Severe sepsis Fall Qualifiers: Encounter type: initial encounter Qualified Code(s): W19.XXXA - Unspecified fall, initial encounter Sepsis with acute hypoxic respiratory failure Qualifiers: Sepsis type: sepsis due to unspecified organism Severe sepsis shock status: without septic shock Qualified Code(s): A41.9 - Sepsis, unspecified organism Disposition: Admitted As Inpatient Condition on Discharge: Serious - Critical Care Critical Care Time: No Attestation: On , the high probability of a clinically significant, sudden or life threatening deterioration of the following system(s) required my full and direct attention, intervention and personal management. The time I documented below is in addition to time spent performing reported procedures but includes the following listed in this critical care notation. Total Critical Care Time: 35 Vital system(s) involved:: Respiratory Failure My critical care processes included: Assessment & monitoring of V/S, Initial and Re-exams, Data Review/Interpretation, Coordinating Care, Medication Orders and management, Documentation Medical Decision Making - Jonathon Inquiry Pt receiving controlled substance: No Vital Signs: 02/08/19 11:21 02/08/19 12:30 02/08/19 12:50 Temperature 99 F 99.8 F H Temperature Source Oral Rectal Pulse Rate Pulse Rate [Right Radial] 85 78 Respiratory Rate 22 Blood Pressure Blood Pressure [Right Arm] 110/56 L 88/52 L Blood Pressure Mean [Right Arm] 74 64 Blood Pressure Source Blood Pressure Source [Right Arm] Automatic Cuff Automatic Cuff Blood Pressure Position Blood Pressure Position [Right Arm] Sitting Sitting 02 Sat by Pulse Oximetry 91 L Oxygen Delivery Method Nasal Cannula Oxygen Flow Rate (LPM) 4 02/08/19 13:00 02/08/19 13:05 02/08/19 13:08 Temperature Temperature Source Pulse Rate 90 Pulse Rate [Right Radial] 78 75 Respiratory Rate Blood Pressure Blood Pressure [Right Arm] 83/41 L 87/44 L Blood Pressure Mean [Right Arm] 55 58 Blood Pressure Source Blood Pressure Source [Right Arm] Automatic Cuff Blood Pressure Position Blood Pressure Position [Right Arm] Sitting Sitting 02 Sat by Pulse Oximetry 90 L 92 L 90 L Oxygen Delivery Method Nasal Cannula Nasal Cannula Nasal Cannula Oxygen Flow Rate (LPM) 4 4 4 02/08/19 13:18 02/08/19 13:29 02/08/19 13:41 Temperature Temperature Source Pulse Rate Pulse Rate [Right Radial] 76 71 76 Respiratory Rate Blood Pressure Blood Pressure [Right Arm] 104/45 L 120/60 121/52 L Blood Pressure Mean [Right Arm] 64 80 75 Blood Pressure Source Blood Pressure Source [Right Arm] Automatic Cuff Blood Pressure Position Blood Pressure Position [Right Arm] Sitting Sitting 02 Sat by Pulse Oximetry 92 L 93 L 94 L Oxygen Delivery Method Nasal Cannula Nasal Cannula Oxygen Flow Rate (LPM) 4 4 02/08/19 14:17 02/08/19 14:33 02/08/19 15:00 Temperature Temperature Source Pulse Rate Pulse Rate [Right Radial] 73 71 72 Respiratory Rate Blood Pressure Blood Pressure [Right Arm] 92/54 L 114/49 L 133/54 L Blood Pressure Mean [Right Arm] 66 70 80 Blood Pressure Source Blood Pressure Source [Right Arm] Automatic Cuff Blood Pressure Position Blood Pressure Position [Right Arm] Sitting Sitting Sitting 02 Sat by Pulse Oximetry 91 L 94 L Oxygen Delivery Method Nasal Cannula Oxygen Flow Rate (LPM) 02/08/19 15:48 02/08/19 16:09 02/08/19 16:23 Temperature 99 F Temperature Source Oral Pulse Rate 72 Pulse Rate [Right Radial] 72 72 Respiratory Rate 18 Blood Pressure 114/50 L Blood Pressure [Right Arm] 137/59 L 112/50 L Blood Pressure Mean [Right Arm] 85 70 Blood Pressure Source Automatic Cuff Blood Pressure Source [Right Arm] Blood Pressure Position Sitting Blood Pressure Position [Right Arm] 02 Sat by Pulse Oximetry 97 93 L Oxygen Delivery Method Nasal Cannula Oxygen Flow Rate (LPM) - Lab Data Lab Results 02/08/19 11:30: Sodium 135 L, Potassium 4.0, Chloride 99, Carbon Dioxide 28, Anion Gap 12.0, BUN 20 H, Creatinine 1.37 H, Estimated Creat Clear 82, Estimated GFR 52 L, Est GFR ( Amer) 62, Glucose 235 H, Calcium 8.6, Troponin I 0.02 02/08/19 11:30: WBC 25.5 H*, RBC 4.47 L, Hgb 11.7 L, Hct 38.0 L, MCV 85.0, MCH 26.2 L, MCHC 30.8 L, RDW 15.2, Plt Count 305, MPV 6.7 L, Neut % (Auto) 87.5 H, Lymph % (Auto) 6.1 L, [place] % (Auto) 5.1, Eos % (Auto) 0.7, Baso % (Auto) 0.5, Neut # (Auto) 22.3 H, Lymph # (Auto) 1.6, [place] # (Auto) 1.3 H, Eos # (Auto) 0.2, Baso # (Auto) 0.1, Total Counted 100, Neutrophils % (Manual) 83 H, Band Neutrophils % 6.0, Lymphocytes % (Manual) 5 L, Monocytes % (Manual) 5, Eosinophils % (Manual) 1, Platelet Estimate Normal, RBC Morphology Normal 02/08/19 11:30: Lactate 2.6 H 02/08/19 11:30: Urine Color Yellow, Urine Appearance Clear, Urine pH 6.0, Ur Specific Anderson 1.015, Urine Protein Negative, Urine Glucose (UA) Negative, Urine Ketones Negative, Urine Blood 2+, Urine Nitrate Negative, Urine Bilirubin Negative, Urine Urobilinogen 0.2, Ur Leukocyte Esterase Trace, Urine RBC 5-10, Urine WBC 3-5, Ur Squamous Epith Cells 3-5, Urine Bacteria 1+ 02/08/19 11:30: Total Bilirubin 0.5, Direct Bilirubin 0.1, Indirect Bilirubin 0.4, AST 22, ALT 25, Alkaline Phosphatase 99, Total Protein 6.5, Albumin 2.6 L 02/08/19 12:23: Specimen Source Left radial, O2 % 4 lpm nc, ABG pH 7.43, ABG pCO2 37.5, ABG pO2 69.1 L, ABG HCO3 24.2, ABG Total CO2 25.3, ABG O2 Saturation 94, ABG Base Excess -0.2, Guzman Test Patient unable Result diagrams: 02/08/19 11:30 02/08/19 11:30 Orders (Tests/Meds): ED MEDICATIONS Generic Name Dose Route Start Last Admin Trade Name Freq PRN Reason Stop Dose Admin Acetaminophen 650 mg 02/08/19 14:36 Acetaminophen 325mg Tab PO 03/10/19 14:35 Q4HP PRN As Needed for Fever or Pain Albuterol/Ipratropium 3 ml 02/08/19 20:00 Duoneb 3ml Neb IH 03/10/19 19:59 QIDRT GEORGI Apixaban 2.5 mg 02/08/19 21:00 Eliquis 5mg Tablet PO 03/10/19 20:59 BID GEORGI Aspirin 81 mg 02/08/19 21:00 Aspirin 81mg Chewable Tablet PO 03/10/19 20:59 HS [facility] Atenolol 25 mg 02/08/19 21:00 Tenormin 25mg Tablet PO 03/10/19 20:59 BID [facility] Benzonatate 100 mg 02/08/19 21:00 Tessalon Perles 100mg Capsule PO 03/10/19 20:59 BID [facility] Citalopram Hydrobromide 40 mg 02/09/19 09:00 Celexa 40mg Tablet PO 03/11/19 08:59 DAILY [facility] Clonazepam 0.5 mg 02/08/19 21:00 Klonopin 0.5mg Tablet PO 03/10/19 20:59 BID [facility] Finasteride 5 mg 02/09/19 09:00 Proscar 5mg Tablet PO 03/11/19 08:59 DAILY [facility] Gabapentin 600 mg 02/08/19 21:00 Neurontin 600mg Tablet PO 03/10/19 20:59 BID [facility] Levofloxacin/Dextrose 750 mg in 150 mls @ 100 mls/hr 02/09/19 11:00 Levofloxacin 750mg/150ml Premix IV 02/22/19 10:59 Q24H [facility] Protocol Insulin Human Lispro 0 unit 02/08/19 16:30 02/08/19 18:18 Humalog 100 Units/Ml 3ml Vial (Ssi) SQ 03/10/19 16:29 2 unit ACHS [facility] Administration Protocol Memantine 10 mg 02/08/19 17:00 02/08/19 18:15 Memantine 10mg Tablet PO 03/10/19 16:59 10 mg 0800,1700 [facility] Administration Miscellaneous 1 each 02/08/19 14:36 02/08/19 17:43 Vancomycin Consult Request * 03/10/19 12:44 Not Given CONSULT PHARMACY [facility] Non-Formulary Medication 3 mg 02/08/19 21:00 Brexpiprazole [Rexulti] PO 03/10/19 20:59 HS [facility] Non-Formulary Medication 3 mg 02/08/19 17:00 02/08/19 17:52 Budesonide [Budesonide Ec] PO 03/10/19 16:59 Not Given 0900,1700 [facility] Ondansetron HCl 4 mg 02/08/19 14:36 Zofran 4mg/2ml Vial IV 03/10/19 14:35 Q8HP PRN Nausea Oxybutynin Chloride 5 mg 02/08/19 21:00 Ditropan 5mg Tablet PO 03/10/19 20:59 BID [facility] Phenazopyridine HCl 100 mg 02/09/19 09:00 Pyridium 200mg Tablet PO 03/11/19 08:59 DAILY [facility] Pravastatin Sodium 40 mg 02/08/19 21:00 Pravachol 40mg Tablet PO 03/10/19 20:59 HS [facility] Sodium Chloride 10 ml 02/08/19 14:36 Saline Flush 10ml Syringe IV 03/10/19 14:35 NEEDED PRN Maintain IV Site Tamsulosin HCl 0.4 mg 02/09/19 09:00 Flomax 0.4mg Capsule PO 03/11/19 08:59 DAILY [facility] Discontinued Medications Generic Name Dose Route Start Last Admin Trade Name Freq PRN Reason Stop Dose Admin Furosemide 20 mg 02/08/19 21:00 Lasix 20mg Tablet PO 03/10/19 20:59 BID [facility]ORGI Levofloxacin/Dextrose 750 mg in 150 mls @ 100 mls/hr 02/08/19 12:45 02/08/19 12:44 Levofloxacin 750mg/150ml Premix IV 02/22/19 12:44 100 mls/hr Q24H [facility] Administration Protocol Cefepime HCl 1 gm/ Sodium 50 mls @ 100 mls/hr 02/08/19 12:45 02/08/19 13:45 Chloride IV 02/22/19 12:44 100 mls/hr Q12H [facility] Administration Protocol Sodium Chloride 3,400 mls @ 1,700 mls/hr 02/08/19 13:01 02/08/19 12:50 Sod Chlor 0.9% 1000ml Bag 30 ml/kg infuse over 2 hr (3400 ml) 02/08/19 15:00 1,700 mls/hr IV Administration .Q2H ONE Vancomycin HCl 2,000 mg/ 250 mls @ 125 mls/hr 02/08/19 13:15 Sodium Chloride IV 02/08/19 15:14 ONCE ONE Vancomycin HCl 2,000 mg/ 250 mls @ 125 mls/hr 02/08/19 13:13 02/08/19 14:33 Sodium Chloride IV 02/08/19 15:12 125 mls/hr ONCE ONE Administration Sodium Chloride 1,000 mls @ 50 mls/hr 02/08/19 14:36 Sod Chlor 0.9% 1000ml Bag IV 03/10/19 14:35 .Q20H [facility] Cefepime HCl 1 gm/ Sodium 50 mls @ 100 mls/hr 02/09/19 01:00 Chloride IV 02/22/19 00:59 Q12H [facility] Protocol Vancomycin HCl 2,000 mg/ 250 mls @ 125 mls/hr 02/09/19 08:30 Sodium Chloride IV 02/23/19 08:29 Q18H [facility] Miscellaneous 1 each 02/08/19 12:45 02/08/19 12:40 Vancomycin Consult Request * 03/10/19 12:44 1 each CONSULT PHARMACY [facility] Administration ORDERS Category Date Time Status Blood Culture Stat Micro 02/08/19 12:20 Received - Radiology Data #1 Image(s): Chest, Pelvis Image Reviewed: Yes I discussed the image results w/the radiologist Chest: Poor inspiration, atelectasis versus infiltrate right base and also possibly left. Pelvis: negative for acute fracture. - CT Data CT Scan: Head, C-Spine Time Received: 12:[address] Reviewed: Yes: I have viewed the radiologist's interpretation Preliminary Findings: Normal/NAD, No Fracture Seen - ECG Data Tracing #1 EKG interpreted by Forrest Cotton MD: Rhythm: sinus Rate: 77 [place]: Left Ectopy: none Conduction: Incomplete right bundle branch block ST Segment Changes: Nonspecific T Wave Changes: none Q Waves: none No evidence of acute ischemia or injury Prior electrocardiagrams reviewed. No change from prior tracings. - Tissue Perfus/Sepsis Re-Eval Reperfusion Exam Performed: Yes Date Performed: 02/08/19 Time Performed: 15:30 Sepsis Follow-Up: Yes: Respiratory exam, Cardiovascular exam, Capillary refill, Peripheral pulse strength, Peripheral pulse location, Skin exam, Vital Signs General Adult HPI - General Chief complaint: Fall Stated complaint: Fall Time Seen by Provider: 02/08/19 11:25 Mode of Arrival: EMS Limitations: No Limitations Description of Symptoms (Recalled from ER Triage Doc. by RN): to ed per squad pt resident [facility] [place] sent for eval after a fall this am. pt states he was getting out of bed, lost his balance and fell. pt c/o generalized pain. nh reports "pt had some slight confusion" after incident. denies any LOC. pt alert and oriented x 4. follows commands - History of Present Illness HPI narrative: Patient is brought in by ambulance from detention. He fell after getting up from bed. Staff reports some confusion after the fall. However, reports that also prior to the incident today he was more lethargic than usual. He had pneumonia a month ago. She says he is still congested. Has a prior history of a stroke which has affected his left side, swallowing, and speech. He also had an injury to his left arm in July, sustained a severe laceration and since then does not have use of his left hand. He wears a brace at night. He is on Eliquis for a prior history of pulmonary embolism. He walks with a walker, but staff has to go behind him with a wheelchair. EMS reports pulse ox was in the high 80s at the detention. Placed on nasal cannula oxygen prior to arrival. reports that the patient used to use nasal cannula oxygen 3 L at home at night. She says at home to try to keep his pulse ox above 90%. However, she states at the detention they do not apply oxygen or even chest his pulse ox unless his mental status is abnormal. She says they do not seem to worry and do not apply oxygen unless he gets down in the 70s. - Related Data Home Medications Medication Instructions Recorded Confirmed Apixaban [Eliquis 2.5mg tab] 2.5 mg PO BID 06/12/17 02/08/19 Budesonide [Budesonide EC] 3 mg PO BID 06/12/17 02/08/19 Escitalopram Oxalate [Lexapro] 20 mg PO HS 06/12/17 02/08/19 Memantine HCl [Namenda 10mg 10 mg PO 0800,1600 06/12/17 02/08/19 Tablet] Multivit-Min/FA/Lycopen/Lutein 1 tab PO DAILY 06/12/17 02/08/19 [Men 50 Plus Multivitamin Tab] Oxybutynin Chloride [Oxybutynin 10 mg PO DAILY 06/12/17 02/08/19 Chloride ER] Pravastatin Sodium [Pravachol] 40 mg PO HS 06/12/17 02/08/19 Pyridoxine HCl (Vitamin B6) 100 mg PO DAILY 06/12/17 02/08/19 [Vitamin B-6] clonazePAM [Clonazepam] 0.5 mg PO BID 06/12/17 02/08/19 Dutasteride 0.5 mg PO DAILY 12/18/17 02/08/19 Gabapentin [Neurontin 600mg 600 mg PO 0800,1300 12/18/17 02/08/19 tablet] Loratadine [Claritin 10mg Tablet] 10 mg PO HS 12/18/17 02/08/19 fluticasone propionate 50 1 dose INTRANASAL DAILY 30 Days 01/11/18 02/08/19 mcg/actuation nasal spray,suspension Aspirin [Aspirin 81mg chewable 81 mg PO HS 05/15/18 02/08/19 tab] benzonatate 100 mg capsule 100 mg PO BID cap 05/22/18 02/08/19 furosemide 20 mg tablet 20 mg PO BID tab 05/22/18 02/08/19 Loperamide HCl [Loperamide HCl 4 mg PO DAILY 05/28/18 02/08/19 1mg/5mL Udc] atenolol 25 mg tablet 25 mg PO BID tab 11/06/18 02/08/19 tamsulosin 0.4 mg capsule 0.4 mg PO DAILY cap 11/06/18 02/08/19 Ascorbic Acid 500 mg PO DAILY 11/08/18 02/08/19 Loperamide HCl [Anti-Diarrheal] 6 mg PO TID 11/08/18 02/08/19 Phenazopyridine HCl [Azo Urinary 95 mg PO DAILY 11/08/18 02/08/19 Pain Relief] Saccharomyces Boulardii [Florastor] 250 mg PO DAILY 11/08/18 02/08/19 Brexpiprazole [Rexulti] 3 mg PO HS 02/08/19 02/08/19 Ipratropium/Albuterol Sulfate 3 ml IH QIDP PRN 02/08/19 02/08/19 [Duoneb 3mL neb] Linagliptin [Tradjenta 5mg tablet] 5 mg PO DAILY 02/08/19 02/08/19 Liraglutide [Victoza 2-Rick] 1.2 mg SQ DAILY 02/08/19 02/08/19 Oxycodone HCl [Oxycodone (IR) 5mg 5 mg PO Q6HP PRN 02/08/19 02/08/19 Cap] Rivastigmine Tartrate 3 mg PO BID 02/08/19 02/08/19 [Rivastigmine] guaiFENesin [Robitussin 200mg/10mL 200 mg PO Q6HP PRN 02/08/19 02/08/19 Syrup Udc] lamoTRIgine [Lamictal 100mg Tablet] 100 mg PO BID 02/08/19 02/08/19 Allergies Allergy/AdvReac Type Severity Reaction Status Date / Time erythromycin base Allergy Intermediate SWELLING/IT Verified 01/01/19 14:07 [ERYTHROMYCIN BASE] CLEMENTE/SEIZU RES iodine [IODINE] Allergy Unknown Unknown Verified 01/01/19 14:07 allergy reaction delafloxacin AdvReac Severe Diarrhea Uncoded 12/04/18 14:47 [facility] History - Hepatitis A Screen Drug use history?: No High risk sexual behaviors?: No History of sexually transmitted infection?: No Currently employed?: No Childcare worker?: No Do you have indoor plumbing?: Yes Do you have electricity?: Yes Attestation statement:: This patient has been screened for Hepatitis A risk factors. I have reviewed the patient's past medical history: Yes Medical History: Reports:: Anxiety, Chronic Obstructive Pulmonary Disease (COPD), Deep Vein Thrombosis, Dementia, Diabetes Mellitus Type 2, Hyperlipidemia, Hypertension, Lung Disease, Kidney Stones, Myocardial Infarction, Urinary Tract Infection Denies:: Cancer, Diabetes Mellitus Type 1, Internal Pacemaker, MRSA Other Medical History: Reports: Arthritis, Other Comment: Sturge-Matt syndrome Other Surgeries: Yes: No Previous Surgery, Colonoscopy, EGD, Hernia Repair. No: Pacemaker Amputation: No Fractures: Yes (l4 compression) - Social History Smoking Status: Former smoker Tobacco Type: cigarettes # Packs/Day (cigarettes): 2 #Yrs smoked (if former smoker): 52 Alcohol Intake: never Alcohol Intake Frequency:: other Substance Use Type: denies use Occupational Status: retired, disabled Housing: house Household Members: spouse - Psychiatric History Pschychiatric History:: Reports:: Anxiety, Psychiatric Treatment Family Hx:: Cancer, Diabetes, Heart Attack, Hyperlipidemia, Hypertension, Thyroid Disorder ROS Obtained: Yes unobtainable due to mental status, Yes unobtainable due to mental condition Physical Exam - General General appearance: other Comment: Legs with eyes closed, but will open eyes to voice and respond to questions. 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 Tiny 4 mm abrasion right lateral orbital rim area.) - Eye Eye exam: Present: PERRL, EOMI - ENT ENT exam: Present: mucous membranes moist - Neck Neck exam: Present: normal inspection, trachea midline. Absent: tenderness - Chest Chest inspection: Present: normal inspection, symmetric chest wall rise - Respiratory Respiratory exam: Present: normal lung sounds bilaterally. Absent: respiratory distress - Cardiovascular Cardiovascular exam: Present: regular rate, normal rhythm - Abdominal Exam Abdominal exam: Present: soft - Extremities Exam Extremities exam: Present: normal capillary refill, other (Superficial abrasion prepatellar area left knee. No apparent tenderness. No deformity.) - Neurological Exam Neurological exam: Present: CN II-XII intact, motor sensory deficit (left hand paresis/contracture.), other (drowsy) - Expanded Neurological Exam Speech: Present: fluid speech Comment: Left hand contracture, thumb held between index and middle fingers with his prescription. He is able to raise his left arm, but does not have use of his hand. Scar of his left forearm. - Skin Skin exam: Present: warm, dry
[2019-02-08 11:53] LABS: Microscopic, Urine URINE MICROSCOPIC (MICROSCOPIC)
[2019-02-08 11:57] LABS: Basophils # 0.1 K/mm3 (0-0.2); Basophils % 0.5 % (0.1-2.0); Eosinophils # 0.2 K/mm3 (0.0-0.4); Eosinophils % 0.7 % (0.1-12.0); Hemoglobin 11.7 g/dL (14.1-18.0); Lymphocytes # 1.6 K/mm3 (0.7-4.5); Lymphocytes % 6.1 % (10-50); Mean Corpuscular HGB Conc 30.8 g/dL (31.8-35.4); Mean Platelet Volume 6.7 fl (7.4-10.4); Monocytes # 1.3 K/mm3 (0.1-1.0); Monocytes % 5.1 % (1.7-9.3); Neutrophils # 22.3 K/mm3 (1.8-7.8); Neutrophils % 87.5 % (37.0-80.0); Platelet Count 305 K/mm3 (142-424); Red Blood Count 4.47 M/mm3 (4.60-6.20); Red Cell Distribution Width 15.2 % (11.5-17.5); White Blood Count 25.5 K/mm3 (4.8-10.8)
[2019-02-08 12:02] LABS: Appearance,Urine CLEAR (Clear); Bilirubin,Urine Negative (Negative); Blood, Urine 2+ (Negative); Color,Urine YELLOW (Yellow); Glucose,Urine (UA) Negative (Negative); Ketones,Urine Negative (Negative); Leukocyte Esterase,Urine TRACE (Negative); Protein,Urine Negative (Negative); Specific Gravity, Urine 1.015 (1.005-1.030); Urobilinogen,Urine 0.2 EU/dl (0.2)
[2019-02-08 12:19] LABS: Calcium 8.6 mg/dL (8.5-10.1)
[2019-02-08 12:20] LABS: Bacteria,Urine 1+ /lpf
[2019-02-08 12:48] LABS: Eosinophils % 1 % (0-3); Lymphocytes % 5 % (10-50); Monocytes % 5 % (2-9); Neutrophils % 83 % (42-76); Total Cells Counted 100
[2019-02-08 12:49] LABS: RBC Morphology Normal
[2019-02-08 13:01] LABS: ABG Base Excess -0.2 mmol/L (-2.4-2.3); ABG HCO3 24.2 mmhg (22.0-26.0); ABG Oxygen Saturation 94 % (90-100); ABG PCO2 37.5 mmhg (35.0-45.0); ABG PH 7.43 mmol/L (7.35-7.45); ABG PO2 69.1 mmhg (80-100); ABG TCO2 25.3 mmhg (23-27)
[2019-02-08 13:02] LABS: Allen's Test Patient Unable
[2019-02-08 13:23] LABS: Albumin Level 2.6 gm/dL (3.4-5.0); Bilirubin,Direct 0.1 mg/dL (0.0-0.2); Bilirubin,Indirect 0.4 mg/dL (0.0-0.9); Bilirubin,Total 0.5 mg/dL (0.2-1.0); Total Protein,Serum 6.5 gm/dL (6.4-8.2)
--- NOTE | 2019-02-08 14:56 | Pharmacy Consult Notes ---
[facility] Pharmacy VTE Monitoring - Patient Demographics Admission date: 02/08/19 Report Date: 02/08/19 Time: 14:55 Allergies/Adverse Reactions: Patient Allergies erythromycin base [ERYTHROMYCIN BASE] Allergy (Intermediate, Verified 01/01/19 14:07) SWELLING/ITCHING/SEIZURES iodine [IODINE] Allergy (Unknown, Verified 01/01/19 14:07) Unknown allergy reaction delafloxacin Adverse Reaction (Severe, Uncoded 12/04/18 14:47) Diarrhea Height: 1.85 m Weight: 113.398 kg Patient Problems: Current Active Problems Severe sepsis (Acute) HCAP (healthcare-associated pneumonia) (Acute) Sepsis with acute hypoxic respiratory failure (Acute) Fall (Chronic) - VTE Risk Labs: VTE Related Lab Results Hgb 11.7 g/dL (14.1-18.0) L 02/08/19 11:30 Hct 38.0 % (42.0-52.0) L 02/08/19 11:30 Plt Count 305 K/mm3 (142-424) 02/08/19 11:30 BUN 20 mg/dL (7-18) H 02/08/19 11:30 Creatinine 1.37 mg/dL (0.70-1.30) H 02/08/19 11:30 Estimated Creat Clear 82 mL/min (50-200) 02/08/19 11:30 - Prophylaxis VTE Prophylaxis Ordered?: Yes Types of VTE Prophylaxis: Pharmacological Pharmacologic Type: Other (ELIQUIS)
--- NOTE | 2019-02-08 15:04 | Pharmacy Consult Notes ---
- Pharmacy Consult Date: 02/08/19 Time: 15:03 Referring provider: DR. DISLA Reason for Consult:: VANCOMYCIN DOSING Allergies and ADEs:: Allergies Allergy/AdvReac Type Severity Reaction Status Date / Time erythromycin base Allergy Intermediate SWELLING/IT Verified 01/01/19 14:07 [ERYTHROMYCIN BASE] CLEMENTE/SEIZU RES iodine [IODINE] Allergy Unknown Unknown Verified 01/01/19 14:07 allergy reaction delafloxacin AdvReac Severe Diarrhea Uncoded 12/04/18 14:47 Home Medications:: Home Medications Medication Instructions Recorded Confirmed Type Apixaban [Eliquis 2.5mg tab] 2.5 mg PO BID 06/12/17 02/08/19 History Budesonide [Budesonide EC] 3 mg PO 0900,1700 06/12/17 02/08/19 History Escitalopram Oxalate [Lexapro] 20 mg PO DAILY 06/12/17 02/08/19 History Memantine HCl [Namenda 10mg 10 mg PO 0800,1700 06/12/17 02/08/19 History Tablet] Multivit-Min/FA/Lycopen/Lutein 1 tab PO DAILY 06/12/17 02/08/19 History [Men 50 Plus Multivitamin Tab] Oxybutynin Chloride [Oxybutynin 10 mg PO DAILY 06/12/17 02/08/19 History Chloride ER] Pravastatin Sodium [Pravachol] 40 mg PO HS 06/12/17 02/08/19 History Pyridoxine HCl (Vitamin B6) 100 mg PO DAILY 06/12/17 02/08/19 History [Vitamin B-6] clonazePAM [Clonazepam] 0.5 mg PO BID 06/12/17 02/08/19 History Dutasteride 0.5 mg PO DAILY 12/18/17 02/08/19 History Gabapentin [Neurontin 600mg 600 mg PO BID 12/18/17 02/08/19 History tablet] Loratadine [Claritin 10mg Tablet] 10 mg PO HS 12/18/17 02/08/19 History fluticasone propionate 50 1 dose INTRANASAL DAILY 30 Days 01/11/18 02/08/19 History mcg/actuation nasal spray,suspension Aspirin [Aspirin 81mg chewable 81 mg PO HS 05/15/18 02/08/19 History tab] benzonatate 100 mg capsule 100 mg PO BID cap 05/22/18 02/08/19 History furosemide 20 mg tablet 20 mg PO BID tab 05/22/18 02/08/19 History Bacillus Coagulans [Digestive 1 each PO 1100 05/28/18 02/08/19 History Advantage] Loperamide HCl [Loperamide HCl 4 mg PO 0900 05/28/18 02/08/19 History 1mg/5mL Udc] atenolol 25 mg tablet 25 mg PO BID tab 11/06/18 02/08/19 History brexpiprazole 3 mg tablet 3 mg PO HS 11/06/18 02/08/19 History tamsulosin 0.4 mg capsule 0.4 mg PO DAILY cap 11/06/18 02/08/19 History Ascorbic Acid 500 mg PO DAILY 11/08/18 02/08/19 History Loperamide HCl [Anti-Diarrheal] 4 mg PO 1700 11/08/18 02/08/19 History Phenazopyridine HCl [Azo Urinary 95 mg PO DAILY 11/08/18 02/08/19 History Pain Relief] Saccharomyces Boulardii [Florastor] 250 mg PO DAILY 11/08/18 02/08/19 History Linagliptin [Tradjenta 5mg tablet] 5 mg PO DAILY 02/08/19 02/08/19 History Height: 1.85 m Weight: 113.398 kg Laboratory Results:: Laboratory Results - last 24 hr 02/08/19 11:30: Sodium 135 L, Potassium 4.0, Chloride 99, Carbon Dioxide 28, Anion Gap 12.0, BUN 20 H, Creatinine 1.37 H, Estimated Creat Clear 82, Estimated GFR 52 L, Est GFR ( Amer) 62, Glucose 235 H, Calcium 8.6, Troponin I 0.02 02/08/19 11:30: WBC 25.5 H*, RBC 4.47 L, Hgb 11.7 L, Hct 38.0 L, MCV 85.0, MCH 26.2 L, MCHC 30.8 L, RDW 15.2, Plt Count 305, MPV 6.7 L, Neut % (Auto) 87.5 H, Lymph % (Auto) 6.1 L, [place] % (Auto) 5.1, Eos % (Auto) 0.7, Baso % (Auto) 0.5, Neut # (Auto) 22.3 H, Lymph # (Auto) 1.6, [place] # (Auto) 1.3 H, Eos # (Auto) 0.2, Baso # (Auto) 0.1, Total Counted 100, Neutrophils % (Manual) 83 H, Band Neutrophils % 6.0, Lymphocytes % (Manual) 5 L, Monocytes % (Manual) 5, Eosinophils % (Manual) 1, Platelet Estimate Normal, RBC Morphology Normal 02/08/19 11:30: Lactate 2.6 H 02/08/19 11:30: Urine Color Yellow, Urine Appearance Clear, Urine pH 6.0, Ur Specific [place] 1.015, Urine Protein Negative, Urine Glucose (UA) Negative, Urine Ketones Negative, Urine Blood 2+, Urine Nitrate Negative, Urine Bilirubin Negative, Urine Urobilinogen 0.2, Ur Leukocyte Esterase Trace, Urine RBC 5-10, Urine WBC 3-5, Ur Squamous Epith Cells 3-5, Urine Bacteria 1+ 02/08/19 11:30: Total Bilirubin 0.5, Direct Bilirubin 0.1, Indirect Bilirubin 0.4, AST 22, ALT 25, Alkaline Phosphatase 99, Total Protein 6.5, Albumin 2.6 L 02/08/19 12:23: Specimen Source Left radial, O2 % 4 lpm nc, ABG pH 7.43, ABG pCO2 37.5, ABG pO2 69.1 L, ABG HCO3 24.2, ABG Total CO2 25.3, ABG O2 Saturation 94, ABG Base Excess -0.2, Guzman Test Patient unable Medical History: Reports:: Anxiety, Chronic Obstructive Pulmonary Disease (COPD), Deep Vein Thrombosis, Dementia, Diabetes Mellitus Type 2, Hyperlipidemia, Hypertension, Lung Disease, Kidney Stones, Myocardial Infarction, Urinary Tract Infection Denies:: Cancer, Diabetes Mellitus Type 1, Internal Pacemaker, MRSA Assessment and Plan - Assessment and plan all Dx Assessment and Plan for all problems:: BASED ON PATIENT FACTORS, RECOMMEND VANCOMYCIN 2 GM IV Q18H. PHARMACY WILL FOLLOW DAILY AND ADJUST APPROPRIATE.
--- NOTE | 2019-02-08 17:41 | History & Physical Report ---
*Admission Date: 02/08/19 *Chief complaint: SOA and Fall *History of present illness: Mr. Sheppard is a 68-year-old male who is a resident of [facility]. He was brought in by ambulance after getting up from bed and falling at the long term. He reportedly had some confusion after the fall but returned to baseline upon presenting to the ER. However, reports that also prior to the incident today he was more lethargic than usual. He had pneumonia a month ago but has remained congested with some mild hypoxemia on presentation to the ER today. Of note he has a prior history of a stroke which has affected his left side, swallowing, and speech. He also had an injury to his left arm in July, sustained a severe laceration and since then does not have use of his left hand. He wears a brace at night. He is on Eliquis for a prior history of pulmonary embolism. He walks with a walker, but staff has to go behind him with a wheelchair. Upon presentation to the ER, patient found to be hypoxemic on baseline oxygen, elevated white count, tachypneic, and finding of bilateral pneumonia. Met criteria for sepsis. Admitted to medicine for further management. [facility] History I have reviewed the patient's past medical history: Yes Medical History: Reports:: Anxiety, Chronic Obstructive Pulmonary Disease (COPD), Deep Vein Thrombosis, Dementia, Diabetes Mellitus Type 2, Hyperlipidemia, Hypertension, Lung Disease, Kidney Stones, Myocardial Infarction, Urinary Tract Infection Denies:: Cancer, Diabetes Mellitus Type 1, Internal Pacemaker, MRSA *Have you ever received a pneumonia vaccine?: Yes *Have you received a flu vaccine this season?: Yes Other Medical History: Reports: Arthritis, Other Other Surgeries: Yes: No Previous Surgery, Colonoscopy, EGD, Hernia Repair. No: Pacemaker Amputation: No Fractures: Yes (l4 compression) - *Social History Smoking Status: Former smoker Tobacco Type: cigarettes # Packs/Day (cigarettes): 2 #Yrs smoked (if former smoker): 52 Alcohol Intake: never Alcohol Intake Frequency:: other Substance Use Type: denies use *Occupational Status:: retired, disabled Housing: long term Household Members: spouse *Travel in the last 8 weeks: None - Psychiatric History Pschychiatric History:: Reports:: Anxiety, Psychiatric Treatment Family Hx:: Cancer, Diabetes, Heart Attack, Hyperlipidemia, Hypertension, Thyroid Disorder Review of Systems - Review of Systems Review of systems:: pertinent systems reviewed and negative unless documented below Meds Home Medications Medication Instructions Recorded Confirmed Type Apixaban [Eliquis 2.5mg tab] 2.5 mg PO BID 06/12/17 02/08/19 History Budesonide [Budesonide EC] 3 mg PO BID 06/12/17 02/08/19 History Escitalopram Oxalate [Lexapro] 20 mg PO HS 06/12/17 02/08/19 History Memantine HCl [Namenda 10mg 10 mg PO 0800,1600 06/12/17 02/08/19 History Tablet] Multivit-Min/FA/Lycopen/Lutein 1 tab PO DAILY 06/12/17 02/08/19 History [Men 50 Plus Multivitamin Tab] Oxybutynin Chloride [Oxybutynin 10 mg PO DAILY 06/12/17 02/08/19 History Chloride ER] Pravastatin Sodium [Pravachol] 40 mg PO HS 06/12/17 02/08/19 History Pyridoxine HCl (Vitamin B6) 100 mg PO DAILY 06/12/17 02/08/19 History [Vitamin B-6] clonazePAM [Clonazepam] 0.5 mg PO BID 06/12/17 02/08/19 History Dutasteride 0.5 mg PO DAILY 12/18/17 02/08/19 History Gabapentin [Neurontin 600mg 600 mg PO 0800,1300 12/18/17 02/08/19 History tablet] Loratadine [Claritin 10mg Tablet] 10 mg PO HS 12/18/17 02/08/19 History fluticasone propionate 50 1 dose INTRANASAL DAILY 30 Days 01/11/18 02/08/19 History mcg/actuation nasal spray,suspension Aspirin [Aspirin 81mg chewable 81 mg PO HS 05/15/18 02/08/19 History tab] benzonatate 100 mg capsule 100 mg PO BID cap 05/22/18 02/08/19 History furosemide 20 mg tablet 20 mg PO BID tab 05/22/18 02/08/19 History Loperamide HCl [Loperamide HCl 4 mg PO DAILY 05/28/18 02/08/19 History 1mg/5mL Udc] atenolol 25 mg tablet 25 mg PO BID tab 11/06/18 02/08/19 History tamsulosin 0.4 mg capsule 0.4 mg PO DAILY cap 11/06/18 02/08/19 History Ascorbic Acid 500 mg PO DAILY 11/08/18 02/08/19 History Loperamide HCl [Anti-Diarrheal] 6 mg PO TID 11/08/18 02/08/19 History Phenazopyridine HCl [Azo Urinary 95 mg PO DAILY 11/08/18 02/08/19 History Pain Relief] Saccharomyces Boulardii [Florastor] 250 mg PO DAILY 11/08/18 02/08/19 History Brexpiprazole [Rexulti] 3 mg PO HS 02/08/19 02/08/19 History Ipratropium/Albuterol Sulfate 3 ml IH QIDP PRN 02/08/19 02/08/19 History [Duoneb 3mL neb] Linagliptin [Tradjenta 5mg tablet] 5 mg PO DAILY 02/08/19 02/08/19 History Liraglutide [Victoza 2-Rick] 1.2 mg SQ DAILY 02/08/19 02/08/19 History Oxycodone HCl [Oxycodone (IR) 5mg 5 mg PO Q6HP PRN 02/08/19 02/08/19 History Cap] Rivastigmine Tartrate 3 mg PO BID 02/08/19 02/08/19 History [Rivastigmine] guaiFENesin [Robitussin 200mg/10mL 200 mg PO Q6HP PRN 02/08/19 02/08/19 History Syrup Udc] lamoTRIgine [Lamictal 100mg Tablet] 100 mg PO BID 02/08/19 02/08/19 History Allergies Allergy/AdvReac Type Severity Reaction Status Date / Time erythromycin base Allergy Intermediate SWELLING/IT Verified 01/01/19 14:07 [ERYTHROMYCIN BASE] CLEMENTE/SEIZU RES iodine [IODINE] Allergy Unknown Unknown Verified 01/01/19 14:07 allergy reaction delafloxacin AdvReac Severe Diarrhea Uncoded 12/04/18 14:47 Exam Vital signs and Labs for Last 24 Hours: Temp Pulse Resp BP Pulse Ox 98.2 F 79 18 112/54 L 96 02/08/19 16:36 02/08/19 17:35 02/08/19 17:35 02/08/19 17:35 02/08/19 17:35 Laboratory Results - last 24 hr 02/08/19 11:30: Sodium 135 L, Potassium 4.0, Chloride 99, Carbon Dioxide 28, Anion Gap 12.0, BUN 20 H, Creatinine 1.37 H, Estimated Creat Clear 82, Estimated GFR 52 L, Est GFR ( Amer) 62, Glucose 235 H, Calcium 8.6, Troponin I 0.02 02/08/19 11:30: WBC 25.5 H*, RBC 4.47 L, Hgb 11.7 L, Hct 38.0 L, MCV 85.0, MCH 26.2 L, MCHC 30.8 L, RDW 15.2, Plt Count 305, MPV 6.7 L, Neut % (Auto) 87.5 H, Lymph % (Auto) 6.1 L, [place] % (Auto) 5.1, Eos % (Auto) 0.7, Baso % (Auto) 0.5, Neut # (Auto) 22.3 H, Lymph # (Auto) 1.6, [place] # (Auto) 1.3 H, Eos # (Auto) 0.2, Baso # (Auto) 0.1, Total Counted 100, Neutrophils % (Manual) 83 H, Band Neutr ophils % 6.0, Lymphocytes % (Manual) 5 L, Monocytes % (Manual) 5, Eosinophils % (Manual) 1, Platelet Estimate Normal, RBC Morphology Normal 02/08/19 11:30: Lactate 2.6 H 02/08/19 11:30: Urine Color Yellow, Urine Appearance Clear, Urine pH 6.0, Ur Specific [place] 1.015, Urine Protein Negative, Urine Glucose (UA) Negative, Urine Ketones Negative, Urine Blood 2+, Urine Nitrate Negative, Urine Bilirubin Negative, Urine Urobilinogen 0.2, Ur Leukocyte Esterase Trace, Urine RBC 5-10, Urine WBC 3-5, Ur Squamous Epith Cells 3-5, Urine Bacteria 1+ 02/08/19 11:30: Total Bilirubin 0.5, Direct Bilirubin 0.1, Indirect Bilirubin 0.4, AST 22, ALT 25, Alkaline Phosphatase 99, Total Protein 6.5, Albumin 2.6 L 02/08/19 12:23: Specimen Source Left radial, O2 % 4 lpm nc, ABG pH 7.43, ABG pCO2 37.5, ABG pO2 69.1 L, ABG HCO3 24.2, ABG Total CO2 25.3, ABG O2 Saturation 94, ABG Base Excess -0.2, Guzman Test Patient unable 02/08/19 15:58: Lactate 1.7 I & O for Last 24 hours: Intake & Output 02/05/19 02/06/19 02/07/19 02/08/19 23:59 23:59 23:59 23:59 Intake Total 240 / 240 Balance 240 / 240 Weight 120.315 kg - Constitutional obese - *Routine HEENT Exam Head: Present: normocephalic, atraumatic Eye: Present: EOMI, PERRL ENT: Present: mucous membranes moist Comments: Edentulous - *Routine Neck Exam Present: supple, full ROM - *Routine Respiratory Exam Absent: prolonged expiratory phase, wheezes, crackles Comments: Diminished air movement bilaterally, complicated by body habitus - *Routine Cardiovascular Exam Present: RRR. Absent: murmur - *Routine Abdominal Exam Present: soft, normoactive bowel sounds. Absent: tenderness - *Routine Rectal Exam Patient deferred: visual exam - *Routine Exam Patient deferred: penile exam - *Routine Extremities Exam Present: edema. Absent: cyanosis, clubbing - *Routine Skin Exam Present: warm. Absent: rash - *Routine Neurological Exam Present: alert, oriented X3. Absent: altered mental status Assessment and Plan (1) HCAP (healthcare-associated pneumonia) Current visit: Yes Status: Acute Category: Medical Code(s): J18.9 - Pneumonia, unspecified organism (2) Sepsis with acute hypoxic respiratory failure Current visit: Yes Status: Acute Qualifiers: Sepsis type: sepsis due to unspecified organism Severe sepsis shock status: without septic shock Qualified Code(s): A41.9 - Sepsis, unspecified organism; R65.20 - Severe sepsis without septic shock; J96.01 - Acute respiratory failure with hypoxia Category: Medical Code(s): A41.9 - Sepsis, unspecified organism; R65.20 - Severe sepsis without septic shock; J96.01 - Acute respiratory failure with hypoxia (3) Chronic diarrhea Current visit: No Status: Acute Category: Medical Code(s): K52.9 - Noninfective gastroenteritis and colitis, unspecified (4) Generalized weakness Current visit: No Status: Acute Category: Medical Code(s): R53.1 - Weakness (5) Diabetes mellitus type 2 in obese Current visit: No Status: Chronic Category: Medical Code(s): E11.69 - Type 2 diabetes mellitus with other specified complication; E66.9 - Obesity, unspecified - Assessment and plan all Dx Assessment and Plan for all problems:: 68-year-old chronically ill male who presented with some worsening confusion and fatigue. Found to have healthcare acquired pneumonia meeting material for sepsis. Admitted for fluid resuscitation and antibiotics. On oxygen at baseline level. Will monitor overnight for improvement with possible transition oral antibiotics in the morning and discharge back to long term if symptoms defervesced.
[2019-02-09 05:55] LABS: Basophils # 0.1 K/mm3 (0-0.2); Basophils % 0.4 % (0.1-2.0); Eosinophils # 0.4 K/mm3 (0.0-0.4); Eosinophils % 3.3 % (0.1-12.0); Hematocrit 35.3 % (42.0-52.0); Hemoglobin 10.8 g/dL (14.1-18.0); Lymphocytes # 1.6 K/mm3 (0.7-4.5); Lymphocytes % 13.9 % (10-50); Mean Corpuscular HGB Conc 30.6 g/dL (31.8-35.4); Mean Corpuscular Volume 86.2 fl (80-94); Mean Platelet Volume 6.5 fl (7.4-10.4); Monocytes # 0.7 K/mm3 (0.1-1.0); Monocytes % 6.3 % (1.7-9.3); Neutrophils # 8.9 K/mm3 (1.8-7.8); Neutrophils % 76.1 % (37.0-80.0); Platelet Count 225 K/mm3 (142-424); Red Blood Count 4.09 M/mm3 (4.60-6.20); Red Cell Distribution Width 15.3 % (11.5-17.5); White Blood Count 11.6 K/mm3 (4.8-10.8)
--- NOTE | 2019-02-09 07:27 | Discharge Summary ---
General - General Admission date:: 02/08/19 Discharge date: 02/09/19 HPI HPI: Mr. Sheppard is a 68-year-old male who is a resident of [facility]. He was brought in by ambulance after getting up from bed and falling at the assisted. He reportedly had some confusion after the fall but returned to baseline upon presenting to the ER. However, reports that also prior to the incident today he was more lethargic than usual. He had pneumonia a month ago but has remained congested with some mild hypoxemia on presentation to the ER today. Of note he has a prior history of a stroke which has affected his left side, swallowing, and speech. He also had an injury to his left arm in July, sustained a severe laceration and since then does not have use of his left hand. He wears a brace at night. He is on Eliquis for a prior history of pulmonary embolism. He walks with a walker, but staff has to go behind him with a wheelchair. Upon presentation to the ER, patient found to be hypoxemic on baseline oxygen, elevated white count, tachypneic, and finding of bilateral pneumonia. Met criteria for sepsis. Admitted to medicine for further management. Hospital Course Hospital Course: Mr. Sheppard started on IV antibiotic and given aggressive fluid resuscitation for his sepsis due to pneumonia. Symptoms defervesced overnight with no good improvement in leukocytosis and acute kidney injury. Stable this morning, eating regular diet. Stable oxygen requirement. Given absence of fever, normal hemodynamics, will transition to oral antibiotics and transition back to assisted today. Medically stable for discharge home. Denies nausea, vomiting, diarrhea, chest pain. Objective Vital signs: Temp Pulse Resp BP Pulse Ox 97.6 F 75 17 152/60 H 95 02/09/19 04:00 02/09/19 06:38 02/09/19 04:00 02/09/19 04:00 02/09/19 06:38 Narrative: Obese male appears older than stated age, no acute distress on baseline oxygen requirement, sitting upright in bed watching TV on interview this morning Heart rate regular, no appreciable murmurs Lung sounds diminished with fair air movement bilaterally, crackles bilateral bases in the posterior lung [place] Abdomen soft, normoactive, nontender 1+ edema bilaterally lower extremities to knees with chronic stasis dermatitis on right ladd Alert and oriented to person place and time Results Labs on day of discharge: Labs from last 24 hours 02/09/19 02/09/19 02/08/19 05:45 05:45 20:57 WBC 11.6 H D RBC 4.09 L Hgb 10.8 L Hct 35.3 L MCV 86.2 MCH 26.3 L MCHC 30.6 L RDW 15.3 Plt Count 225 D MPV 6.5 L Neut % (Auto) 76.1 Lymph % (Auto) 13.9 [place] % (Auto) 6.3 Eos % (Auto) 3.3 Baso % (Auto) 0.4 Neut # (Auto) 8.9 H Lymph # (Auto) 1.6 [place] # (Auto) 0.7 Eos # (Auto) 0.4 Baso # (Auto) 0.1 Total Counted Neutrophils % (Manual) Band Neutrophils % Lymphocytes % (Manual) Monocytes % (Manual) Eosinophils % (Manual) Platelet Estimate RBC Morphology Specimen Source O2 % ABG pH ABG pCO2 ABG pO2 ABG HCO3 ABG Total CO2 ABG O2 Saturation ABG Base Excess Guzman Test Sodium 137 Potassium 4.0 Chloride 102 Carbon Dioxide 28 Anion Gap 11.0 BUN 20 H Creatinine 1.07 D Estimated Creat Clear 111 Estimated GFR 69 Est GFR ( Amer) 83 D Glucose 129 H D POC Glucose 161 H Lactate Calcium 8.0 L Total Bilirubin Direct Bilirubin Indirect Bilirubin AST ALT Alkaline Phosphatase Troponin I Total Protein Albumin Urine Color Urine Appearance Urine pH Ur Specific [place] Urine Protein Urine Glucose (UA) Urine Ketones Urine Blood Urine Nitrate Urine Bilirubin Urine Urobilinogen Ur Leukocyte Esterase Urine RBC Urine WBC Ur Squamous Epith Cells Urine Bacteria 02/08/19 02/08/19 02/08/19 18:15 15:58 12:23 WBC RBC Hgb Hct MCV MCH MCHC RDW Plt Count MPV Neut % (Auto) Lymph % (Auto) [place] % (Auto) Eos % (Auto) Baso % (Auto) Neut # (Auto) Lymph # (Auto) [place] # (Auto) Eos # (Auto) Baso # (Auto) Total Counted Neutrophils % (Manual) Band Neutrophils % Lymphocytes % (Manual) Monocytes % (Manual) Eosinophils % (Manual) Platelet Estimate RBC Morphology Specimen Source Left radial O2 % 4 lpm nc ABG pH 7.43 ABG pCO2 37.5 ABG pO2 69.1 L ABG HCO3 24.2 ABG Total CO2 25.3 ABG O2 Saturation 94 ABG Base Excess -0.2 Guzman Test Patient unable Sodium Potassium Chloride Carbon Dioxide Anion Gap BUN Creatinine Estimated Creat Clear Estimated GFR Est GFR ( Amer) Glucose POC Glucose 195 H Lactate 1.7 Calcium Total Bilirubin Direct Bilirubin Indirect Bilirubin AST ALT Alkaline Phosphatase Troponin I Total Protein Albumin Urine Color Urine Appearance Urine pH Ur Specific [place] Urine Protein Urine Glucose (UA) Urine Ketones Urine Blood Urine Nitrate Urine Bilirubin Urine Urobilinogen Ur Leukocyte Esterase Urine RBC Urine WBC Ur Squamous Epith Cells Urine Bacteria 02/08/19 02/08/19 02/08/19 11:30 11:30 11:30 WBC RBC Hgb Hct MCV MCH MCHC RDW Plt Count MPV Neut % (Auto) Lymph % (Auto) [place] % (Auto) Eos % (Auto) Baso % (Auto) Neut # (Auto) Lymph # (Auto) [place] # (Auto) Eos # (Auto) Baso # (Auto) Total Counted Neutrophils % (Manual) Band Neutrophils % Lymphocytes % (Manual) Monocytes % (Manual) Eosinophils % (Manual) Platelet Estimate RBC Morphology Specimen Source O2 % ABG pH ABG pCO2 ABG pO2 ABG HCO3 ABG Total CO2 ABG O2 Saturation ABG Base Excess Guzman Test Sodium Potassium Chloride Carbon Dioxide Anion Gap BUN Creatinine Estimated Creat Clear Estimated GFR Est GFR ( Amer) Glucose POC Glucose Lactate 2.6 H Calcium Total Bilirubin 0.5 Direct Bilirubin 0.1 Indirect Bilirubin 0.4 AST 22 ALT 25 Alkaline Phosphatase 99 Troponin I Total Protein 6.5 Albumin 2.6 L Urine Color Yellow Urine Appearance Clear Urine pH 6.0 Ur Specific [place] 1.015 Urine Protein Negative Urine Glucose (UA) Negative Urine Ketones Negative Urine Blood 2+ Urine Nitrate Negative Urine Bilirubin Negative Urine Urobilinogen 0.2 Ur Leukocyte Esterase Trace Urine RBC 5-10 Urine WBC 3-5 Ur Squamous Epith Cells 3-5 Urine Bacteria 1+ 02/08/19 02/08/19 11:30 11:30 WBC 25.5 H* RBC 4.47 L Hgb 11.7 L Hct 38.0 L MCV 85.0 MCH 26.2 L MCHC 30.8 L RDW 15.2 Plt Count 305 MPV 6.7 L Neut % (Auto) 87.5 H Lymph % (Auto) 6.1 L [place] % (Auto) 5.1 Eos % (Auto) 0.7 Baso % (Auto) 0.5 Neut # (Auto) 22.3 H Lymph # (Auto) 1.6 [place] # (Auto) 1.3 H Eos # (Auto) 0.2 Baso # (Auto) 0.1 Total Counted 100 Neutrophils % (Manual) 83 H Band Neutrophils % 6.0 Lymphocytes % (Manual) 5 L Monocytes % (Manual) 5 Eosinophils % (Manual) 1 Platelet Estimate Normal RBC Morphology Normal Specimen Source O2 % ABG pH ABG pCO2 ABG pO2 ABG HCO3 ABG Total CO2 ABG O2 Saturation ABG Base Excess Guzman Test Sodium 135 L Potassium 4.0 Chloride 99 Carbon Dioxide 28 Anion Gap 12.0 BUN 20 H Creatinine 1.37 H Estimated Creat Clear 82 Estimated GFR 52 L Est GFR ( Amer) 62 Glucose 235 H POC Glucose Lactate Calcium 8.6 Total Bilirubin Direct Bilirubin Indirect Bilirubin AST ALT Alkaline Phosphatase Troponin I 0.02 Total Protein Albumin Urine Color Urine Appearance Urine pH Ur Specific [place] Urine Protein Urine Glucose (UA) Urine Ketones Urine Blood Urine Nitrate Urine Bilirubin Urine Urobilinogen Ur Leukocyte Esterase Urine RBC Urine WBC Ur Squamous Epith Cells Urine Bacteria DS: Diagnosis - Discharge Diagnosis (1) Acute kidney injury Status: Acute (2) HCAP (healthcare-associated pneumonia) Status: Acute (3) Sepsis with acute hypoxic respiratory failure Status: Acute (4) Chronic diarrhea Status: Acute (5) Diabetes mellitus type 2 in obese Status: Chronic (6) Obesity (BMI 30.0-34.9) Status: Chronic Discharge Plan - Patient Discharge Instructions ACTIVITY: Up with assistance DIET: continue same diet - Follow up Plan Disposition: Xfer Intermediate Care Fac Home Medications: Home Medications Medication Instructions Recorded Confirmed Type Apixaban [Eliquis 2.5mg tab] 2.5 mg PO BID 06/12/17 02/08/19 History Budesonide [Budesonide EC] 3 mg PO BID 06/12/17 02/08/19 History Escitalopram Oxalate [Lexapro] 20 mg PO HS 06/12/17 02/08/19 History Memantine HCl [Namenda 10mg 10 mg PO 0800,1600 06/12/17 02/08/19 History Tablet] Multivit-Min/FA/Lycopen/Lutein 1 tab PO DAILY 06/12/17 02/08/19 History [Men 50 Plus Multivitamin Tab] Oxybutynin Chloride [Oxybutynin 10 mg PO DAILY 06/12/17 02/08/19 History Chloride ER] Pravastatin Sodium [Pravachol] 40 mg PO HS 06/12/17 02/08/19 History Pyridoxine HCl (Vitamin B6) 100 mg PO DAILY 06/12/17 02/08/19 History [Vitamin B-6] clonazePAM [Clonazepam] 0.5 mg PO BID 06/12/17 02/08/19 History Dutasteride 0.5 mg PO DAILY 12/18/17 02/08/19 History Gabapentin [Neurontin 600mg 600 mg PO 0800,1300 12/18/17 02/08/19 History tablet] Loratadine [Claritin 10mg Tablet] 10 mg PO HS 12/18/17 02/08/19 History fluticasone propionate 50 1 dose INTRANASAL DAILY 30 Days 01/11/18 02/08/19 History mcg/actuation nasal spray,suspension Aspirin [Aspirin 81mg chewable 81 mg PO HS 05/15/18 02/08/19 History tab] benzonatate 100 mg capsule 100 mg PO BID cap 05/22/18 02/08/19 History furosemide 20 mg tablet 20 mg PO BID tab 05/22/18 02/08/19 History Loperamide HCl [Loperamide HCl 4 mg PO DAILY 05/28/18 02/08/19 History 1mg/5mL Udc] atenolol 25 mg tablet 25 mg PO BID tab 11/06/18 02/08/19 History tamsulosin 0.4 mg capsule 0.4 mg PO DAILY cap 11/06/18 02/08/19 History Ascorbic Acid 500 mg PO DAILY 11/08/18 02/08/19 History Loperamide HCl [Anti-Diarrheal] 6 mg PO TID 11/08/18 02/08/19 History Phenazopyridine HCl [Azo Urinary 95 mg PO DAILY 11/08/18 02/08/19 History Pain Relief] Saccharomyces Boulardii [Florastor] 250 mg PO DAILY 11/08/18 02/08/19 History Brexpiprazole [Rexulti] 3 mg PO HS 02/08/19 02/08/19 History Ipratropium/Albuterol Sulfate 3 ml IH QIDP PRN 02/08/19 02/08/19 History [Duoneb 3mL neb] Linagliptin [Tradjenta 5mg tablet] 5 mg PO DAILY 02/08/19 02/08/19 History Liraglutide [Victoza 2-Rick] 1.2 mg SQ DAILY 02/08/19 02/08/19 History Oxycodone HCl [Oxycodone (IR) 5mg 5 mg PO Q6HP PRN 02/08/19 02/08/19 History Cap] Rivastigmine Tartrate 3 mg PO BID 02/08/19 02/08/19 History [Rivastigmine] guaiFENesin [Robitussin 200mg/10mL 200 mg PO Q6HP PRN 02/08/19 02/08/19 History Syrup Udc] lamoTRIgine [Lamictal 100mg Tablet] 100 mg PO BID 02/08/19 02/08/19 History levoFLOXacin [Levaquin 750mg 750 mg PO DAILY #5 tab 02/09/19 Rx tablet] Prescriptions/Medication Reconciliation: Continued fluticasone propionate 50 mcg/actuation nasal spray,suspension 1 dose INTRANASAL DAILY 30 Days benzonatate 100 mg capsule 100 mg PO BID cap furosemide 20 mg tablet 20 mg PO BID tab tamsulosin 0.4 mg capsule 0.4 mg PO DAILY cap atenolol 25 mg tablet 25 mg PO BID tab Pyridoxine HCl (Vitamin B6) [Vitamin B-6] 100 mg PO DAILY Pravastatin Sodium [Pravachol] 40 mg PO HS Oxybutynin Chloride [Oxybutynin Chloride ER] 10 mg PO DAILY Multivit-Min/FA/Lycopen/Lutein [Men 50 Plus Multivitamin Tab] 1 tab PO DAILY Memantine HCl [Namenda 10mg Tablet] 10 mg PO 0800,1600 Escitalopram Oxalate [Lexapro] 20 mg PO HS clonazePAM [Clonazepam] 0.5 mg PO BID Budesonide [Budesonide EC] 3 mg PO BID Dutasteride 0.5 mg PO DAILY Gabapentin [Neurontin 600mg tablet] 600 mg PO 0800,1300 Loratadine [Claritin 10mg Tablet] 10 mg PO HS Ascorbic Acid 500 mg PO DAILY Rivastigmine Tartrate [Rivastigmine] 3 mg PO BID lamoTRIgine [Lamictal 100mg Tablet] 100 mg PO BID guaiFENesin [Robitussin 200mg/10mL Syrup Udc] 200 mg PO Q6HP PRN PRN Reason: Cough Ipratropium/Albuterol Sulfate [Duoneb 3mL neb] 3 ml IH QIDP PRN PRN Reason: COPD Liraglutide [Victoza 2-Rick] 1.2 mg SQ DAILY Oxycodone HCl [Oxycodone (IR) 5mg Cap] 5 mg PO Q6HP PRN PRN Reason: pain Apixaban [Eliquis 2.5mg tab] 2.5 mg PO BID Aspirin [Aspirin 81mg chewable tab] 81 mg PO HS Loperamide HCl [Loperamide HCl 1mg/5mL Udc] 4 mg PO DAILY Phenazopyridine HCl [Azo Urinary Pain Relief] 95 mg PO DAILY Loperamide HCl [Anti-Diarrheal] 6 mg PO TID Saccharomyces Boulardii [Florastor] 250 mg PO DAILY Linagliptin [Tradjenta 5mg tablet] 5 mg PO DAILY Brexpiprazole [Rexulti] 3 mg PO HS - Problem Reconciliation Problems Reviewed?: Yes
--- NOTE | 2019-02-11 18:04 | Electrocardiograph Report ---
APPROVED REPORT Exam: Resting ECG HR:77 bpm ECG Measurements Heart Rate 77 AXES CO 194 P 45 QRSd 114 QRS -56 QT 416 T34 QTc 470 <Conclusion> Normal sinus rhythm Left anterior fascicular block Cannot rule out Anterior infarct, age undetermined Abnormal ECG Electronically signed by : Andriy Alarcon, 02/11/2019 18:04:18
== END 2019-02-09 10:45 | DRG 193 ==
LOC: ER 11:14 → 2ND 14:11 → INTOOBSV 14:11 → 2ND 14:55
PROVIDERS: ADMIT Internal Medicine Adolescent Medicine; ATTEND Internal Medicine Adolescent Medicine
CPT/HCPCS: 36415; 70450; 71010; 71045; 72125; 72170; 80048; 80076; 81001; 82803; 82962; 83605; 84484; 85007; 85025; 87040; 93005; 94640; 94761; 96365; 96366; 96367; 99285; G0378; J0692; J1956; J3370

== ENCOUNTER 2019-03-06 06:27 | Inpatient (IN) ==
[2019-03-06 06:55] LABS: ABG Base Excess 0.6 mmol/L (-2.4-2.3); ABG HCO3 25.1 mmhg (22.0-26.0); ABG Oxygen Saturation 88 % (90-100); ABG PCO2 39.7 mmhg (35.0-45.0); ABG PH 7.42 mmol/L (7.35-7.45); ABG PO2 54.3 mmhg (80-100); ABG TCO2 26.3 mmhg (23-27)
[2019-03-06 06:58] LABS: Allen's Test Acceptable; Oxygen 4.5L %
[2019-03-06 07:02] LABS: Basophils # 0.1 K/mm3 (0-0.2); Basophils % 0.4 % (0.1-2.0); Eosinophils # 0.2 K/mm3 (0.0-0.4); Eosinophils % 1.3 % (0.1-12.0); Hematocrit 39.4 % (42.0-52.0); Hemoglobin 11.9 g/dL (14.1-18.0); Lymphocytes % 5.6 % (10-50); Mean Corpuscular HGB Conc 30.2 g/dL (31.8-35.4); Mean Corpuscular Volume 85.8 fl (80-94); Mean Platelet Volume 7.5 fl (7.4-10.4); Monocytes # 0.7 K/mm3 (0.1-1.0); Monocytes % 3.6 % (1.7-9.3); Neutrophils # 16.4 K/mm3 (1.8-7.8); Neutrophils % 89.2 % (37.0-80.0); Platelet Count 291 K/mm3 (142-424); Red Blood Count 4.59 M/mm3 (4.60-6.20); Red Cell Distribution Width 15.5 % (11.5-17.5); White Blood Count 18.4 K/mm3 (4.8-10.8)
[2019-03-06 07:08] LABS: Microscopic, Urine URINE MICROSCOPIC (MICROSCOPIC)
[2019-03-06 07:10] LABS: Appearance,Urine CLEAR (Clear); Bilirubin,Urine Negative (Negative); Blood, Urine TRACE-I (Negative); Color,Urine YELLOW (Yellow); Glucose,Urine (UA) Negative (Negative); Ketones,Urine Negative (Negative); Leukocyte Esterase,Urine Negative (Negative); Protein,Urine Negative (Negative); Specific Gravity, Urine 1.015 (1.005-1.030); Urobilinogen,Urine 0.2 EU/dl (0.2)
[2019-03-06 07:13] LABS: Alanine Aminotransferase 21 U/L (12-78); Albumin Level 2.6 gm/dL (3.4-5.0); Albumin/Globulin Ratio 0.6 (1.1-1.8); Alkaline Phosphatase 103 U/L (46-116); Anion Gap 13.3 mEq/L (5-15); Aspartate Amino Transferase 21 U/L (15-37); Bilirubin,Total 0.4 mg/dL (0.2-1.0); Blood Urea Nitrogen 22 mg/dL (7-18); Calcium 8.7 mg/dL (8.5-10.1); Carbon Dioxide 28 mmol/L (21.0-32.0); Chloride 100 mmol/L (98-107); Globulin 4.2 gm/dl (1.3-3.2); Glucose 208 mg/dL (74-106); Sodium 137 mmol/L (136-145); Total Protein,Serum 6.8 gm/dL (6.4-8.2)
[2019-03-06 07:24] LABS: Lymphocytes % 7 % (10-50); Monocytes % 3 % (2-9); Neutrophils % 85 % (42-76); Total Cells Counted 100
[2019-03-06 07:25] LABS: RBC Morphology Normal
[2019-03-06 07:30] LABS: Bacteria,Urine 1+ /lpf
--- NOTE | 2019-03-06 07:38 | Emergency Department Note ---
ED Disposition Clinical Impression: Severe sepsis, SIRS (systemic inflammatory response syndrome), Septic shock, Acute exacerbation of chronic obstructive airways disease, HCAP (healthcare- associated pneumonia) Disposition: Admitted as Observation Condition on Discharge: Fair - Critical Care Critical Care Time: No Attestation: On 03/06/19, the high probability of a clinically significant, sudden or life threatening deterioration of the following system(s) required my full and direct attention, intervention and personal management. The time I documented below is in addition to time spent performing reported procedures but includes the following listed in this critical care notation. Medical Decision Making - Medical Records Medical records reviewed: Yes: I reviewed the patient's medical records. - Jonathon Inquiry Pt receiving controlled substance: No Vital Signs: 03/06/19 06:27 03/06/19 06:50 03/06/19 07:43 Temperature 101.0 F H Temperature Source Oral Pulse Rate 85 Pulse Rate [Right Radial] 90 82 Respiratory Rate 20 Blood Pressure [Right Arm] 158/61 H 99/36 L Blood Pressure Mean [Right Arm] 93 57 Blood Pressure Source [Right Arm] Blood Pressure Position [Right Arm] Sitting 02 Sat by Pulse Oximetry 88 L Oxygen Delivery Method Room Air 03/06/19 07:47 03/06/19 07:57 Temperature Temperature Source Pulse Rate Pulse Rate [Right Radial] 80 79 Respiratory Rate Blood Pressure [Right Arm] 98/36 L 98/43 L Blood Pressure Mean [Right Arm] 56 61 Blood Pressure Source [Right Arm] Automatic Cuff Blood Pressure Position [Right Arm] Sitting 02 Sat by Pulse Oximetry Oxygen Delivery Method - Lab Data Lab results reviewed: Yes: I reviewed the patient's lab results. Lab Results 03/06/19 06:33: Specimen Source Right radial, O2 % 4.5l, ABG pH 7.42, ABG pCO2 39.7, ABG pO2 54.3 L, ABG HCO3 25.1, ABG Total CO2 26.3, ABG O2 Saturation 88 L, ABG Base Excess 0.6, Guzman Test Acceptable 03/06/19 06:40: WBC 18.4 H, RBC 4.59 L, Hgb 11.9 L, Hct 39.4 L, MCV 85.8, MCH 25.9 L, MCHC 30.2 L, RDW 15.5, Plt Count 291, MPV 7.5, Neut % (Auto) 89.2 H, Lymph % (Auto) 5.6 L, [place] % (Auto) 3.6, Eos % (Auto) 1.3, Baso % (Auto) 0.4, Neut # (Auto) 16.4 H, Lymph # (Auto) 1.0, [place] # (Auto) 0.7, Eos # (Auto) 0.2, Baso # (Auto) 0.1, Total Counted 100, Neutrophils % (Manual) 85 H, Band Neutrophils % 5.0, Lymphocytes % (Manual) 7 L, Monocytes % (Manual) 3, Platelet Estimate Normal, RBC Morphology Normal 03/06/19 06:40: Sodium 137, Potassium 4.3, Chloride 100, Carbon Dioxide 28, Anion Gap 13.3, BUN 22 H, Creatinine 1.11, Estimated Creat Clear 113, Estimated GFR 66, Est GFR ( Amer) 79, Glucose 208 H, Calcium 8.7, Total Bilirubin 0.4, AST 21, ALT 21, Alkaline Phosphatase 103, Troponin I < 0.02, Total Protein 6.8, Albumin 2.6 L, Globulin 4.2 H, Albumin/Globulin Ratio 0.6 L 03/06/19 06:40: Lactate 2.9 H 03/06/19 06:40: Influenza Type A Ag Negative, Influenza Type B Ag Negative 03/06/19 07:05: Urine Color Yellow, Urine Appearance Clear, Urine pH 6.0, Ur Specific [place] 1.015, Urine Protein Negative, Urine Glucose (UA) Negative, Urine Ketones Negative, Urine Blood Trace-i, Urine Nitrate Negative, Urine Bilirubin Negative, Urine Urobilinogen 0.2, Ur Leukocyte Esterase Negative, Urine RBC 5-10, Urine WBC 3-5, Ur Squamous Epith Cells 3-5, Urine Bacteria 1+ Result diagrams: 03/06/19 06:40 03/06/19 06:40 Orders (Tests/Meds): ED MEDICATIONS Generic Name Dose Route Start Last Admin Trade Name Freq PRN Reason Stop Dose Admin Sodium Chloride 2,810 mls @ 999 mls/hr 03/06/19 07:50 03/06/19 07:50 Sod Chlor 0.9% 1000ml Bag IV 03/06/19 10:38 999 mls/hr .Q2H49M ONE Administration Clindamycin Phosphate 900 mg/ 106 mls @ 100 mls/hr 03/06/19 09:00 Sodium Chloride IV 03/20/19 08:59 Q8H GEORGI Protocol Discontinued Medications Generic Name Dose Route Start Last Admin Trade Name Jeremías HANDLEYN Reason Stop Dose Admin Acetaminophen 1,000 mg 03/06/19 06:32 03/06/19 07:06 Tylenol 500mg Tablet PO 03/06/19 06:33 Not Given ONCE ONE Acetaminophen 650 mg 03/06/19 07:05 03/06/19 07:06 Tylenol 325mg Suppository RC 03/06/19 07:06 650 mg ONCE ONE Administration Albuterol/Ipratropium 3 ml 03/06/19 06:33 03/06/19 06:50 Duoneb 3ml Neb IH 03/06/19 06:34 3 ml ONCE ONE Administration Sodium Chloride 1,000 mls @ 999 mls/hr 03/06/19 06:45 03/06/19 07:06 Sod Chlor 0.9% 1000ml Bag IV 03/06/19 07:45 999 mls/hr .Q1H1M GEORGI Administration Piperacillin Sod/Tazobactam 50 mls @ 100 mls/hr 03/06/19 07:40 03/06/19 07:43 Sod 3.375 gm/ Sodium Chloride IV 03/06/19 08:09 100 mls/hr Q6H ONE Administration Protocol Methylprednisolone Sodium Succinate 125 mg 03/06/19 06:33 03/06/19 07:06 Solu-Medrol 125mg/2ml Vial IV 03/06/19 06:34 125 mg ONCE ONE Administration ORDERS Category Date Time Status XR chest portable Stat Exams 03/06/19 06:32 Taken Blood Culture Stat Micro 03/06/19 06:40 Received - Radiology Data #1 Image(s): Chest Image Reviewed: Yes I reviewed the patient's radiology image Preliminary Findings: Abnormal (bilat changes ) - ECG Data Tracing #1 Normal Sinus Rhythm: Yes Ischemic changes: non-specific ST-T wave changes - Physician Consults Physician Consulted: anil Reason -: Admission - Tissue Perfus/Sepsis Re-Eval Reperfusion Exam Performed: Yes Date Performed: 03/06/19 Time Performed: 09:06 Sepsis Follow-Up: Yes: Respiratory exam, Cardiovascular exam, Peripheral pulse location, Skin exam, Vital Signs Resp/SOB HPI - General Chief Complaint: Shortness of Breath/Dyspnea Stated Complaint: shortness of breath, altered mental status, fever Time Seen by Provider: 03/06/19 07:00 Mode of Arrival: EMS Source of Information: Patient, Spouse, EMS, Medical Record Limitations: Physical Limitations Description of Symptoms (Recalled from ER Triage Doc. by RN): patient presents to ed with c/o shortness of breath and altered mental status - History of Present Illness wm sent from [facility] with fever and sob with change in mental status - pt with recent [facility] admit and was doing better- pt with sepsis and assoc shock and was admitted with iv abx MD Complaint: shortness of breath Onset (ago): hour(s) Context: recent illness Severity: moderate Associated symptoms: fever, cough - Related Data Home oxygen amount: none Home Medications Medication Instructions Recorded Confirmed Apixaban [Eliquis 2.5mg tab] 2.5 mg PO BID 06/12/17 02/08/19 Budesonide [Budesonide EC] 3 mg PO BID 06/12/17 02/08/19 Escitalopram Oxalate [Lexapro] 20 mg PO HS 06/12/17 02/08/19 Memantine HCl [Namenda 10mg 10 mg PO 0800,1600 06/12/17 02/08/19 Tablet] Multivit-Min/FA/Lycopen/Lutein 1 tab PO DAILY 06/12/17 02/08/19 [Men 50 Plus Multivitamin Tab] Oxybutynin Chloride [Oxybutynin 10 mg PO DAILY 06/12/17 02/08/19 Chloride ER] Pravastatin Sodium [Pravachol] 40 mg PO HS 06/12/17 02/08/19 Pyridoxine HCl (Vitamin B6) 100 mg PO DAILY 06/12/17 02/08/19 [Vitamin B-6] clonazePAM [Clonazepam] 0.5 mg PO BID 06/12/17 02/08/19 Dutasteride 0.5 mg PO DAILY 12/18/17 02/08/19 Gabapentin [Neurontin 600mg 600 mg PO 0800,1300 12/18/17 02/08/19 tablet] Loratadine [Claritin 10mg Tablet] 10 mg PO HS 12/18/17 02/08/19 fluticasone propionate 50 1 dose INTRANASAL DAILY 30 Days 01/11/18 02/08/19 mcg/actuation nasal spray,suspension Aspirin [Aspirin 81mg chewable 81 mg PO HS 05/15/18 02/08/19 tab] benzonatate 100 mg capsule 100 mg PO BID cap 05/22/18 02/08/19 furosemide 20 mg tablet 20 mg PO BID tab 05/22/18 02/08/19 Loperamide HCl [Loperamide HCl 4 mg PO DAILY 05/28/18 02/08/19 1mg/5mL Udc] atenolol 25 mg tablet 25 mg PO BID tab 11/06/18 02/08/19 tamsulosin 0.4 mg capsule 0.4 mg PO DAILY cap 11/06/18 02/08/19 Ascorbic Acid 500 mg PO DAILY 11/08/18 02/08/19 Loperamide HCl [Anti-Diarrheal] 6 mg PO TID 11/08/18 02/08/19 Phenazopyridine HCl [Azo Urinary 95 mg PO DAILY 11/08/18 02/08/19 Pain Relief] Saccharomyces Boulardii [Florastor] 250 mg PO DAILY 11/08/18 02/08/19 Brexpiprazole [Rexulti] 3 mg PO HS 02/08/19 02/08/19 Ipratropium/Albuterol Sulfate 3 ml IH QIDP PRN 02/08/19 02/08/19 [Duoneb 3mL neb] Linagliptin [Tradjenta 5mg tablet] 5 mg PO DAILY 02/08/19 02/08/19 Liraglutide [Victoza 2-Rick] 1.2 mg SQ DAILY 02/08/19 02/08/19 Oxycodone HCl [Oxycodone (IR) 5mg 5 mg PO Q6HP PRN 02/08/19 02/08/19 Cap] Rivastigmine Tartrate 3 mg PO BID 02/08/19 02/08/19 [Rivastigmine] guaiFENesin [Robitussin 200mg/10mL 200 mg PO Q6HP PRN 02/08/19 02/08/19 Syrup Udc] lamoTRIgine [Lamictal 100mg Tablet] 100 mg PO BID 02/08/19 02/08/19 Previous Rx's Medication Instructions Recorded levoFLOXacin [Levaquin 750mg 750 mg PO DAILY #5 tab 02/09/19 tablet] Allergies Allergy/AdvReac Type Severity Reaction Status Date / Time erythromycin base Allergy Intermediate SWELLING/IT Verified 03/06/19 06:32 [ERYTHROMYCIN BASE] CLEMENTE/SEIZU RES iodine [IODINE] Allergy Unknown Unknown Verified 03/06/19 06:32 allergy reaction delafloxacin AdvReac Severe Diarrhea Uncoded 12/04/18 14:47 [facility] History - Hepatitis A Screen Drug use history?: No High risk sexual behaviors?: No History of sexually transmitted infection?: No Currently employed?: No Childcare worker?: No Do you have indoor plumbing?: Yes Do you have electricity?: Yes Attestation statement:: This patient has been screened for Hepatitis A risk factors. I have reviewed the patient's past medical history: Yes Medical History: Reports:: Anxiety, Chronic Obstructive Pulmonary Disease (COPD), Deep Vein Thrombosis, Dementia, Diabetes Mellitus Type 2, Hyperlipidemia, Hypertension, Lung Disease, Kidney Stones, Myocardial Infarction, Urinary Tract Infection Denies:: Cancer, Diabetes Mellitus Type 1, Internal Pacemaker, MRSA Other Medical History: Reports: Arthritis, Other Comment: Sturge-Matt syndrome Other Surgeries: Yes: No Previous Surgery, Colonoscopy, EGD, Hernia Repair. No: Pacemaker Amputation: No Fractures: Yes (l4 compression) - Social History Smoking Status: Former smoker Tobacco Type: cigarettes # Packs/Day (cigarettes): 2 #Yrs smoked (if former smoker): 52 Alcohol Intake: never Alcohol Intake Frequency:: other Substance Use Type: denies use Occupational Status: retired, disabled Housing: pen[place] Household Members: spouse - Psychiatric History Pschychiatric History:: Reports:: Anxiety, Psychiatric Treatment Family Hx:: Cancer, Diabetes, Heart Attack, Hyperlipidemia, Hypertension, Thyroid Disorder ROS Obtained: Yes All systems reviewed & no additional complaints - Constitutional Constitutional: Reports as per HPI, Reports fever(s), Reports weakness - Eyes Eyes: Denies change in vision - ENT Ears, Nose, Mouth, and Throat: Denies headache(s) - Cardiovascular Cardiovascular: Denies chest pain, Reports dyspnea - Respiratory Respiratory: Yes as per HPI, Yes cough, No non-productive cough - Gastrointestinal Gastrointestingal: Denies: abdominal pain - Genitourinary Male Genitourinary: Denies hematuria - Musculoskeletal Musculoskeletal: Denies joint pain - Integumentary/Breasts Skin/Breast: Denies rash - Neurologic Neurologic: Denies seizure-like activity Physical Exam - General General appearance: alert - Head Head exam: normocephalic - Eye Eye exam: Present: PERRL, EOMI. Absent: scleral icterus - ENT ENT exam: Present: mucous membranes dry - Neck Neck exam: Present: trachea midline - Respiratory Respiratory exam: Present: wheezes, other (dec bs bilat ). Absent: respiratory distress - Cardiovascular Cardiovascular exam: Present: regular rate, systolic murmur, +S4 - Abdominal Exam Abdominal exam: Present: soft - Extremities Exam Extremities exam: Present: pedal edema. Absent: tenderness - Neurological Exam Neurological exam: Present: alert, CN II-XII intact - Psychiatric Psychiatric exam: Present: normal affect - Skin Skin exam: Absent: rash
--- NOTE | 2019-03-06 10:53 | Pharmacy Consult Notes ---
[facility] Pharmacy VTE Monitoring - Patient Demographics Admission date: 03/06/19 Report Date: 03/06/19 Time: 10:53 Allergies/Adverse Reactions: Patient Allergies erythromycin base [ERYTHROMYCIN BASE] Allergy (Intermediate, Verified 03/06/19 06:32) SWELLING/ITCHING/SEIZURES iodine [IODINE] Allergy (Unknown, Verified 03/06/19 06:32) Unknown allergy reaction delafloxacin Adverse Reaction (Severe, Uncoded 12/04/18 14:47) Diarrhea Height: 1.85 m Weight: 119.437 kg Patient Problems: Current Active Problems Severe sepsis (Acute) HCAP (healthcare-associated pneumonia) (Acute) SIRS (systemic inflammatory response syndrome) (Acute) Septic shock (Acute) Acute exacerbation of chronic obstructive airways disease (Acute) - VTE Risk Labs: VTE Related Lab Results Hgb 11.9 g/dL (14.1-18.0) L 03/06/19 06:40 Hct 39.4 % (42.0-52.0) L 03/06/19 06:40 Plt Count 291 K/mm3 (142-424) 03/06/19 06:40 BUN 22 mg/dL (7-18) H 03/06/19 06:40 Creatinine 1.11 mg/dL (0.70-1.30) 03/06/19 06:40 Estimated Creat Clear 113 mL/min (50-200) 03/06/19 06:40 Was VTE Risk Assessment Performed: Yes VTE Score: 8 VTE Risk Level: Moderate Risk - Prophylaxis VTE Prophylaxis Ordered?: Yes Types of VTE Prophylaxis: Pharmacological Pharmacologic Type: Other (ELIQUIS ORDERED)
--- NOTE | 2019-03-06 13:37 | History & Physical Report ---
*Admission Date: 03/06/19 *Chief complaint: Mental status change/fever/shortness of air *History of present illness: 68-year-old white male with multiple medical problems including recurrent pneumonia, recurrent aspiration, chronic depression with bipolar disease who has been a long-term resident of local group home, recently admitted for pneumonia. Had been doing well, and in fact was seen yesterday on our practice is regular group home rounds and was doing fine, but his notes that later that evening he began to have some gurgling and coughing and had an episode of impaired consciousness with fever. Transferred to the emergency department here where he was found to have developed leukocytosis, elevated lactic acid and was diagnosed with sepsis and admitted to hospital. [facility] History I have reviewed the patient's past medical history: Yes Medical History: Reports:: Anxiety, Arrhythmia, Congestive Heart Failure, Chronic Obstructive Pulmonary Disease (COPD), Deep Vein Thrombosis, Dementia, Diabetes Mellitus Type 2, Hyperlipidemia, Hypertension, Lung Disease, Kidney Stones, Myocardial Infarction, Urinary Tract Infection Denies:: Cancer, Diabetes Mellitus Type 1, Internal Pacemaker, MRSA *Have you ever received a pneumonia vaccine?: Yes *Have you received a flu vaccine this season?: No Other Medical History: Reports: Arthritis, Other Other Surgeries: Yes: No Previous Surgery, Colonoscopy, EGD, Hernia Repair. No: Pacemaker Amputation: No Fractures: Yes (l4 compression) - *Social History Educational Level: Completed College Smoking Status: Former smoker Tobacco Type: cigarettes # Packs/Day (cigarettes): 1 #Yrs smoked (if former smoker): 52 Smoking End Date: 2012 Alcohol Intake: never Alcohol Intake Frequency:: other Substance Use Type: denies use *Occupational Status:: retired, disabled Housing: group home Household Members: spouse *Travel in the last 8 weeks: None - Psychiatric History Pschychiatric History:: Reports:: Anxiety, Psychiatric Treatment Family Hx:: Cancer, Diabetes, Heart Attack, Hyperlipidemia, Hypertension, Thyroid Disorder Review of Systems - Review of Systems Review of systems:: pertinent systems reviewed and negative unless documented below Patient is somewhat obtunded, but when awakened is pleasant and will respond to commands. Denies pain, reports that he is feeling "better." - *Neurologic Reports weakness, Denies headache(s), Denies seizure-like activity Meds Home Medications Medication Instructions Recorded Confirmed Type Apixaban [Eliquis 2.5mg tab] 2.5 mg PO BID 06/12/17 03/06/19 History Budesonide [Budesonide EC] 3 mg PO BID 06/12/17 03/06/19 History Escitalopram Oxalate [Lexapro] 20 mg PO HS 06/12/17 03/06/19 History Memantine HCl [Namenda 10mg 10 mg PO 0800,1600 06/12/17 03/06/19 History Tablet] Multivit-Min/FA/Lycopen/Lutein 1 tab PO DAILY 06/12/17 03/06/19 History [Men 50 Plus Multivitamin Tab] Oxybutynin Chloride [Oxybutynin 10 mg PO DAILY 06/12/17 03/06/19 History Chloride ER] Pravastatin Sodium [Pravachol] 40 mg PO HS 06/12/17 03/06/19 History Pyridoxine HCl (Vitamin B6) 100 mg PO DAILY 06/12/17 03/06/19 History [Vitamin B-6] clonazePAM [Clonazepam] 0.5 mg PO BID 06/12/17 03/06/19 History Dutasteride 0.5 mg PO DAILY 12/18/17 03/06/19 History Gabapentin [Neurontin 600mg 600 mg PO 0800,1300 12/18/17 03/06/19 History tablet] Loratadine [Claritin 10mg Tablet] 10 mg PO HS 12/18/17 03/06/19 History fluticasone propionate 50 1 dose INTRANASAL DAILY 30 Days 01/11/18 03/06/19 History mcg/actuation nasal spray,suspension Aspirin [Aspirin 81mg chewable 81 mg PO HS 05/15/18 03/06/19 History tab] benzonatate 100 mg capsule 100 mg PO BID cap 05/22/18 03/06/19 History furosemide 20 mg tablet 40 mg PO BID tab 05/22/18 03/06/19 History Loperamide HCl [Loperamide HCl 4 mg PO DAILY 05/28/18 03/06/19 History 1mg/5mL Udc] atenolol 25 mg tablet 25 mg PO BID tab 11/06/18 03/06/19 History tamsulosin 0.4 mg capsule 0.4 mg PO DAILY cap 11/06/18 03/06/19 History Ascorbic Acid 500 mg PO DAILY 11/08/18 03/06/19 History Loperamide HCl [Anti-Diarrheal] 6 mg PO TID 11/08/18 03/06/19 History Phenazopyridine HCl [Azo Urinary 95 mg PO DAILY 11/08/18 03/06/19 History Pain Relief] Saccharomyces Boulardii [Florastor] 250 mg PO DAILY 11/08/18 03/06/19 History Brexpiprazole [Rexulti] 3 mg PO HS 02/08/19 03/06/19 History Ipratropium/Albuterol Sulfate 3 ml IH QIDP PRN 02/08/19 03/06/19 History [Duoneb 3mL neb] Linagliptin [Tradjenta 5mg tablet] 5 mg PO DAILY 02/08/19 03/06/19 History Liraglutide [Victoza 2-Rick] 1.2 mg SQ DAILY 02/08/19 03/06/19 History Oxycodone HCl [Oxycodone (IR) 5mg 5 mg PO Q6HP PRN 02/08/19 03/06/19 History Cap] Rivastigmine Tartrate 3 mg PO BID 02/08/19 03/06/19 History [Rivastigmine] guaiFENesin [Robitussin 200mg/10mL 200 mg PO Q6HP PRN 02/08/19 03/06/19 History Syrup Udc] lamoTRIgine [Lamictal 100mg Tablet] 300 mg PO BID 02/08/19 03/06/19 History Allergies Allergy/AdvReac Type Severity Reaction Status Date / Time erythromycin base Allergy Intermediate SWELLING/IT Verified 03/06/19 06:32 [ERYTHROMYCIN BASE] CLEMENTE/SEIZU RES iodine [IODINE] Allergy Unknown Unknown Verified 03/06/19 06:32 allergy reaction delafloxacin AdvReac Severe Diarrhea Uncoded 12/04/18 14:47 Exam Vital signs and Labs for Last 24 Hours: Temp Pulse Resp BP Pulse Ox 99.0 F 78 18 141/67 H 91 L 03/06/19 12:00 03/06/19 12:00 03/06/19 12:00 03/06/19 12:00 03/06/19 12:00 Laboratory Results - last 24 hr 03/06/19 06:33: Specimen Source Right radial, O2 % 4.5l, ABG pH 7.42, ABG pCO2 39.7, ABG pO2 54.3 L, ABG HCO3 25.1, ABG Total CO2 26.3, ABG O2 Saturation 88 L, ABG Base Excess 0.6, Guzman Test Acceptable 03/06/19 06:40: WBC 18.4 H, RBC 4.59 L, Hgb 11.9 L, Hct 39.4 L, MCV 85.8, MCH 25.9 L, MCHC 30.2 L, RDW 15.5, Plt Count 291, MPV 7.5, Neut % (Auto) 89.2 H, Lymph % (Auto) 5.6 L, [place] % (Auto) 3.6, Eos % (Auto) 1.3, Baso % (Auto) 0.4, Neut # (Auto) 16.4 H, Lymph # (Auto) 1.0, [place] # (Auto) 0.7, Eos # (Auto) 0.2, Baso # (Auto) 0.1, Total Counted 100, Neutrophils % (Manual) 85 H, Band Neutrophils % 5.0, Lymphocytes % (Manual) 7 L, Monocytes % (Manual) 3, Platelet Estimate Normal, RBC Morphology Normal 03/06/19 06:40: Sodium 137, Potassium 4.3, Chloride 100, Carbon Dioxide 28, Anion Gap 13.3, BUN 22 H, Creatinine 1.11, Estimated Creat Clear 113, Estimated GFR 66, Est GFR ( Amer) 79, Glucose 208 H, Calcium 8.7, Total Bilirubin 0.4, AST 21, ALT 21, Alkaline Phosphatase 103, Troponin I < 0.02, Total Protein 6.8, Albumin 2.6 L, Globulin 4.2 H, Albumin/Globulin Ratio 0.6 L 03/06/19 06:40: Lactate 2.9 H 03/06/19 06:40: Influenza Type A Ag Negative, Influenza Type B Ag Negative 03/06/19 07:05: Urine Color Yellow, Urine Appearance Clear, Urine pH 6.0, Ur Specific [place] 1.015, Urine Protein Negative, Urine Glucose (UA) Negative, Uri ne Ketones Negative, Urine Blood Trace-i, Urine Nitrate Negative, Urine Bilirubin Negative, Urine Urobilinogen 0.2, Ur Leukocyte Esterase Negative, Urine RBC 5-10, Urine WBC 3-5, Ur Squamous Epith Cells 3-5, Urine Bacteria 1+ 03/06/19 11:15: Lactate 1.8 03/06/19 11:51: POC Glucose 315 H* 03/06/19 12:25: Troponin I 0.03 I & O for Last 24 hours: Intake & Output 03/04/19 03/05/19 03/06/19 03/07/19 11:59 11:59 11:59 11:59 Weight 263 lb 5 oz Narrative: Patient is sleepy when arousable he is alert and oriented x2. Lungs have some rhonchi bilaterally but fairly preserved air entry. Heart rate regular, abdomen soft, nontender. Munoz catheter draining clear yellow urine. Able to move extremities, globally weak but at baseline. No cranial nerve deficits. Assessment and Plan (1) HCAP (healthcare-associated pneumonia) Current visit: Yes Status: Acute Category: Medical Code(s): J18.9 - Pneumonia, unspecified organism (2) SIRS (systemic inflammatory response syndrome) Current visit: Yes Status: Acute Category: Medical Code(s): R65.10 - Systemic inflammatory response syndrome (SIRS) of non-infectious origin without acute organ dysfunction (3) Septic shock Current visit: Yes Status: Acute Category: Medical Code(s): A41.9 - Sepsis, unspecified organism; R65.21 - Severe sepsis with septic shock Meets criteria for sepsis. Admitted, fluid bolus given. Continue anabiotic therapy, await to assess response from initial therapy, await culture results.
--- NOTE | 2019-03-06 13:42 | Electrocardiograph Report ---
APPROVED REPORT Exam: Resting ECG HR:82 bpm ECG Measurements Heart Rate 82 AXES MS 180 P 23 QRSd 98 QRS -50 QT 400 T23 QTc 467 <Conclusion> Normal sinus rhythm Left anterior fascicular block old sttw changes Abnormal ECG Electronically signed by : Andriy Alarcon, 03/06/2019 13:42:26
[2019-03-07 07:14] LABS: Anion Gap 16.1 mEq/L (5-15); Calcium 8.4 mg/dL (8.5-10.1)
[2019-03-07 07:25] LABS: Basophils % 0.1 % (0.1-2.0); Lymphocytes # 1.2 K/mm3 (0.7-4.5); Lymphocytes % 5.7 % (10-50); Mean Corpuscular HGB Conc 29.8 g/dL (31.8-35.4); Mean Corpuscular Volume 86.6 fl (80-94); Mean Platelet Volume 7.4 fl (7.4-10.4); Monocytes # 0.8 K/mm3 (0.1-1.0); Monocytes % 3.6 % (1.7-9.3); Neutrophils % 90.7 % (37.0-80.0); Platelet Count 283 K/mm3 (142-424); Red Blood Count 4.27 M/mm3 (4.60-6.20); Red Cell Distribution Width 15.7 % (11.5-17.5); White Blood Count 22.1 K/mm3 (4.8-10.8)
[2019-03-07 09:54] LABS: Lymphocytes % 6 % (10-50); Monocytes % 4 % (2-9); Neutrophils % 90 % (42-76); RBC Morphology Normal; Total Cells Counted 100
--- NOTE | 2019-03-07 12:08 | Progress Note ---
Internal Medicine - PN: Subj *Date: 03/07/19 *Time: 08:20 Interval history: Mr. Sheppard did well overnight. Wear oxygen throughout the night. Tolerating IV antibiotics at this time. Denies any chest pain, worsening shortness of breath, nausea, vomiting. Pleasant and interactive this morning. Minimal distress. at bedside on exam this morning, updated on plan. Exam Vital signs and Labs for Last 24 Hours: Temp Pulse Resp BP Pulse Ox 98.6 F 72 17 145/62 H 92 L 03/07/19 11:41 03/07/19 11:41 03/07/19 11:41 03/07/19 11:41 03/07/19 11:41 Laboratory Results - last 24 hr 03/06/19 11:51: POC Glucose 315 H* 03/06/19 12:25: Troponin I 0.03 03/06/19 15:10: Troponin I 0.02 03/06/19 16:07: POC Glucose 374 H* 03/06/19 20:41: POC Glucose 372 H* 03/07/19 05:48: POC Glucose 263 H 03/07/19 06:13: WBC 22.1 H*, RBC 4.27 L, Hgb 11.0 L, Hct 37.0 L, MCV 86.6, MCH 25.8 L, MCHC 29.8 L, RDW 15.7, Plt Count 283, MPV 7.4, Neut % (Auto) 90.7 H, Lymph % (Auto) 5.7 L, [place] % (Auto) 3.6, Eos % (Auto) 0.0 L, Baso % (Auto) 0.1, Neut # (Auto) 20.0 H, Lymph # (Auto) 1.2, [place] # (Auto) 0.8, Eos # (Auto) 0.0, Baso # (Auto) 0.0, Total Counted 100, Neutrophils % (Manual) 90 H, Lymphocytes % (Manual) 6 L, Monocytes % (Manual) 4, Platelet Estimate Normal, RBC Morphology Normal 03/07/19 06:13: Sodium 137, Potassium 4.1, Chloride 103, Carbon Dioxide 22 D, Anion Gap 16.1 H, BUN 22 H, Creatinine 1.04, Estimated Creat Clear 113, Estimated GFR 71, Est GFR ( Amer) 86, Glucose 259 H D, Calcium 8.4 L I & O for Last 24 hours: Intake & Output 03/04/19 03/05/19 03/06/19 03/07/19 23:59 23:59 23:59 23:59 Intake Total 406 / 406 1132 / 1132 Balance 406 / 406 1132 / 1132 Weight 119.437 kg 119.437 kg - Constitutional no acute distress, obese - *Routine HEENT Exam Head: Present: normocephalic Eye: Present: EOMI, PERRL ENT: Present: mucous membranes moist Comments: Poor dentition - *Routine Neck Exam Present: supple. Absent: lymphadenopathy - *Routine Respiratory Exam Present: prolonged expiratory phase Comments: Faint end expiratory wheeze with bibasilar crackles. No rhonchi on exam. - *Routine Cardiovascular Exam Present: RRR - *Routine Abdominal Exam Present: soft, normoactive bowel sounds. Absent: tenderness - *Routine Extremities Exam Present: edema (1+). Absent: cyanosis, clubbing - *Routine Skin Exam Present: warm. Absent: rash - *Routine Neurological Exam Present: alert, oriented X3. Absent: altered mental status Assessment and Plan (1) HCAP (healthcare-associated pneumonia) Current visit: Yes Status: Acute Category: Medical Code(s): J18.9 - Pneumonia, unspecified organism Findings on imaging with left-sided airspace disease. Patient's PSI score is a 99-109 due to his age (68), male, senior living resident (+10), PO2 on presentation of 54 (less than 60, +10), glucose greater than 250 (315, +10), chronic kidney disease stage II (+10). This makes the patient a moderate risk candidate with recommended inpatient management for his sepsis and pneumonia. Continuing IV antibiotics with goal of 48 hours of IV before transitioning to oral. Patient's condition continues to be complicated by his poor compliance. He is supposed to be on oxygen continuously in the outpatient setting/senior living however he refuses to wear it during the day unless he is below 80. It is been stressed to him multiple times the importance of wearing oxygen continuously, especially at night. He continually complies only when he feels the desire to. It is evident in his lack of adherence to an appropriate diabetic diet as well as limited use of oxygen. This factors into patient's recurrent admissions for respiratory failure and complicates his care. (2) SIRS (systemic inflammatory response syndrome) Current visit: Yes Status: Resolved Category: Medical Code(s): R65.10 - Systemic inflammatory response syndrome (SIRS) of non-infectious origin without acute organ dysfunction (3) Septic shock Current visit: Yes Status: Resolved Category: Medical Code(s): A41.9 - Sepsis, unspecified organism; R65.21 - Severe sepsis with septic shock (4) Chronic kidney disease, stage II (mild) Current visit: Yes Status: Chronic Category: Medical Code(s): N18.2 - Chronic kidney disease, stage 2 (mild) (5) Chronic diarrhea Current visit: No Status: Chronic Category: Medical Code(s): K52.9 - Noninfective gastroenteritis and colitis, unspecified continue home imodium usage (6) Diabetes mellitus type 2 in obese Current visit: No Status: Chronic Category: Medical Code(s): E11.69 - Type 2 diabetes mellitus with other specified complication; E66.9 - Obesity, unspecified poorly controlled. SSI as prescribed ACHS. (7) Obesity (BMI 30.0-34.9) Current visit: No Status: Chronic Category: Medical Code(s): E66.9 - Obesity, unspecified complicates all aspects of his care. - Assessment and plan all Dx Assessment and Plan for all problems:: 68-year-old male with recurrent respiratory infections. Admitted from senior living due to respiratory failure, sepsis, pneumonia. Severity score of 99-109 depending on factoring in kidney disease. Continues to require inpatient management. Will continue 24 hours more of IV antibiotics. Transition to oral pending response. Additionally, quantifying CHF as it is in his Hx and his recurrent respiratory admissions are suspected to be complicated by this. Echocardiogram ordered, pending read. Further management pending results. Otherwise showing clinical improvement. Condition fair, prognosis poor.
[2019-03-08 06:27] LABS: Basophils % 0.3 % (0.1-2.0); Eosinophils # 0.1 K/mm3 (0.0-0.4); Eosinophils % 1.3 % (0.1-12.0); Hematocrit 35.6 % (42.0-52.0); Hemoglobin 10.9 g/dL (14.1-18.0); Mean Corpuscular HGB Conc 30.5 g/dL (31.8-35.4); Mean Corpuscular Volume 87.3 fl (80-94); Mean Platelet Volume 7.9 fl (7.4-10.4); Monocytes # 0.6 K/mm3 (0.1-1.0); Monocytes % 5.4 % (1.7-9.3); Neutrophils # 8.4 K/mm3 (1.8-7.8); Platelet Count 230 K/mm3 (142-424); Red Blood Count 4.07 M/mm3 (4.60-6.20); Red Cell Distribution Width 14.7 % (11.5-17.5); White Blood Count 11.2 K/mm3 (4.8-10.8)
[2019-03-08 07:10] LABS: Anion Gap 16.1 mEq/L (5-15); Calcium 8.1 mg/dL (8.5-10.1)
--- NOTE | 2019-03-08 08:25 | Discharge Summary ---
General - General Admission date:: 03/06/19 Discharge date: 03/08/19 HPI HPI: 68-year-old white male with multiple medical problems including recurrent pneumonia, recurrent aspiration, chronic depression with bipolar disease who has been a [facility], recently admitted for pneumonia. Had been doing well, and in fact was seen yesterday on our practice is regular [facility] rounds and was doing fine, but his notes that later that evening he began to have some gurgling and coughing and had an episode of impaired consciousness with fever. Transferred to the emergency department here where he was found to have developed leukocytosis, elevated lactic acid and was diagnosed with sepsis and admitted to hospital. Hospital Course Hospital Course: Mr. Sheppard 68-year-old male with chronic respiratory failure due to COPD, obesity, diastolic heart dysfunction who presented with sepsis and respiratory failure due to pneumonia. Was admitted for acute management with IV an tibiotics. Showed improvement in white count and respiratory status. Admission based on the following Acute criteria: Findings on imaging with left-sided airspace disease. Patient's PSI score is a 119 due to his age (68), male, [facility] resident (+10), PO2 on presentation of 54 (less than 60, +10), glucose greater than 250 (315, +10), chronic kidney disease stage II (+10), and CHF with severe diastolic dysfunction (+10). This makes the patient a Class 4 risk. Required inpatient management for his sepsis and pneumonia. Continued IV antibiotics with goal of 48 hours of IV before transitioning to oral. -Patient had returned to baseline oxygen requirement. Ambulating independently with good p.o. tolerance. Remained afebrile and hemodynamically stable for over 24 hours. Medically stable for discharge back to [facility] for continued care. Recommend patient wear his oxygen as needed for O2 sats greater than 88 while asleep (please wear nightly throughout the night) and greater than 92% while awake (please wear as needed throughout the day). Of note however: Patient's condition continues to be complicated by his poor compliance. He is supposed to be on oxygen continuously in the outpatient setting/usp however he refuses to wear it during the day unless he is below 80. It is been stressed to him multiple times the importance of wearing oxygen continuously, especially at night. He continually complies only when he feels the desire to. It is evident in his lack of adherence to an appropriate diabetic diet as well as limited use of oxygen. This factors into patient's recurrent admissions for respiratory failure and complicates his care. Objective Vital signs: Temp Pulse Resp BP Pulse Ox 98.2 F 68 18 160/70 H 94 L 03/08/19 04:00 03/08/19 04:00 03/08/19 04:00 03/08/19 04:00 03/08/19 04:00 Narrative: - Constitutional no acute distress, obese - *Routine HEENT Exam Head: Present: normocephalic Eye: Present: EOMI, PERRL ENT: Present: mucous membranes moist Comments: Poor dentition - *Routine Neck Exam Present: supple. Absent: lymphadenopathy - *Routine Respiratory Exam Present: prolonged expiratory phase Comments: Faint end expiratory wheeze with bibasilar crackles. No rhonchi on exam. - *Routine Cardiovascular Exam Present: RRR - *Routine Abdominal Exam Present: soft, normoactive bowel sounds. Absent: tenderness - *Routine Extremities Exam Present: edema (1+). Absent: cyanosis, clubbing - *Routine Skin Exam Present: warm. Absent: rash - *Routine Neurological Exam Present: alert, oriented X3. Absent: altered mental status Results Labs on day of discharge: Labs from last 24 hours 03/08/19 03/08/19 03/08/19 05:57 05:57 05:45 WBC 11.2 H D RBC 4.07 L Hgb 10.9 L Hct 35.6 L MCV 87.3 MCH 26.7 L MCHC 30.5 L RDW 14.7 Plt Count 230 MPV 7.9 Neut % (Auto) 75.0 Lymph % (Auto) 18.0 Towns % (Auto) 5.4 Eos % (Auto) 1.3 Baso % (Auto) 0.3 Neut # (Auto) 8.4 H Lymph # (Auto) 2.0 Towns # (Auto) 0.6 Eos # (Auto) 0.1 Baso # (Auto) 0.0 Total Counted Neutrophils % (Manual) Lymphocytes % (Manual) Monocytes % (Manual) Platelet Estimate RBC Morphology Sodium 137 Potassium 4.1 Chloride 103 Carbon Dioxide 22 Anion Gap 16.1 H BUN 19 H Creatinine 0.91 Estimated Creat Clear 120 Estimated GFR 83 Est GFR ( Amer) 100 Glucose 140 H D POC Glucose 149 H Calcium 8.1 L Magnesium 1.8 03/07/19 03/07/19 03/07/19 20:29 16:34 11:59 WBC RBC Hgb Hct MCV MCH MCHC RDW Plt Count MPV Neut % (Auto) Lymph % (Auto) Towns % (Auto) Eos % (Auto) Baso % (Auto) Neut # (Auto) Lymph # (Auto) Towns # (Auto) Eos # (Auto) Baso # (Auto) Total Counted Neutrophils % (Manual) Lymphocytes % (Manual) Monocytes % (Manual) Platelet Estimate RBC Morphology Sodium Potassium Chloride Carbon Dioxide Anion Gap BUN Creatinine Estimated Creat Clear Estimated GFR Est GFR ( Amer) Glucose POC Glucose 207 H 209 H 213 H Calcium Magnesium 03/07/19 06:13 WBC RBC Hgb Hct MCV MCH MCHC RDW Plt Count MPV Neut % (Auto) Lymph % (Auto) Towns % (Auto) Eos % (Auto) Baso % (Auto) Neut # (Auto) Lymph # (Auto) Towns # (Auto) Eos # (Auto) Baso # (Auto) Total Counted 100 Neutrophils % (Manual) 90 H Lymphocytes % (Manual) 6 L Monocytes % (Manual) 4 Platelet Estimate Normal RBC Morphology Normal Sodium Potassium Chloride Carbon Dioxide Anion Gap BUN Creatinine Estimated Creat Clear Estimated GFR Est GFR ( Am) Glucose POC Glucose Calcium Magnesium Preliminary micro results at discharge 03/06/19 06:40 Blood Culture - Preliminary Blood NO GROWTH AFTER 48 HOURS 03/06/19 06:40 Blood Culture - Preliminary Blood NO GROWTH AFTER 48 HOURS DS: Diagnosis - Discharge Diagnosis (1) HCAP (healthcare-associated pneumonia) Status: Acute (2) SIRS (systemic inflammatory response syndrome) Status: Resolved (3) Septic shock Status: Resolved (4) Chronic kidney disease, stage II (mild) Status: Chronic (5) Chronic diarrhea Status: Chronic (6) Diabetes mellitus type 2 in obese Status: Chronic (7) Obesity (BMI 30.0-34.9) Status: Chronic Discharge Plan - Patient Discharge Instructions Patient Instructions: DI for Pneumonia -- Adult, DI for Sepsis -- Adult - Follow up Plan Disposition: er [facility] Home Medications: Home Medications Medication Instructions Recorded Confirmed Type Apixaban [Eliquis 2.5mg tab] 2.5 mg PO BID 06/12/17 03/06/19 History Budesonide [Budesonide EC] 3 mg PO BID 06/12/17 03/06/19 History Escitalopram Oxalate [Lexapro] 20 mg PO HS 06/12/17 03/06/19 History Memantine HCl [Namenda 10mg 10 mg PO 0800,1600 06/12/17 03/06/19 History Tablet] Multivit-Min/FA/Lycopen/Lutein 1 tab PO DAILY 06/12/17 03/06/19 History [Men 50 Plus Multivitamin Tab] Oxybutynin Chloride [Oxybutynin 10 mg PO DAILY 06/12/17 03/06/19 History Chloride ER] Pravastatin Sodium [Pravachol] 40 mg PO HS 06/12/17 03/06/19 History Pyridoxine HCl (Vitamin B6) 100 mg PO DAILY 06/12/17 03/06/19 History [Vitamin B-6] clonazePAM [Clonazepam] 0.5 mg PO BID 06/12/17 03/06/19 History Dutasteride 0.5 mg PO DAILY 12/18/17 03/06/19 History Gabapentin [Neurontin 600mg 600 mg PO 0800,1300 12/18/17 03/06/19 History tablet] Loratadine [Claritin 10mg Tablet] 10 mg PO HS 12/18/17 03/06/19 History fluticasone propionate 50 1 spray INTRANASAL DAILY 30 Days 01/11/18 03/06/19 History mcg/actuation nasal spray,suspension Aspirin [Aspirin 81mg chewable 81 mg PO HS 05/15/18 03/06/19 History tab] benzonatate 100 mg capsule 100 mg PO BID cap 05/22/18 03/06/19 History furosemide 20 mg tablet 40 mg PO BID tab 05/22/18 03/06/19 History Loperamide HCl [Loperamide HCl 4 mg PO DAILY 05/28/18 03/06/19 History 1mg/5mL Udc] atenolol 25 mg tablet 25 mg PO BID tab 11/06/18 03/06/19 History tamsulosin 0.4 mg capsule 0.4 mg PO DAILY cap 11/06/18 03/06/19 History Ascorbic Acid 500 mg PO DAILY 11/08/18 03/06/19 History Loperamide HCl [Anti-Diarrheal] 6 mg PO TID 11/08/18 03/06/19 History Phenazopyridine HCl [Azo Urinary 95 mg PO DAILY 11/08/18 03/06/19 History Pain Relief] Saccharomyces Boulardii [Florastor] 250 mg PO DAILY 11/08/18 03/06/19 History Brexpiprazole [Rexulti] 3 mg PO HS 02/08/19 03/06/19 History Ipratropium/Albuterol Sulfate 3 ml IH QIDP PRN 02/08/19 03/06/19 History [Duoneb 3mL neb] Linagliptin [Tradjenta 5mg tablet] 5 mg PO DAILY 02/08/19 03/06/19 History Liraglutide [Victoza 2-Rick] 1.2 mg SQ DAILY 02/08/19 03/06/19 History Oxycodone HCl [Oxycodone (IR) 5mg 5 mg PO Q6HP PRN 02/08/19 03/06/19 History Cap] Rivastigmine Tartrate 3 mg PO BID 02/08/19 03/06/19 History [Rivastigmine] guaiFENesin [Robitussin 200mg/10mL 200 mg PO Q6HP PRN 02/08/19 03/06/19 History Syrup Udc] lamoTRIgine [Lamictal 100mg Tablet] 100 mg PO BID 02/08/19 03/06/19 History Amoxicillin/Potassium Clav 500 mg PO TID #21 tab 03/08/19 Rx [Augmentin 500mg tab] Clindamycin HCl [Clindamycin HCl 300 mg PO Q8 5 Days #15 cap 03/08/19 Rx 300mg Cap] Prescriptions/Medication Reconciliation: New Amoxicillin/Potassium Clav [Augmentin 500mg tab] 500 mg PO TID #21 tab Clindamycin HCl [Clindamycin HCl 300mg Cap] 300 mg PO Q8 5 Days #15 cap Continued fluticasone propionate 50 mcg/actuation nasal spray,suspension 1 spray INTRANASAL DAILY 30 Days benzonatate 100 mg capsule 100 mg PO BID cap furosemide 20 mg tablet 40 mg PO BID tab tamsulosin 0.4 mg capsule 0.4 mg PO DAILY cap atenolol 25 mg tablet 25 mg PO BID tab Pyridoxine HCl (Vitamin B6) [Vitamin B-6] 100 mg PO DAILY Pravastatin Sodium [Pravachol] 40 mg PO HS Oxybutynin Chloride [Oxybutynin Chloride ER] 10 mg PO DAILY Multivit-Min/FA/Lycopen/Lutein [Men 50 Plus Multivitamin Tab] 1 tab PO DAILY Memantine HCl [Namenda 10mg Tablet] 10 mg PO 0800,1600 Escitalopram Oxalate [Lexapro] 20 mg PO HS clonazePAM [Clonazepam] 0.5 mg PO BID Budesonide [Budesonide EC] 3 mg PO BID Dutasteride 0.5 mg PO DAILY Gabapentin [Neurontin 600mg tablet] 600 mg PO 0800,1300 Loratadine [Claritin 10mg Tablet] 10 mg PO HS Ascorbic Acid 500 mg PO DAILY Rivastigmine Tartrate [Rivastigmine] 3 mg PO BID lamoTRIgine [Lamictal 100mg Tablet] 100 mg PO BID guaiFENesin [Robitussin 200mg/10mL Syrup Udc] 200 mg PO Q6HP PRN PRN Reason: Cough Ipratropium/Albuterol Sulfate [Duoneb 3mL neb] 3 ml IH QIDP PRN PRN Reason: COPD Liraglutide [Victoza 2-Rick] 1.2 mg SQ DAILY Oxycodone HCl [Oxycodone (IR) 5mg Cap] 5 mg PO Q6HP PRN PRN Reason: pain Apixaban [Eliquis 2.5mg tab] 2.5 mg PO BID Aspirin [Aspirin 81mg chewable tab] 81 mg PO HS Loperamide HCl [Loperamide HCl 1mg/5mL Udc] 4 mg PO DAILY Phenazopyridine HCl [Azo Urinary Pain Relief] 95 mg PO DAILY Loperamide HCl [Anti-Diarrheal] 6 mg PO TID Saccharomyces Boulardii [Florastor] 250 mg PO DAILY Linagliptin [Tradjenta 5mg tablet] 5 mg PO DAILY Brexpiprazole [Rexulti] 3 mg PO HS - Problem Reconciliation Problems Reviewed?: Yes
--- NOTE | 2019-03-08 13:57 | Cardiology Report ---
APPROVED REPORT EXAM: Comprehensive 2D, Doppler, and color-flow Echocardiogram Surveillance System Monitor: Amy Jaramillo RT(R) Ht: 6 ft 1 in Wt: 260lbs BSA: 2.41 BP: 141/67 mmHg Indications: CHF, COPD, HTN, Diabetes, Hyperlipidemia, AMS, SOB, CAD 2D Dimensions LVOT 2.00 cm (M/F) 1.5-2.5 M-Mode Dimensions RVDd 1.90 cm (0.9-2.6)LA Diam 3.40 cm (1.9-4.0) LVDd 4.60 cm (3.5-5.7)Ao Diam 2.80 cm (2.0-3.7) LVDs 2.80 cm (3.5-5.7)AV Cusp 2.00 cm (1.5-2.6) IVSd 1.30 cm (0.6-1.1)PWd 1.20 cm (0.6-1.1) EF (Teich) 69.60% FS 39.10% EDV (Teich) 97.30 mLESV (Teich) 29.60 mL LV Diastology E/A Ratio 1.2MED E' 12.30 (< 7 cm/sec) E'/MED E' Ratio9.30 (>14)LAT E' 13.90 (<10 cm/sec) E/LAT E' Ratio 8.30 (>14) Mitral Valve MV E Max Louis. 115.00 (40-130 cm/s)MV A Velocity 92.80 (40-130 cm/s) E/A Ratio 1.20 Tricuspid Valve TR P. [place]171.00 cm/sRAP Estimate 15.00 mmHg RVSP 61.00 mmHg Left Ventricle Left atrium is mildly enlarged, left ventricle is normal size, mild concentric left ventricular hypertrophy, visually estimated ejection fraction 55% with no regional wall motion abnormality. Diastolic parameters are inconclusive. Right Ventricle Right atrium and right ventricular mildly enlarged with normal contractility. Aortic Valve Aortic valve is minimally thickened and fibrosed. There is no aortic stenosis aortic insufficiency. Mitral Valve Mitral valve is grossly normal, there is mild mitral regurgitation. Tricuspid Valve Tricuspid valve is grossly normal, there is mild tricuspid regurgitation. Calculated right ventricular systolic pressure is 73 mmHg consistent with severely elevated right ventricular systolic pressure. Pulmonic Valve Pulmonic valve is poorly visualized. Great Vessels Aortic root is normal size. Pericardium No significant pericardial effusion noted. Conclusion 1. Normal left ventricular size, preserved left ventricular systolic function, visually estimated ejection fraction 55% with no regional wall motion abnormality, diastolic parameters are inconclusive. 2. Mildly enlarged right ventricle with normal contractility. 3. Mild mitral and tricuspid regurgitation, calculated right ventricular systolic pressure is 73 mmHg consistent with severely elevated right ventricular systolic pressure. Inferior vena cava is not well-visualized. 4. No significant pericardial effusion noted. Electronically signed by : Ramon Vidal, 03/08/2019 13:56:39
[2019-03-08 14:11] VITALS: BP 114/45
--- NOTE | 2019-03-09 19:16 | Electrocardiograph Report ---
APPROVED REPORT Exam: Resting ECG HR:58 bpm ECG Measurements Heart Rate 58 AXES ID 224 P 105 QRSd 88 QRS -41 QT 418 T13 QTc 410 <Conclusion> Sinus bradycardia with 1st degree AV block Left axis deviation Low voltage QRS Inferior infarct, age undetermined Abnormal ECG Electronically signed by : Andriy Alarcon, 03/09/2019 19:15:31
== END 2019-03-08 15:40 | DRG 193 ==
LOC: ER 06:27 → 2ND 08:56
PROVIDERS: ADMIT Internal Medicine Adolescent Medicine; ATTEND Internal Medicine Adolescent Medicine
DX: I50.32 Chronic diastolic (congestive) heart failure; Z99.81 Dependence on supplemental oxygen; R65.21 Severe sepsis with septic shock; J18.9 Pneumonia, unspecified organism; N18.2 Chronic kidney disease, stage 2 (mild); Z91.19 Patient's noncompliance with other medical treatment and regimen; I13.0 Hypertensive heart and chronic kidney disease with heart failure and stage 1 through stage 4 chronic kidney disease, or unspecified chronic kidney disease; J96.10 Chronic respiratory failure, unspecified whether with hypoxia or hypercapnia; E11.22 Type 2 diabetes mellitus with diabetic chronic kidney disease
CPT/HCPCS: 36415; 71010; 71045; 80048; 80053; 81001; 82803; 82962; 83605; 83735; 84484; 85007; 85025; 87040; 87275; 87276; 93005; 93306; 94761; 96365; 96366; 96367; 96375; 99285; J2543; S0077

== ENCOUNTER → 2020-01-01 09:40 | Outpatient (CLI) | payer MEDICARE, SELFPAY ==
--- NOTE | 2020-01-01 09:45 | CA_ITS ---
APPROVED REPORT EXAM: Comprehensive 2D, Doppler, and color-flow Echocardiogram Digital Ad Trafficker: Kellee Lilly CRT Ht: 6 ft 1 in Wt: 301lbs BSA: 2.56 BP: 122/78 mmHg Indications: Congestive Heart Failure, COPD, Obesity, Peripheral Edema, CAD, Hypertension/HDD, PT up in wheelchair. TDE 2D Dimensions LVOT 2.01 cm (M/F) 1.5-2.5 M-Mode Dimensions RVDd 2.68 cm (0.9-2.6) LVDd 4.92 cm (3.5-5.7) LVDs 3.20 cm (3.5-5.7) IVSd 1.08 cm (0.6-1.1) PWd 1.36 cm (0.6-1.1) EF (Teich) 64.00% FS 35.00% EDV (Teich) 113.90 mL ESV (Teich) 41.00 mL LV Diastology E/A Ratio 0.84 Mitral Valve MV A Velocity 74.00 (40-130 cm/s) Left Ventricle Technically difficult study because of the patient factors and poor acoustic windows. Left atrium is mildly enlarged, left ventricle is normal size, mild concentric left ventricular hypertrophy, visually estimated ejection fraction 55% with no regional wall motion abnormality in the obtained views. Grade 1 diastolic dysfunction seen without tissue Doppler evidence of raise left atrial pressure. Right Ventricle Right-sided chambers are not well visualized. Aortic Valve Aortic valve is minimally thickened and fibrosed leaflet continue to display good mobility, there is no aortic stenosis or aortic insufficiency. Mitral Valve Mitral valve is grossly normal, there is mild mitral regurgitation. Tricuspid Valve Tricuspid valve is not well visualized. Pulmonic Valve Pulmonic valve is poorly visualized. Great Vessels Aortic root is normal size. Pericardium No significant pericardial effusion noted. Conclusion 1. Technically difficult study because of the patient factors and poor acoustic windows. 2. Mildly enlarged left atrium, normal left ventricular size, preserved left ventricular systolic function, visually estimated ejection fraction 55% with no regional wall motion abnormality, endocardial surfaces are very poorly visualized, grade 1 diastolic dysfunction seen without tissue Doppler evidence of raise left atrial pressure. 3. The right-sided chambers are not well visualized. 4. Mild mitral and tricuspid regurgitation. 5. No significant pericardial effusion noted. Electronically signed by : Ramon Vidal, 01/02/2020 16:06:39
== END ==
PROVIDERS: PCP Internal Medicine Adolescent Medicine; Visit Provider Internal Medicine Adolescent Medicine
DX: I25.10 Atherosclerotic heart disease of native coronary artery without angina pectoris (principal)
CPT/HCPCS: 93306

== ENCOUNTER 2020-04-03 23:22 | Emergency (ER) | payer MEDICARE, SELFPAY ==
[2020-04-03 23:22] VITALS: BP 135/62; PULSE 76; RESP 16; TEMP 36.7; O2SAT 96; BMI 44.4
[2020-04-03 23:59] VITALS: BP 115/55; PULSE 74; RESP 18; O2SAT 98
--- NOTE | 2020-04-04 00:07 | CT_ITS ---
PROCEDURE: CT CERVICAL SPINE WO CON CLINICAL INDICATION: fall Neck injury with pain, contusion/abrasion or hematoma, cervical sprain/strain COMPARISON: CT CT CERVICAL SPINE WO CON from 02/08/2019 TECHNIQUE: Axial images obtained with sagittal and coronal reformats. All CT scans at the facility use one or more dose reduction, viz: automated exposure control, ma/kV adjustment per patient size (including targeted exams where dose is matched to indication, i.e. head), or iterative reconstruction technique. Axial spiral CT scanning performed of the cervical spine beginning at the base of the skull and continuing to the upper T-spine. 3-D multiplanar reconstruction with 3-D manipulation of volumetric data set in image rendering was completed by the radiologist and/or technologist with the supervision of the radiologist on independent workstation. FINDINGS: Normal alignment. Generalized osteopenia. There is incomplete fusion of the posterior arch of C1. There is degenerative disc disease at C5-C6 with bulging disc and posterior ridging of the endplates with canal stenosis and bilateral lateral recess and foraminal narrowing. Degenerative disc disease also noted at C6-C7. No acute fracture or dislocation. Lung apices are clear. IMPRESSION: 1. No acute fracture. 2. Cervical spondylosis with canal stenosis Dictated by: Guzman Dougherty MD 04/04/2020 09:34 Guzman Dougherty MD in [facility] 04/04/2020 09:34
--- NOTE | 2020-04-04 00:07 | CT_ITS ---
PROCEDURE: CT HEAD/BRAIN WO CON CLINICAL INDICATION: fall Head injury with headache/pain, contusion, abrasion or hematoma bruising of the forehead COMPARISON: CT CT HEAD/BRAIN WO CON from 02/08/2019 TECHNIQUE: Axial images obtained. All CT scans at the facility use one or more dose reduction, viz: automated exposure control, ma/kV adjustment per patient size (including targeted exams where dose is matched to indication, i.e. head), or iterative reconstruction technique. FINDINGS: No midline shift, mass effect, intracranial hemorrhage, hydrocephalus, or extra-axial fluid collection is evident. There is generalized atrophy with hypoattenuation of the periventricular white matter consistent with microangiopathic changes.. Nonspecific basal ganglia calcifications are present. The calvarium has an unremarkable appearance. No mastoid effusion. Mild mucosal thickening involves the ethmoid and frontal sinuses. There is some subcutaneous soft tissue swelling in the central aspect of the frontal region of the scalp. IMPRESSION: No acute intracranial finding Dictated by: Guzman Dougherty MD 04/04/2020 09:29 Guzman Dougherty MD in [facility] 04/04/2020 09:29
--- NOTE | 2020-04-04 00:07 | XR_ITS ---
PROCEDURE: XR KNEE LT 2V CLINICAL INDICATION: c/o pain Fall with pain COMPARISON: CR KNEE3L KNEE-3 VIEWS-LT from 09/27/2012 CR KNEE3L KNEE-3 VIEWS-LT from 01/31/2017 CR KNEE3L KNEE-3 VIEWS-LT from 03/05/2017 CR KNEE3R KNEE-3 VIEWS-RT from 03/05/2017 FINDINGS: No fracture or dislocation. No lytic or blastic change. There is normal mineralization. The joint spaces are well-preserved. No significant degenerative/arthritic changes. No erosive changes evident. Other findings:Vascular calcification IMPRESSION: No acute findings. Dictated by: Guzman Dougherty MD 04/04/2020 08:11 Guzman Dougherty MD in [facility] 04/04/2020 08:11
--- NOTE | 2020-04-04 00:07 | XR_ITS ---
PROCEDURE: XR HIP LT 2-3V W/PELVIS CLINICAL INDICATION: fall Left hip pain following injury COMPARISON: CR XR PELVIS 1-2V from 02/08/2019 FINDINGS: No fracture or dislocation. No lytic or blastic change. Soft tissue calcifications are present at the hip region IMPRESSION: No acute findings. Dictated by: Guzman Dougherty MD 04/04/2020 08:13 Guzman Dougherty MD in [facility] 04/04/2020 08:13
--- NOTE | 2020-04-04 00:07 | XR_ITS ---
PROCEDURE: XR CHEST AP CLINICAL HISTORY: fall Fall with injury and pain COMPARISON: CT CHW CT CHEST W/ CONTRAST from 03/02/2015 CR CXR2V XR chest 2V from 09/15/2018 CR XR CHEST AP from 02/08/2019 CR XR CHEST PORTABLE from 03/06/2019 FINDINGS: The cardiomediastinal silhouette and pulmonary vascularity are within normal limits. There is elevated right hemidiaphragm with right basilar atelectasis. There are multiple old left-sided rib fractures. Prior kyphoplasty at L1. There is a small area of increased density overlying the lower aspect of the image in the mid abdominal region could be due to a renal stone or gallstone or even contrast within the renal collecting system. IMPRESSION: Chronic changes as described above, no acute finding Dictated by: Guzman Dougherty MD 04/04/2020 08:16 Guzman Dougherty MD in [facility] 04/04/2020 08:16
--- NOTE | 2020-04-04 00:08 | XR_ITS ---
PROCEDURE: XR SHOULDER LT MIN 2V CLINICAL INDICATION: fall with pain COMPARISON: CR SHOU3L [id number] VIEWS from 01/19/2015 CR SHOU3R [id number] VIEWS from 11/24/2016 CR SHOULDCMRT XR shoulder RT min 2V from 06/17/2017 CR [id number] XR shoulder LT min 2V from 09/15/2018 CR XR CHEST AP from 04/04/2020 FINDINGS: No fracture or dislocation. No lytic or blastic change. There is normal mineralization. The joint spaces are well-preserved. No significant degenerative/arthritic changes. No erosive changes evident. Other findings:There are multiple old left-sided rib fractures IMPRESSION: No acute findings. Dictated by: Guzman Dougherty MD 04/04/2020 08:18 Guzman Dougherty MD in [facility] 04/04/2020 08:18
--- NOTE | 2020-04-04 00:30 | PC.NURSE ---
v/s delayed. pt in rad
--- NOTE | 2020-04-04 00:45 | HMH.EDFALL ---
ED Disposition Clinical Impression: Skin tear Fall Qualifiers: Encounter type: initial encounter Qualified Code(s): W19.XXXA - Unspecified fall, initial encounter Contusion Qualifiers: Encounter type: initial encounter Contusion area: knee Laterality: left Qualified Code(s): S80.02XA - Contusion of left knee, initial encounter Disposition: Home, Self-Care Condition on Discharge: Good Additional Instructions: see pcp for follow up Referrals: Andriy Coon MD [Primary Care Provider] - - Critical Care Critical Care Time: No Attestation: On 04/03/20, the high probability of a clinically significant, sudden or life threatening deterioration of the following system(s) required my full and direct attention, intervention and personal management. The time I documented below is in addition to time spent performing reported procedures but includes the following listed in this critical care notation. Medical Decision Making - Medical Records Medical records reviewed: Yes: I reviewed the patient's medical records. - Jonathon Inquiry Pt receiving controlled substance: No Vital Signs: 04/03/20 23:22 04/03/20 23:59 Temperature 98.0 F Temperature Source Oral Pulse Rate [Left Radial] 76 74 Respiratory Rate 16 18 Blood Pressure [Right Arm] 135/62 115/55 L Blood Pressure Mean [Right Arm] 86 75 Blood Pressure Source [Right Arm] Automatic Cuff Blood Pressure Position [Right Arm] Sitting 02 Sat by Pulse Oximetry 96 98 Oxygen Delivery Method Room Air Room Air Orders (Tests/Meds): ORDERS Category Date Time Status CT cervical spine wo con Stat Cat Scan 04/04/20 00:[address] head/brain wo con Stat Cat Scan 04/04/20 00:07 Taken XR chest AP Stat Exams 04/04/20 00:07 Taken XR hip LT 2-3V w/pelvis Stat Exams 04/04/20 00:07 Taken XR knee LT 2V Stat Exams 04/04/20 00:07 Taken XR shoulder LT min 2V Stat Exams 04/04/20 00:08 Taken - Radiology Data #1 Image(s): Chest, Shoulder, Pelvis, Knee Image Reviewed: Yes I reviewed the patient's radiology image Preliminary Findings: No Fracture Seen - CT Data CT Scan: Head, C-Spine Time Received: 02:[address] Reviewed: Yes: I have viewed the radiologist's interpretation Preliminary Findings: No Fracture Seen Fall HPI - General Chief Complaint: Fall Stated Complaint: fall Time Seen by Provider: 04/04/20 00:00 Mode of Arrival: EMS Source of Information: Patient, Spouse, EMS, Medical Record Limitations: Physical Limitations Description of Symptoms (Recalled from ER Triage Doc. by RN): pt got up to go to the bathroom this evening when he tripped over his walker and fell into the trash can in his room. pt denies LOC. pt complains of pain at his left knee, hip and shoulder. pt has a laceration behind his left ear. and lacerations and skin tears to bilat. upper extremities. - History of Present Illness HPI Narrative: fell going to restroom at [facility] - no loc reported and has multiple c/o and skin abrasion on lt forearm MD complaint: fall Onset (ago): hour(s) Fall from: walking Fall witnessed: no Place [facility] occurred[facility] Loss of consciousness: none Prolonged down time: no Symptoms prior to fall: none Context: tripped/slipped Location of injury: head, neck Location of injury - extremities: Left: shoulder, knee Severity: moderate Associated symptoms (after fall): denies - Related Data Home Medications Medication Instructions Recorded Confirmed Apixaban [Eliquis 2.5mg tab] 2.5 mg PO BID 06/12/17 04/04/20 Budesonide [Budesonide EC] 3 mg PO BID 06/12/17 04/04/20 Escitalopram Oxalate [Lexapro] 20 mg PO HS 06/12/17 04/04/20 Memantine HCl [Namenda 10mg 10 mg PO 0800,1600 06/12/17 04/04/20 Tablet] Multivit-Min/FA/Lycopen/Lutein 1 tab PO DAILY 06/12/17 04/04/20 [Men 50 Plus Multivitamin Tab] Oxybutynin Chloride [Oxybutynin 10 mg PO DAILY 06/12/17 04/04/20 Chloride ER] Pravastatin Sodium [Pravachol] 40 mg PO HS 06/12/17
[2020-04-04 02:25] VITALS: BP 126/57; PULSE 77; RESP 16; TEMP 36.7; O2SAT 97
== END 2020-04-04 02:50 | disposition home or self-care (01) ==
PROVIDERS: Emergency Provider Emergency Medicine; PCP Family Medicine
DX: S51.812A Laceration without foreign body of left forearm, initial encounter (principal); S01.312A Laceration without foreign body of left ear, initial encounter; W01.198A Fall on same level from slipping, tripping and stumbling with subsequent striking against other object, initial encounter; Y92.129 Unspecified place in nursing home as the place of occurrence of the external cause; F03.90 Unspecified dementia, unspecified severity, without behavioral disturbance, psychotic disturbance, mood disturbance, and anxiety; F41.9 Anxiety disorder, unspecified; Z87.442 Personal history of urinary calculi; E11.9 Type 2 diabetes mellitus without complications; E78.5 Hyperlipidemia, unspecified; I10 Essential (primary) hypertension; I25.2 Old myocardial infarction; Z79.899 Other long term (current) drug therapy
CPT/HCPCS: 12002; 70450; 71045; 72125; 73030; 73502; 73560; 99283

== ENCOUNTER 2020-05-21 07:52 | Outpatient (CLI) | payer MEDICARE, SELFPAY ==
[2020-05-21] VITALS (8 sets, daily range): BP systolic 108–148; BP diastolic 53–70; PULSE 75–83; RESP 16–24; TEMP 37.4–37.9; O2SAT 92–95; BMI 39.0
--- NOTE | 2020-05-21 08:30 | PC.NURSE ---
Facts sheet verbally signed by Radha Sheppard, witnessed by Juanita BLUE and Charanjit Rios RN
--- NOTE | 2020-05-21 09:30 | PC.NURSE ---
Infusion completed, pt tolerated well. No distress noted at this time. Will continue to monitor
--- NOTE | 2020-05-21 09:49 | PC.NURSE ---
Pt temperature changed from 99.4 to 100.3 once infusion was stopped. aware and tylenol administered per
== END 2020-05-21 11:02 | disposition home or self-care (01) ==
PROVIDERS: PCP Internal Medicine Adolescent Medicine; Visit Provider Internal Medicine Adolescent Medicine
DX: U07.1 COVID-19 (principal)
CPT/HCPCS: 96365

== ENCOUNTER → 2020-07-12 03:23 | Outpatient (CLI) | payer MEDICARE, SELFPAY ==
[2020-07-12 03:37] LABS: Microscopic, Urine URINE MICROSCOPIC (MICROSCOPIC)
[2020-07-12 03:46] LABS: Appearance,Urine SL CLOUDY (Clear); Bilirubin,Urine Negative (Negative); Blood, Urine 3+ (Negative); Color,Urine YELLOW (Yellow); Glucose,Urine (UA) Negative (Negative); Ketones,Urine Negative (Negative); Leukocyte Esterase,Urine TRACE (Negative); Nitrate,Urine Negative (Negative); PH,Urine 6.5 (5.0-8.5); Protein,Urine TRACE (Negative); Urobilinogen,Urine 0.2 EU/dl (0.2)
[2020-07-12 03:51] LABS: RBC,Urine 50-100 #/hpf (0-3)
== END ==
LOC: LAB.DROPOF 07-13 06:26 → HMH.JM 07-14 11:34
PROVIDERS: PCP Internal Medicine Adolescent Medicine; Visit Provider Internal Medicine Adolescent Medicine
DX: N39.0 Urinary tract infection, site not specified (principal)
CPT/HCPCS: 81001; 87086; 87088; 87186

== ENCOUNTER → 2020-09-07 09:04 | Outpatient (CLI) | payer MEDICARE, SELFPAY ==
[2020-09-07 15:45] LABS: Basophils # 0.1 K/mm3 (0-0.2); Basophils % 0.8 % (0.1-2.0); Eosinophils # 0.3 K/mm3 (0.0-0.4); Eosinophils % 2.7 % (0.1-12.0); Hematocrit 44.3 % (42.0-52.0); Hemoglobin 13.9 g/dL (14.1-18.0); Lymphocytes # 2.3 K/mm3 (0.7-4.5); Lymphocytes % 23.4 % (10-50); Mean Corpuscular HGB Conc 31.4 g/dL (31.8-35.4); Mean Corpuscular Hemoglobin 27.8 pg (27.0-31.2); Mean Corpuscular Volume 88.5 fl (80-94); Mean Platelet Volume 8.7 fl (7.4-10.4); Monocytes # 0.5 K/mm3 (0.1-1.0); Monocytes % 5.5 % (1.7-9.3); Neutrophils # 6.5 K/mm3 (1.8-7.8); Neutrophils % 67.5 % (37.0-80.0); Platelet Count 235 K/mm3 (142-424); Red Cell Distribution Width 14.8 % (11.5-17.5); White Blood Count 9.6 K/mm3 (4.8-10.8)
[2020-09-07 15:49] LABS: Chloride 100 mmol/L (98-107)
[2020-09-07 15:50] LABS: Potassium 4.3 mmoL/L (3.5-5.1); Sodium 135 mmol/L (136-145)
[2020-09-07 15:52] LABS: Alanine Aminotransferase 26 U/L (12-78); Alkaline Phosphatase 110 U/L (38-126); Anion Gap 9.3 mEq/L (5-15); Aspartate Amino Transferase 27 U/L (17-59); Bilirubin,Total 0.3 mg/dl (0.2-1.3); Blood Urea Nitrogen 20 mg/dl (9-20); Carbon Dioxide 30 mmol/L (22.0-30.0); Cholesterol 190 mg/dl (140-200); Estimated Glomerular Filt Rate 95 ml/min (>60); GFR (African American) 115 ML/MIN (>60); Triglycerides 202 mg/dl (30-150); VLDL Cholesterol 40 mg/dL (0-40)
[2020-09-07 15:53] LABS: Albumin Level 3.3 g/dl (3.5-5.0); Albumin/Globulin Ratio 1.1 (1.1-1.8); Calcium 9.1 mg/dl (8.4-10.2); Chol/HDL Ratio 4.1 (1-3.5); Globulin 2.9 g/dL (1.3-3.2); Glucose 193 mg/dl (74-100); HDL Cholesterol 46 mg/dl (40-60); Total Protein,Serum 6.2 g/dl (6.3-8.2)
[2020-09-07 16:09] LABS: Direct LDL Cholesterol 121.79 mg/dL (100-129)
[2020-09-07 16:25] LABS: Hemoglobin A1C 8.5 % (4.0-6.0)
== END ==
PROVIDERS: Visit Provider Nurse Practitioner Family
DX: E11.40 Type 2 diabetes mellitus with diabetic neuropathy, unspecified (principal); Z79.4 Long term (current) use of insulin
CPT/HCPCS: 36415; 80053; 80061; 83036; 85025

== ENCOUNTER → 2020-12-15 08:31 | Outpatient (CLI) | payer MEDICARE, SELFPAY ==
[2020-12-15 13:31] LABS: Basophils # 0.2 K/mm3 (0-0.2); Basophils % 1.7 % (0.1-2.0); Eosinophils # 0.3 K/mm3 (0.0-0.4); Hematocrit 42.9 % (42.0-52.0); Hemoglobin 13.8 g/dL (14.1-18.0); Lymphocytes # 2.4 K/mm3 (0.7-4.5); Lymphocytes % 24.1 % (10-50); Mean Corpuscular HGB Conc 32.1 g/dL (31.8-35.4); Mean Corpuscular Hemoglobin 29.1 pg (27.0-31.2); Mean Corpuscular Volume 90.6 fl (80-94); Mean Platelet Volume 8.8 fl (7.4-10.4); Monocytes # 0.7 K/mm3 (0.1-1.0); Neutrophils # 6.4 K/mm3 (1.8-7.8); Neutrophils % 64.1 % (37.0-80.0); Platelet Count 246 K/mm3 (142-424); Red Blood Count 4.73 M/mm3 (4.60-6.20); Red Cell Distribution Width 15.5 % (11.5-17.5); White Blood Count 9.9 K/mm3 (4.8-10.8)
[2020-12-15 14:06] LABS: Chloride 99 mmol/L (98-107); Potassium 4.3 mmoL/L (3.5-5.1); Sodium 139 mmol/L (136-145)
[2020-12-15 14:08] LABS: Alanine Aminotransferase 27 U/L (12-78); Alkaline Phosphatase 106 U/L (38-126); Aspartate Amino Transferase 30 U/L (17-59); Bilirubin,Total 0.4 mg/dl (0.2-1.3); Blood Urea Nitrogen 22 mg/dl (9-20); Estimated Glomerular Filt Rate 74 ml/min (>60); GFR (African American) 89 ML/MIN (>60)
[2020-12-15 14:09] LABS: Albumin Level 3.6 g/dl (3.5-5.0); Albumin/Globulin Ratio 1.2 (1.1-1.8); Anion Gap 13.3 mEq/L (5-15); Calcium 8.8 mg/dl (8.4-10.2); Carbon Dioxide 31 mmol/L (22.0-30.0); Chol/HDL Ratio 3.8 (1-3.5); Cholesterol 173 mg/dl (140-200); Globulin 2.9 g/dL (1.3-3.2); Glucose 148 mg/dl (74-100); HDL Cholesterol 45 mg/dl (40-60); Total Protein,Serum 6.5 g/dl (6.3-8.2); Triglycerides 143 mg/dl (30-150); VLDL Cholesterol 29 mg/dL (0-40)
[2020-12-15 14:20] LABS: Direct LDL Cholesterol 106.73 mg/dL (100-129)
[2020-12-15 15:04] LABS: Hemoglobin A1C 8.8 % (4.0-6.0)
== END ==
PROVIDERS: Visit Provider Nurse Practitioner Family
DX: E11.9 Type 2 diabetes mellitus without complications (principal); Z79.4 Long term (current) use of insulin
CPT/HCPCS: 36415; 80053; 80061; 83036; 85025

== ENCOUNTER → 2021-01-14 19:11 | Outpatient (CLI) | payer MEDICARE, SELFPAY | PROVIDERS: Visit Provider Nurse Practitioner Family | DX: J02.0 Streptococcal pharyngitis (principal) | CPT/HCPCS: 87070; 87077; 87186 ==

== ENCOUNTER → 2021-04-15 07:03 | Outpatient (CLI) | payer MEDICARE, SELFPAY ==
[2021-04-15 08:51] LABS: Basophils # 0.1 K/mm3 (0-0.2); Basophils % 1.3 % (0.1-2.0); Eosinophils # 0.4 K/mm3 (0.0-0.4); Eosinophils % 4.2 % (0.1-12.0); Hematocrit 47.7 % (42.0-52.0); Hemoglobin 15.1 g/dL (14.1-18.0); Lymphocytes # 2.3 K/mm3 (0.7-4.5); Mean Corpuscular HGB Conc 31.8 g/dL (31.8-35.4); Mean Corpuscular Volume 91.1 fl (80-94); Mean Platelet Volume 8.7 fl (7.4-10.4); Monocytes # 0.6 K/mm3 (0.1-1.0); Monocytes % 6.4 % (1.7-9.3); Neutrophils # 5.6 K/mm3 (1.8-7.8); Platelet Count 274 K/mm3 (142-424); Red Blood Count 5.23 M/mm3 (4.60-6.20); Red Cell Distribution Width 14.9 % (11.5-17.5)
[2021-04-15 09:11] LABS: Alanine Aminotransferase 36 U/L (12-78); Albumin Level 3.6 g/dl (3.5-5.0); Albumin/Globulin Ratio 1.1 (1.1-1.8); Alkaline Phosphatase 106 U/L (38-126); Anion Gap 10.6 mEq/L (5-15); Aspartate Amino Transferase 40 U/L (17-59); Bilirubin,Total 0.5 mg/dl (0.2-1.3); Blood Urea Nitrogen 20 mg/dl (9-20); Calcium 9.2 mg/dl (8.4-10.2); Carbon Dioxide 33 mmol/L (22.0-30.0); Chloride 98 mmol/L (98-107); Cholesterol 190 mg/dl (140-200); Estimated Glomerular Filt Rate 83 ml/min (>60); GFR (African American) 100 ML/MIN (>60); Globulin 3.2 g/dL (1.3-3.2); Glucose 160 mg/dl (74-100); HDL Cholesterol 47 mg/dl (40-60); Potassium 4.6 mmoL/L (3.5-5.1); Sodium 137 mmol/L (136-145); Total Protein,Serum 6.8 g/dl (6.3-8.2); Triglycerides 191 mg/dl (30-150); VLDL Cholesterol 38 mg/dL (0-40)
[2021-04-15 09:22] LABS: Direct LDL Cholesterol 115.84 mg/dL (100-129)
[2021-04-15 19:44] LABS: Hemoglobin A1C 9.9 % (4.0-6.0)
== END ==
PROVIDERS: Visit Provider Nurse Practitioner Family
DX: E11.40 Type 2 diabetes mellitus with diabetic neuropathy, unspecified (principal); Z79.4 Long term (current) use of insulin
CPT/HCPCS: 36415; 80053; 80061; 83036; 85025

== ENCOUNTER → 2021-05-17 06:58 | Outpatient (CLI) | payer MEDICARE, SELFPAY ==
[2021-05-17 13:58] LABS: Anion Gap 8.3 mEq/L (5-15); Blood Urea Nitrogen 22 mg/dl (9-20); Calcium 8.7 mg/dl (8.4-10.2); Carbon Dioxide 35 mmol/L (22.0-30.0); Chloride 95 mmol/L (98-107); Estimated Glomerular Filt Rate 73 ml/min (>60); GFR (African American) 89 ML/MIN (>60); Glucose 171 mg/dl (74-100); Potassium 4.3 mmoL/L (3.5-5.1); Sodium 134 mmol/L (136-145)
== END ==
PROVIDERS: Visit Provider Internal Medicine Adolescent Medicine
DX: I10 Essential (primary) hypertension (principal); E11.40 Type 2 diabetes mellitus with diabetic neuropathy, unspecified; Z79.4 Long term (current) use of insulin
CPT/HCPCS: 36415; 80048

== ENCOUNTER → 2021-05-20 09:13 | Outpatient (CLI) | payer MEDICARE, SELFPAY ==
--- NOTE | 2021-05-20 09:18 | CT_ITS ---
PROCEDURE: CT ABDOMEN PELVIS WO/W CON CLINICAL INDICATION: ab pain, gallstones on US COMPARISON: CT ABDPELWO CT abdomen pelvis wo con from 02/01/2018 TECHNIQUE: IV Contrast: 75ML Isovue 370 Oral Contrast None Axial images obtained with sagittal and coronal reformats. All CT scans at the facility use one or more dose reduction, viz: automated exposure control, ma/kV adjustment per patient size (including targeted exams where dose is matched to indication, i.e. head), or iterative reconstruction technique. FINDINGS: LOWER THORAX: Right hemidiaphragm is elevated with atelectatic changes in the right lung base posteriorly. Patchy density is present in the left lung base concerning for an area infiltrate/pneumonia. There are old bilateral lower rib fractures. ABDOMEN & PELVIS: There are multiple peripheral areas of decreased density involving the right hepatic lobe. The largest of these is in the right hepatic lobe at 4.7 x 2.9 cm, 6.3 x 2.8 cm, and 4.7 x 2.9 cm. These are peripheral in nature and have developed since the previous exam. These have a peripheral rim of decreased attenuation with slight isointensity centrally. The spleen, adrenal glands, and pancreas have an unremarkable appearance. There are bilateral renal calculi measuring up to 16 x 10 mm on the right and 7 mm on the left. No ureteral calculi. No hydronephrosis. No intestinal obstruction or free air. No evidence of appendicitis. There is a moderate amount of retained colonic feces. No pelvic mass or abnormal fluid collection. No evidence of diverticulitis. Prior kyphoplasty at L1 chronic wedge compression changes of L4 with retropulsion posteriorly and superiorly by 5 mm not significantly changed. There is a small left inguinal hernia containing fat IMPRESSION: 1. Numerous peripheral liver lesions as described above. Differential diagnosis would include metastatic disease versus areas of infarction. MRI without and with gadolinium enhancement may add more specificity. 2. Left lower lobe infiltrate. 3. Elevated right hemidiaphragm with right basilar atelectasis. 4. Bilateral nephrolithiasis Dictated by: Guzman Dougherty MD 05/21/2021 10:37 Guzman Dougherty MD in [place] 05/21/2021 10:37
== END ==
PROVIDERS: PCP Internal Medicine Adolescent Medicine; Visit Provider Nurse Practitioner Family
DX: R93.89 Abnormal findings on diagnostic imaging of other specified body structures (principal); K80.80 Other cholelithiasis without obstruction
CPT/HCPCS: 74178; Q9967

== ENCOUNTER → 2021-06-08 09:03 | Outpatient (CLI) | payer MEDICARE, MEDICAID, SELFPAY ==
--- NOTE | 2021-06-08 09:24 | MR_ITS ---
FINAL REPORT TECHNIQUE: Multiplanar imaging of the abdomen was obtained prior to and after intravenous administration of contrast. CLINICAL HISTORY: LIVER LESIONS. ABNORMAL CT SCAN 12-16-21 DAYS AGO. LIVER LESIONS. COMPARISON: CT scan from ??2020 FINDINGS: MRI examination was obtained to characterize unusual liver lesions identified on a prior CT scan. Liver lesions are again identified, similar in size and distribution to that identified previously. The lesions appear to be peripheral/subcapsular in location. The largest focus resides in the lateral right lobe liver, and measures 5.5 x 3.2 cm. A second focus in the inferior right lobe liver measures 4.1 x 2.3 cm. Focus in the anterior/superior right lobe of the liver measures 3.2 x 1.8 cm. On the pre-and post infusion images, there appears to be an enhancing central portion surrounded by a nonenhancing rim. Its appearance is well displayed on the axial images 44 through 51 of series 17. Remaining visualized upper abdominal structures appear unremarkable. IMPRESSION: 1. Unusual peripheral hepatic lesions, as described. Apparent central enhancing matrix with nonenhancing surrounding rim. Etiology is unclear. Given the unusual appearance, careful clinical correlation is recommended. Differential considerations could include an infectious/inflammatory process such as developing subcapsular abscesses. Subcapsular hematomas are considered less likely. Follow-up CT scans may be of value. While these lesions do not have the typical appearance for neoplasia, if neoplasia is of clinical concern needle sampling could be considered. Authenticated by Timmy Strickland MD on 06/08/2021 02:55:15 PM [facility]
[2021-06-08 10:00] LABS: Blood Urea Nitrogen 13 mg/dl (9-20); Estimated Glomerular Filt Rate 95 ml/min (>60); GFR (African American) 115 ML/MIN (>60)
== END ==
PROVIDERS: PCP Internal Medicine Adolescent Medicine; Visit Provider Internal Medicine Adolescent Medicine
DX: D49.0 Neoplasm of unspecified behavior of digestive system (principal)
CPT/HCPCS: 36415; 74183; 82565; 84520; A9576

== ENCOUNTER → 2021-07-07 15:18 | Outpatient (CLI) | payer MEDICARE, SELFPAY ==
--- NOTE | 2021-07-07 15:25 | XR_ITS ---
FINAL REPORT CLINICAL HISTORY: encounter for wound care FINDINGS: LEFT FOOT Three views of the left foot demonstrate no acute fracture or dislocation. There are mild degenerative changes. There is a plantar calcaneal spur. There is a presumed soft tissue defect in the lateral midfoot. There is no bony erosion to suggest osteomyelitis. The bones are osteopenic. There is chronic deformity of the 4th and 5th proximal phalanges which may represent old fractures. IMPRESSION: No acute bony abnormality. No bony erosion to suggest osteomyelitis. Presumed soft tissue defect in the lateral midfoot. Reviewed, Interpreted and Dictated by Titi Art III, MD Transcribed by Vibha Deal Authenticated by Titi Art III, MD on 07/07/2021 04:57:01 PM [facility]
--- NOTE | 2021-07-07 15:25 | XR_ITS ---
FINAL REPORT CLINICAL HISTORY: encounter for wound care FINDINGS: RIGHT FOOT Three views of the right foot demonstrate no acute fracture or dislocation. There are mild degenerative changes. The bones are osteopenic. There is presumed chronic fracture of the 4th proximal phalanx. The soft tissues are unremarkable. IMPRESSION: No acute bony abnormality. Reviewed, Interpreted and Dictated by Titi Art III, MD Transcribed by Vibha Deal Authenticated by Titi Art III, MD on 07/07/2021 04:45:40 PM [facility]
[2021-07-07 16:15] LABS: Basophils # 0.1 K/mm3 (0-0.2); Basophils % 1.1 % (0.1-2.0); Eosinophils # 0.3 K/mm3 (0.0-0.4); Eosinophils % 3.5 % (0.1-12.0); Hematocrit 48.7 % (42.0-52.0); Hemoglobin 14.9 g/dL (14.1-18.0); Lymphocytes # 1.7 K/mm3 (0.7-4.5); Lymphocytes % 21.4 % (10-50); Mean Corpuscular HGB Conc 30.5 g/dL (31.8-35.4); Mean Corpuscular Hemoglobin 28.5 pg (27.0-31.2); Mean Corpuscular Volume 93.4 fl (80-94); Mean Platelet Volume 7.6 fl (7.4-10.4); Monocytes # 0.6 K/mm3 (0.1-1.0); Monocytes % 6.8 % (1.7-9.3); Neutrophils # 5.4 K/mm3 (1.8-7.8); Neutrophils % 67.1 % (37.0-80.0); Platelet Count 261 K/mm3 (142-424); Red Blood Count 5.22 M/mm3 (4.60-6.20); Red Cell Distribution Width 14.9 % (11.5-17.5); White Blood Count 8.1 K/mm3 (4.8-10.8)
[2021-07-07 16:51] LABS: Erythrocyte Sedimentation Rate 18 mm/hr (0-20)
[2021-07-07 16:55] LABS: Alanine Aminotransferase 30 U/L (12-78); Albumin Level 3.9 g/dl (3.5-5.0); Albumin/Globulin Ratio 1.2 (1.1-1.8); Alkaline Phosphatase 114 U/L (38-126); Aspartate Amino Transferase 42 U/L (17-59); Bilirubin,Total 0.5 mg/dl (0.2-1.3); Blood Urea Nitrogen 23 mg/dl (9-20); Calcium 9.5 mg/dl (8.4-10.2); Carbon Dioxide 32 mmol/L (22.0-30.0); Chloride 94 mmol/L (98-107); Estimated Glomerular Filt Rate 50 ml/min (>60); GFR (African American) 60 ML/MIN (>60); Globulin 3.2 g/dL (1.3-3.2); Glucose 190 mg/dl (74-100); Sodium 135 mmol/L (136-145); Total Protein,Serum 7.1 g/dl (6.3-8.2)
[2021-07-07 16:56] LABS: Hemoglobin A1C 9.4 % (4.0-6.0)
[2021-07-07 17:00] LABS: C-Reactive Protein 42.3 mg/L (0-4)
== END ==
PROVIDERS: PCP Internal Medicine Adolescent Medicine; Visit Provider Nurse Practitioner Family
DX: Z51.89 Encounter for other specified aftercare (principal); E11.40 Type 2 diabetes mellitus with diabetic neuropathy, unspecified; A41.9 Sepsis, unspecified organism; R65.20 Severe sepsis without septic shock; Z79.4 Long term (current) use of insulin
CPT/HCPCS: 73630; 80053; 83036; 85025; 85651; 86140; 87070; 87077; 87186; 87205

== ENCOUNTER → 2021-07-07 16:00 | Outpatient (CLI) | payer MEDICARE, SELFPAY | PROVIDERS: Visit Provider Nurse Practitioner Family | DX: Z51.89 Encounter for other specified aftercare (principal) | CPT/HCPCS: 87070; 87205 ==

== ENCOUNTER → 2021-07-13 13:08 | Outpatient (CLI) | payer MEDICARE, SELFPAY ==
--- NOTE | 2021-07-13 13:08 | US_ITS ---
FINAL REPORT CLINICAL HISTORY: ULCER LATERAL LEFT FOOT X 2,LEFT LEG PAIN,DM,HLD,HX SMOKING,CAD,PT IN W/C FINDINGS: ANKLE/BRACHIAL INDICES FINDINGS: Pressure indices are as follows: RIGHT LOWER EXTREMITY: Ankle brachial pressure index: 1.22 Comments: Normal LEFT LOWER EXTREMITY: Ankle brachial pressure index: 1.03 Comments: Normal IMPRESSION: No evidence of significant obstructive peripheral vascular disease of the lower extremities. Reviewed, Interpreted and Dictated by Titi Art III, MD Transcribed by [place] Authenticated by Titi Art III, MD on 07/13/2021 02:28:24 PM [facility]
== END ==
PROVIDERS: PCP Internal Medicine Adolescent Medicine; Visit Provider Podiatrist
DX: L97.312 Non-pressure chronic ulcer of right ankle with fat layer exposed (principal)
CPT/HCPCS: 93923

== ENCOUNTER → 2021-07-19 16:40 | Outpatient (REF) | payer MEDICARE, SELFPAY | LOC: LAB.DROPOF 16:40 | PROVIDERS: Visit Provider Nurse Practitioner Family | DX: E11.40 Type 2 diabetes mellitus with diabetic neuropathy, unspecified (principal); Z79.4 Long term (current) use of insulin ==

== ENCOUNTER → 2021-07-20 06:57 | Outpatient (CLI) | payer MEDICARE, SELFPAY ==
[2021-07-20 13:55] LABS: Basophils # 0.1 K/mm3 (0-0.2); Basophils % 0.6 % (0.1-2.0); Eosinophils # 0.1 K/mm3 (0.0-0.4); Eosinophils % 0.4 % (0.1-12.0); Hematocrit 45.2 % (42.0-52.0); Hemoglobin 14.2 g/dL (14.1-18.0); Lymphocytes # 1.8 K/mm3 (0.7-4.5); Lymphocytes % 17.2 % (10-50); Mean Corpuscular HGB Conc 31.5 g/dL (31.8-35.4); Mean Corpuscular Hemoglobin 28.7 pg (27.0-31.2); Mean Corpuscular Volume 91.3 fl (80-94); Mean Platelet Volume 8.6 fl (7.4-10.4); Monocytes # 0.5 K/mm3 (0.1-1.0); Monocytes % 5.2 % (1.7-9.3); Neutrophils % 76.6 % (37.0-80.0); Platelet Count 257 K/mm3 (142-424); Red Blood Count 4.95 M/mm3 (4.60-6.20); Red Cell Distribution Width 14.3 % (11.5-17.5); White Blood Count 10.4 K/mm3 (4.8-10.8)
[2021-07-20 14:05] LABS: Alanine Aminotransferase 28 U/L (12-78); Albumin Level 3.4 g/dl (3.5-5.0); Albumin/Globulin Ratio 1.1 (1.1-1.8); Alkaline Phosphatase 118 U/L (38-126); Anion Gap 9.8 mEq/L (5-15); Aspartate Amino Transferase 31 U/L (17-59); Bilirubin,Total 0.4 mg/dl (0.2-1.3); Blood Urea Nitrogen 24 mg/dl (9-20); Carbon Dioxide 34 mmol/L (22.0-30.0); Chloride 96 mmol/L (98-107); Estimated Glomerular Filt Rate 60 ml/min (>60); GFR (African American) 72 ML/MIN (>60); Globulin 3.1 g/dL (1.3-3.2); Glucose 185 mg/dl (74-100); Potassium 4.8 mmoL/L (3.5-5.1); Sodium 135 mmol/L (136-145); Total Protein,Serum 6.5 g/dl (6.3-8.2)
== END ==
PROVIDERS: Visit Provider Nurse Practitioner Family
DX: E11.40 Type 2 diabetes mellitus with diabetic neuropathy, unspecified (principal); J02.0 Streptococcal pharyngitis; Z79.4 Long term (current) use of insulin
CPT/HCPCS: 36415; 80053; 85025; 87070; 87077; 87186